=== PATIENT | male | born 1990 | race Caucasian/White ===

== ENCOUNTER 2020-07-07 23:03 | Inpatient (IN) | payer OTHER ==
[~2020-07-07] VITALS: Ht 170.2 cm; Wt 117.9 kg
--- NOTE | 2020-07-07 23:11 | NUR ---
oscar from [facility] for large amount of blood from trach during suctioning, pt noted on lovenox per medication list. , pt to bed 8, on vent/trache, denies any sob. pt aaox4, nonverbal, able to communicate, placed on monitor. pending er provider abigail
[2020-07-07 23:26] LABS: BASOPHILS % (AUTO) 0.3 % (0.0-2.0); EOSINOPHILS % (AUTO) 1.9 % (0.0-6.0); HEMATOCRIT 21 % (39-51); LYMPHOCYTES # (AUTO) 0.9 /CMM (0.8-4.8); LYMPHOCYTES % (AUTO) 8.6 % (20.0-44.0); MEAN CORPUSCULAR HGB CONC 33 g/dl (31.0-36.0); MEAN CORPUSCULAR VOLUME 93 fL (80-96); MONOCYTES # (AUTO) 0.7 /CMM (0.1-1.30); MONOCYTES % (AUTO) 6.3 % (2.0-12.0); NEUTROPHILS # (AUTO) 8.9 /CMM (1.8-8.9); NEUTROPHILS % (AUTO) 82.9 % (43.0-81.0); PLATELET COUNT (AUTO) 243 /CMM (150-450); RED BLOOD CELL COUNT(AUTO) 2.25 MIL/uL (4.5-6.0); WHITE BLOOD COUNT (AUTO) 10.7 K/uL (4.3-11.0)
[2020-07-07 23:28] LABS: HEMOGLOBIN 6.8 g/dL (13.5-17.5)
[2020-07-07 23:41] LABS: BILIRUBIN,URINE NEGATIVE (NEGATIVE); COLOR,URINE YELLOW (YELLOW); LEUKOCYTE ESTERASE ,URINE LARGE (NEGATIVE); NITRITE, URINE NEGATIVE (NEGATIVE); PH,URINE 6.5 (5.0-8.0); PROTEIN,URINE 30 mg/dl (NEGATIVE); UGLUCOSE NEGATIVE (NEGATIVE); UROBILINOGEN,URINE 0.2 EU/dL (0.2)
[2020-07-07 23:43] LABS: OCCULT BLOOD STOOL NEGATIVE (NEGATIVE)
[2020-07-07 23:47] LABS: BACTERIA,URINE Many /HPF (None Seen); RBC,URINE 51-80 /HPF (0-2); WBC,URINE 81-100 /HPF (0-3)
[2020-07-07 23:48] LABS: CALCIUM OXALATE CRYSTALS,UR Moderate /HPF (None Seen); SQUAMOUS EPITHELIAL CELL,UR Few /HPF (None Seen)
[2020-07-07] MEDS ORDERED: CEFTRIAXONE 1GM BAG (ER ONLY) 50 ML IV ONE (23:49)
[2020-07-07] MEDS ORDERED: AZITHROMYCIN 500 MG VIAL ONE (23:49)
[2020-07-08] VITALS (7 sets, daily range): BP systolic 96–117; BP diastolic 48–76
[2020-07-08] MEDS ORDERED: AZITHROMYCIN 500 MG in IV D5W 250 ML IV ONE
[2020-07-08] MEDS ORDERED: CEFTRIAXONE 1GM BAG (ER ONLY) 1 GM/50 ML PIGGYBACK IV ONE
[2020-07-08] MEDS ORDERED: ZOLPIDEM TARTRATE 5 MG TABLET PO PRN
[2020-07-08] MEDS ORDERED: MAGNESIUM HYDROXIDE 30 ML UDC PO PRN
[2020-07-08] MEDS ORDERED: ONDANSETRON HCL/PF 4 MG/2 ML VIAL IVP PRN
[2020-07-08] MEDS ORDERED: Z GUARD REMEDY 2 OZ OINT TP PRN
[2020-07-08 00:07] LABS: ALANINE AMINOTRANSFERASE 16 U/L (12-78); ALBUMIN 1.9 g/dL (3.4-5.0); ALKALINE PHOSPHATASE 311 U/L (46-116); ASPARTATE AMINOTRANSFERASE 30 U/L (15-37); BILIRUBIN,DIRECT 0.3 mg/dL (0.0-0.2); BILIRUBIN,TOTAL 0.6 mg/dL (0.2-1.0); CARBON DIOXIDE 39 mmol/L (21-32); CHLORIDE 97 mmol/L (98-107); CREATININE 1.7 mg/dL (0.6-1.3); GLUCOSE 113 mg/dL (74-106); LIPASE 109 U/L (73-393); POTASSIUM 4.7 mmol/L (3.5-5.1); SODIUM SERUM 135 mmol/L (136-145); TOTAL PROTEIN, SERUM 6.8 g/dL (6.4-8.2); UREA NITROGEN, BLOOD 63 mg/dL (7-18)
[2020-07-08 00:09] LABS: CALCIUM, SERUM 18.3 mg/dL (8.5-10.1)
--- NOTE | 2020-07-08 00:11 | NUR ---
rapid covid negative per lab
[2020-07-08] MEDS ORDERED: ENOX40DI SQ (00:12)
[2020-07-08] MEDS ORDERED: MULT-447 GT (00:12)
[2020-07-08] MEDS ORDERED: IPRA4AER IH ×2 (00:12)
[2020-07-08] MEDS ORDERED: PANT40TA2 GT (00:13)
[2020-07-08] MEDS ORDERED: SERT50TA GT (00:13)
[2020-07-08] MEDS ORDERED: CRAN3875 GT (00:13)
[2020-07-08] MEDS ORDERED: ASCO-352 GT (00:13)
[2020-07-08] MEDS ORDERED: ZINC220C6 GT (00:13)
[2020-07-08] MEDS ORDERED: protAMINE SULFATE 10 MG/ML VIAL IV ONE ×2 (00:25)
--- NOTE | 2020-07-08 01:09 | NUR ---
BLOOD TRANSFUSION STARTED 0100; VERIFIED WITH 2ND RN.
--- NOTE | 2020-07-08 01:15 | NUR ---
REPORT GIVEN TO SANDOR ALCARAZRETAIL SALES SPECIALIST FOR JAMES; PT WILL BE TRANSPORTED TO 1ST FLOOR
[2020-07-08 01:27] LABS: EOSINOPHILS % (MANUAL) 2 % (0-4); LYMPHOCYTES % (MANUAL) 11 % (16-48); METAMYELOCYTES % 2 % (0-0); MONOCYTES % (MANUAL) 2 % (0-11.0); NEUTROPHILS % (MANUAL) 83 (42-76)
--- NOTE | 2020-07-08 01:38 | NUR ---
PT TRANSPORTED TO [facility] VIA ACLS PROTOCOL.
--- NOTE | 2020-07-08 02:00 | NUR ---
RN NOTE RECEIVED PT AT 0140 FROM ER, ALERT AND ORIENTED, NON VERBAL. ON TRACH/VENT AC 16 TV 500 FIO2 40 % AND PEEP OF 5. NO SIGNS OF DISTRESS NOTED. DENIES SOB. GT IN PLACE AND PATENT. PICC LINE ON PADMINI, BLOOD TRANSFUSION ON GOING, NO S/SX OF REACTIONS NOTED. ORTIZ IN PLACE, DRAINING URINE BY GRAVITY, CLEAR YELLOW. PT WITH MULTIPLE PRESSURE INJURIES/OPEN WOUNDS WITH MODERATE DRAINAGE. DRESSINGS CHANGED. KEPT CLEAN AND COMFORTABLE. ALL SAFETY MEASURES IMPLEMENTED PER PROTOCOL. WILL CONTINUE TO MONITOR. BP 108/62 RR 16 P 111 T 99.1 O2SAT 96 %
--- NOTE | 2020-07-08 03:00 | NUR ---
RN NOTE BLOOD TRANSFUSION ON GOING. NO S/SX OF REACTIONS NOTED. BP 100/57, T 98.5 RR 16 P 113.
--- NOTE | 2020-07-08 04:40 | NUR ---
RN NOTE BLOOD TRANSFUSION DONE, NO SIGNS OF REACTIONS NOTED. NO DISTRESS NOTED. VS STABLE. REMAIN AFEBRILE. BP 101/36 RR 16 P 115 T 98.7. WILL CONTINUE TO MONITOR.
[2020-07-08] MEDS ORDERED: IV NS 0.9% 1,000 ML IV PRN (06:30)
[2020-07-08 06:32] LABS: BASOPHILS % (AUTO) 0.3 % (0.0-2.0); EOSINOPHILS % (AUTO) 1.3 % (0.0-6.0); HEMATOCRIT 23 % (39-51); HEMOGLOBIN 7.3 g/dL (13.5-17.5); LYMPHOCYTES # (AUTO) 1.4 /CMM (0.8-4.8); LYMPHOCYTES % (AUTO) 12.7 % (20.0-44.0); MEAN CORPUSCULAR HGB CONC 33 g/dl (31.0-36.0); MEAN CORPUSCULAR VOLUME 91 fL (80-96); MONOCYTES # (AUTO) 0.8 /CMM (0.1-1.30); MONOCYTES % (AUTO) 7.3 % (2.0-12.0); NEUTROPHILS # (AUTO) 8.6 /CMM (1.8-8.9); NEUTROPHILS % (AUTO) 78.4 % (43.0-81.0); PLATELET COUNT (AUTO) 217 /CMM (150-450); RED BLOOD CELL COUNT(AUTO) 2.48 MIL/uL (4.5-6.0); WHITE BLOOD COUNT (AUTO) 10.9 K/uL (4.3-11.0)
[2020-07-08 06:54] LABS: CREATININE 1.7 mg/dL (0.6-1.3); PHOSPHORUS 4.9 mg/dL (2.5-4.9); POTASSIUM 4.6 mmol/L (3.5-5.1)
--- NOTE | 2020-07-08 07:00 | NUR ---
RN NOTE CALLED PT FACILITY [facility] FOR PT GT FEEDING. MARCO ANTONIO TONY NOTIFIED, ORDERED TO CONTINUE GT FEEDING. ORDER NOTED AND CARRIED OUT.
--- NOTE | 2020-07-08 07:05 | NUR ---
RN CLOSING NOTE PT TOLERATING VENT SETTINGS. NO SIGNS OF DISTRESS NOTED. NEEDS ATTENDED. PICC LINE REMAIN PATENT AND INTACT. TELE MONITOR SHOWS SINUS TACH AT 115. DENIES PAIN AT THIS TIME. WILL ENDORSE TO NEXT SHIFT NURSE FOR JAMES.
[2020-07-08] MEDS ORDERED: PIPERACILLIN /TAZOBACTAM 4.5 G in IV D5W 50 ML IV ONE (07:30)
--- NOTE | 2020-07-08 07:30 | NUR ---
RN OPENING NOTE VENT TRACH PT LYING IN BED SEMIFOWLER'S A/Ox2-3. ABLE TO MOUTH WORDS, NON VERBAL. VENT SETTINGS AC 16 TV 500 FIO2 40 % AND PEEP OF 5, NO SIGNS OF RESP DISTRESS OR SOB NOTED. PT DENIES SOB, SPO2 94%. GT AUSCULTATED FOR POSITIVE PLACE, FLUSHED, PATENT AND INTACT, WILL BEGIN GTUBE FEED SOON JEVITY IS AVAILABLE PER MD ORDERS. PADMINI PICC LINE FLUSHED, INTACT, AND PATENT. PT RECEIVED 1 UNIT PRBC TRANSFUSION EARLY THIS MORNING, PT H/H IMPROVED TO 7.3/23 RESPECTIVELY. ORTIZ CATH IN PLACE, DRAINING CLEAR YELLOW URINE VIA GRAVITY. PT WITH MULTIPLE PRESSURE INJURIES/OPEN WOUNDS ON SACRUM, BUTTOCKS, AND POSTERIOR BILAT LEGS. DRSGS DRY AND INTACT. ALL PT SAFETY MEASURES IMPLEMENTED PER PROTOCOL. WILL CONTINUE TO MONITOR.
[2020-07-08 07:35] LABS: CALCIUM, SERUM 17.1 mg/dL (8.5-10.1)
[2020-07-08] MEDS ORDERED: VANCOMYCIN 1.25 GM in IV D5W 250 ML IV SCH (08:00)
--- NOTE | 2020-07-08 08:00 | NUR ---
RN NOTE DR VICK INFORMED OF PT'S CA LEVEL OF 17.1 AND PT IS IN SINUS TACHY 120s WITH 99.1 F TEMP
--- NOTE | 2020-07-08 08:10 | NUR ---
WOUND CARE CONSULT: REVIEWED CHART, NURSING DOCUMENTATION AND PHOTOS WHICH INDICATE MULTIPLE WOUNDS PRESENT ON ADMISSION. RECOMMEND SURGICAL AND DPM CONSULTS. DR TOLEDO AND DR STINSON NOTIFIED OF CONSULT REQUESTS. RECOMMENDATIONS MADE FOR SKIN PROTECTION. DISCUSSED WITH NURSING STAFF. FIRST STEP LOW AIRLOSS MATTRESS IS ON ORDER. MD IN AGREEMENT WITH PLAN OF CARE.
[2020-07-08] MEDS: ACETAMINOPHEN 325 MG TABLET PO PRN ×3 (09:00→20:29)
--- NOTE | 2020-07-08 09:00 | NUR ---
RN NOTE PT LOW GRADE FEVER NOTED, TYLENOL 650MG AND COOLING MEASURES IMPLEMENTED
[2020-07-08] MEDS ORDERED: POVI3780 TP (09:02)
[2020-07-08] MEDS ORDERED: CHLO473M5 MM (09:02)
[2020-07-08] MEDS ORDERED: EPOE40007 SQ (09:02)
[2020-07-08] MEDS ORDERED: SILV20CR13 TP (09:02)
[2020-07-08] MEDS ORDERED: ACET-2605 GT (09:02)
[2020-07-08] MEDS ORDERED: NA P133E RC (09:02)
[2020-07-08] MEDS ORDERED: MAGN400O6 GT ×2 (09:02)
[2020-07-08] MEDS ORDERED: POLY17PO4 GT (09:02)
[2020-07-08] MEDS ORDERED: ACET-868 GT (09:02)
[2020-07-08] MEDS ORDERED: ALLA266C2 TP (09:02)
[2020-07-08] MEDS: GLUCERNA 1.2 1,000 ML BOTTLE GT PRN (09:41)
[2020-07-08] MEDS: IV NS 0.9% 1,000 ML IV SCH ×2 (11:00→16:33)
--- NOTE | 2020-07-08 13:15 | NUR ---
RN NOTE REPORT GIVEN TO MELYSSA ALCARAZ AT RECEIVING FACILITY
[2020-07-08 13:58] LABS: ABG BASE EXCESS 10.7 mmol/L; ABG OXYGEN SATURATION 95.5 % (92.0-98.5); ABG PCO2 45.4 mmHg (35.0-45.0); ABG PH 7.503 (7.350-7.450); ABG PO2 76.3 mmHg (75.0-100.0); AaDO2 156.7 mmHg; COHb 1.6 % (0.5-1.5); SITE, ABG Left Radial; VENT MODE, BG AC 16 500 40% +5
[2020-07-08] MEDS: CALCITONIN,SALMON,SYNTHETIC 3.7 ML SPRAY.PUMP NS SCH (14:33)
--- NOTE | 2020-07-08 14:39 | NUR ---
RN NOTE PT REPORT GIVEN TO EMT. PT IN STABLE CONDITION FOR DISCHARGE
[2020-07-08] MEDS: PIPERACILLIN /TAZOBACTAM 3.375 G in IV D5W 100 ML IV SCH ×2 (14:45→22:54)
[2020-07-08] MEDS: SILVER SULFADIAZINE 50 GM JAR TP SCH (15:57)
[2020-07-08] MEDS: HYDROCODONE/APAP 5/325MG TABLET PO PRN (16:33)
[2020-07-08] MEDS ORDERED: CALCITONIN,SALMON INJ 400 UNITS/2 ML VIAL SQ SCH (17:00)
--- NOTE | 2020-07-08 17:00 | NUR ---
RN NOTE PT TEMP 100.3 F, NORCO 5/325 GIVEN FOR PAIN, WILL GIVE TYLENOL 650 SHORTLY, COOLING MEASURES IN PLACE
--- NOTE | 2020-07-08 19:17 | NUR ---
RN CLOSING NOTE PT IN STABLE CONDITION ON VENT SETTINGS PER MD ORDER. NO CHANGES TO PT DURING SHIFT. PT CONSENT OBTAINED FOR BLE WOUND DERBRIDEMENT WHILE WAS HERE. ALL PT SAFETY PRECAUTIONS IN PLACE, JAMES ENDORSED TO ONCOMING RN
[2020-07-08] MEDS: DAKINS QUARTER STRENGTH (0.125%) 480 ML BOTTLE TOP SCH (19:23)
--- NOTE | 2020-07-08 19:30 | NUR ---
RN OPENING NOTES: RECEIVED PT A/OX3 IN BED RESTING COMFORTABLY.PATIENT IN NO S/SX OF ACUTE DISTRESS AT THIS TIME. NO SOB NOTED. PATIENT'S BREATHING IS EVEN AND UNLABORED. PATIENT ON MECHANICAL VENT; SETTINGS PRESCRIBED; PT TOLERATED WELL. AMBU BAG AT BED SIDE ALARMS SET PER PROTOCOL AND AUDIBLE. VENT PLUGGED IN TO RED OUTLET. NO DISTRESS NOTED. PT ON MS STATUS. G TUBE FLUSHING AND PATENT; SITE CLEAN DRY AND INTACT; NO RESIDUAL NOTED; CONNECTED TO FEEDING OF GLUCERNA 1.2 CURRENTLY RUNNING @45ML/HR (GOAL @65ML/HR);TOLERATES WELL. NOTED IV SITE ON L UA PICC ; PATENT, INTACT AND FLUSHING WELL; NO S/S OF INFECTION OR INFILTRATION. WITH IV FLUID RUNNING ORDERED. ORTIZ CATH IN PLACE, MODERATE URINE OUTPUT NOTED SAFETY MEASURES HAVE BEEN PROVIDED AND IMPLEMENTED. PATIENT BED ALARM IS ON. HEAD OF BED ELEVATED. BED IS LOCKED, IN LOWEST POSITION AND SIDE RAILS UP. CALL LIGHT WITHIN REACH OF THE PATIENT. APPLICABLE ISOLATION PRECAUTIONS IN PLACE. WILL CONTINUE TO MONITOR AND REASSESS FOR ANY CHANGES AND WILL CARRY OUT ANY ONGOING AND ACTIVE MD ORDER.
[2020-07-08] MEDS ORDERED: VANCOMYCIN 1 GM in IV D5W 250 ML IV SCH (20:00)
[2020-07-08] MEDS: VANCOMYCIN HCL 0.75 GM in IV D5W 250 ML IV SCH (20:27)
--- NOTE | 2020-07-08 20:30 | NUR ---
NOTES NOTED PT'S TEMP 99.8@1999. PRN MEDS GIVEN AND COOLING MEASURES PROVIDED. SERVOMECHANISM DESIGNER MADE AWARE. WILL RE-EVALUATE AFTER 30 MINUTES- 1 HOUR. WILL CONTINUE TO MONITOR
[2020-07-08] MEDS ORDERED: CEFTRIAXONE 1 G in IV D5W 50 ML IV SCH (21:00)
--- NOTE | 2020-07-08 21:51 | NUR ---
RN NOTES PATIENT'S FAMILY CALLED TO GET UPDATES. SPOKE WITH ([phone]), PROVIDED GENERAL UPDATES ABOUT PT'S CONDITION. ADVISED PT'S RELATIVE TO CALLBACK IN THE MORNING TO TALK TO MD FOR MORE SPECIFIC INFO ABOUT TREATMENT PLAN. ASSURED PATIENT RELATIVE THAT WILL KEEP THEM POSTED FOR ANY SUDDEN CHANGES TO PT'S CONDITION. FAMILY VERY THANKFUL ABOUT CARE BEING PROVIDED TO THE PATIENT. RN ACKNOWLEDGED.
--- NOTE | 2020-07-08 23:00 | NUR ---
RN NOTES NO CHANGE IN PATIENT CONDITION AT THIS TIME PATIENT VITALS STABLE, NO SIGNS OF ACUTE RESPIRATORY DISTRESS. WILL CONTINUE TO MONITOR AND REASSESS FOR ANY CHANGES THROUGHOUT THE SHIFT.
[2020-07-09] VITALS (9 sets, daily range): BP systolic 102–117; BP diastolic 51–71
[2020-07-09] MEDS: IV NS 0.9% 1,000 ML IV SCH ×2 (00:20→07:00)
[2020-07-09] MEDS: HYDROCODONE/APAP 5/325MG TABLET PO PRN ×2 (02:49→17:07)
[2020-07-09] MEDS: PIPERACILLIN /TAZOBACTAM 3.375 G in IV D5W 100 ML IV SCH ×3 (06:05→23:03)
[2020-07-09 06:34] LABS: BASOPHILS % (AUTO) 0.5 % (0.0-2.0); EOSINOPHILS % (AUTO) 3.3 % (0.0-6.0); LYMPHOCYTES # (AUTO) 1.3 /CMM (0.8-4.8); LYMPHOCYTES % (AUTO) 14.6 % (20.0-44.0); MEAN CORPUSCULAR HGB CONC 33 g/dl (31.0-36.0); MEAN CORPUSCULAR VOLUME 91 fL (80-96); MONOCYTES # (AUTO) 0.7 /CMM (0.1-1.30); MONOCYTES % (AUTO) 7.9 % (2.0-12.0); NEUTROPHILS # (AUTO) 6.5 /CMM (1.8-8.9); NEUTROPHILS % (AUTO) 73.7 % (43.0-81.0); PLATELET COUNT (AUTO) 179 /CMM (150-450); WHITE BLOOD COUNT (AUTO) 8.8 K/uL (4.3-11.0)
--- NOTE | 2020-07-09 06:35 | NUR ---
RN NOTES PATIENT REMAINS IN NO ACUTE RESPIRATORY DISTRESS AT THIS TIME, NO CHANGES TO CONDITION/STATUS. AM PATIENT CARE DONE. WILL CONTINUE TO MONITOR AND REASSESS FOR ANY CHANGES THROUGHOUT THE SHIFT
[2020-07-09 06:45] LABS: HEMOGLOBIN 6.2 g/dL (13.5-17.5)
[2020-07-09 06:46] LABS: HEMATOCRIT 19 % (39-51)
--- NOTE | 2020-07-09 06:47 | NUR ---
RN NOTES RECEIVED CRITICAL LAB FROM LAB, SPOKE WITH JOSIE H&H 6.2 AND 19. WILL INFORM KENZIE HAWKINS AND CARRY OUT ORDER REQUESTED. COMMUNICATED WITH KENZIE HAWKINS AND ADVISED ABOUT C. LAB FOR H&H 6.2 AND 19. KENZIE HAWKINS ORDERED 1 UNIT PRBC. WILL CARRY OUT ORDER REQUESTED.
--- NOTE | 2020-07-09 07:00 | NUR ---
RN CLOSING NOTE: PATIENT REMAINS IN ROOM IN NO SIGNS OF RESPIRATORY DISTRESS; STILL ON VENT SETTING PER ORDERED. SAFETY MEASURES IMPLEMENTED, BED IN LOWEST POSITION, LOCKED, SIDE RAILS UP, CALL LIGHT WITHIN REACH. ALL NEEDS AND ORDERS ADDRESSED DURING THE SHIFT. IV ACCESS MAINTAINED INTACT, SECURED AND FLUSHING WELL. ALL DUE MEDS GIVEN ORDERED & SCHEDULED ; PATIENT TOLERATED WELL. PATIENT KEPT CLEAN AND COMFORTABLE WITHIN THE SHIFT. PATIENT ENDORSED TO INCOMING SHIFT RN WITH STABLE VITAL SIGN AND FOR CONTINUITY OF CARE.
--- NOTE | 2020-07-09 07:30 | NUR ---
RN OPENING NOTE VENT TRACH PT LYING IN BED SEMIFOWLER'S A/Ox2-3. ABLE TO MOUTH WORDS, NON VERBAL. VENT SETTINGS AC 12 TV 500 FIO2 40 % AND PEEP OF 5, NO SIGNS OF RESP DISTRESS OR SOB NOTED. PT DENIES SOB, SPO2 96%. GT AUSCULTATED FOR POSITIVE PLACE, FLUSHED, PATENT AND INTACT, JEVITY 1.2 @ 55ML/HR WITH NO RESIDUALS WILL INCREASE TO GOAL RATE 65 ML/HR. PADMINI PICC LINE FLUSHED, INTACT, AND PATENT. PT H/H CURRENTLY 6.04/15 RESPECTIVELY, WILL INFORM MD. ORTIZ CATH IN PLACE, DRAINING CLEAR YELLOW URINE VIA GRAVITY. PT WITH MULTIPLE PRESSURE INJURIES/OPEN WOUNDS ON SACRUM, BUTTOCKS, AND POSTERIOR BILAT LEGS. DRSGS DRY AND INTACT. ALL PT SAFETY MEASURES IMPLEMENTED PER PROTOCOL. WILL CONTINUE TO MONITOR.
[2020-07-09 07:41] LABS: ALBUMIN 1.5 g/dL (3.4-5.0); BILIRUBIN,TOTAL 0.5 mg/dL (0.2-1.0); CREATININE 1.8 mg/dL (0.6-1.3); MAGNESIUM 1.6 mg/dL (1.8-2.4); PHOSPHORUS 4.7 mg/dL (2.5-4.9); POTASSIUM 3.9 mmol/L (3.5-5.1); TOTAL PROTEIN, SERUM 5.7 g/dL (6.4-8.2)
[2020-07-09 07:46] LABS: CALCIUM, SERUM 13.8 mg/dL (8.5-10.1)
[2020-07-09 08:22] LABS: EOSINOPHILS % (MANUAL) 2 % (0-4); LYMPHOCYTES % (MANUAL) 15 % (16-48); MONOCYTES % (MANUAL) 8 % (0-11.0); NEUTROPHILS % (MANUAL) 75 (42-76)
--- NOTE | 2020-07-09 08:28 | NUR ---
RN NOTE INFORMED DR VICK OF PT'S H/H OF 6.04/15
[2020-07-09] MEDS: VANCOMYCIN HCL 0.75 GM in IV D5W 250 ML IV SCH ×2 (09:12→19:34)
[2020-07-09] MEDS: CALCITONIN,SALMON,SYNTHETIC 3.7 ML SPRAY.PUMP NS SCH (09:13)
[2020-07-09] MEDS: DAKINS QUARTER STRENGTH (0.125%) 480 ML BOTTLE TOP SCH (09:14)
[2020-07-09] MEDS: THERAHONEY GEL 1.5 OZ TUBE TP SCH (09:14)
[2020-07-09] MEDS ORDERED: Magnesium 1GM/D5W 100ML PREMIX 100 ML IV SCH (09:30)
[2020-07-09] MEDS: ACETAMINOPHEN 325 MG TABLET PO PRN (10:27)
[2020-07-09] MEDS: IV NS 0.9% 1,000 ML IV PRN ×2 (13:23→20:10)
--- NOTE | 2020-07-09 14:10 | NUR ---
RN NOTE PT TRANSFUSED 1 UNIT PRBC WITH NO COMPLICATIONS. PT VITALS WNL, PT STABLE ON ORDERED VENT SETTINGS WITH NO S/S OF SOB OR RESP DISTRESS. ALL PT SAFETY PRECAUTIONS IN PLACE, WILL CONT TO MONITOR
[2020-07-09] MEDS: GLUCERNA 1.2 1,000 ML BOTTLE GT PRN (15:40)
--- NOTE | 2020-07-09 19:00 | NUR ---
RN CLOSING NOTE PT TRANSFUSED 1 UNIT PRBC TODAY, TOLERATED WELL, F/U H/H TOMORROW. PT ON VENT SETTINGS PER MD ORDER, TOLERATING WELL, NO S/S OF SOB OR RESP DEPRESSION, SPO2 96%. ALL PT SAFETY PRECAUTIONS IN PLACE, WILL ENDORSE JAMES TO ONCOMING NURSE
--- NOTE | 2020-07-09 19:35 | NUR ---
MED NOTE: VANCOMYCIN HELD LEVEL IS 27.
[2020-07-10] VITALS: BP 115/61
[2020-07-10 04:00] VITALS: BP 120/60
[2020-07-10] MEDS: IV NS 0.9% 1,000 ML IV PRN (04:43)
[2020-07-10] MEDS: PIPERACILLIN /TAZOBACTAM 3.375 G in IV D5W 100 ML IV SCH ×3 (06:00→22:46)
[2020-07-10] MEDS: HYDROCODONE/APAP 5/325MG TABLET PO PRN ×2 (06:07→20:47)
--- NOTE | 2020-07-10 07:20 | NUR ---
RN OPENING NOTES RECEIVED PT RESTING IN BED, AWAKE. A/O X2-3. ABLE TO MOUTH WORDS. ON TRACH CONNECTED TO [facility] VENT, SETTINGS AC 12, TV 500, FIO2 40%, AND PEEP 5. TOLERATING VENT SETTINGS WELL. BED ON SEMI ALLRED'S. GT AUSCULTATED FOR POSITIVE PLACEMENT, RUNNING JEVITY 1.2 @55ML/HR WITH NO RESIDUALS. PADMINI PICC LINE INTACT, AND PATENT, RUNNING NS @150ML/HR. ORTIZ CATH IN PLACE DRAINING CLEAR YELLOW URINE VIA GRAVITY. SAFETY MEASURES IMPLEMENTED. CALL LIGHT WITHIN REACH. BED LOCKED AND AT LOWEST POSITION WITH SIDE RAILS UP X3. WILL CONTINUE TO MONITOR.
[2020-07-10 08:00] VITALS: BP 104/55
[2020-07-10 08:20] LABS: ALBUMIN 1.6 g/dL (3.4-5.0); BILIRUBIN,TOTAL 0.5 mg/dL (0.2-1.0); CREATININE 2.1 mg/dL (0.6-1.3); POTASSIUM 4.1 mmol/L (3.5-5.1); TOTAL PROTEIN, SERUM 6.2 g/dL (6.4-8.2)
[2020-07-10 08:21] LABS: CALCIUM, SERUM 14.6 mg/dL (8.5-10.1)
[2020-07-10] MEDS: GLUCERNA 1.2 1,000 ML BOTTLE GT PRN (09:34)
[2020-07-10] MEDS: SILVER SULFADIAZINE 50 GM JAR TP SCH (09:35)
[2020-07-10] MEDS: DAKINS QUARTER STRENGTH (0.125%) 480 ML BOTTLE TOP SCH (09:35)
[2020-07-10] MEDS: THERAHONEY GEL 1.5 OZ TUBE TP SCH (09:35)
[2020-07-10] MEDS: CALCITONIN,SALMON,SYNTHETIC 3.7 ML SPRAY.PUMP NS SCH (09:35)
[2020-07-10] MEDS: IV NS 0.9% 1,000 ML IV SCH ×2 (10:05→20:46)
[2020-07-10 10:54] LABS: ABG BASE EXCESS 8.1 mmol/L; ABG OXYGEN SATURATION 92.5 % (92.0-98.5); ABG PCO2 52.5 mmHg (35.0-45.0); ABG PH 7.425 (7.350-7.450); AaDO2 156.8 mmHg; COHb 0.9 % (0.5-1.5); MetHb 0.7 % (0.0-1.5); PEEP,BG 5 cm H2O; SITE, ABG Left Radial; VT, ABG 500 mL
[2020-07-10 12:00] VITALS: BP 125/64
[2020-07-10] MEDS: ALBUTEROL FS 2.5 MG/0.5 ML VIAL.NEB NEB SCH ×4 (12:00→23:30)
[2020-07-10 13:24] LABS: BASOPHILS # (AUTO) 0.1 /CMM (0.0-0.2); BASOPHILS % (AUTO) 0.9 % (0.0-2.0); HEMATOCRIT 23 % (39-51); HEMOGLOBIN 7.5 g/dL (13.5-17.5); LYMPHOCYTES # (AUTO) 1.4 /CMM (0.8-4.8); LYMPHOCYTES % (AUTO) 12.5 % (20.0-44.0); MEAN CORPUSCULAR HGB CONC 33 g/dl (31.0-36.0); MEAN CORPUSCULAR VOLUME 91 fL (80-96); MONOCYTES # (AUTO) 0.6 /CMM (0.1-1.30); MONOCYTES % (AUTO) 5.6 % (2.0-12.0); NEUTROPHILS # (AUTO) 8.4 /CMM (1.8-8.9); PLATELET COUNT (AUTO) 207 /CMM (150-450); WHITE BLOOD COUNT (AUTO) 10.9 K/uL (4.3-11.0)
[2020-07-10] MEDS: JEVITY 1.2 CAL 1,000 ML BOTTLE GT PRN (15:26)
[2020-07-10 16:00] VITALS: BP 108/52
--- NOTE | 2020-07-10 18:48 | NUR ---
RN CLOSING NOTES NO SIGNIFICANT CHANGES DURING SHIFT. TOLERATING VENT SETTINGS WELL. NO S/S OF RESPIRATORY DISTRESS. ALL DUE MEDS GIVEN. NEEDS ATTENDED. SAFETY MEASURES STILL IN PLACE. WILL ENDORSE TO NIGHT RN FOR JAMES.
[2020-07-10 20:00] VITALS: BP 115/53
[2020-07-11] MEDS: ALBUTEROL FS 2.5 MG/0.5 ML VIAL.NEB NEB SCH ×5 (03:43→19:47)
[2020-07-11 04:00] VITALS: BP 108/50
[2020-07-11] MEDS: HYDROCODONE/APAP 5/325MG TABLET PO PRN ×3 (05:13→14:45)
[2020-07-11] MEDS: IV NS 0.9% 1,000 ML IV SCH (06:03)
[2020-07-11 07:06] LABS: *SPE A/G RATIO 0.6 (0.7-1.7); *SPE ALBUMIN 2.2 g/dL (2.9-4.4); *SPE ALPHA-1-GLOBULIN 0.5 g/dL (0.0-0.4); *SPE ALPHA-2-GLOBULIN 0.9 g/dL (0.4-1.0); *SPE BETA GLOBULIN 0.7 g/dL (0.7-1.3); *SPE GLOBULIN, TOTAL 3.7 g/dL (2.2-3.9); *SPE M-SPIKE 0.2 g/dL (Not Observed); *SPEGAMMA GLOBULIN 1.6 g/dL (0.4-1.8)
--- NOTE | 2020-07-11 07:20 | NUR ---
SACK CLEANER OPENING NOTES RECEIVED REPORT FROM PM NURSE.PT IN BED, AWAKE. A/O X2-3. ABLE TO MOUTH WORDS. HAS TRACH TO MECH VENT, TOLERATING VENT SETTINGS WELL. BED ON SEMI ALLRED'S POSITION. GT AUSCULTATED FOR POSITIVE PLACEMENT, RUNNING JEVITY 1.2 @55ML/HR WITH 15 RESIDUALS. PADMINI PICC LINE INTACT, AND PATENT, RUNNING NS . ORTIZ CATH IN PLACE DRAINING CLEAR YELLOW URINE VIA GRAVITY. SAFETY MEASURES IMPLEMENTED. CALL LIGHT WITHIN REACH. BED LOCKED AND AT LOWEST POSITION WITH SIDE RAILS UP X3. BED ALARM ON.WILL CONTINUE TO MONITOR.
[2020-07-11 07:38] LABS: ALBUMIN 1.5 g/dL (3.4-5.0); BILIRUBIN,TOTAL 0.5 mg/dL (0.2-1.0); CREATININE 2.2 mg/dL (0.6-1.3)
[2020-07-11 07:50] LABS: CALCIUM, SERUM 14.6 mg/dL (8.5-10.1)
[2020-07-11] MEDS: PIPERACILLIN /TAZOBACTAM 3.375 G in IV D5W 100 ML IV SCH (07:51)
[2020-07-11 08:00] VITALS: BP 109/56
[2020-07-11 08:03] LABS: BASOPHILS % (AUTO) 0.5 % (0.0-2.0); EOSINOPHILS % (AUTO) 3.9 % (0.0-6.0); HEMATOCRIT 21 % (39-51); LYMPHOCYTES # (AUTO) 1.3 /CMM (0.8-4.8); LYMPHOCYTES % (AUTO) 12.8 % (20.0-44.0); MEAN CORPUSCULAR HGB CONC 33 g/dl (31.0-36.0); MEAN CORPUSCULAR VOLUME 90 fL (80-96); MONOCYTES # (AUTO) 0.6 /CMM (0.1-1.30); MONOCYTES % (AUTO) 6.5 % (2.0-12.0); NEUTROPHILS # (AUTO) 7.5 /CMM (1.8-8.9); NEUTROPHILS % (AUTO) 76.3 % (43.0-81.0); PLATELET COUNT (AUTO) 184 /CMM (150-450); RED BLOOD CELL COUNT(AUTO) 2.36 MIL/uL (4.5-6.0); WHITE BLOOD COUNT (AUTO) 9.8 K/uL (4.3-11.0)
[2020-07-11] MEDS: CALCITONIN,SALMON,SYNTHETIC 3.7 ML SPRAY.PUMP NS SCH (08:05)
[2020-07-11] MEDS: DAKINS QUARTER STRENGTH (0.125%) 480 ML BOTTLE TOP SCH (08:07)
[2020-07-11] MEDS: SILVER SULFADIAZINE 50 GM JAR TP SCH (08:07)
[2020-07-11] MEDS: THERAHONEY GEL 1.5 OZ TUBE TP SCH (08:08)
[2020-07-11 09:00] LABS: BAND % (MANUAL) 4 % (0.0-5.0); EOSINOPHILS % (MANUAL) 8 % (0-4); LYMPHOCYTES % (MANUAL) 14 % (16-48); MONOCYTES % (MANUAL) 2 % (0-11.0); MYELOCYTES % 1 % (0-0); NEUTROPHILS % (MANUAL) 71 (42-76)
--- NOTE | 2020-07-11 10:00 | NUR ---
RN NOTE SEEN BY ,UPDATED ABOUT PATIENT CONDITION WITH LABS.MADE AWARE ABOUT MED RECONCILIATION.WILL CONTINUE TO MONITOR.
[2020-07-11 12:00] VITALS: BP 110/56
[2020-07-11] MEDS ORDERED: DOSING PER PHARMACY-AMIKACI IV XX PRN (12:30)
[2020-07-11] MEDS: JEVITY 1.2 CAL 1,000 ML BOTTLE GT PRN (13:03)
[2020-07-11] MEDS ORDERED: FUROSEMIDE 20 MG/2 ML VIAL IV ONE (13:30)
[2020-07-11] MEDS ORDERED: PAMIDRONATE 90 MG in IV NS 0.9% 500 ML IV ONE (14:00)
[2020-07-11 16:00] VITALS: BP 104/52
--- NOTE | 2020-07-11 17:00 | NUR ---
NURSE PRIVATE DUTY NOTE PATIENT REFUSED TO CHANGE ORTIZ CATH.TOLD HE WANT TO DO IT LATER.WILL TRY LATER.
[2020-07-11] MEDS: AMIKACIN 500 MG in IV D5W 100 ML IV SCH (17:47)
[2020-07-11] MEDS: IV NS 0.9% 1,000 ML IV PRN (17:48)
--- NOTE | 2020-07-11 18:20 | NUR ---
WASHHOUSE HAND CLOSING NOTES PT IN BED, AWAKE. A/O X2-3. ABLE TO MOUTH WORDS. [facility]ACH [facility], TOLERATING VENT SETTINGS WELL. BED ON SEMI ALLRED'S POSITION. GT AUSCULTATED FOR POSITIVE PLACEMENT, RUNNING JEVITY 1.2 @55ML/HR . PADMINI PICC LINE INTACT, AND PATENT, RUNNING NS . ORTIZ CATH IN PLACE DRAINING CLEAR YELLOW URINE VIA GRAVITY. SAFETY MEASURES IMPLEMENTED. CALL LIGHT WITHIN REACH. BED LOCKED AND AT LOWEST POSITION WITH SIDE RAILS UP X3. BED ALARM ON.REFUSED TO CHANGE ORTIZ CATH.WILL ENDORSE TO PM NURSE FOR JAMES.
[2020-07-11 20:00] VITALS: BP 120/66
--- NOTE | 2020-07-11 20:00 | NUR ---
DRAW TENDER NOTE PT IN BED AWAKE. A/O X 3. ON VENT/TRACH TOLERATING THE SETTINGS WELL. SUCTIONED HIM NEEDED. STILL NOTED PT WITH DARKISH REDISH SECRETIONS ON SUCTIONED. NO DISTRESS OR DISCOMFORT NOTED. NO S/S OF PAIN NOTED. ON TELE SR HR 94. GTF GLUCERNA INFUSING AT 65 ML/HR, 0 ML RESIDUAL NOTED. PADMINI PICC LINE INTACT AND PATENT INFUSING NS @ 100 ML/HR. REPOSITIONED HIM FOR SKIN MANAGEMENT. KEPT HIM DRY AND CLEAN. VSS. CONTINUE TO MONITOR HIM. SIDE RAILS UP X 3 CALL LIGHT WITHIN REACH. Addendum: 07/12/20 at 0613 by NIKITA JEFFERS RN not glucerna it's jevity 1.2 anurag infusing.
--- NOTE | 2020-07-11 20:30 | NUR ---
MEDICAL VOUCHER CLERK NOTE PT REFUSED TO CHANGE F/C. TRIED TO CONVINCE HIM X3 BUT UNABLE TO CONVINCED HIM.
[2020-07-12] VITALS (10 sets, daily range): BP systolic 118–138; BP diastolic 53–74
[2020-07-12] MEDS: ALBUTEROL FS 2.5 MG/0.5 ML VIAL.NEB NEB SCH ×8 (00:22→23:30)
[2020-07-12] MEDS: JEVITY 1.2 CAL 1,000 ML BOTTLE GT PRN (05:30)
[2020-07-12] MEDS: IV NS 0.9% 1,000 ML IV PRN ×2 (05:30→15:11)
[2020-07-12 06:31] LABS: BASOPHILS % (AUTO) 0.3 % (0.0-2.0); EOSINOPHILS % (AUTO) 3.6 % (0.0-6.0); HEMATOCRIT 21 % (39-51); LYMPHOCYTES # (AUTO) 1.4 /CMM (0.8-4.8); LYMPHOCYTES % (AUTO) 12.1 % (20.0-44.0); MEAN CORPUSCULAR HGB CONC 32 g/dl (31.0-36.0); MEAN CORPUSCULAR VOLUME 91 fL (80-96); MONOCYTES # (AUTO) 0.7 /CMM (0.1-1.30); MONOCYTES % (AUTO) 5.9 % (2.0-12.0); NEUTROPHILS # (AUTO) 9.3 /CMM (1.8-8.9); NEUTROPHILS % (AUTO) 78.1 % (43.0-81.0); PLATELET COUNT (AUTO) 199 /CMM (150-450); RED BLOOD CELL COUNT(AUTO) 2.34 MIL/uL (4.5-6.0); WHITE BLOOD COUNT (AUTO) 11.9 K/uL (4.3-11.0)
--- NOTE | 2020-07-12 06:42 | NUR ---
TRUCK JUMPER NOTE PT IN BED NO CHANGE IN CONDITION. TOLERATING VENT SETTINGS WELL. SMALL AMOUNT OF DARK REDDISH COLOR SECRETIONS NOTED ON SUCTIONING. NO DISTRESS OR DISCOMFORT NOTED. ON TELE ST HR 107. KEPT HIM DRY AND CLEAN. BED BATH GIVEN. ALSO CHANGED THE WOUND DRESSINGS. ALL NEEDS ATTENDED. GTF AND IVF INFUSING WELL. SIDE RAILS UP X 3 AND CALL LIGHT WITHIN REACH. WILL ENDORSE TO DAY SHIFT NURSE FOR CONTINUE TO CARE.
[2020-07-12 06:54] LABS: ALBUMIN 1.6 g/dL (3.4-5.0); BILIRUBIN,TOTAL 0.4 mg/dL (0.2-1.0); CREATININE 2.2 mg/dL (0.6-1.3); POTASSIUM 4.3 mmol/L (3.5-5.1); TOTAL PROTEIN, SERUM 6.3 g/dL (6.4-8.2)
--- NOTE | 2020-07-12 07:00 | NUR ---
RN NOTES RECEIVED PT ON BED, VENT/TRACH DEPENDENT, TRACH CARE DONE, PT IS A/Ox3, ON TELE SR-ST, TF AT 65CC/HR RUNNING , NO RESIDUAL NOTED, NS AT 100CC/HR RUNNING VIA L UPPER ARM PICC LINE , SITE, CLEAN, DRY INTACT, SR UP x3, CALL LIGHT WITHIN EASY REACH, BED LOCKED AND IN LOWEST POSITION, CONTINUE TO MONITOR.
[2020-07-12 07:21] LABS: CALCIUM, SERUM 14.7 mg/dL (8.5-10.1)
[2020-07-12 07:33] LABS: HEMOGLOBIN 6.8 g/dL (13.5-17.5)
[2020-07-12] MEDS: DAKINS QUARTER STRENGTH (0.125%) 480 ML BOTTLE TOP SCH (10:09)
[2020-07-12] MEDS: SILVER SULFADIAZINE 50 GM JAR TP SCH (10:10)
[2020-07-12] MEDS: THERAHONEY GEL 1.5 OZ TUBE TP SCH (10:12)
[2020-07-12] MEDS: AMIKACIN 500 MG in IV D5W 100 ML IV SCH (12:28)
--- NOTE | 2020-07-12 14:10 | NUR ---
RN NOTES ONE UNIT OF PRBC INFUSED , PT TOLERATED WELL, NO COMPLICATION NOTED,
--- NOTE | 2020-07-12 15:29 | NUR ---
RN NOTES REPORT GIVEN TO CAROL ALCARAZ FOR CONTINITUY OF CARE
[2020-07-12] MEDS: ACETAMINOPHEN 325 MG TABLET PO PRN (15:33)
--- NOTE | 2020-07-12 15:43 | NUR ---
RN NOTE PT TEMP OF 100.2 F, TYLENOL 650MG AND COOLING MEASURES IN PLACE
--- NOTE | 2020-07-12 15:44 | NUR ---
RN NOTE PT CARE TRANSFERRED OVER, REPORT GIVEN BY BYRON ALCARAZ
[2020-07-12] MEDS: HYDROCODONE/APAP 5/325MG TABLET PO PRN (17:53)
--- NOTE | 2020-07-12 19:00 | NUR ---
RN CLOSING NOTE PT IN STABLE CONDITION. WOUND CARE PROVIDED PER MD ORDERS. PT ON VENT SETTINGS PER MD ORDERS, TOLERATING WELL. PT RECEIVED 1 UNIT PRBC PRIOR TO BEING TRANSFERRED CARE TO [place], NO COMPLICATIONS. ALL PT SAFETY PRECAUTIONS IN PLACE, WILL ENDORSE JAMES TO ONCOMING RN
--- NOTE | 2020-07-12 19:10 | NUR ---
RECEIVED PT ON BED AWAKE AA/O X3 ON TRACH/VENT SETTING PER MD FIO2 50% SPO2 98% NO RESPIRATORY DISTRESS NOTED, BLOOD TINGE SECRETION STILL NOTED RT AND MD AWARE, TELE MONITOR READS SINUS TACHY 110'S HAVE GTUBE PLACEMENT CHECK RESIDUAL 10ML WITH ONGOING JEVITY @ 65ML/HR TOLERATING WELL, HAVE PADMINI PICC LINE WITH ONGOING NS @ 75ML/HR INFUSING WELL, BED ON LOWEST POSITION AND LOCKED HAVE ORTIZ WITH YELLOW URINE DRAINING VIA GRAVITY, CALL LIGHT WITHIN REACH WILL CONT TO MONITOR
--- NOTE | 2020-07-12 20:00 | NUR ---
PT IS COMPLAINING OF GENERALIZED BODY PAIN DESPITE GETTING NORCO @ 1830 REPORTED IT TO ONCAMIRAH HAU SHANK SCOURER WITH ORDER FOR MORPHINE 4MG X1 NOTED AND CARRIED OUT
[2020-07-12] MEDS ORDERED: MORPHINE SULFATE INJ 4 MG/ML DISP.SYRIN IV ONE (20:30)
[2020-07-13] VITALS: BP 127/70
[2020-07-13] MEDS: HYDROCODONE/APAP 5/325MG TABLET PO PRN (01:06)
[2020-07-13] MEDS: IV NS 0.9% 1,000 ML IV PRN ×2 (02:31→16:25)
[2020-07-13] MEDS: MORPHINE SULFATE INJ 2 MG/ML DISP.SYRIN IV PRN ×4 (02:35→23:08)
[2020-07-13] MEDS: JEVITY 1.2 CAL 1,000 ML BOTTLE GT PRN ×2 (02:36→16:17)
[2020-07-13] MEDS: ALBUTEROL FS 2.5 MG/0.5 ML VIAL.NEB NEB SCH ×5 (03:29→20:12)
[2020-07-13 04:00] VITALS: BP 110/61
[2020-07-13] MEDS: AMIKACIN 500 MG in IV D5W 100 ML IV SCH (05:13)
[2020-07-13 05:51] LABS: BASOPHILS % (AUTO) 0.4 % (0.0-2.0); EOSINOPHILS % (AUTO) 2.8 % (0.0-6.0); HEMATOCRIT 24 % (39-51); HEMOGLOBIN 7.9 g/dL (13.5-17.5); LYMPHOCYTES # (AUTO) 1.1 /CMM (0.8-4.8); LYMPHOCYTES % (AUTO) 10.4 % (20.0-44.0); MEAN CORPUSCULAR HGB CONC 32 g/dl (31.0-36.0); MEAN CORPUSCULAR VOLUME 91 fL (80-96); MONOCYTES # (AUTO) 0.5 /CMM (0.1-1.30); MONOCYTES % (AUTO) 5.3 % (2.0-12.0); NEUTROPHILS # (AUTO) 8.5 /CMM (1.8-8.9); NEUTROPHILS % (AUTO) 81.1 % (43.0-81.0); PLATELET COUNT (AUTO) 201 /CMM (150-450); RED BLOOD CELL COUNT(AUTO) 2.67 MIL/uL (4.5-6.0); WHITE BLOOD COUNT (AUTO) 10.4 K/uL (4.3-11.0)
[2020-07-13 06:15] LABS: ALBUMIN 1.5 g/dL (3.4-5.0); BILIRUBIN,TOTAL 0.4 mg/dL (0.2-1.0); CREATININE 2.1 mg/dL (0.6-1.3); POTASSIUM 3.8 mmol/L (3.5-5.1); TOTAL PROTEIN, SERUM 6.1 g/dL (6.4-8.2)
--- NOTE | 2020-07-13 06:40 | NUR ---
PT ON BED ASLEEP EASY TO WAKE UP, TOLERATING VENT SETTING SPO2 100% NO SIGN OF DISTRESS,BLOOD TINGE SECRETION STILL NOTED, TELE MONITOR READS SINUS TACHY 100'S NO SIGNIFICANT CHANGES ON CONDITION NOTED ALL NEEDS ATTENDED, SAFETY MEASURE MAINTAIN BED ON LOWEST POSITION AND LOCKED SIDE RAILS UP X 2, WOUND TREATMENT AND TRACH CARE DONE, WILL ENDORSED TO AM SHIFT
[2020-07-13 06:41] LABS: CALCIUM, SERUM 13.1 mg/dL (8.5-10.1)
--- NOTE | 2020-07-13 07:49 | NUR ---
RT Pt received trached on mechanical ventilation with noted settings. FiO2 increased due to low SpO2. Vent is plugged into red outlet, spare trach by bedside. No SOB or respiratory distress noted. Addendum: 07/13/20 at 1003 by NICK RIDER RT Amended: Links added.
[2020-07-13 08:00] VITALS: BP 140/71
[2020-07-13] MEDS: SILVER SULFADIAZINE 50 GM JAR TP SCH (09:20)
[2020-07-13] MEDS: DAKINS QUARTER STRENGTH (0.125%) 480 ML BOTTLE TOP SCH (09:20)
[2020-07-13] MEDS: THERAHONEY GEL 1.5 OZ TUBE TP SCH (09:20)
[2020-07-13 12:00] VITALS: BP 126/62
[2020-07-13 16:00] VITALS: BP 129/76
--- NOTE | 2020-07-13 19:30 | NUR ---
RN NOTE RECEIVED PATIENT IN BED, AO X3-4, IN NO S/SX OF ACUTE DISTRESS AT THIS TIME. PATIENT TRACH CONNECTED TO MECHANICAL VENT; WITH SETTINGS PRESCRIBED, SATURATION AT 98%, AMBU BAG AT BED SIDE ALARMS SET PER PROTOCOL AND AUDIBLE. VENT PLUGGED IN TO RED OUTLET. ST ON THE MONITOR, HR IS 117. G TUBE FLUSHING AND PATENT; SITE CLEAN DRY AND INTACT; NO RESIDUAL NOTED; CONNECTED TO FEEDING OF JEVITY 1.2 CURRENTLY RUNNING AT 65 ML/HR. NOTED L UA PICC LINE, ALL HUBS PATENT AND FLUSHING WELL, NO S/S OF INFECTION, WITH IV FLUID OF NS INFUSING AT 75 ML/HR. ORTIZ CATHETER CONNECTED TO URINE BAG IN PLACE, DRAINING TO A CLEAR, YELLOW OUTPUT. SAFETY MEASURES IMPLEMENTED. PATIENT BED ALARM IS ON. HEAD OF BED ELEVATED. BED IS LOCKED, IN LOWEST POSITION AND SIDE RAILS UP. CALL LIGHT WITHIN REACH OF THE PATIENT. APPLICABLE ISOLATION PRECAUTIONS IN PLACE. WILL CONTINUE TO MONITOR AND REASSESS FOR ANY CHANGES AND WILL CARRY OUT ANY ONGOING AND ACTIVE MD ORDER.
--- NOTE | 2020-07-13 19:33 | NUR ---
END OF SHIFT NOTE: PT ALERT OX4, FAMILY VISITED TODAY, APPEARS SUPPORTIVE. CONSENT SIGNED FOR TRACH REPLACEMENT. RN CALLED DR. LOREDO OFFICE TO FIND OUT WHEN TRACH WILL BE REPLACED. SCHEDULING STAFF STATED IT IS NOT ON THE SCHEDULE BUT THEY WILL CALL THE DR AND ASK HIM AND GET BACK TO US. NO RETURN CALL OF THIS TIME. MORPHINE GIVEN FOR PAIN PER MD ORDERS X2 THIS SHIFT. PT CHECKED ON HOURLY AND PRN BY NURSING STAFF.
[2020-07-13 20:00] VITALS: BP 125/68
[2020-07-14] VITALS (7 sets, daily range): BP systolic 121–145; BP diastolic 64–85
[2020-07-14] MEDS: ALBUTEROL FS 2.5 MG/0.5 ML VIAL.NEB NEB SCH ×7 (00:15→23:16)
[2020-07-14] MEDS: AMIKACIN 500 MG in IV D5W 100 ML IV SCH ×2 (00:16→17:15)
[2020-07-14] MEDS: MORPHINE SULFATE INJ 2 MG/ML DISP.SYRIN IV PRN ×5 (03:22→20:02)
[2020-07-14 06:09] LABS: CALCIUM, SERUM 12.5 mg/dL (8.5-10.1); CREATININE 1.9 mg/dL (0.6-1.3); POTASSIUM 4.1 mmol/L (3.5-5.1)
--- NOTE | 2020-07-14 07:40 | NUR ---
RN OPENING NOTE PATIENT IS CURRENTLY IN BED WITH HOB AT SEMI FOWLERS POSITION. PATIENT IS ALERT AND ORIENTED. PATIENT IS ON TRACH/VENT WITH NO SIGNS OF LABORED BREATHING. GTUBE IS IN PLACE. PADMINI PICC LINE IS PATENT AND INTACT. BED IS LOCKED IN THE LOWEST POSITION, 3 GUARD RAILS RAISED, CALL KATHLEEN WITHIN REACH, AND ALL HOSPITAL SAFETY PRECAUTIONS ARE BEING FOLLOWED. WILL CONTINUE TO MONITOR THROUGHOUT SHIFT.
[2020-07-14] MEDS: DAKINS QUARTER STRENGTH (0.125%) 480 ML BOTTLE TOP SCH (09:59)
[2020-07-14] MEDS: SILVER SULFADIAZINE 50 GM JAR TP SCH (09:59)
[2020-07-14] MEDS: THERAHONEY GEL 1.5 OZ TUBE TP SCH (09:59)
--- NOTE | 2020-07-14 10:00 | NUR ---
RT ASSISTED ENT ON CHANGING TRACH FROM BIV[place] TO SHILEY # 7 XLT PROXIMAL. NOTED BLEEDING FROM STOMA, ABLE TO PASS SX CATHETER. VAUGHN CHST RISE. PT GETTING PROPER VT. PLACED AN EMERGENCY BACK UP TRACH BEDSIDE. NO SIGNS OF RESP DISTRESS OR SOB NOTED. WILL CONTINUE TO MONITOR T.O SHIFT,
[2020-07-14] MEDS: JEVITY 1.2 CAL 1,000 ML BOTTLE GT PRN (10:03)
[2020-07-14] MEDS ORDERED: FUROSEMIDE 20 MG/2 ML VIAL IV ONE (11:00)
--- NOTE | 2020-07-14 14:17 | NUR ---
RN NOTE ASKED PATIENT IF IT WAS OKAY TO CHANGE WOUND DRESSINGS AT THIS TIME. PATIENT REFUSED AT CURRENT TIME. WILL ATTEMPT AGAIN LATER IN SHIFT.
--- NOTE | 2020-07-14 18:52 | NUR ---
RN CLOSING NOTE PATIENT IS CURRENTLY IN BED WITH HOB AT SEMI FOWLERS POSITION. PATIENT IS ALERT AND ORIENTED. PATIENT IS ON TRACH/VENT WITH NO SIGNS OF LABORED BREATHING. GTUBE IS IN PLACE. PADMINI PICC LINE IS PATENT AND INTACT. BED IS LOCKED IN THE LOWEST POSITION, 3 GUARD RAILS RAISED, CALL KATHLEEN WITHIN REACH, AND ALL HOSPITAL SAFETY PRECAUTIONS ARE BEING FOLLOWED. ALL DUE MEDS GIVEN AND PATIENT REMAINED STABLE THROUGHOUT SHIFT. WILL ENDORSE TO ACADEMIC ADMINISTRATOR RN FOR JAMES.
--- NOTE | 2020-07-14 19:30 | NUR ---
EXCEPTIONAL CHILDREN TEACHER OPENING NOTE RECEIVED PATIENT IN BED. A/OX3. CUFFED AND IS MOUTHING WORDS. ON MECHANICAL VENT. SHILEY 7 XLT PROXIMAL SETTINGS: AC12 TV 500 FIO2 40 PEEP5. IN NO RESP DISTRESS. C/O PAIN, TRIED TO REPOSITION PATIENT. STATES PAIN 8/10 IN BILATERAL KNEES, HIPS AND BACK. WILL ASSESS BP AND SEE WHEN PAIN MEDICATION IS DUE. TELE MONITOR READS SINUS TACHYCARDIA HR 119. IN NO APPARENT DISTRESS. IV ACCESS IN PADMINI PIC LINE PATENT AND SALINE LOCKED. GTUBE IS PRESENT, NO RESIDUAL, FLUSHED WITH NO RESISTANCE, RUNNING JEVITY @65ML/HR. ORTIZ CATHETER PRESENT, DRAINING TO GRAVITY. BED IS LOW AND LOCKED, HOB ELEVATED IN SEMI FOWLERS, SIDE RAILS UP X3, CALL LIGHT WITHIN REACH. WILL CONTINUE TO MONITOR THROUGHOUT SHIFT.
--- NOTE | 2020-07-14 19:36 | NUR ---
RCVD TRACH PT WITH SHILEY 7 XLT ON VENT WITH THE SETTINGS OF AC 12,500,40%, PEEP 5. PT IS ALERT AND ORIENTED. BREATHING TX GIVEN PER MD'S ORDER. NO ADVERSE REACTION NOTED. SUCTIONED SMALL AMOUNT OF BLOODY SECRETION. VENT PLUGGED INTO RED OUTLET, VENT ALARMS SET AND AUDIBLE. NO RESPIRATORY DISTRESS NOTED AT THIS TIME. WILL CONTINUE TO MONITOR T/O SHIFT.
[2020-07-15] VITALS (12 sets, daily range): BP systolic 120–142; BP diastolic 64–98
[2020-07-15] MEDS: MORPHINE SULFATE INJ 2 MG/ML DISP.SYRIN IV PRN ×5 (01:44→23:27)
[2020-07-15] MEDS: ALBUTEROL FS 2.5 MG/0.5 ML VIAL.NEB NEB SCH ×6 (03:17→23:17)
[2020-07-15 06:22] LABS: BASOPHILS # (AUTO) 0.1 /CMM (0.0-0.2); BASOPHILS % (AUTO) 0.5 % (0.0-2.0); EOSINOPHILS % (AUTO) 2.5 % (0.0-6.0); HEMATOCRIT 21 % (39-51); LYMPHOCYTES # (AUTO) 1.4 /CMM (0.8-4.8); LYMPHOCYTES % (AUTO) 10.9 % (20.0-44.0); MEAN CORPUSCULAR HGB CONC 32 g/dl (31.0-36.0); MEAN CORPUSCULAR VOLUME 92 fL (80-96); MONOCYTES # (AUTO) 0.7 /CMM (0.1-1.30); MONOCYTES % (AUTO) 5.5 % (2.0-12.0); NEUTROPHILS # (AUTO) 10.4 /CMM (1.8-8.9); NEUTROPHILS % (AUTO) 80.6 % (43.0-81.0); PLATELET COUNT (AUTO) 243 /CMM (150-450); RED BLOOD CELL COUNT(AUTO) 2.29 MIL/uL (4.5-6.0); WHITE BLOOD COUNT (AUTO) 12.9 K/uL (4.3-11.0)
[2020-07-15 06:29] LABS: CREATININE 1.9 mg/dL (0.6-1.3); POTASSIUM 4.2 mmol/L (3.5-5.1)
[2020-07-15 06:32] LABS: CALCIUM, SERUM 12.1 mg/dL (8.5-10.1)
[2020-07-15 06:34] LABS: HEMOGLOBIN 6.7 g/dL (13.5-17.5)
[2020-07-15] MEDS: JEVITY 1.2 CAL 1,000 ML BOTTLE GT PRN (06:36)
--- NOTE | 2020-07-15 06:50 | NUR ---
telephone mechanic note received call for critical lab hgb 6.7. informed animal nutrition consultant salo murillo NP. telephone order 1 unit prbc. read back, noted and carried out.
[2020-07-15 07:08] LABS: BAND % (MANUAL) 1 % (0.0-5.0); EOSINOPHILS % (MANUAL) 3 % (0-4); LYMPHOCYTES % (MANUAL) 8 % (16-48); MONOCYTES % (MANUAL) 7 % (0-11.0); NEUTROPHILS % (MANUAL) 81 (42-76)
--- NOTE | 2020-07-15 07:30 | NUR ---
MANAGER MATH CLOSING NOTE PATIENT RESTING IN BED. A/OX3. ON MECHANICAL VENT. NO CHANGES IN SETTINGS. NO RESP DISTRESS. SUCTIONED BLOOD TINGED SECRETIONS. MANAGED PAIN WITH MORPHINE THROUGHOUT THE NIGHT. TELE MONITOR READS SINUS TACHYCARDIA. NO DISTRESS. IV ACCESS MAINTAINED IN PADMINI PIC LINE. GTUBE RUNNING InteraXonITY @65ML/HR. ORTIZ CATHETER OUTPUT 1950ML. BED REMAINS LOW AND LOCKED, HOB ELEVATED IN SEMI FOWLERS, SIDE RAILS UP X3, CALL LIGHT WITHIN REACH. WILL ENDORSE TO ONCOMING SHIFT.
--- NOTE | 2020-07-15 07:30 | NUR ---
RN OPENING NOTE A/Ox3 VENT/TRACH PT LYING SEMIFOWLER'S VENT SETTINGS OF: SHILEY 7XLT, AC 12, TV 500, FIO2 40%, PEEP 5, TOLERATING SETTINGS WELL, SPO2 100%, NO SIGN OF RESP DISTRESS OR SOB, BREATHING EVEN AND UNLABORED. PT SINUS TACHY IN THE 110s ON TELE BOX. PT ABLE TO MOUTH WORDS AND EXPRESS NEEDS. PT PADMINI PICC LINE FLUSHED, PATENT AND INTACT, NO S/S OF INFECTION OR INFILTRATION, TKO STARTED. PT HAS GT FEED OF JEVITY 1.2 RUNNING AT 65 ML/HR, NO RESIDUALS, AUSCULTATED FOR POSITIVE PLACEMENT, PATENT AND INTACT. PT STATES PAIN, WILL ADMIN PAIN MEDS ACCORDINGLY. PT HAS MULTIPLE WOUNDS, SACRUM, ABDOMINAL FOLDS, BLE WOUNDS, DRSG DRY, CLEAN AND INTACT. PT HG OF 6.7, DR VICK WILL BE INFORMED, 1 UNIT PRBC ORDER ALREADY IN. ALL PT SAFETY PRECAUTIONS IN PLACE, WILL CONT TO MONITOR
[2020-07-15] MEDS: THERAHONEY GEL 1.5 OZ TUBE TP SCH (09:00)
[2020-07-15] MEDS: SILVER SULFADIAZINE 50 GM JAR TP SCH (09:00)
[2020-07-15] MEDS: DAKINS QUARTER STRENGTH (0.125%) 480 ML BOTTLE TOP SCH (09:00)
--- NOTE | 2020-07-15 10:49 | NUR ---
RN NOTE RT FELICIANO HD CATH PLACED BY OMAR FORTE, PT TOLERATED WELL, NO SIGNS OF BLEED. PLAN IS TO START HD TODAY Addendum: 07/15/20 at 1114 by TORIN MCKENZIE RN WRONG PT, DISREGARD PREVIOUS NOTE
--- NOTE | 2020-07-15 11:00 | NUR ---
RN NOTE PT REFUSED ORTIZ CATH REPLACEMENT
[2020-07-15] MEDS: AMIKACIN 500 MG in IV D5W 100 ML IV SCH (12:37)
--- NOTE | 2020-07-15 13:00 | NUR ---
RN NOTE PT TEMP OF 99.6 F, TYLENOL 650 GIVEN, COOLING MEASURES IN PLACE. PER DR VICK WAIT UNTIL PT TEMP UNDER 99.0 F TO BEGIN TRANSFUSION OF 1 UNIT PRBC
[2020-07-15] MEDS: ACETAMINOPHEN 325 MG TABLET PO PRN (13:02)
--- NOTE | 2020-07-15 14:28 | NUR ---
PT TEMP OF 99.2 F, COOLING MEASURES STILL IN PLACE. WILL BEGIN PRBC TRANSFUSION WHEN TEMP IS BELOW 99.0
--- NOTE | 2020-07-15 16:24 | NUR ---
PT TEMP OF 99.5 F, COOLING MEASURES STILL IN PLACE
--- NOTE | 2020-07-15 19:00 | NUR ---
RN CLOSING NOTE PT CURRENTLY BEING TRANSFUSED 1 UNIT PRBC, TOLERATING WELL. LAST PT TEMP AT 1845 WAS 98.7, ENDORSED TO RN LOW GRADE FEVER THROUGHOUT SHIFT. PT VENT SETTING S PER MD ORDER, TOLERATING WELL, SPO2 ABOVE 97% ENTIRE SHIFT, NO SIGN OF RESP DISTRESS OR SOB. ALL PT SAFETY PRECAUTION IN PLACE. WILL ENDORSE JAMES TO ONCOMING RN
--- NOTE | 2020-07-15 19:30 | NUR ---
RN OPENING NOTES: RECEIVED PT A/OX3-4 IN BED RESTING COMFORTABLY.PATIENT IN NO S/SX OF ACUTE DISTRESS AT THIS TIME. NO SOB NOTED. PATIENT'S BREATHING IS EVEN AND UNLABORED. PATIENT ON MECHANICAL VENT; SETTINGS PRESCRIBED; PT TOLERATED WELL. AMBU BAG AT BED SIDE ALARMS SET PER PROTOCOL AND AUDIBLE. VENT PLUGGED IN TO RED OUTLET. NO DISTRESS NOTED. PT ON MS STATUS. G TUBE FLUSHING AND PATENT; SITE CLEAN DRY AND INTACT; NO RESIDUAL NOTED; CONNECTED TO FEEDING OF GLUCERNA 1.2 CURRENTLY RUNNING @65ML/HR TOLERATES WELL. NOTED IV SITE ON L UA PICC ; PATENT, INTACT AND FLUSHING WELL; NO S/S OF INFECTION OR INFILTRATION. ORTIZ CATH IN PLACE, MODERATE URINE OUTPUT NOTED SAFETY MEASURES HAVE BEEN PROVIDED AND IMPLEMENTED. PATIENT BED ALARM IS ON. HEAD OF BED ELEVATED. BED IS LOCKED, IN LOWEST POSITION AND SIDE RAILS UP. CALL LIGHT WITHIN REACH OF THE PATIENT. APPLICABLE ISOLATION PRECAUTIONS IN PLACE. WILL CONTINUE TO MONITOR AND REASSESS FOR ANY CHANGES AND WILL CARRY OUT ANY ONGOING AND ACTIVE MD ORDER.
--- NOTE | 2020-07-15 21:16 | NUR ---
RN NOTES ENDED INFUSION AT 2115, NO TRANSFUSION REACTION NOTED. VITAL SIGNS WNL. STRAIN TECHNICIAN MADE AWARE. WILL CONTINUE TO MONITOR AND REASSESS FOR ANY TRANSFUSION REACTION POST PROCEDURE.
--- NOTE | 2020-07-15 21:59 | NUR ---
RT pt received on mechanical vent with current settings. trached, shiley 7 xlt. vent plugged in to red outlet. ambu bag at [facility]. no sob, no resp distress. moderate secretions suctioned via trach. will continue to monitor
--- NOTE | 2020-07-15 22:30 | NUR ---
RN NOTES NO CHANGE IN PATIENT CONDITION AT THIS TIME PATIENT VITALS STABLE, NO SIGNS OF ACUTE RESPIRATORY DISTRESS. CITY CONTROLLER MADE AWARE. WILL CONTINUE TO MONITOR AND REASSESS FOR ANY CHANGES THROUGHOUT THE SHIFT.
[2020-07-16] VITALS: BP 126/76
[2020-07-16 00:04] LABS: HEMOGLOBIN 7.1 g/dL (13.5-17.5)
--- NOTE | 2020-07-16 00:35 | NUR ---
RN NOTES NOTED PT'S TEMP 99.4@0000. PRN MEDS GIVEN AND COOLING MEASURES PROVIDED. SMALL PIECE CUTTER MADE AWARE. WILL RE-EVALUATE AFTER 30 MINUTES- 1 HOUR. WILL CONTINUE TO MONITOR
[2020-07-16] MEDS: ACETAMINOPHEN 325 MG TABLET PO PRN (00:42)
[2020-07-16] MEDS: JEVITY 1.2 CAL 1,000 ML BOTTLE GT PRN ×2 (00:43→18:02)
[2020-07-16] MEDS: ALBUTEROL FS 2.5 MG/0.5 ML VIAL.NEB NEB SCH ×6 (03:47→23:35)
[2020-07-16 04:00] VITALS: BP 124/68
--- NOTE | 2020-07-16 04:00 | NUR ---
RN NOTES INITIATED ORTIZ CATH CHANGE PER ORDER; PT REFUSED, EXPLAINED RISK AND BENEFITS BUT PT STILL REFUSED. RADIATION SAFETY OFFICER MADE AWARE. WILL ENDORSE TO AM SHIFT TO ATTEMPT IN CHANGING ORTIZ CATH ORDERED.
[2020-07-16] MEDS: MORPHINE SULFATE INJ 2 MG/ML DISP.SYRIN IV PRN ×3 (04:30→17:53)
--- NOTE | 2020-07-16 05:39 | NUR ---
RN NOTES PATIENT REMAINS IN NO ACUTE RESPIRATORY DISTRESS AT THIS TIME, NO CHANGES TO CONDITION/STATUS. LONG TERM CARE PHARMACIST WELL AWARE. WILL CONTINUE TO MONITOR AND REASSESS FOR ANY CHANGES THROUGHOUT THE SHIFT
[2020-07-16 06:19] LABS: CALCIUM, SERUM 12.4 mg/dL (8.5-10.1); CREATININE 1.9 mg/dL (0.6-1.3); MAGNESIUM 1.9 mg/dL (1.8-2.4); PHOSPHORUS 5.4 mg/dL (2.5-4.9); POTASSIUM 4.3 mmol/L (3.5-5.1)
[2020-07-16 06:21] LABS: BASOPHILS # (AUTO) 0.1 /CMM (0.0-0.2); BASOPHILS % (AUTO) 0.4 % (0.0-2.0); EOSINOPHILS % (AUTO) 3.9 % (0.0-6.0); HEMATOCRIT 22 % (39-51); HEMOGLOBIN 7.2 g/dL (13.5-17.5); LYMPHOCYTES # (AUTO) 1.4 /CMM (0.8-4.8); MEAN CORPUSCULAR HGB CONC 33 g/dl (31.0-36.0); MEAN CORPUSCULAR VOLUME 91 fL (80-96); MONOCYTES # (AUTO) 0.7 /CMM (0.1-1.30); NEUTROPHILS # (AUTO) 8.8 /CMM (1.8-8.9); NEUTROPHILS % (AUTO) 77.7 % (43.0-81.0); PLATELET COUNT (AUTO) 245 /CMM (150-450); RED BLOOD CELL COUNT(AUTO) 2.45 MIL/uL (4.5-6.0); WHITE BLOOD COUNT (AUTO) 11.4 K/uL (4.3-11.0)
--- NOTE | 2020-07-16 06:51 | NUR ---
RN CLOSING NOTE: PATIENT REMAINS IN ROOM IN NO SIGNS OF RESPIRATORY DISTRESS; STILL ON VENT SETTING PER ORDERED. SAFETY MEASURES IMPLEMENTED, BED IN LOWEST POSITION, LOCKED, SIDE RAILS UP, CALL LIGHT WITHIN REACH. ALL NEEDS AND ORDERS ADDRESSED DURING THE SHIFT. IV ACCESS MAINTAINED INTACT, SECURED AND FLUSHING WELL. ALL DUE MEDS GIVEN ORDERED & SCHEDULED ; PATIENT TOLERATED WELL. PATIENT KEPT CLEAN AND COMFORTABLE WITHIN THE SHIFT. PATIENT ENDORSED TO INCOMING SHIFT RN WITH STABLE VITAL SIGN AND FOR CONTINUITY OF CARE. WILL ALSO ENDORSE TO AM SHIFT TO ATTEMPT TO DO ORTIZ CATH CHANGE ORDERED.
--- NOTE | 2020-07-16 07:15 | NUR ---
RN OPENING NOTE Received patient asleep in bed. Appears calm and relaxed no signs of distress. Patient on trach and vent AC12 TV500 FIO2 40 PEEP5 tolerating well. No co pain or discomfort. Patient is cooperative. Jameson cath in place draining clear yellow urine. Jevity 1.2 running 65ml/hr. PADMINI PICC line flushed well. Will cont to monitor. Safety measures maintained.
[2020-07-16 08:00] VITALS: BP 125/67
[2020-07-16] MEDS ORDERED: AMIKACIN 500 MG in IV D5W 100 ML IV SCH (09:00)
[2020-07-16] MEDS: THERAHONEY GEL 1.5 OZ TUBE TP SCH (09:03)
[2020-07-16] MEDS: DAKINS QUARTER STRENGTH (0.125%) 480 ML BOTTLE TOP SCH (09:03)
[2020-07-16] MEDS: SILVER SULFADIAZINE 50 GM JAR TP SCH (09:04)
[2020-07-16 12:00] VITALS: BP 112/74
[2020-07-16 16:00] VITALS: BP 114/57
[2020-07-16] MEDS: CEFEPIME 2 GM in IV D5W 100 ML IV SCH (16:28)
[2020-07-16 18:42] LABS: BASOPHILS # (AUTO) 0.1 /CMM (0.0-0.2); BASOPHILS % (AUTO) 0.5 % (0.0-2.0); EOSINOPHILS % (AUTO) 3.3 % (0.0-6.0); HEMATOCRIT 23 % (39-51); HEMOGLOBIN 7.3 g/dL (13.5-17.5); LYMPHOCYTES # (AUTO) 1.2 /CMM (0.8-4.8); MEAN CORPUSCULAR HGB CONC 32 g/dl (31.0-36.0); MEAN CORPUSCULAR VOLUME 91 fL (80-96); MONOCYTES # (AUTO) 0.7 /CMM (0.1-1.30); MONOCYTES % (AUTO) 5.8 % (2.0-12.0); NEUTROPHILS # (AUTO) 9.6 /CMM (1.8-8.9); NEUTROPHILS % (AUTO) 80.4 % (43.0-81.0); PLATELET COUNT (AUTO) 256 /CMM (150-450); RED BLOOD CELL COUNT(AUTO) 2.49 MIL/uL (4.5-6.0); WHITE BLOOD COUNT (AUTO) 11.9 K/uL (4.3-11.0)
--- NOTE | 2020-07-16 18:50 | NUR ---
RN CLOSING NOTE Patient in bed awake. Appears calm and relaxed. Tele reading ST 114 bpm. No signs of distress. Trach and vent setting tolerating well. Suction as needed. No bleeding. GTF feeding Jevity 65ml/hr. Cont on antibiotic therapy. All due meds given. Morphine last dose on 1800. Mother at bedside. Emptied rojas yellow urine. Vital signs within normal limits. Will endorse to night order selector nurse for leon.
--- NOTE | 2020-07-16 19:30 | NUR ---
RN OPENING NOTES: RECEIVED PT IN BED SLEEPING COMFORTABLY.PATIENT IN NO S/SX OF ACUTE DISTRESS AT THIS TIME. NO SOB NOTED. PATIENT'S BREATHING IS EVEN AND UNLABORED. PATIENT ON MECHANICAL VENT; SETTINGS PRESCRIBED; PT TOLERATED WELL. AMBU BAG AT BED SIDE ALARMS SET PER PROTOCOL AND AUDIBLE. VENT PLUGGED IN TO RED OUTLET. NO DISTRESS NOTED. PT ON MS STATUS. G TUBE FLUSHING AND PATENT; SITE CLEAN DRY AND INTACT; NO RESIDUAL NOTED; CONNECTED TO FEEDING OF GLUCERNA 1.2 CURRENTLY RUNNING @65ML/HR TOLERATES WELL. NOTED IV SITE ON L UA PICC ; PATENT, INTACT AND FLUSHING WELL; NO S/S OF INFECTION OR INFILTRATION. ORTIZ CATH IN PLACE, MODERATE URINE OUTPUT NOTED SAFETY MEASURES HAVE BEEN PROVIDED AND IMPLEMENTED. PATIENT BED ALARM IS ON. HEAD OF BED ELEVATED. BED IS LOCKED, IN LOWEST POSITION AND SIDE RAILS UP. CALL LIGHT WITHIN REACH OF THE PATIENT. APPLICABLE ISOLATION PRECAUTIONS IN PLACE. WILL CONTINUE TO MONITOR AND REASSESS FOR ANY CHANGES AND WILL CARRY OUT ANY ONGOING AND ACTIVE MD ORDER.
[2020-07-16 20:00] VITALS: BP 125/72
--- NOTE | 2020-07-16 23:00 | NUR ---
RN NOTES NO CHANGE IN PATIENT CONDITION AT THIS TIME PATIENT VITALS STABLE, NO SIGNS OF ACUTE RESPIRATORY DISTRESS. GAS DISPENSER MADE AWARE. WILL CONTINUE TO MONITOR AND REASSESS FOR ANY CHANGES THROUGHOUT THE SHIFT.
[2020-07-17] VITALS: BP 123/71
[2020-07-17] MEDS: MORPHINE SULFATE INJ 2 MG/ML DISP.SYRIN IV PRN ×5 (01:34→22:34)
[2020-07-17] MEDS: ACETAMINOPHEN 325 MG TABLET PO PRN ×2 (01:35→16:26)
[2020-07-17 04:00] VITALS: BP 132/87
--- NOTE | 2020-07-17 04:00 | NUR ---
RN NOTES PATIENT REMAINS IN NO ACUTE RESPIRATORY DISTRESS AT THIS TIME, NO CHANGES TO CONDITION/STATUS. AM PATIENT CARE DONE. FINISH MENDER WELL AWARE. WILL CONTINUE TO MONITOR AND REASSESS FOR ANY CHANGES THROUGHOUT THE SHIFT
--- NOTE | 2020-07-17 04:05 | NUR ---
RN NOTES INITIATED ORTIZ CATH CHANGE PER ORDER; PT REFUSED, EXPLAINED RISK AND BENEFITS BUT PT STILL REFUSED. CONFECTIONERY COOKER MADE AWARE. WILL ENDORSE TO AM SHIFT TO ATTEMPT IN CHANGING ORTIZ CATH ORDERED.
[2020-07-17] MEDS: ALBUTEROL FS 2.5 MG/0.5 ML VIAL.NEB NEB SCH ×6 (04:07→23:30)
[2020-07-17 07:05] LABS: CREATININE 1.7 mg/dL (0.6-1.3); POTASSIUM 4.6 mmol/L (3.5-5.1)
--- NOTE | 2020-07-17 07:30 | NUR ---
RN OPENING NOTE A/Ox3 VENT/TRACH PT LYING SEMIFOWLER'S VENT SETTINGS OF: SHILEY 7XLT, AC 12, TV 500, FIO2 40%, PEEP 5, TOLERATING SETTINGS WELL, SPO2 98%, NO SIGN OF RESP DISTRESS OR SOB, BREATHING EVEN AND UNLABORED. PT SINUS TACHY IN THE 110s ON TELE BOX. PT ABLE TO MOUTH WORDS AND EXPRESS NEEDS. PT PADMINI PICC LINE FLUSHED, PATENT AND INTACT, NO S/S OF INFECTION OR INFILTRATION, TKO. PT HAS GT FEED OF JEVITY 1.2 RUNNING AT 65 ML/HR, NO RESIDUALS, AUSCULTATED FOR POSITIVE PLACEMENT, PATENT AND INTACT. PT STATES PAIN, WILL ADMIN PAIN MEDS ACCORDINGLY. PT HAS MULTIPLE WOUNDS, SACRUM, ABDOMINAL FOLDS, BLE WOUNDS, DRSG DRY, CLEAN AND INTACT. ALL PT SAFETY PRECAUTIONS IN PLACE, WILL CONT TO MONITOR
[2020-07-17 08:00] VITALS: BP 132/83
[2020-07-17] MEDS: CEFEPIME 2 GM in IV D5W 100 ML IV SCH ×2 (08:17→20:20)
[2020-07-17] MEDS: DAKINS QUARTER STRENGTH (0.125%) 480 ML BOTTLE TOP SCH (08:17)
[2020-07-17] MEDS: SILVER SULFADIAZINE 50 GM JAR TP SCH (08:18)
[2020-07-17] MEDS: THERAHONEY GEL 1.5 OZ TUBE TP SCH (08:19)
[2020-07-17] MEDS ORDERED: NA PHOS,M-B/NA PHOS,DI-BA 1 EA ENEMA RC PRN (10:00)
[2020-07-17] MEDS ORDERED: POLYETHYLENE GLYCOL 3350 17 GM POWD.PACK GT PRN (10:00)
[2020-07-17] MEDS ORDERED: MAGNESIUM HYDROXIDE 30 ML UDC GT PRN ×2 (10:00)
[2020-07-17] MEDS ORDERED: SILVER SULFADIAZINE 50 GM JAR TP SCH (10:00)
[2020-07-17] MEDS: JEVITY 1.2 CAL 1,000 ML BOTTLE GT PRN (11:43)
[2020-07-17 12:00] VITALS: BP 126/72
--- NOTE | 2020-07-17 12:00 | NUR ---
RN NOTE PT REFUSED ORTIZ CATH REPLACEMENT, WAS BEDSIDE BUT COULD NOT CONVINCE PT. PT EDUCATION DONE WITH BOTH PT AND REGARDING ORTIZ CATH CHANGE PROS AND CONS
[2020-07-17] MEDS ORDERED: AMIKACIN 500 MG in IV D5W 100 ML IV SCH (13:00)
[2020-07-17 16:00] VITALS: BP 131/77
[2020-07-17] MEDS: CHLORHEXIDINE GLUCONATE 15 ML UDC MM SCH (16:26)
--- NOTE | 2020-07-17 19:10 | NUR ---
RN CLOSING NOTE PT STATUS UNCHANGED DURING SHIFT. PT TEMP OF 99.5 F EARLIER, TYLENOL 650MG GIVEN, COOLING MEASURES IN PLACE, ENDORSED TO ADZING AND BORING MACHINE HELPER RN. PT ON VENT PER MD SETTINGS, TOLERATING WELL, SPO2 100%, NO SIGNS OF RESP DISTRESS OR SOB. ALL PT SAFETY PRECAUTIONS IN PLACE, JAMES ENDORSED TO ONCOMING RN
--- NOTE | 2020-07-17 19:55 | NUR ---
FOOD ANALYST NOTES A/Ox3 VENT/TRACH PT LYING SEMI ALLRED'S VENT SETTINGS OF: SHILEY 7XLT, AC 12, TV 500, FIO2 40%, PEEP 5, TOLERATING SETTINGS WELL, SPO2 98%, NO SIGN OF RESP DISTRESS OR SOB, BREATHING EVEN AND UNLABORED. PT ABLE TO MOUTH WORDS AND EXPRESS NEEDS. PT PADMINI PICC LINE FLUSHED, PATENT AND INTACT, NO S/S OF INFECTION OR INFILTRATION. PT HAS GT FEED OF JEVITY 1.2 RUNNING AT 65 ML/HR, NO RESIDUALS, AUSCULTATED FOR POSITIVE PLACEMENT, PATENT AND INTACT. NO PAIN OR DISCOMFORT NOTED OR REPORTED AT THIS TIME. PT HAS MULTIPLE WOUNDS, SACRUM, ABDOMINAL FOLDS, BLE WOUNDS, DRSG DRY, CLEAN AND INTACT. ALL PT SAFETY PRECAUTIONS IN PLACE, WILL CONTINUE TO MONITOR.
[2020-07-17 20:00] VITALS: BP 118/72
--- NOTE | 2020-07-17 22:41 | NUR ---
GRANTS ANALYST NOTES ATTEMPTED TO TAKE WOUND PICTURES EXPLAINED TO THE PT THE REASONS WE TAKE PHOTOS PT REFUSED X 3 EXPLAINED RISK AND BENEFITS X3 PT STILL REFUSED. WILL ATTEMPT AGAIN LATER.
[2020-07-18 00:36] VITALS: BP 123/78
--- NOTE | 2020-07-18 03:33 | NUR ---
WELDING TEACHER NOTES ATTEMPTED TO TAKE WOUND PICTURES EXPLAINED TO THE PT THE REASONS WE TAKE PHOTOS PT REFUSED X 3 EXPLAINED RISK AND BENEFITS X3 PT STILL REFUSED. WILL ENDORSE TO DAY SHIFT NURSE.
[2020-07-18] MEDS: ALBUTEROL FS 2.5 MG/0.5 ML VIAL.NEB NEB SCH ×5 (03:53→20:00)
[2020-07-18] MEDS: MORPHINE SULFATE INJ 2 MG/ML DISP.SYRIN IV PRN ×2 (04:02→11:02)
[2020-07-18 04:24] VITALS: BP 121/68
[2020-07-18 06:47] LABS: BASOPHILS # (AUTO) 0.1 /CMM (0.0-0.2); BASOPHILS % (AUTO) 0.4 % (0.0-2.0); EOSINOPHILS % (AUTO) 3.7 % (0.0-6.0); HEMATOCRIT 22 % (39-51); HEMOGLOBIN 7.1 g/dL (13.5-17.5); LYMPHOCYTES % (AUTO) 8.4 % (20.0-44.0); MEAN CORPUSCULAR HGB CONC 32 g/dl (31.0-36.0); MEAN CORPUSCULAR VOLUME 90 fL (80-96); MONOCYTES # (AUTO) 0.6 /CMM (0.1-1.30); MONOCYTES % (AUTO) 5.2 % (2.0-12.0); NEUTROPHILS # (AUTO) 9.7 /CMM (1.8-8.9); NEUTROPHILS % (AUTO) 82.3 % (43.0-81.0); PLATELET COUNT (AUTO) 240 /CMM (150-450); RED BLOOD CELL COUNT(AUTO) 2.44 MIL/uL (4.5-6.0); WHITE BLOOD COUNT (AUTO) 11.8 K/uL (4.3-11.0)
[2020-07-18 06:56] LABS: CALCIUM, SERUM 11.9 mg/dL (8.5-10.1); CREATININE 1.7 mg/dL (0.6-1.3); MAGNESIUM 1.9 mg/dL (1.8-2.4); PHOSPHORUS 5.5 mg/dL (2.5-4.9); POTASSIUM 4.4 mmol/L (3.5-5.1)
--- NOTE | 2020-07-18 07:01 | NUR ---
BATTALION FIRE CHIEF NOTES A/Ox3 VENT/TRACH PT LYING SEMI ALLRED'S VENT SETTINGS OF: SHILEY 7XLT, AC 12, TV 500, FIO2 40%, PEEP 5, TOLERATING SETTINGS WELL, SPO2 98%, NO SIGN OF RESP DISTRESS OR SOB, BREATHING EVEN AND UNLABORED. PT ABLE TO MOUTH WORDS AND EXPRESS NEEDS. PT PADMINI PICC LINE FLUSHED, PATENT AND INTACT, NO S/S OF INFECTION OR INFILTRATION. PT HAS GT FEED OF JEVITY 1.2 RUNNING AT 65 ML/HR, NO RESIDUALS, AUSCULTATED FOR POSITIVE PLACEMENT, PATENT AND INTACT. NO PAIN OR DISCOMFORT NOTED OR REPORTED AT THIS TIME. PT HAS MULTIPLE WOUNDS, SACRUM, ABDOMINAL FOLDS, BLE WOUNDS, DRSG DRY, CLEAN AND INTACT. ALL PT SAFETY PRECAUTIONS IN PLACE. ALL NURSING NEEDS MET ALL DUE MEDS GIVEN AND TOLERATED WELL. PT MANAGEMENT PROVIDED DURING SHIFT MORPHINE 1MG @[phone]. WILL ENDORSE CARE TO DAY SHIFT NURSE.
--- NOTE | 2020-07-18 07:25 | NUR ---
RN OPENING NOTES RECEIVED PT RESTING IN BED, AWAKE. A/O X3-4. ABLE TO MOUTH WORDS. ON TRACH CONNECTED TO [facility] VENT, SETTINGS AC 12, TV 500, FIO2 40%, AND PEEP 5. TOLERATING VENT SETTINGS WELL. BED ON SEMI ALLRED'S. GT AUSCULTATED FOR POSITIVE PLACEMENT. PT COMPLAINS OF FEELING FULL AND BLOATED. RESIDUAL CHECKED, 35CC. JEVITY 1.2 @65ML/HR ON HOLD FOR NOW. PADMINI PICC LINE INTACT, AND PATENT AND FLUSHED. ORTIZ CATH IN PLACE DRAINING CLEAR YELLOW URINE VIA GRAVITY. SAFETY MEASURES IMPLEMENTED. CALL LIGHT WITHIN REACH. BED LOCKED AND AT LOWEST POSITION WITH SIDE RAILS UP X3. WILL CONTINUE TO MONITOR.
[2020-07-18] MEDS ORDERED: PANTOPRAZOLE 40 MG TABLET.DR PO SCH (07:30)
[2020-07-18 08:00] VITALS: BP 122/77
--- NOTE | 2020-07-18 08:13 | NUR ---
RN NOTES DR. VICK INFORMED ABOUT PT COMPLAINING OF BEING FULL BUT NO ABDOMINAL PAIN. RESIDUAL CHECKED 35CC. OKAY TO HOLD FEEDING NOW AND CONTINUE IN 1 HR.
[2020-07-18] MEDS ORDERED: ASCORBIC ACID 500 MG TABLET GT SCH (09:00)
[2020-07-18] MEDS ORDERED: Medication Not On Formulary EA (Cran/Vitc/Mannose/Inulin/Brom (Uti-Stat Liquid) 30 ML) GT SCH (09:00)
[2020-07-18] MEDS ORDERED: SERTRALINE HCL 50 MG TABLET GT SCH (09:00)
[2020-07-18] MEDS ORDERED: MULTIVIT W/MINERALS 1 TAB TABLET GT SCH (09:00)
[2020-07-18] MEDS ORDERED: ZINC SULFATE 220 MG CAPSULE GT SCH (09:00)
[2020-07-18] MEDS: CEFEPIME 2 GM in IV D5W 100 ML IV SCH (09:13)
[2020-07-18] MEDS: CHLORHEXIDINE GLUCONATE 15 ML UDC MM SCH ×2 (09:14→17:41)
[2020-07-18] MEDS: DAKINS QUARTER STRENGTH (0.125%) 480 ML BOTTLE TOP SCH (09:15)
[2020-07-18] MEDS: THERAHONEY GEL 1.5 OZ TUBE TP SCH (09:15)
[2020-07-18] MEDS: SILVER SULFADIAZINE 50 GM JAR TP SCH (09:15)
[2020-07-18] MEDS ORDERED: CEFE2FRO IV (09:42)
[2020-07-18] MEDS ORDERED: FERR325T23 PO (09:42)
[2020-07-18] MEDS ORDERED: ENOXAPARIN SODIUM 40 MG/0.4 ML DISP.SYRIN SQ SCH (10:30)
[2020-07-18 12:00] VITALS: BP 121/75
--- NOTE | 2020-07-18 12:00 | NUR ---
RN NOTES RESIDUAL CHECKED. 30CC. PT COMPLAINS OF FEELING FULL. FEEDING ON HOLD.
[2020-07-18 12:46] LABS: BAND % (MANUAL) 2 % (0.0-5.0); EOSINOPHILS % (MANUAL) 2 % (0-4); LYMPHOCYTES % (MANUAL) 3 % (16-48); MONOCYTES % (MANUAL) 10 % (0-11.0); NEUTROPHILS % (MANUAL) 83 (42-76)
--- NOTE | 2020-07-18 13:00 | NUR ---
RN NOTES REPORT GIVEN TO ABDOULAYE ALCARAZ OF [facility]. INFORMED ABOUT TRANSFER. SAID SHE DOES NOT WANT THE PT TO GO BACK TO [facility]. DIGITAL CONTENT MARKETING MANAGER INFORMED. WILL HOLD DC FOR NOW.
[2020-07-18] MEDS ORDERED: EPOETIN ALFA-EPBX 4,000 UNIT/ML VIAL SQ SCH (15:00)
[2020-07-18 16:00] VITALS: BP 119/75
--- NOTE | 2020-07-18 19:23 | NUR ---
RN CLOSING NOTES NO SIGNIFICANT CHANGES DURING SHIFT. TOLERATING VENT SETTINGS WELL. NO S/S OF RESPIRATORY DISTRESS. ALL DUE MEDS GIVEN. NEEDS ATTENDED. SAFETY MEASURES STILL IN PLACE. PT FOR DC. WILL ENDORSE TO NIGHT RN FOR JAMES.
--- NOTE | 2020-07-18 19:30 | NUR ---
RN NOTE PATIENT ALERT AND ORIENTED X3-4, ABLE TO MOUTH WORDS. ON TRACH TO VENT, TOLERATING VENT SETTINGS WELL O2 SAT 100%. DENIES ANY PAIN OR DISCOMFORT. WITH ORTIZ PATENT AND INTACT, DRAINING YELLOW URINE TO GRAVITY. WITH G-TUBE PATENT AND INTACT. PADMINI PICC LINE, FLUSHED ASEPTICALLY. FOR DISCHARGE THIS EVENING. BED LOCKED AND IN LOWEST POSITION. CALL LIGHT WITHIN REACH. ALL NEEDS ANTICIPATED.
[2020-07-18 20:00] VITALS: BP 115/72
--- NOTE | 2020-07-18 20:46 | NUR ---
PATIENT DISCHARGE AT THIS TIME TO [facility]. ACCOMPANIED BY 2 WATER QUALITY TESTER AND RT. ALL DISCHARGE INSTRUCTIONS GIVEN AND VERBALIZED UNDERSTANDING. PATIENT REFUSED TO CHANGE ORTIZ CATH AND REFUSED TO TAKE PHOTOS OF WOUNDS. RISKS AND BENEFITS EXPLAINED X3. STILL STRONGLY REFUSED. LEFT IN STABLE CONDITION, VITAL SIGNS STABLE. NO BELONGINGS NOTED ON CHART. ISMAEL WITH PATIENT. REPORT GIVEN TO ESTEFANY ALCARAZ.
== END 2020-07-18 21:26 | DRG 130 ==
LOC: ER 23:03 → TELE1 07-08 00:28 → MEDSG1 07-08 18:10 → TELE1 07-09 07:23
PROVIDERS: ADMIT Nurse Practitioner Acute Care; ATTEND Internal Medicine
PROC: 5A1955Z Respiratory Ventilation, Greater than 96 Consecutive Hours (ICD-10-PCS; principal; 2020-07-08)
PROC: 30233N1 Transfusion of Nonautologous Red Blood Cells into Peripheral Vein, Percutaneous Approach (ICD-10-PCS; 2020-07-08)
PROC: 0JBP0ZZ Excision of Left Lower Leg Subcutaneous Tissue and Fascia, Open Approach (ICD-10-PCS; 2020-07-11)
PROC: 0JBN0ZZ Excision of Right Lower Leg Subcutaneous Tissue and Fascia, Open Approach (ICD-10-PCS; 2020-07-11)
PROC: 0B21XFZ Change Tracheostomy Device in Trachea, External Approach (ICD-10-PCS; 2020-07-14)
PROC: 0JBP0ZZ Excision of Left Lower Leg Subcutaneous Tissue and Fascia, Open Approach (ICD-10-PCS; 2020-07-18)
PROC: 0JBN0ZZ Excision of Right Lower Leg Subcutaneous Tissue and Fascia, Open Approach (ICD-10-PCS; 2020-07-18)
DX: J95.01 Hemorrhage from tracheostomy stoma (principal); N17.0 Acute kidney failure with tubular necrosis; J18.9 Pneumonia, unspecified organism; L89.154 Pressure ulcer of sacral region, stage 4; L89.324 Pressure ulcer of left buttock, stage 4; L89.314 Pressure ulcer of right buttock, stage 4; J96.11 Chronic respiratory failure with hypoxia; R53.2 Functional quadriplegia; D68.59 Other primary thrombophilia; R13.10 Dysphagia, unspecified; I50.9 Heart failure, unspecified; L97.919 Non-pressure chronic ulcer of unspecified part of right lower leg with unspecified severity; E87.1 Hypo-osmolality and hyponatremia; L97.929 Non-pressure chronic ulcer of unspecified part of left lower leg with unspecified severity; D64.9 Anemia, unspecified; N39.0 Urinary tract infection, site not specified; Z79.01 Long term (current) use of anticoagulants; Z86.16 Personal history of COVID-19; Y84.8 Other medical procedures as the cause of abnormal reaction of the patient, or of later complication, without mention of misadventure at the time of the procedure; Y92.89 Other specified places as the place of occurrence of the external cause; Z20.822 Contact with and (suspected) exposure to COVID-19; K21.9 Gastro-esophageal reflux disease without esophagitis; F32.9 Major depressive disorder, single episode, unspecified; Z87.440 Personal history of urinary (tract) infections; Z79.51 Long term (current) use of inhaled steroids; Z79.899 Other long term (current) drug therapy; Z99.11 Dependence on respirator [ventilator] status; E83.52 Hypercalcemia; E86.1 Hypovolemia; Z16.24 Resistance to multiple antibiotics; I87.313 Chronic venous hypertension (idiopathic) with ulcer of bilateral lower extremity; Z68.41 Body mass index [BMI] 40.0-44.9, adult; E66.2 Morbid (severe) obesity with alveolar hypoventilation; Z68.1 Body mass index [BMI] 19.9 or less, adult; Z74.09 Other reduced mobility; B96.1 Klebsiella pneumoniae [K. pneumoniae] as the cause of diseases classified elsewhere; N18.9 Chronic kidney disease, unspecified; I73.9 Peripheral vascular disease, unspecified
CPT/HCPCS: 31720; 36415; 36600; 71045-TC; 76536-TC; 76770-TC; 77075-TC; 80048-TC; 80053-TC; 80061-TC; 80076-TC; 80150; 80202-TC; 81001; 82272-TC; 82306; 82652; 82803-TC; 83605-TC; 83690-TC; 83735-TC; 83970; 84100-TC; 84155; 84165; 84484-TC; 85025-TC; 85027-TC; 85730-TC; 86850-TC; 87040-TC; 87081-TC; 87086-TC; 87186-TC; 94002-TC; 94003-TC; 94760-TC; 94762-TC; 94799-TC; A6253; A6403; A7526; C9803; G0378; J0278; J0456; J0692; J0696; J0885; J1650; J1940; J2270; J2430; J2543; J2720; J3370; J3475; J7030; J7040; J7050; J7060; P9016; U0003

== ENCOUNTER 2020-07-27 15:04 | Inpatient (IN) | payer OTHER ==
[~2020-07-27] VITALS: Ht 170.2 cm; Wt 115.2 kg
[~2020-07-27 15:04] MED LIST: ACET-2605 GT; ACET-868 GT; ALLA266C2 TP; ASCO-352 GT; CEFE2FRO IV; CHLO473M5 MM; CRAN3875 GT; ENOX40DI SQ; EPOE40007 SQ; FERR325T23 PO; IPRA4AER IH; MAGN400O6 GT; MULT-447 GT; NA P133E RC; PANT40TA2 GT; POLY17PO4 GT; POVI3780 TP; SERT50TA GT; SILV20CR13 TP; ZINC220C6 GT
--- NOTE | 2020-07-27 15:20 | NUR ---
RT Pt brought into ER by paramedics, pt received trached on mechanical ventilation with noted settings. Pt is awake and alert and refusing suctioning at this time. Vent is plugged into red outlet with BVM by bedside, alarms are set and audible. No SOB or respiratory distress noted at this time. Addendum: 07/27/20 at 1536 by NICK RIDER RT Amended: Links added.
--- NOTE | 2020-07-27 15:45 | NUR ---
KAROL FROM SNF TO ER BED 6. AAOX4. VENT DEPENDENT, NOT IN RESP DISTRESS. BED BOUND. BROUGHT IN FOR A BLEEDING SACRAL WOUND. PER REPORT PT GOT DEBRIDEMENT AND WAS BLEEDIN. UPON ASSESSING PT'S WOUND IS ALREADY PACK AND MIN BLEEDING NOTED. WAS AT THE BEDSIDE FOR EVAL. ORDERS RECEIVED, NOTED AND CARRIED OUT. PICC LINE ALREADY PRESENT ON PADMINI.
--- NOTE | 2020-07-27 15:46 | NUR ---
VENT SETTING: AC12, VT 500, O2 40%, +5 PEEP
[2020-07-27] MEDS ORDERED: BISA10SU11 RC (15:47)
[2020-07-27] MEDS ORDERED: LACT-209 GT (15:47)
[2020-07-27] MEDS ORDERED: HYDR-4209 PO (15:47)
[2020-07-27 15:55] LABS: BASOPHILS % (AUTO) 0.4 % (0.0-2.0); HEMATOCRIT 21 % (39-51); LYMPHOCYTES # (AUTO) 1.3 /CMM (0.8-4.8); LYMPHOCYTES % (AUTO) 11.2 % (20.0-44.0); MEAN CORPUSCULAR HGB CONC 32 g/dl (31.0-36.0); MEAN CORPUSCULAR VOLUME 92 fL (80-96); MONOCYTES # (AUTO) 0.9 /CMM (0.1-1.30); MONOCYTES % (AUTO) 8.2 % (2.0-12.0); NEUTROPHILS # (AUTO) 8.5 /CMM (1.8-8.9); NEUTROPHILS % (AUTO) 75.2 % (43.0-81.0); PLATELET COUNT (AUTO) 300 /CMM (150-450); RED BLOOD CELL COUNT(AUTO) 2.32 MIL/uL (4.5-6.0); WHITE BLOOD COUNT (AUTO) 11.3 K/uL (4.3-11.0)
[2020-07-27 16:04] LABS: HEMOGLOBIN 6.7 g/dL (13.5-17.5)
[2020-07-27] MEDS ORDERED: VANCOMYCIN 1 GM VIAL ONE (16:14)
[2020-07-27] MEDS ORDERED: PIPERACILLIN /TAZOBACTAM 3.375 G VIAL IV ONE (16:14)
[2020-07-27 16:21] LABS: ALANINE AMINOTRANSFERASE 14 U/L (12-78); ALBUMIN 1.9 g/dL (3.4-5.0); ALKALINE PHOSPHATASE 290 U/L (46-116); ASPARTATE AMINOTRANSFERASE 19 U/L (15-37); BILIRUBIN,DIRECT 0.2 mg/dL (0.0-0.2); BILIRUBIN,TOTAL 0.4 mg/dL (0.2-1.0); CARBON DIOXIDE 26 mmol/L (21-32); CHLORIDE 100 mmol/L (98-107); CREATININE 1.2 mg/dL (0.6-1.3); GLUCOSE 95 mg/dL (74-106); POTASSIUM 4.7 mmol/L (3.5-5.1); SODIUM SERUM 132 mmol/L (136-145); TOTAL PROTEIN, SERUM 6.8 g/dL (6.4-8.2); UREA NITROGEN, BLOOD 36 mg/dL (7-18)
[2020-07-27 16:23] LABS: CALCIUM, SERUM 13.7 mg/dL (8.5-10.1)
[2020-07-27] MEDS ORDERED: VANCOMYCIN 1 GM in IV D5W 250 ML IV ONE (16:30)
[2020-07-27] MEDS ORDERED: IV NS 0.9% 1,000 ML BAG IV ONE (16:30)
[2020-07-27] MEDS ORDERED: PIPERACILLIN /TAZOBACTAM 3.375 G in IV D5W 50 ML IV ONE (16:30)
[2020-07-27 16:53] LABS: BAND % (MANUAL) 1 % (0.0-5.0); EOSINOPHILS % (MANUAL) 10 % (0-4); LYMPHOCYTES % (MANUAL) 11 % (16-48); MONOCYTES % (MANUAL) 9 % (0-11.0); NEUTROPHILS % (MANUAL) 69 (42-76)
--- NOTE | 2020-07-27 17:05 | NUR ---
BED 119-2
--- NOTE | 2020-07-27 17:17 | NUR ---
REPORT GIVEN TO KIERAN FRIEDMAN FOR JAMES
[2020-07-27 17:45] VITALS: BP 124/72
--- NOTE | 2020-07-27 18:02 | NUR ---
PT TRANSPORTED TO UNIT ON [place] WITH EMT, RT AND RN AT BEDSIDE W/ ACLS PROTOCOL. NAD NOTED DURING TRANSPORT.
[2020-07-27] MEDS ORDERED: ENOXAPARIN SODIUM 40 MG/0.4 ML DISP.SYRIN SQ SCH (18:30)
[2020-07-27] MEDS ORDERED: ONDANSETRON HCL/PF 4 MG/2 ML VIAL IVP PRN (18:30)
[2020-07-27] MEDS ORDERED: HYDROCODONE/APAP 5/325MG TABLET PO PRN (18:30)
[2020-07-27] MEDS ORDERED: Z GUARD REMEDY 2 OZ OINT TP PRN (18:30)
[2020-07-27] MEDS ORDERED: ACETAMINOPHEN 325 MG TABLET PO PRN (18:30)
--- NOTE | 2020-07-27 19:00 | NUR ---
RN NOTE RECEIVED PATIENT IN BED, AO X 4, MOUTHS WORDS, PATIENT IN NO S/SX OF ACUTE DISTRESS AT THIS TIME. ON TRACH CONNECTED TO MECHANICAL VENTILATOR WITH SETTINGS PRESCRIBED, SATURATION AT 100%, ST ON THE MONITOR HR IS 102. GTUBE INTACT, NO RESIDUAL NOTED, CLAMPED. NOTED PICC LINE AT PADMINI PULLED OUT. PENDING MIDLINE INSERTION. ORTIZ CATHETER CONNECTED TO URINE BAG IN PLACE, DRAINING TO A CLEAR YELLOW OUTPUT. MULTIPLE WOUNDS NOTED INCLUDING STAGE IV SACRAL ULCER, WOUNDS AT B HIPS, AND B POSTERIOR LEG, WOUND DRESSING INTACT. SAFETY MEASURES IMPLEMENTED. PATIENT BED ALARM IS ON. HEAD OF BED ELEVATED. BED IS LOCKED, IN LOWEST POSITION AND SIDE RAILS UP. CALL LIGHT WITHIN REACH OF THE PATIENT. WILL CONTINUE TO MONITOR AND REASSESS FOR ANY CHANGES.
--- NOTE | 2020-07-27 19:21 | NUR ---
RN NOTE ATTENDING PHYSICIAN JOSE RAMON JAMES.RECEIVED PATIENT VIA GURNEY FROM ER, ON TRACHEOSTOMY AND MECHANICAL VENTILATOR, EVEN AND UNLABORED RESPIRATION, G TUBE PRESENT UPON ADMISSION, PATENT UPON ASSESSMENT, WITH LEFT UPPER ARM PICC LINE PULLED OUT UPON TRANSFER BY ER NURSE FROM [facility] TO BED WHEN IT GOT CAUGHT ON THE GURNEY, MIDLINE IV PLACEMENT ORDERED, BODY CHECK DONE, PICTURES TAKEN ON ALL SKIN PROBLEM, PATIENT REFUSED BARB AREA WOUND PICTURE TO BE TAKEN,
--- NOTE | 2020-07-27 19:27 | NUR ---
RN NOTE 1830 MEDICATION DUE AT THIS TIME, CANNOT ADMINISTER AT THIS TIME, PHARMACY HASN'T VERIFIED MEDICATION YET. WILL ENDORSE TO UPCOMING SHIFT
--- NOTE | 2020-07-27 19:38 | NUR ---
LEFT UPPER ARM PICC LINE ACCIDENTLY DISLODGED WHEN ER TRANSPORT TRANSFERRED [facility] TO BED. NEW MIDLINE ORDERED.
[2020-07-27 20:00] VITALS: BP 123/69
--- NOTE | 2020-07-27 20:20 | NUR ---
RN NOTE PER AM SHIFT IDALIA ALCARAZ, CONFIRMED THAT PATIENT WAS ON TUBE FEEDING OF JEVITY 1.2 MIKI FROM [facility]. VERIFIED FROM PREVIOUS ADMISSION, DR PAKRS WAS NOTIFIED, ORDERS RECEIVED TO START TUBE FEEDING OF JEVITY 1.2 AT 65 ML/HR. COST CONTROLLER MADE AWARE.
[2020-07-27] MEDS ORDERED: ACETAMINOPHEN 650 MG/20.3 ML UDC GT PRN (21:00)
[2020-07-27] MEDS ORDERED: VANCOMYCIN 500 MG in IV D5W 100 ML IV ONE (21:00)
[2020-07-27] MEDS ORDERED: PAMIDRONATE 90 MG in IV NS 0.9% 500 ML IV ONE (21:00)
[2020-07-27] MEDS: CEFEPIME 2 GM in IV D5W 100 ML IV SCH (21:25)
[2020-07-27] MEDS: IV NS 0.9% 1,000 ML IV PRN (21:26)
--- NOTE | 2020-07-27 22:00 | NUR ---
RN NOTE PATIENT HGB 6.7, NOTED STANDING ORDER TO TRANSFUSE PRBC IF HGB FALLS BELOW 7. DR PARKS WAS NOTIFIED. ORDERS RECEIVED TO TRANSFUSE 1 UNIT PRBC. TAILINGS DAM LABORER MADE AWARE.
[2020-07-27] MEDS: JEVITY 1.2 CAL 1,000 ML BOTTLE GT PRN (22:12)
[2020-07-28] VITALS (23 sets, daily range): BP systolic 124–142; BP diastolic 63–78
[2020-07-28 06:05] LABS: BASOPHILS % (AUTO) 0.4 % (0.0-2.0); HEMATOCRIT 21 % (39-51); LYMPHOCYTES # (AUTO) 0.9 /CMM (0.8-4.8); LYMPHOCYTES % (AUTO) 10.7 % (20.0-44.0); MEAN CORPUSCULAR HGB CONC 33 g/dl (31.0-36.0); MEAN CORPUSCULAR VOLUME 90 fL (80-96); MONOCYTES # (AUTO) 0.8 /CMM (0.1-1.30); MONOCYTES % (AUTO) 8.9 % (2.0-12.0); NEUTROPHILS # (AUTO) 6.6 /CMM (1.8-8.9); PLATELET COUNT (AUTO) 245 /CMM (150-450); RED BLOOD CELL COUNT(AUTO) 2.29 MIL/uL (4.5-6.0); WHITE BLOOD COUNT (AUTO) 8.8 K/uL (4.3-11.0)
[2020-07-28 06:34] LABS: HEMOGLOBIN 6.8 g/dL (13.5-17.5)
[2020-07-28 06:40] LABS: ALBUMIN 1.8 g/dL (3.4-5.0); BILIRUBIN,TOTAL 0.6 mg/dL (0.2-1.0); CREATININE 1.3 mg/dL (0.6-1.3); MAGNESIUM 1.8 mg/dL (1.8-2.4); PHOSPHORUS 4.7 mg/dL (2.5-4.9); POTASSIUM 4.5 mmol/L (3.5-5.1); TOTAL PROTEIN, SERUM 6.6 g/dL (6.4-8.2)
[2020-07-28 07:39] LABS: CALCIUM, SERUM 13.4 mg/dL (8.5-10.1)
[2020-07-28] MEDS ORDERED: CELLULOSE,OXIDIZED 1 EACH EACH MC ONE (09:00)
--- NOTE | 2020-07-28 09:00 | NUR ---
rn note dr. santo notified of patient's low h/h and calcium of 13.4
[2020-07-28] MEDS: VANCOMYCIN 1.5 GM in IV D5W 500 ML IV SCH (09:50)
[2020-07-28] MEDS: CEFEPIME 2 GM in IV D5W 100 ML IV SCH ×2 (09:50→23:41)
[2020-07-28] MEDS: CALCITONIN,SALMON,SYNTHETIC 3.7 ML SPRAY.PUMP NS SCH (09:51)
[2020-07-28] MEDS: IV NS 0.9% 1,000 ML IV PRN ×2 (09:54→18:42)
--- NOTE | 2020-07-28 14:46 | NUR ---
rn note consent obtained for excisional wound debridement of lower extremities. document placed in chart.
[2020-07-28] MEDS: diphenhydrAMINE HCL 50 MG/ML VIAL IV ONE ×2 (15:03→15:14)
[2020-07-28] MEDS: ACETAMINOPHEN 325 MG TABLET PO ONE ×2 (15:05→15:15)
[2020-07-28 15:09] LABS: THYROID STIMULATING HORMONE 5.986 uIU/mL (0.358-3.74)
--- NOTE | 2020-07-28 15:15 | NUR ---
rn note patient refused Tylenol and Benadryl. educated patient on importance of medication adherence and potential side effects. patient still refused.
[2020-07-28] MEDS: THERAHONEY GEL 1.5 OZ TUBE TP SCH (15:30)
[2020-07-28] MEDS ORDERED: LIDOCAINE 1% INJ 50 ML MDV IJ ONE (18:00)
--- NOTE | 2020-07-28 18:24 | NUR ---
rn note lidocaine held due for bone biopsy tomorrow. okay to hold per dr. dimas.
--- NOTE | 2020-07-28 19:20 | NUR ---
RN NOTE PATIENT IS IN BED WITH HOB AT SEMI FOWLERS POSITION. PATIENT IS ON VENT WITH NO SIGNS OF LABORED BREATHING. PATIENT IS AOX4. ORTIZ IS IN PLACE. GTUBE IS IN PLACE. RUSTY ML IS PATENT AND INTACT. BED IS LOCKED IN THE LOWEST POSITION, 3 GUARD RAILS RAISED, CALL KATHLEEN WITHIN REACH, AND ALL HOSPITAL SAFETY PRECAUTIONS ARE BEING FOLLOWED. ALL DUE MEDS GIVEN AND PATIENT REMAINED STABLE THROUGHOUT SHIFT. WILL ENDORSE TO NET DEVELOPER SOFTWARE ENGINEER C RN.
--- NOTE | 2020-07-28 19:50 | NUR ---
RN OPENING NOTES RECD PT IN BED, AWAKE. PT TRACH TO VENT, ALERT. SETTINGS SH 7XLT AC 12 TV 500 FIO2 40% PEEP OF 5. TOLERATING WELL. O2 SATURATION 96% NO SOB OR RESP DISTRESS. PT ST HEART RATE 108 AT THIS TIME, ON CARDIAC MONITORING. PT DENIES PAIN. PT REMAINS AFERBILE. PT SUCTIONED. ALL NEEDS ATTENDED AT THIS TIME. IV SITE RUSTY MID LINE FLUSHED ASEPTICALLY, RUNNING IV FLUIDS NS @200ML/HR ORDERED. PT ALSO HAS 1UNIT PRBC RUNNING AT THIS TIME. SAFETY MEASURES IN PLACE. R/O FOR COVID, ISOLATION PRECAUTIONS IN PLACE PENDING PCR RESULT. HOB ELEVATED TOLERATED. SIDE RAILS UP X3, BED LOCKED IN LOWEST POSITION WITH BED ALARM ON. CALL LIGHT WITHIN REACH. WILL CONT TO MONITOR.
--- NOTE | 2020-07-28 19:51 | NUR ---
RN NOTE PT HAS GTUBE, AUSCULTATED FOR PLACEMENT. NO RESIDUAL NOTED. FLUSHED. JEVITY RUNNING AT 45ML/HR, PT IS TO REACH GOAL OF 65ML/HR.
--- NOTE | 2020-07-28 20:30 | NUR ---
RN NOTE 1 UNIT PRBC COMPLETE. NO REACTIONS NOTED. PT REMAINS AFEBRILE.
--- NOTE | 2020-07-28 23:45 | NUR ---
RN NOTE PT COMPLETED 2ND UNIT OF BLOOD ORDERED WITHOUT ANY REACTIONS. WILL CONT TO MONITOR. F/U WITH MORNING LABS
[2020-07-29] VITALS: BP 127/71
[2020-07-29] MEDS: VANCOMYCIN 1.5 GM in IV D5W 500 ML IV SCH ×3 (00:08→21:00)
[2020-07-29] MEDS: IV NS 0.9% 1,000 ML IV PRN ×2 (00:45→20:36)
[2020-07-29 04:00] VITALS: BP 133/76
[2020-07-29 06:01] LABS: BASOPHILS % (AUTO) 0.5 % (0.0-2.0); EOSINOPHILS % (AUTO) 6.1 % (0.0-6.0); HEMATOCRIT 25 % (39-51); HEMOGLOBIN 8.3 g/dL (13.5-17.5); LYMPHOCYTES # (AUTO) 0.7 /CMM (0.8-4.8); LYMPHOCYTES % (AUTO) 7.9 % (20.0-44.0); MEAN CORPUSCULAR HGB CONC 33 g/dl (31.0-36.0); MEAN CORPUSCULAR VOLUME 89 fL (80-96); MONOCYTES # (AUTO) 0.8 /CMM (0.1-1.30); NEUTROPHILS # (AUTO) 6.6 /CMM (1.8-8.9); NEUTROPHILS % (AUTO) 76.5 % (43.0-81.0); PLATELET COUNT (AUTO) 245 /CMM (150-450); RED BLOOD CELL COUNT(AUTO) 2.78 MIL/uL (4.5-6.0); WHITE BLOOD COUNT (AUTO) 8.6 K/uL (4.3-11.0)
[2020-07-29 06:15] LABS: CALCIUM, SERUM 12.5 mg/dL (8.5-10.1); CREATININE 1.3 mg/dL (0.6-1.3); MAGNESIUM 1.8 mg/dL (1.8-2.4); PHOSPHORUS 4.4 mg/dL (2.5-4.9); POTASSIUM 4.3 mmol/L (3.5-5.1)
[2020-07-29] MEDS: JEVITY 1.2 CAL 1,000 ML BOTTLE GT PRN (06:32)
--- NOTE | 2020-07-29 06:41 | NUR ---
RN CLOSING NOTES NO SIGNIFICANT CHANGES IN PT CONDITION. PT AT THIS TIME IS RESTING, AWAKENS EASILY. STILL ON SAME VENT SETTINGS. SATURATION IS 100% NO S/S OF SOB OR RESP DISTRESS. TOLERATING WELL. PT IS AFEBRILE. ALL NEEDS ATTENDED. SAFETY MEASURES IN PLACE. HOB ELEVATED. SIDE RAILS UP X2 BED LOCKED IN LOWEST POSITION BED ALARM ON. CALL LIGHT WITHIN REACH. WILL ENDORSE TO DAY SHIFT RN FOR CONTINUATION OF CARE
[2020-07-29 08:06] LABS: IMMUNOGLOBULIN A, SERUM 210 mg/dL (90-386); IMMUNOGLOBULIN G, SERUM 1804 mg/dL (603-1613); IMMUNOGLOBULIN M, SERUM 85 mg/dL (20-172)
--- NOTE | 2020-07-29 09:07 | NUR ---
WOUND CARE CONSULT: PT FOLLOWED BY SURGICAL AND PODIATRY TEAMS FOR WOUNDS, PRESENT ON ADMISSION. DEFER TO SURGICAL TEAMS FOR WOUND TREATMENT PLAN. RECOMMENDATIONS MADE FOR SKIN PROTECTION. DISCUSSED WITH NURSING STAFF. PT IS ON [facility] LOW AIRLOSS BED. MD IN AGREEMENT WITH PLAN OF CARE.
--- NOTE | 2020-07-29 09:22 | NUR ---
RN NOTES RECEIVED PATIENT SWITCHED WITH PATIENT 112 TO 119, PERFORMED BLOOD DRAW FOR LABS, SITE INTACT PATENT RUSTY, G-TUBE INTACT CORRECT PLACEMENT NOTED, VANCOMYCIN TROUGH DRAW = 48 , WILL NOTIFY PHARM OF TROUGH LEVEL, SAFETY MEASURES INTACT, WILL CONTINUE TO MONITOR , CALL LIGHT IN REACH, PATIENT ABLE TO MAKE NEEDS KNOWN, RESTING PEACEFULLY SLEEPING - EASY TO AROUSE.
[2020-07-29] MEDS: CEFEPIME 2 GM in IV D5W 100 ML IV SCH ×2 (09:33→20:32)
[2020-07-29] MEDS: CALCITONIN,SALMON,SYNTHETIC 3.7 ML SPRAY.PUMP NS SCH (09:34)
[2020-07-29] MEDS: THERAHONEY GEL 1.5 OZ TUBE TP SCH (09:35)
[2020-07-29 10:00] VITALS: BP 139/76
[2020-07-29] MEDS: SILVER SULFADIAZINE 50 GM JAR TP SCH (11:00)
--- NOTE | 2020-07-29 12:01 | NUR ---
RN NOTES PATIENT COMPLIANT WITH CARE, RESPOSITONED FOR COMFORT AND TO RELIEVE PRESSURE ON COCCYX SITE, VANCOMYCIN HELD DUE TO TROUGH AT 48 TODAY, ALL OTHER MD ORDERS AND MEDICATIONS GIVEN TOLERATED WELL AND NO SIDE EFFECTS NOTED, IV SITE RUSTY PATENT INTACT, G-TUBE PATENT INTACT, BANDAGES AND WOUND CARE PROVIDED AND INTACT AT THIS TIME, WILL CONTINUE TO MONITOR AND KEEP RESIDENT BARB AREA CLEAN AND DRY TO HELP PREVENT ANY FURTHER COMPLICATIONS WITH SACRUM WOUND, CALL LIGHT IN REACH , TV ON AND PATIENT SLEEPING AND RESTING, EASY TO AROUSE .
[2020-07-29] MEDS ORDERED: FUROSEMIDE 40 MG/4 ML VIAL IV ONE (12:30)
[2020-07-29] MEDS ORDERED: MORPHINE SULFATE INJ 2 MG/ML DISP.SYRIN IV ONE (13:30)
[2020-07-29] MEDS: SOD FERRIC GLUC 125 MG in IV NS 0.9% 100 ML IV SCH (14:00)
[2020-07-29 14:25] VITALS: BP 138/75
[2020-07-29 16:00] VITALS: BP 138/75
--- NOTE | 2020-07-29 19:15 | NUR ---
RN NOTE RECEIVED PATIENT IN BED, AO X 4, MOUTHS WORDS, PATIENT IN NO S/SX OF ACUTE DISTRESS AT THIS TIME. ON TRACH CONNECTED TO MECHANICAL VENTILATOR WITH SETTINGS PRESCRIBED, SATURATION AT 100%, ST ON THE MONITOR HR IS 112. GTUBE INTACT, POSITIVE PLACEMENT CONFIRMED, NO RESIDUAL NOTED, WITH TUBE FEEDING OF JEVITY 1.2 AT 65 ML/HR. NOTED RUSTY MIDLINE, ALL HUBS PATENT AND FLUSHING WELL, WITH NS INFUSING AT 200 ML.HR.ORTIZ CATHETER CONNECTED TO URINE BAG IN PLACE, DRAINING TO A CLEAR YELLOW OUTPUT. MULTIPLE WOUNDS NOTED INCLUDING STAGE IV SACRAL ULCER, WOUNDS AT B HIPS, AND B POSTERIOR LEG, WOUND DRESSING INTACT. SAFETY MEASURES IMPLEMENTED. PATIENT BED ALARM IS ON. HEAD OF BED ELEVATED. BED IS LOCKED, IN LOWEST POSITION AND SIDE RAILS UP. CALL LIGHT WITHIN REACH OF THE PATIENT. WILL CONTINUE TO MONITOR AND REASSESS FOR ANY CHANGES.
[2020-07-29 20:00] VITALS: BP 128/75
[2020-07-29] MEDS: HYDROCODONE/APAP 5/325MG TABLET GT PRN (20:36)
--- NOTE | 2020-07-29 21:00 | NUR ---
RN NOTE NOTED VANCO TROUGH AT 07/29/2020 0800 = 48. PER AKIN DUEÑAS, HOLD DOSE FOR THE DAY, AND VANCOMYCIN DOSE WILL BE ADJUSTED BEGINNING 07/30/2020 0900. WEB CONTENT SPECIALIST WAS MADE AWARE
[2020-07-30] VITALS: BP 133/76
[2020-07-30] MEDS: JEVITY 1.2 CAL 1,000 ML BOTTLE GT PRN ×2 (01:28→23:54)
[2020-07-30 04:00] VITALS: BP 120/64
[2020-07-30] MEDS: IV NS 0.9% 1,000 ML IV PRN ×2 (05:19→17:35)
--- NOTE | 2020-07-30 06:00 | NUR ---
RN NOTE PATIENT COMPLAINING OF 10/10 PAIN FROM POST BONE MARROW BIOPSY SITE, STATES NORCO 5-[address] PARKS WAS NOTIFIED. AWAITING FOR MD ORDERS. ELECTRONIC PREPRESS SYSTEM OPERATOR AWARE.
[2020-07-30 07:15] LABS: ALBUMIN 1.5 g/dL (3.4-5.0); BILIRUBIN,TOTAL 0.3 mg/dL (0.2-1.0); CALCIUM, SERUM 11.1 mg/dL (8.5-10.1); CREATININE 1.3 mg/dL (0.6-1.3); MAGNESIUM 1.6 mg/dL (1.8-2.4); PHOSPHORUS 3.9 mg/dL (2.5-4.9); POTASSIUM 4.5 mmol/L (3.5-5.1); TOTAL PROTEIN, SERUM 6.2 g/dL (6.4-8.2)
--- NOTE | 2020-07-30 07:15 | NUR ---
RN OPENING NOTE Received patient in bed appears calm and relaxed. On trach Shiley XLT and vent settings: AC 12 TV 500, Fio2 40% PEEP 5 tolerating well no signs of distress. Patient is AOx4 mouth words. Tele reading SR-ST 105. Jameson catheter draining cloud yellow urine by gravity. Multiple wounds. Will plan to reposition. RUSTY midline running NS @ 200ml/hr. GTF running Jevity 1.2 @ 60ml/hr tolerating well. Safety measures maintained. Will cont to monitor.
--- NOTE | 2020-07-30 07:17 | NUR ---
RN NOTE PATIENT REMAINS IN ROOM, NO SIGN OF ACUTE DISTRESS NOTED. LATEST TEMP 98.9 DEGREES. SAFETY MEASURES IN PLACE. ENDORSED TO BALTAZAR RN FOR CONTINUATION OF CARE.
[2020-07-30 07:25] LABS: BASOPHILS % (AUTO) 0.4 % (0.0-2.0); EOSINOPHILS % (AUTO) 3.9 % (0.0-6.0); HEMATOCRIT 23 % (39-51); HEMOGLOBIN 7.6 g/dL (13.5-17.5); LYMPHOCYTES # (AUTO) 1.1 /CMM (0.8-4.8); LYMPHOCYTES % (AUTO) 14.2 % (20.0-44.0); MEAN CORPUSCULAR HGB CONC 33 g/dl (31.0-36.0); MEAN CORPUSCULAR VOLUME 89 fL (80-96); MONOCYTES # (AUTO) 0.8 /CMM (0.1-1.30); MONOCYTES % (AUTO) 10.1 % (2.0-12.0); NEUTROPHILS # (AUTO) 5.4 /CMM (1.8-8.9); NEUTROPHILS % (AUTO) 71.4 % (43.0-81.0); PLATELET COUNT (AUTO) 225 /CMM (150-450); RED BLOOD CELL COUNT(AUTO) 2.59 MIL/uL (4.5-6.0); WHITE BLOOD COUNT (AUTO) 7.6 K/uL (4.3-11.0)
[2020-07-30 08:00] VITALS: BP 109/61
[2020-07-30] MEDS: CEFEPIME 2 GM in IV D5W 100 ML IV SCH ×2 (08:35→20:17)
[2020-07-30] MEDS ORDERED: VANCOMYCIN 1.25 GM in IV D5W 250 ML IV SCH (09:00)
[2020-07-30] MEDS: CALCITONIN,SALMON,SYNTHETIC 3.7 ML SPRAY.PUMP NS SCH (09:51)
[2020-07-30] MEDS: SILVER SULFADIAZINE 50 GM JAR TP SCH (09:51)
[2020-07-30] MEDS: THERAHONEY GEL 1.5 OZ TUBE TP SCH (09:52)
[2020-07-30] MEDS: Magnesium 1GM/D5W 100ML PREMIX 100 ML IV SCH ×2 (11:13→12:20)
[2020-07-30 12:00] VITALS: BP 116/63
[2020-07-30] MEDS: MORPHINE SULFATE INJ 2 MG/ML DISP.SYRIN IV PRN ×2 (12:22→20:17)
[2020-07-30] MEDS: SOD FERRIC GLUC 125 MG in IV NS 0.9% 100 ML IV SCH (14:23)
[2020-07-30 16:00] VITALS: BP 109/58
--- NOTE | 2020-07-30 17:20 | NUR ---
REFUSED TO BE MOVED AND CHANGED. REFUSED BED BATH. INFORMED WE CAN GIVE PAIN MEDS BEFORE TURNING. PT STILL REFUSED. OFFERED 3X. EXP RISK AND BENEFITS.
--- NOTE | 2020-07-30 18:33 | NUR ---
RN CLOSING NOTE Patient in bed appears calm and relaxed. Trach and vent tolerating well no signs of distress. Suction as needed. Tele reading SR 90-110. Jameson catheter drained 600ml cloud yellow urine by gravity. RUSTY midline running NS @ 75ml/hr. GTF running Jevity 1.2 @ 65ml/hr tolerating well. All due meds given. Vital signs within normal limits. Safety measures maintained. Will endorse to hairspring fabrication supervisor nurse for leon.
[2020-07-30 20:00] VITALS: BP 145/54
[2020-07-31] VITALS: BP 116/58
[2020-07-31 04:00] VITALS: BP 120/64
[2020-07-31] MEDS: MORPHINE SULFATE INJ 2 MG/ML DISP.SYRIN IV PRN (04:36)
[2020-07-31 06:11] LABS: BASOPHILS # (AUTO) 0.1 /CMM (0.0-0.2); BASOPHILS % (AUTO) 0.8 % (0.0-2.0); EOSINOPHILS % (AUTO) 4.8 % (0.0-6.0); HEMATOCRIT 23 % (39-51); HEMOGLOBIN 7.4 g/dL (13.5-17.5); LYMPHOCYTES % (AUTO) 14.8 % (20.0-44.0); MEAN CORPUSCULAR HGB CONC 33 g/dl (31.0-36.0); MEAN CORPUSCULAR VOLUME 90 fL (80-96); MONOCYTES # (AUTO) 0.8 /CMM (0.1-1.30); MONOCYTES % (AUTO) 11.8 % (2.0-12.0); NEUTROPHILS # (AUTO) 4.5 /CMM (1.8-8.9); NEUTROPHILS % (AUTO) 67.8 % (43.0-81.0); PLATELET COUNT (AUTO) 194 /CMM (150-450); WHITE BLOOD COUNT (AUTO) 6.7 K/uL (4.3-11.0)
[2020-07-31 06:49] LABS: ALBUMIN 1.5 g/dL (3.4-5.0); BILIRUBIN,TOTAL 0.4 mg/dL (0.2-1.0); CREATININE 1.4 mg/dL (0.6-1.3); MAGNESIUM 1.9 mg/dL (1.8-2.4); PHOSPHORUS 4.1 mg/dL (2.5-4.9); POTASSIUM 4.6 mmol/L (3.5-5.1); TOTAL PROTEIN, SERUM 6.2 g/dL (6.4-8.2)
[2020-07-31 08:00] VITALS: BP 119/74
--- NOTE | 2020-07-31 08:00 | NUR ---
TREE FELLER OPERATOR NOTE PATIENT IN BED WITH TRACH TO VENT SETTING ORDERED , RESTING COMFORTABLY AT THIS TIME BUT EASILY AROUSAL VERBAL AND TACTILE STIMULI, ON TELE MONITOR ST 101 , WITH G TUBE ORDERED, NO RESIDUAL NOTED AT THIS TIME,KEEP HOB ELEVATED AT ALL TIME, RT UPPER ARM MID LINE IN PLACE AND FLUSHED WELL ON IVF ORDERED , BED IN LOWEST AND LOCKED POSITION WILL CONT TO MONITOR .SAFETY MEASURE OBSERVED
[2020-07-31] MEDS: CEFEPIME 2 GM in IV D5W 100 ML IV SCH ×2 (08:28→21:56)
[2020-07-31] MEDS: SILVER SULFADIAZINE 50 GM JAR TP SCH ×2 (08:29→09:00)
[2020-07-31] MEDS: CALCITONIN,SALMON,SYNTHETIC 3.7 ML SPRAY.PUMP NS SCH (08:29)
[2020-07-31] MEDS: THERAHONEY GEL 1.5 OZ TUBE TP SCH ×2 (08:29→09:00)
[2020-07-31] MEDS ORDERED: VANCOMYCIN 1.25 GM in IV D5W 250 ML IV SCH (09:00)
[2020-07-31] MEDS: IV NS 0.9% 1,000 ML IV PRN (09:54)
--- NOTE | 2020-07-31 10:30 | NUR ---
telecommunications equipment installer note patint in bed offered to change dressing on both lower legs and sacral refusion stated not at this time will f\u
[2020-07-31 12:00] VITALS: BP 119/68
--- NOTE | 2020-07-31 14:00 | NUR ---
telegraphic instrument supervisor note patient refused to be reposition , explained of importance but strongly refused will f\u
[2020-07-31] MEDS: SOD FERRIC GLUC 125 MG in IV NS 0.9% 100 ML IV SCH (14:34)
[2020-07-31] MEDS: JEVITY 1.2 CAL 1,000 ML BOTTLE GT PRN (14:41)
--- NOTE | 2020-07-31 14:45 | NUR ---
telemarketing fundraiser note offered to change dressing on sacral and both legs patient strongly refusing stated i am a ok dont do , explained of importance to to tx ans wound cx need to be done still strangely refusing
[2020-07-31 16:00] VITALS: BP 109/60
--- NOTE | 2020-07-31 16:00 | NUR ---
FLAME CUTTER NOTE AGAIN ASKED TO DO REPOSITION BUT REFUSING, EXPLAINED OF IMPORTANCE FOR REPOSITION AND CHANGE DRESSING ON BOTH LEGS AND SACRAL BUT STRANGELY REFUSED, WILL CONT TO MONITOR , ALSO SPOKE WITH DR PAPPAS NOTIFIED THAT HG 7.4 NO BLOOD TRANSFUSION AT THIS TIME WILL CONT TO MONITOR CLOSELY
--- NOTE | 2020-07-31 17:34 | NUR ---
telecommunications line mechanic oral care done ,trach care done still dont want to be check to change dressing and sacral area, will cont to encourage , will cont to monitor
--- NOTE | 2020-07-31 18:42 | NUR ---
SENIOR MEDICAL WRITER NOTE PATIENT IN BED , ALL NEEDS ATTENDED, WITH TRACH TO VENT SETTING ORDERED, ON TELE MONITOR ST HR , WITH ORTIZ CATH TO GRAVITY , , WITH G TUBE FEEDING ORDERED NO RESIDUAL NOTED , TOLERATED WELL, KEEP HOB ELEVATED AT THIS TIME AT ALL TIME , RT UPPER ARM MID LINE IN PLACE ON IVF ORDERED CALL LIGHT WITHIN REACH
[2020-07-31 20:00] VITALS: BP 128/65
--- NOTE | 2020-07-31 20:00 | NUR ---
RN NOTE RECEIVED PT IN BED A/A/O X4, ABLE TO MOUTH WORDS. ON VENT VIA TRACH SATING 100%, NO DISTRESS NOTED. PT ON TELE MONITOR SHOWING ST IN 100s. PT HAS TUBE FEEDING RUNNING AT 65 ML/HR.NO RESIDUAL NOTED. SAFET MEASURES IN PLACE.
[2020-08-01] VITALS: BP 119/71
[2020-08-01] MEDS: MORPHINE SULFATE INJ 2 MG/ML DISP.SYRIN IV PRN ×2 (01:58→14:49)
--- NOTE | 2020-08-01 03:29 | NUR ---
skin assessment pt initially refused skin assessment, and dressing change.risks and benefits explained pt agreed to skin assessment and wound treatment only in sacrum,left ,right hips, and perineal area. pt refused dressing change and wound treatment on legs.
[2020-08-01 04:00] VITALS: BP 108/59
[2020-08-01] MEDS: IV NS 0.9% 1,000 ML IV PRN ×2 (05:11→18:07)
--- NOTE | 2020-08-01 06:00 | NUR ---
PT REFUSED TO BE REPOSITIONED AT 0200,0400 AND 0600.
[2020-08-01 07:00] LABS: BASOPHILS % (AUTO) 0.6 % (0.0-2.0); HEMATOCRIT 22 % (39-51); HEMOGLOBIN 7.3 g/dL (13.5-17.5); LYMPHOCYTES # (AUTO) 0.9 /CMM (0.8-4.8); LYMPHOCYTES % (AUTO) 12.5 % (20.0-44.0); MEAN CORPUSCULAR HGB CONC 33 g/dl (31.0-36.0); MEAN CORPUSCULAR VOLUME 91 fL (80-96); MONOCYTES # (AUTO) 0.7 /CMM (0.1-1.30); MONOCYTES % (AUTO) 9.7 % (2.0-12.0); NEUTROPHILS # (AUTO) 5.5 /CMM (1.8-8.9); NEUTROPHILS % (AUTO) 73.2 % (43.0-81.0); PLATELET COUNT (AUTO) 197 /CMM (150-450); RED BLOOD CELL COUNT(AUTO) 2.43 MIL/uL (4.5-6.0); WHITE BLOOD COUNT (AUTO) 7.5 K/uL (4.3-11.0)
[2020-08-01 07:16] LABS: CALCIUM, SERUM 10.8 mg/dL (8.5-10.1); CREATININE 1.4 mg/dL (0.6-1.3)
--- NOTE | 2020-08-01 07:30 | NUR ---
REPORT GIVEN TO ONCOMING SHIFT FOR JAMES.
--- NOTE | 2020-08-01 07:40 | NUR ---
RN NOTE PATIENT IS CURRENTLY IN BED WITH HOB AT SEMI ALLRED'S POSITION. PATIENT IS ON TRACH/VENT WITH NO SIGNS OF LABORED BREATHING. PATIENT IS AOX4. ORTIZ CATHETER IS IN PLACE. GTUBE IS IN PLACE. RUSTY MIDLINE IS PATENT AND INTACT. BED IS LOCKED IN THE LOWEST POSITION, 3 GUARD RAILS RAISED, CALL KATHLEEN WITHIN REACH, AND ALL HOSPITAL SAFETY PRECAUTIONS ARE BEING FOLLOWED. WILL CONTINUE TO MONITOR THROUGHOUT SHIFT.
[2020-08-01 08:00] VITALS: BP 104/54
[2020-08-01] MEDS ORDERED: VANCOMYCIN 1.25 GM in IV D5W 250 ML IV SCH (09:00)
[2020-08-01] MEDS: SILVER SULFADIAZINE 50 GM JAR TP SCH ×2 (09:00→09:41)
[2020-08-01] MEDS: CEFEPIME 2 GM in IV D5W 100 ML IV SCH ×2 (09:05→21:38)
[2020-08-01] MEDS: JEVITY 1.2 CAL 1,000 ML BOTTLE GT PRN (09:06)
[2020-08-01] MEDS: THERAHONEY GEL 1.5 OZ TUBE TP SCH (09:41)
[2020-08-01 10:05] LABS: BAND % (MANUAL) 6 % (0.0-5.0); EOSINOPHILS % (MANUAL) 2 % (0-4); LYMPHOCYTES % (MANUAL) 18 % (16-48); METAMYELOCYTES % 1 % (0-0); MONOCYTES % (MANUAL) 8 % (0-11.0); MYELOCYTES % 1 % (0-0); NEUTROPHILS % (MANUAL) 64 (42-76)
[2020-08-01 12:00] VITALS: BP 104/54
[2020-08-01] MEDS ORDERED: ERGOCALCIFEROL (VITAMIN D 2) 50,000 UNIT CAPSULE PO SCH (13:00)
--- NOTE | 2020-08-01 14:55 | NUR ---
rn note patient refused wound care and sacral wound culture. educated patient on importance of changing dressings and obtaining wound culture. patient still refused.
[2020-08-01 16:00] VITALS: BP 124/66
--- NOTE | 2020-08-01 18:00 | NUR ---
RN NOTE PATIENT REFUSED WOUND CARE. EXPLAINED IMPORTANCE OF CHANGING WOUND DRESSINGS. PATIENT STILL REFUSED.
[2020-08-01] MEDS: VANCOMYCIN 1 GM in IV D5W 250 ML IV SCH (18:01)
--- NOTE | 2020-08-01 18:01 | NUR ---
rn note spoke with justin from pharmacy. ryan to administer 1800 dose of vancomycin.
--- NOTE | 2020-08-01 18:52 | NUR ---
RN NOTE PATIENT IS CURRENTLY IN BED WITH HOB AT SEMI ALLRED'S POSITION. PATIENT IS ON TRACH/VENT WITH NO SIGNS OF LABORED BREATHING. PATIENT IS AOX4. ORTIZ CATHETER IS IN PLACE. GTUBE IS IN PLACE. RUSTY MIDLINE IS PATENT AND INTACT. BED IS LOCKED IN THE LOWEST POSITION, 3 GUARD RAILS RAISED, CALL KATHLEEN WITHIN REACH, AND ALL HOSPITAL SAFETY PRECAUTIONS ARE BEING FOLLOWED. ALL DUE MEDS GIVEN AND PATIENT REMAINED STABLE THROUGHOUT SHIFT. WILL ENDORSE TO COSTUMED CHARACTER ENTERTAINER RN.
[2020-08-01 20:00] VITALS: BP 121/65
[2020-08-02] VITALS (10 sets, daily range): BP systolic 117–145; BP diastolic 63–80
[2020-08-02] MEDS: JEVITY 1.2 CAL 1,000 ML BOTTLE GT PRN (01:35)
[2020-08-02] MEDS: MORPHINE SULFATE INJ 2 MG/ML DISP.SYRIN IV PRN (06:48)
[2020-08-02 07:04] LABS: BASOPHILS % (AUTO) 0.5 % (0.0-2.0); EOSINOPHILS % (AUTO) 4.2 % (0.0-6.0); HEMATOCRIT 23 % (39-51); HEMOGLOBIN 7.5 g/dL (13.5-17.5); LYMPHOCYTES % (AUTO) 12.3 % (20.0-44.0); MEAN CORPUSCULAR HGB CONC 33 g/dl (31.0-36.0); MEAN CORPUSCULAR VOLUME 90 fL (80-96); MONOCYTES # (AUTO) 0.7 /CMM (0.1-1.30); MONOCYTES % (AUTO) 7.8 % (2.0-12.0); NEUTROPHILS # (AUTO) 6.3 /CMM (1.8-8.9); NEUTROPHILS % (AUTO) 75.2 % (43.0-81.0); PLATELET COUNT (AUTO) 202 /CMM (150-450); RED BLOOD CELL COUNT(AUTO) 2.55 MIL/uL (4.5-6.0); WHITE BLOOD COUNT (AUTO) 8.3 K/uL (4.3-11.0)
[2020-08-02 07:19] LABS: ALBUMIN 1.5 g/dL (3.4-5.0); BILIRUBIN,TOTAL 0.4 mg/dL (0.2-1.0); CALCIUM, SERUM 11.1 mg/dL (8.5-10.1); CREATININE 1.3 mg/dL (0.6-1.3); MAGNESIUM 1.7 mg/dL (1.8-2.4); PHOSPHORUS 4.2 mg/dL (2.5-4.9); TOTAL PROTEIN, SERUM 6.4 g/dL (6.4-8.2)
--- NOTE | 2020-08-02 07:30 | NUR ---
RN NOTES, NO SIGNIFICANT CHANGE IN CONDITION, ENDORSED TO DAY SHIFT NURSE FOR CONTINUATION OF CARE.
[2020-08-02 09:09] LABS: EOSINOPHILS % (MANUAL) 2 % (0-4); LYMPHOCYTES % (MANUAL) 16 % (16-48); MONOCYTES % (MANUAL) 6 % (0-11.0); NEUTROPHILS % (MANUAL) 76 (42-76)
[2020-08-02] MEDS: SILVER SULFADIAZINE 50 GM JAR TP SCH (09:30)
[2020-08-02] MEDS: THERAHONEY GEL 1.5 OZ TUBE TP SCH (09:30)
[2020-08-02] MEDS: CEFEPIME 2 GM in IV D5W 100 ML IV SCH ×2 (09:31→21:00)
--- NOTE | 2020-08-02 10:48 | NUR ---
Patient refused wound care. John Duran RN
--- NOTE | 2020-08-02 13:13 | NUR ---
Spoke to spouse, Nikki, about procedure, bronchoscopy. She will decide when she comes to visit the patient. John Duran RN
[2020-08-02] MEDS: Magnesium 1GM/D5W 100ML PREMIX 100 ML IV SCH ×2 (13:16→14:30)
[2020-08-02] MEDS ORDERED: diphenhydrAMINE HCL 50 MG/ML VIAL IV ONE (14:30)
[2020-08-02] MEDS ORDERED: ACETAMINOPHEN 325 MG TABLET PO ONE (14:30)
--- NOTE | 2020-08-02 22:42 | NUR ---
RT NOTE PT RECEIVED TRACHED AND IS AWAKE/ALERT ON MECHANICAL VENTILATION. VENT PLUGGED TO RED OUTLET. ALARMS ON AND AUDIBLE. NO RESP. DISTRESS NOTED. WILL CONTINUE TO MONITOR. Addendum: 08/02/20 at 2244 by WENDY HERNANDEZ RT Amended: Links added.
[2020-08-03] VITALS (11 sets, daily range): BP systolic 102–142; BP diastolic 40–80
[2020-08-03] MEDS ORDERED: IV D5/ 0.9% NACL 1,000 ML IV ONE (01:30)
--- NOTE | 2020-08-03 06:22 | NUR ---
RT NOTE SMALL THICK BLOODY RED SECRETIONS NOTED T/O SHIFT. LAVAGED TRACH WITH COLD NORMAL SALINE. WILL ENDORSE TO NEXT SHIFT.
[2020-08-03 07:15] LABS: BASOPHILS # (AUTO) 0.1 /CMM (0.0-0.2); BASOPHILS % (AUTO) 0.7 % (0.0-2.0); EOSINOPHILS % (AUTO) 4.8 % (0.0-6.0); HEMATOCRIT 25 % (39-51); HEMOGLOBIN 8.1 g/dL (13.5-17.5); LYMPHOCYTES % (AUTO) 12.4 % (20.0-44.0); MEAN CORPUSCULAR HGB CONC 33 g/dl (31.0-36.0); MEAN CORPUSCULAR VOLUME 91 fL (80-96); MONOCYTES # (AUTO) 0.7 /CMM (0.1-1.30); MONOCYTES % (AUTO) 8.2 % (2.0-12.0); NEUTROPHILS # (AUTO) 6.1 /CMM (1.8-8.9); NEUTROPHILS % (AUTO) 73.9 % (43.0-81.0); PLATELET COUNT (AUTO) 202 /CMM (150-450); WHITE BLOOD COUNT (AUTO) 8.3 K/uL (4.3-11.0)
[2020-08-03 07:43] LABS: CALCIUM, SERUM 11.1 mg/dL (8.5-10.1); CREATININE 1.4 mg/dL (0.6-1.3); PHOSPHORUS 4.1 mg/dL (2.5-4.9)
[2020-08-03] MEDS ORDERED: LIDOCAINE 2% JEL 5 ML TUBE MC ONE (08:30)
--- NOTE | 2020-08-03 08:45 | NUR ---
RN NOTES PATIENT UP TO ROOM 262 BECAUSE OF SCHEDULED BRONCHOSCOPY. PATIENT NPO SINCE MIDNIGHT, CONSENT FORM SIGNED VIA . PATIENT TRACHEA WENT DEPENDENT, BUT ALERT UNDERSTAND. REPORT GET FROM VY NURSE. PATIENT HAS RIGHT UPPER ARM MIDLINE. RT WITH THE PATIENT , EMPLOYMENT CASE MANAGER Dr PETIT EXPLAINED PATIENT ABOUT PROCEDURE. WILL START DIPRIVAN AND TITRATE UP FOR SEDATION. WILL MONITORING.
[2020-08-03] MEDS: PROPOFOL 100 ML IV PRN ×2 (08:53→09:15)
--- NOTE | 2020-08-03 08:56 | NUR ---
TRANSFER PATIENT TO [facility] ALCAR[facility]. PATIENT TO ICU 262. SANDY Hamilton RN
--- NOTE | 2020-08-03 10:00 | NUR ---
rn notes Patient getting bronchoscope at this time via Dr Streeter, , increased diprivan drips because of still feeling pain, to the 50mcg/kg/hr. order taken and carried out. patient tolerating procedure well. bp 123/ 66, p-83, o2-100, r- 24. will monitoring.
--- NOTE | 2020-08-03 10:18 | NUR ---
RN NOTES PROCEDURE DONE AT THIS TIME BP 118/82, P-95, R-26, 02-96. REGARDING DR PETIT TITRATE DIPRIVAN DIP DOWN IN 30 MIN. ORDER TAKEN AND CARRIED OUT. RT WITH THE PATIENT , NO ACUTE RESPIRATORY DISTRESS. PATIENT SEDATED. WILL MONITORING.
--- NOTE | 2020-08-03 10:18 | NUR ---
RT NOTE: ASSISTED WITH BRONCHOSCOPY PROCEDURE. NO ADVERSE REACTIONS NOTED. WILL CONTINUE TO MONITOR.
--- NOTE | 2020-08-03 10:45 | NUR ---
RN NOTES STARTED DIPRIVAN TITRATION PER PROTOCOL. PER Dr WILSON ORDER. WILL MONITOR PATIENT AFTER ONE HR SEDATION.
--- NOTE | 2020-08-03 11:30 | NUR ---
RN NOTES PATIENT RESTING DIPRIVAN SEDATION TITRATED 0MCG/KG/HR AT THIS TIME. SUCTION, PATIENT HAS NO ACUTE RESPIRATORY DISTRESS, RESTING. WILL MONITORING.
--- NOTE | 2020-08-03 12:00 | NUR ---
RN NOTES PATIENT TAKE BACK TO THE VY ROOM 119, WITH THE RT. PATIENT STABLE, NO ACUTE RESPIRATORY DISTRESS. REPORT GIVEN TO THE VY RN. RN VERBALIZED UNDERSTANDING JAMES.
[2020-08-03] MEDS: MORPHINE SULFATE INJ 2 MG/ML DISP.SYRIN IV PRN ×3 (12:45→22:40)
[2020-08-03] MEDS: SILVER SULFADIAZINE 50 GM JAR TP SCH (13:22)
[2020-08-03] MEDS: THERAHONEY GEL 1.5 OZ TUBE TP SCH (13:22)
[2020-08-03] MEDS: CEFEPIME 2 GM in IV D5W 100 ML IV SCH ×2 (13:23→21:35)
--- NOTE | 2020-08-03 13:45 | NUR ---
SACRAL WOUND CULTURE COLLECTION AND PLACEMENT IN UNIT REFRIGERATOR. ORTIZ CATHETER EMPTY. SANDY OLEARY RN
--- NOTE | 2020-08-03 17:43 | NUR ---
PATIENT RECEIVED TRACHED WITH SHILEY XLT Addendum: 08/03/20 at 1819 by TAYLOR ESCAMILLA RT NOTE CONTINUED: PATIENT RECEIVED TRACHED WITH SHILEY XLT #7 ON MECHANICAL VENT. ALARMS VERIFIED AND AUDIBLE. SUCTIONED AND LAVAGED THICK BLOODY SECRETIONS AT THE BEGINNING OF THE SHIFT. NOW SECRETIONS ARE THIN AND FREITAS. AMBU BAG AND NEW TRACH AT [facility].
[2020-08-03] MEDS: VANCOMYCIN 1 GM in IV D5W 250 ML IV SCH (18:07)
--- NOTE | 2020-08-03 19:30 | NUR ---
RN OPENING NOTES: RECEIVED MECH VENT PT A/OX4 IN BED RESTING COMFORTABLY.PATIENT IN NO S/SX OF ACUTE DISTRESS AT THIS TIME. NO SOB NOTED. PATIENT'S BREATHING IS EVEN AND UNLABORED. PATIENT ON MECHANICAL VENT; SETTINGS PRESCRIBED; PT TOLERATED WELL. AMBU BAG AT BED SIDE ALARMS SET PER PROTOCOL AND AUDIBLE. VENT PLUGGED IN TO RED OUTLET. NO DISTRESS NOTED. PATIENT ON TELE MONITORING READING SINUS TACHY HR IS @111 AT THE TIME OF RECEIVED. WITH G TUBE FLUSHING AND PATENT; SITE CLEAN DRY AND INTACT; NO RESIDUAL NOTED; CONNECTED TO TUBE FEEDING OF JEVITY 1.2@65ML/HR;PT TOLERATES WELL. NOTED IV SITE ON; R UA MIDLINE# 18 PATENT, INTACT AND FLUSHING WELL; NO S/S OF INFECTION OR INFILTRATION. ORTIZ CATH IN PLACE, MODERATE URINE OUTPUT NOTED;BEAU IN COLOR. SAFETY MEASURES HAVE BEEN PROVIDED AND IMPLEMENTED. PATIENT BED ALARM IS ON. HEAD OF BED ELEVATED. BED IS LOCKED, IN LOWEST POSITION AND SIDE RAILS UP. CALL LIGHT WITHIN REACH OF THE PATIENT. APPLICABLE ISOLATION PRECAUTIONS IN PLACE. WILL CONTINUE TO MONITOR AND REASSESS FOR ANY CHANGES AND WILL CARRY OUT ANY ONGOING AND ACTIVE MD ORDER.
[2020-08-03] MEDS: HYDROCODONE/APAP 5/325MG TABLET GT PRN (21:35)
--- NOTE | 2020-08-03 22:00 | NUR ---
RN NOTES PT REFUSED SCHEDULED TURN AND REPOSITION, EXPLAINED RISK AND BENEFITS BUT PT STILL REFUSING. [employer] SUPERINTENDENT MADE AWARE. WILL CONTINUE TO MONITOR AND ASSESS PT'S NEED ALL THROUGHOUT THE SHIFT.
--- NOTE | 2020-08-03 23:00 | NUR ---
RN NOTES NO CHANGE IN PATIENT CONDITION AT THIS TIME PATIENT VITALS STABLE, NO SIGNS OF ACUTE RESPIRATORY DISTRESS. FREIGHT DELIVERY DRIVER MADE AWARE. WILL CONTINUE TO MONITOR AND REASSESS FOR ANY CHANGES THROUGHOUT THE SHIFT.
[2020-08-04] VITALS: BP 122/67
--- NOTE | 2020-08-04 | NUR ---
RN NOTES PT REFUSED SCHEDULED TURN AND REPOSITION, EXPLAINED RISK AND BENEFITS BUT PT STILL REFUSING. TOILET PRODUCTS MOLDER MADE AWARE. WILL CONTINUE TO MONITOR AND ASSESS PT'S NEED ALL THROUGHOUT THE SHIFT.
--- NOTE | 2020-08-04 00:45 | NUR ---
RN NOTES NOTED PT'S TEMP 99.5@0000. PRN MED OF TYLENOL TO BE GIVEN; BUT PT REFUSED. EXPLAINED RISK AND BENEFITS BUT PT STILL REFUSED. COOLING MEASURES PROVIDED. TRACTOR EXPERT MADE AWARE. WILL RE-EVALUATE AFTER 30 MINUTES- 1 HOUR. WILL CONTINUE TO MONITOR
--- NOTE | 2020-08-04 02:00 | NUR ---
RN NOTES PT REFUSED SCHEDULED TURN AND REPOSITION, EXPLAINED RISK AND BENEFITS BUT PT STILL REFUSING. RANGE MANAGER MADE AWARE. WILL CONTINUE TO MONITOR AND ASSESS PT'S NEED ALL THROUGHOUT THE SHIFT.
[2020-08-04] MEDS: MORPHINE SULFATE INJ 2 MG/ML DISP.SYRIN IV PRN ×2 (03:48→14:05)
[2020-08-04 04:00] VITALS: BP 117/55
--- NOTE | 2020-08-04 04:00 | NUR ---
RN NOTES PATIENT REMAINS IN NO ACUTE RESPIRATORY DISTRESS AT THIS TIME, NO CHANGES TO CONDITION/STATUS.PT REFUSED AM PATIENT CARE , WOUND CARE AND TURN AND REPOSITION. PT WAS CRYING WHILE REFUSING, EXPLAINED RISK AND BENEFITS WHILE DATA COMMUNICATIONS ANALYST IS PRESENT @BEDSIDE, PT STILL REFUSED. CONTRACTS [employer] WELL AWARE. WILL CONTINUE TO MONITOR AND REASSESS FOR ANY CHANGES THROUGHOUT THE SHIFT
[2020-08-04] MEDS: JEVITY 1.2 CAL 1,000 ML BOTTLE GT PRN (05:44)
[2020-08-04 06:24] LABS: BASOPHILS % (AUTO) 0.5 % (0.0-2.0); EOSINOPHILS % (AUTO) 5.6 % (0.0-6.0); HEMATOCRIT 25 % (39-51); HEMOGLOBIN 8.2 g/dL (13.5-17.5); LYMPHOCYTES # (AUTO) 0.9 /CMM (0.8-4.8); LYMPHOCYTES % (AUTO) 9.4 % (20.0-44.0); MEAN CORPUSCULAR HGB CONC 33 g/dl (31.0-36.0); MEAN CORPUSCULAR VOLUME 91 fL (80-96); MONOCYTES # (AUTO) 0.7 /CMM (0.1-1.30); MONOCYTES % (AUTO) 7.8 % (2.0-12.0); NEUTROPHILS % (AUTO) 76.7 % (43.0-81.0); PLATELET COUNT (AUTO) 207 /CMM (150-450); RED BLOOD CELL COUNT(AUTO) 2.74 MIL/uL (4.5-6.0); WHITE BLOOD COUNT (AUTO) 9.1 K/uL (4.3-11.0)
[2020-08-04 07:11] LABS: CALCIUM, SERUM 11.1 mg/dL (8.5-10.1); CREATININE 1.5 mg/dL (0.6-1.3); PHOSPHORUS 4.4 mg/dL (2.5-4.9); POTASSIUM 4.6 mmol/L (3.5-5.1)
--- NOTE | 2020-08-04 07:20 | NUR ---
RN OPENING NOTE PATIENT RECEIVED RESTING IN SEMI-FOWLERS POSITION. PATIENT IN NO SIGNS OF RESPIRATORY DISTRESS WITH VENT SETTING PER ORDERED. RIGHT UPPER ARM MIDLINE IV ACCESS INTACT AND PATENT, FLUSHING WELL. TUBE FEEDING RUNNING VIA G-TUBE JEVITY AT 1.2 AT 65 ML/HR. SAFETY PRECAUTIONS IMPLEMENTED, BED LOCKED IN LOWEST POSITION, SIDE RAILS UP X2, CALL LIGHT WITHIN REACH. WILL CONTINUE TO MONITOR AND PROVIDE CARE THROUGHOUT SHIFT.
[2020-08-04 08:00] VITALS: BP 132/66
[2020-08-04] MEDS: SILVER SULFADIAZINE 50 GM JAR TP SCH (09:16)
[2020-08-04] MEDS: CEFEPIME 2 GM in IV D5W 100 ML IV SCH (09:16)
[2020-08-04] MEDS: THERAHONEY GEL 1.5 OZ TUBE TP SCH (09:17)
[2020-08-04] MEDS ORDERED: CEFE2FRO IV (11:47)
[2020-08-04] MEDS ORDERED: Silver Sulfadiazine TP (11:47)
[2020-08-04] MEDS ORDERED: COLL30OI TP (11:47)
[2020-08-04] MEDS ORDERED: VANC1PIG IV (11:47)
[2020-08-04 16:00] VITALS: BP 149/73
--- NOTE | 2020-08-04 18:42 | NUR ---
patient discharged from hospital in stable condition. patient discharge paperwork and instructions provided for Patient and [facility]. patient refused wound pictures prior to discharge. Called and gave report to Lala. patient care transferred over to [facility] ambulance for transportation.
[2020-08-05 13:07] LABS: *ANCA ATYPICAL p-ANCA <1:20 titer (Neg:<1:20); *ANCA CYTOPLASMIC (C-ANCA) <1:20 titer (Neg:<1:20); *ANCA PERINUCLEAR (P-ANCA) <1:20 titer (Neg:<1:20)
[2020-08-05 14:07] LABS: *ANCANTIMYELOPEROXIDASE (MPO) <9.0 U/mL (0.0-9.0); *ANCANTIPROTEINASE 3 (PR-3) AB <3.5 U/mL (0.0-3.5)
== END 2020-08-04 18:44 | DRG 130 ==
LOC: ER 15:08 → TELE1 17:09 → ICU 08-03 08:20 → TELE1 08-03 12:07
PROVIDERS: ADMIT Hospitalist; ATTEND Student in an Organized Health Care Education/Training Program
PROC: 5A1955Z Respiratory Ventilation, Greater than 96 Consecutive Hours (ICD-10-PCS; principal; 2020-07-27)
PROC: 30233N1 Transfusion of Nonautologous Red Blood Cells into Peripheral Vein, Percutaneous Approach (ICD-10-PCS; 2020-07-27)
PROC: 05H933Z Insertion of Infusion Device into Right Brachial Vein, Percutaneous Approach (ICD-10-PCS; 2020-07-27)
PROC: 07DR3ZX Extraction of Iliac Bone Marrow, Percutaneous Approach, Diagnostic (ICD-10-PCS; 2020-07-29)
PROC: 0BJ08ZZ Inspection of Tracheobronchial Tree, Via Natural or Artificial Opening Endoscopic (ICD-10-PCS; 2020-08-03)
PROC: 0JBP0ZZ Excision of Left Lower Leg Subcutaneous Tissue and Fascia, Open Approach (ICD-10-PCS; 2020-08-04)
PROC: 0JBN0ZZ Excision of Right Lower Leg Subcutaneous Tissue and Fascia, Open Approach (ICD-10-PCS; 2020-08-04)
DX: J15.6 Pneumonia due to other Gram-negative bacteria (principal); N17.0 Acute kidney failure with tubular necrosis; E43 Unspecified severe protein-calorie malnutrition; L89.154 Pressure ulcer of sacral region, stage 4; L89.314 Pressure ulcer of right buttock, stage 4; L89.324 Pressure ulcer of left buttock, stage 4; R53.2 Functional quadriplegia; J96.10 Chronic respiratory failure, unspecified whether with hypoxia or hypercapnia; E86.1 Hypovolemia; Z99.11 Dependence on respirator [ventilator] status; C90.00 Multiple myeloma not having achieved remission; Z93.0 Tracheostomy status; D47.2 Monoclonal gammopathy; D68.59 Other primary thrombophilia; E83.42 Hypomagnesemia; E83.52 Hypercalcemia; D64.9 Anemia, unspecified; E87.1 Hypo-osmolality and hyponatremia; Z86.16 Personal history of COVID-19; F32.9 Major depressive disorder, single episode, unspecified; K21.9 Gastro-esophageal reflux disease without esophagitis; Z93.1 Gastrostomy status; R13.10 Dysphagia, unspecified; Z20.822 Contact with and (suspected) exposure to COVID-19; Z91.19 Patient's noncompliance with other medical treatment and regimen; Z79.51 Long term (current) use of inhaled steroids; Z79.01 Long term (current) use of anticoagulants; Z79.899 Other long term (current) drug therapy; E66.01 Morbid (severe) obesity due to excess calories; Z68.39 Body mass index [BMI] 39.0-39.9, adult; Z74.09 Other reduced mobility; Z87.01 Personal history of pneumonia (recurrent); Z87.440 Personal history of urinary (tract) infections; I73.9 Peripheral vascular disease, unspecified; I87.313 Chronic venous hypertension (idiopathic) with ulcer of bilateral lower extremity; L97.829 Non-pressure chronic ulcer of other part of left lower leg with unspecified severity; L97.819 Non-pressure chronic ulcer of other part of right lower leg with unspecified severity; G95.9 Disease of spinal cord, unspecified; M86.9 Osteomyelitis, unspecified; F10.11 Alcohol abuse, in remission; Y90.9 Presence of alcohol in blood, level not specified; E66.9 Obesity, unspecified; E87.70 Fluid overload, unspecified; J84.10 Pulmonary fibrosis, unspecified; S31.109A Unspecified open wound of abdominal wall, unspecified quadrant without penetration into peritoneal cavity, initial encounter; S71.102A Unspecified open wound, left thigh, initial encounter; S71.101A Unspecified open wound, right thigh, initial encounter
CPT/HCPCS: 31623; 31720; 36415; 71045-TC; 72192-TC; 80048-TC; 80053-TC; 80061-TC; 80076-TC; 80202-TC; 82164; 82232; 82330; 82728-TC; 82784; 82962-TC; 83520; 83540-TC; 83605-TC; 83735-TC; 84100-TC; 84134-TC; 84439-TC; 84443-TC; 84484-TC; 85025-TC; 85610-TC; 85652-TC; 85730-TC; 86140-TC; 86256; 86334; 86850-TC; 87040-TC; 87070-TC; 87081-TC; 94002-TC; 94003-TC; 94760-TC; 94762-TC; 94799-TC; 99082-TC; A6253; A6403; C9803; G0378; J0692; J1200; J2270; J2430; J2543; J2916; J3370; J3475; J3490; J7030; J7040; J7050; J7060; P9016; U0003

== ENCOUNTER 2020-08-23 15:18 | Inpatient (IN) | payer OTHER ==
[~2020-08-23] VITALS: Ht 170.2 cm; Wt 101.2 kg
[~2020-08-23 15:18] MED LIST changes: -ALLA266C2 TP; +BISA10SU11 RC; +COLL30OI TP; +HYDR-4209 GT; +LACT-209 GT; -POLY17PO4 GT; -POVI3780 TP; -SILV20CR13 TP; +Silver Sulfadiazine TP; +VANC1PIG IV
--- NOTE | 2020-08-23 15:50 | NUR ---
VENT SETTINGS: AC12, VT 500, O2 50%, +5 PEEP
--- NOTE | 2020-08-23 15:51 | NUR ---
VIOLETA FROM [facility] HC TO ER BED 5. AAOX2, ABLE TO FOLLOW COMMANDS. TRACH PT W/ VENT DEPENDENCY. BROUGHT IN FOR ELEVATED HR, DIAPHORETIC AND ALTERED LEVEL OF CONSCIOUSNESS. PT'S HR NOTED @ 124, NOTED PT DIAPHORETIC AND UNEASY. PER REPORT, PT IS ALTERED EVIDENCED BY UNABLE TO SPEAK, PT IS BASELINE VERBAL PER REPORT. O2 SAT NOTED @ 87% UPON RECEIVED, RT WAS AT BEDSIDE. NOW SATTING @ 98%. MD WAS AT THE BEDSIDE FOR EVAL. ORDERS RECEIVED, NOTED AND CARRIED OUT. MIDLINE ALREADY PRESENT ON RUSTY W/ 2 LUMENS. PHLEB AT BEDSIDE FOR BLOOD DRAW
[2020-08-23] MEDS ORDERED: LORAZEPAM INJ 2 MG/ML VIAL ONE (15:59)
[2020-08-23 16:00] LABS: BASOPHILS % (AUTO) 0.1 % (0.0-2.0); EOSINOPHILS % (AUTO) 3.2 % (0.0-6.0); HEMATOCRIT 26 % (39-51); HEMOGLOBIN 8.2 g/dL (13.5-17.5); LYMPHOCYTES # (AUTO) 0.6 K/uL (0.8-4.8); LYMPHOCYTES % (AUTO) 3.9 % (20.0-44.0); MEAN CORPUSCULAR HGB CONC 31 g/dl (31.0-36.0); MEAN CORPUSCULAR VOLUME 94 fL (80-96); MONOCYTES # (AUTO) 0.4 K/uL (0.1-1.30); MONOCYTES % (AUTO) 2.5 % (2.0-12.0); NEUTROPHILS % (AUTO) 90.3 % (43.0-81.0); PLATELET COUNT (AUTO) 239 K/uL (150-450); RED BLOOD CELL COUNT(AUTO) 2.81 MIL/uL (4.5-6.0); WHITE BLOOD COUNT (AUTO) 14.4 K/uL (4.3-11.0)
[2020-08-23] MEDS ORDERED: LORAZEPAM INJ 2 MG/ML VIAL IV ONE (16:00)
[2020-08-23 16:12] LABS: CALCIUM, SERUM 9.3 mg/dL (8.5-10.1); CREATININE 3.3 mg/dL (0.6-1.3); POTASSIUM 4.5 mmol/L (3.5-5.1)
--- NOTE | 2020-08-23 16:49 | NUR ---
HOLD CT WITH CONTRAST PER MD.
[2020-08-23] MEDS ORDERED: IV NS 0.9% 1,000 ML BAG IV ONE ×2 (17:00)
[2020-08-23] MEDS ORDERED: MEROPENEM 1 G in IV NS 0.9% 100 ML IV ONE (17:00)
--- NOTE | 2020-08-23 17:10 | NUR ---
[facility] CALLED TRANSLITERATOR PAGED.
--- NOTE | 2020-08-23 17:31 | NUR ---
NURSING SUP CALLED FOR ROOM
--- NOTE | 2020-08-23 17:59 | NUR ---
RT Received pt awake and responsive on Shiley 7 XLT Proximal trach. Placed on vent settings provided by transport RT. Pt tolerating well. Back up trach + ambu bag at bedside- Will continue to monitor.
[2020-08-23] MEDS ORDERED: Medication Not On Formulary EA (Ipratropium/Albuterol Sulfate (Combivent Respimat 20-100 IH PRN (18:00)
[2020-08-23] MEDS ORDERED: MISCELLANEOUS MED 1 EA EA GT PRN (18:00)
[2020-08-23] MEDS ORDERED: BISACODYL SUPP (10 MG) 10 MG/SUPP.RECT SUPP.RECT RC PRN (18:00)
[2020-08-23] MEDS ORDERED: ONDANSETRON HCL/PF 4 MG/2 ML VIAL IVP PRN (18:00)
[2020-08-23] MEDS ORDERED: MAGNESIUM HYDROXIDE 30 ML UDC GT PRN ×2 (18:00)
[2020-08-23] MEDS ORDERED: JEVITY 1.2 CAL 1,000 ML BOTTLE GT SCH (18:00)
[2020-08-23] MEDS ORDERED: Z GUARD REMEDY 2 OZ OINT TP PRN (18:00)
[2020-08-23] MEDS ORDERED: NA PHOS,M-B/NA PHOS,DI-BA 1 EA ENEMA RC PRN (18:00)
[2020-08-23] MEDS ORDERED: MAG HYDROX/AL HYDROX/SIMETH 30 ML UDC PO PRN (18:00)
[2020-08-23] MEDS ORDERED: MAGNESIUM HYDROXIDE 30 ML UDC PO PRN (18:00)
[2020-08-23] MEDS ORDERED: Medication Not On Formulary EA (Ipratropium/Albuterol Sulfate (Combivent Respimat 20-100 IH SCH (18:00)
--- NOTE | 2020-08-23 19:26 | NUR ---
BED ASSIGNMENT: 107
[2020-08-23] MEDS: ALBUTEROL FS 2.5 MG/0.5 ML VIAL.NEB NEB SCH (19:30)
[2020-08-23] MEDS: IPRATROPIUM NEB FS 0.5 MG/2.5 ML AMPUL.NEB NEB SCH (19:30)
[2020-08-23] MEDS ORDERED: ALBUTEROL FS 2.5 MG/0.5 ML VIAL.NEB NEB PRN (20:00)
[2020-08-23] MEDS ORDERED: IPRATROPIUM NEB FS 0.5 MG/2.5 ML AMPUL.NEB NEB PRN (20:00)
--- NOTE | 2020-08-23 20:11 | NUR ---
REPORT GIVEN TO KIERAN HICKMAN FOR JAMES
--- NOTE | 2020-08-23 20:30 | NUR ---
PT TRANSPORTED TO UNIT ON GURNEY WITH EMT AND RN AT BEDSIDE W/ ACLS PROTOCOL. NAD NOTED DURING TRANSPORT
[2020-08-23 21:00] VITALS: BP 99/47
[2020-08-23] MEDS ORDERED: MEROPENEM 500 MG in IV NS 0.9% 50 ML IV SCH (21:00)
[2020-08-23] MEDS ORDERED: ENOXAPARIN SODIUM 40 MG/0.4 ML DISP.SYRIN SQ SCH (21:00)
--- NOTE | 2020-08-23 21:26 | NUR ---
Lovenox was held per presidential helicopter crew chief, Nights , "patient has bleeding wounds".
[2020-08-23] MEDS: PANTOPRAZOLE 40 MG/PACK PACK GT SCH (21:27)
[2020-08-23] MEDS: IV NS 0.9% 1,000 ML IV PRN (21:59)
[2020-08-23 22:00] VITALS: BP 181/95
[2020-08-24] VITALS (11 sets, daily range): BP systolic 102–127; BP diastolic 53–72
[2020-08-24 00:11] LABS: BILIRUBIN,DIRECT 0.1 mg/dL (0.0-0.2); BILIRUBIN,TOTAL 0.3 mg/dL (0.2-1.0); CALCIUM, SERUM 8.9 mg/dL (8.5-10.1); CREATININE 3.5 mg/dL (0.6-1.3); POTASSIUM 5.3 mmol/L (3.5-5.1)
[2020-08-24 00:13] LABS: ALBUMIN 1.4 g/dL (3.4-5.0)
[2020-08-24] MEDS ORDERED: IV NS 0.9% 500 ML IV ONE (01:00)
[2020-08-24] MEDS: HYDROCODONE/APAP 5/325MG TABLET GT PRN ×2 (01:09)
[2020-08-24] MEDS: IPRATROPIUM NEB FS 0.5 MG/2.5 ML AMPUL.NEB NEB SCH ×4 (01:15→19:30)
[2020-08-24] MEDS: ALBUTEROL FS 2.5 MG/0.5 ML VIAL.NEB NEB SCH ×4 (01:15→19:30)
[2020-08-24] MEDS ORDERED: HYDROMORPHONE 1 MG/1 ML DISP.SYRIN IV ONE (03:10)
--- NOTE | 2020-08-24 04:54 | NUR ---
Patient is a new patient from the Emergency Department for Hospital Acquired Pneumonia, Dehydration, and Chronic Renal Failure. Family was at bedside, during admission, states that there are a lot of wounds. Heart rate is 120's in tachycardia beats per minute. MD Jacob was notified about the Albumin level at 1.4. Patient is showing some sign of low blood pressure. Gave 500ml bolus NS0.9%, will continue to monitor patient.
[2020-08-24] MEDS: MEROPENEM 1 G in IV NS 0.9% 100 ML IV SCH ×2 (05:52→21:26)
[2020-08-24] MEDS: IV NS 0.9% 1,000 ML IV PRN (06:51)
[2020-08-24 07:11] LABS: CALCIUM, SERUM 8.8 mg/dL (8.5-10.1); CREATININE 3.4 mg/dL (0.6-1.3); MAGNESIUM 1.9 mg/dL (1.8-2.4); PHOSPHORUS 5.1 mg/dL (2.5-4.9); POTASSIUM 4.7 mmol/L (3.5-5.1)
--- NOTE | 2020-08-24 07:30 | NUR ---
RN NOTES DR TETE OLIVIA REGARDING LOW H/H.
--- NOTE | 2020-08-24 07:43 | NUR ---
RN NOTES RECEIVED PT ON BED, TRACH/VENT DEPENDENT, SMALL AMOUNT OF BRIGHT RED BLOODY SECRETION NOTED FROM TRACH SUCTIONING, CONTINUE TO MONITOR. ON TELE ST HR IN 110'S, TF JEVITY AT 35CC/HR RUNNING VIA G TUBE, R UPPER ARM MIDLINE SITE CLEAN ,DRY AND INTACT, ORTIZ DRAINING TO GRAVITY, NS AT 75CC/HR RUNNING, SR UP x3, CALL LIGHT WITHIN EASY REACH, BED LOCKED AND IN LOWEST POSITION, CONTINUE TO MONITOR.
[2020-08-24 08:39] LABS: BASOPHILS # (AUTO) 0.1 K/uL (0.0-0.2); BASOPHILS % (AUTO) 0.2 % (0.0-2.0); EOSINOPHILS % (AUTO) 1.1 % (0.0-6.0); HEMATOCRIT 21 % (39-51); LYMPHOCYTES # (AUTO) 1.7 K/uL (0.8-4.8); LYMPHOCYTES % (AUTO) 7.2 % (20.0-44.0); MEAN CORPUSCULAR HGB CONC 32 g/dl (31.0-36.0); MEAN CORPUSCULAR VOLUME 93 fL (80-96); MONOCYTES # (AUTO) 1.1 K/uL (0.1-1.30); MONOCYTES % (AUTO) 4.8 % (2.0-12.0); NEUTROPHILS # (AUTO) 20.4 K/uL (1.8-8.9); NEUTROPHILS % (AUTO) 86.7 % (43.0-81.0); PLATELET COUNT (AUTO) 210 K/uL (150-450); RED BLOOD CELL COUNT(AUTO) 2.28 MIL/uL (4.5-6.0); WHITE BLOOD COUNT (AUTO) 23.6 K/uL (4.3-11.0)
[2020-08-24 08:42] LABS: HEMOGLOBIN 6.8 g/dL (13.5-17.5)
--- NOTE | 2020-08-24 08:59 | NUR ---
WOUND CARE CONSULT: REVIEWED CHART, NURSING DOCUMENTATION AND PHOTOS WHICH INDICATE MULTIPLE WOUNDS, PRESENT ON ADMISSION. DR TOLEDO AND DR STINSON NOTIFIED OF SURGICAL AND DPM CONSULTS. PT IS ON [employer] ISOFLEX LOW AIRLOSS BED. ALL SKIN PROTECTION RECOMMENDATIONS IN PLACE AND DISCUSSED WITH NURSING STAFF.
[2020-08-24] MEDS ORDERED: FERROUS SULFATE (325 MG) 325 MG/TAB TABLET PO SCH (09:00)
[2020-08-24] MEDS ORDERED: ENOXAPARIN SODIUM 40 MG/0.4 ML DISP.SYRIN SQ SCH (09:00)
[2020-08-24] MEDS: FERROUS SULFATE (325 MG) 325 MG/TAB TABLET GT SCH ×2 (09:20→16:17)
[2020-08-24] MEDS: CHLORHEXIDINE GLUCONATE 15 ML UDC MM SCH ×2 (09:20→16:17)
[2020-08-24] MEDS: ASCORBIC ACID 500 MG TABLET GT SCH (09:20)
[2020-08-24] MEDS: ZINC SULFATE 220 MG CAPSULE GT SCH (09:20)
[2020-08-24] MEDS: MULTIVIT W/MINERALS 1 TAB TABLET GT SCH (09:20)
[2020-08-24] MEDS: SERTRALINE HCL 50 MG TABLET GT SCH (09:20)
[2020-08-24] MEDS: PANTOPRAZOLE 40 MG/PACK PACK GT SCH ×2 (09:21→21:27)
[2020-08-24 09:22] LABS: ABG BASE EXCESS -14.2 mmol/L; ABG OXYGEN SATURATION 96.1 % (92.0-98.5); ABG PCO2 32.6 mmHg (35.0-45.0); ABG PH 7.204 (7.350-7.450); ABG PO2 89.6 mmHg (75.0-100.0); AaDO2 158.1 mmHg; COHb 0.4 % (0.5-1.5); MetHb 0.2 % (0.0-1.5); O2Hb 95.5 % (94.0-97.0); PEEP,BG 5 cm H2O; SITE, ABG Right Radial; VT, ABG 500 mL
--- NOTE | 2020-08-24 09:25 | NUR ---
RT POST ABG RESULTS SHOWN TO DR. PETIT. INCREASE VT TO 550 AND RR TO 20. BYRON ALCARZA NOTIFIED AND AWARE OF CHANGES. WILL CONTINUE TO MONITOR THE PATIENT FOR ANY CHANGE OF CONDITION. Addendum: 08/24/20 at 0937 by JEN SALOMON RT Amended: Links added.
[2020-08-24 10:52] LABS: EOSINOPHILS % (MANUAL) 1 % (0-4); LYMPHOCYTES % (MANUAL) 8 % (16-48); MONOCYTES % (MANUAL) 6 % (0-11.0); NEUTROPHILS % (MANUAL) 85 (42-76)
--- NOTE | 2020-08-24 15:00 | NUR ---
RN NOTES PT RECEIVED ON UNIT OF PRBC, TOLERATED WELL, CONTINUE TO MONITOR .
[2020-08-24 15:35] LABS: COLOR,URINE AMBER (YELLOW)
[2020-08-24 15:36] LABS: PROTEIN,URINE 3+ mg/dl (NEGATIVE); UGLUCOSE NEGATIVE (NEGATIVE)
[2020-08-24 15:37] LABS: BILIRUBIN,URINE NEGATIVE (NEGATIVE); LEUKOCYTE ESTERASE ,URINE LARGE (NEGATIVE); NITRITE, URINE NEGATIVE (NEGATIVE); UROBILINOGEN,URINE 0.2 EU/dL (0.2)
[2020-08-24 15:39] LABS: BACTERIA,URINE 1+ /HPF (None Seen); RBC,URINE 81-100 /HPF (0-2); SQUAMOUS EPITHELIAL CELL,UR Few /HPF (None Seen); WBC,URINE TOO NUMEROUS TO COUN /HPF (0-3); YEAST,URINE Many /HPF (None Seen)
[2020-08-24] MEDS: EPOETIN ALFA-EPBX 4,000 UNIT/ML VIAL SQ SCH (15:44)
[2020-08-24] MEDS ORDERED: VANCOMYCIN 1.25 GM in IV D5W 250 ML IV SCH (16:00)
[2020-08-24] MEDS: PROSOURCE / PROSTAT (PYXIS) 30 ML UDC GT SCH (16:13)
--- NOTE | 2020-08-24 17:20 | NUR ---
RT SPUTUM CULTURE DONE PER MD ORDER. SEAN ALCARAZ NOTIFIED AND AWARE. NO SOB OR SIGNS OF DISTRESS NOTED AT THIS TIME.
--- NOTE | 2020-08-24 18:00 | NUR ---
RN NOTES PT STILL HAS SMALL AMOUNT BLOODY SECRETION FROM TRACH, ON TELE ST HR IN 120'S ,TF AT 45 CC/HR , TOLERATING WELL, SR UP x3, CALL LIGHT WITHIN EASY , WILL ENDORSE TO MIXER DIAMOND POWDER NURSE FOR CONTINUITY OF CARE .
[2020-08-24] MEDS ORDERED: JEVITY 1.2 CAL 1,000 ML BOTTLE GT SCH (18:30)
--- NOTE | 2020-08-24 19:30 | NUR ---
RN OPENING NOTES: RECEIVED PT A/OX2-3 IN BED RESTING COMFORTABLY. PATIENT IN NO S/SX OF ACUTE DISTRESS AT THIS TIME. NO SOB NOTED. PATIENT'S BREATHING IS EVEN AND UNLABORED. PATIENT ON MECHANICAL VENT; SETTINGS PRESCRIBED; PT TOLERATED WELL. AMBU BAG AT BED SIDE ALARMS SET PER PROTOCOL AND AUDIBLE. VENT PLUGGED IN TO RED OUTLET. NOTED BRIGHT RED BLOODY SECRETION FROM THE TRACH (KENZIE HAWKINS, WEAVER APPRENTICE AND RT WELL AWARE). PATIENT ON TELE MONITORING READING SINUS TACHY HR IS @120s AT THE TIME OF RECEIVED. PT HAS G TUBE FLUSHING AND PATENT; SITE CLEAN DRY AND INTACT; NO RESIDUAL NOTED; CONNECTED TO GTUBE FEEDING OF JEVITY 1.2 CURRENTLY @45CC/HR;TOLERATES WELL (GOAL @65CC/HR). NOTED IV SITE ON R UA MIDLINE #18; PATENT, INTACT AND FLUSHING WELL; NO S/S OF INFECTION OR INFILTRATION.WITH IV FLUID RUNNING ORDERED. ORTIZ CATH IN PLACE, MINIMAL URINE OUTPUT NOTED. PT IS ON [employer] ISOFLEX LOW AIRLOSS BED. SAFETY MEASURES HAVE BEEN PROVIDED AND IMPLEMENTED. PATIENT BED ALARM IS ON. HEAD OF BED ELEVATED. BED IS LOCKED, IN LOWEST POSITION AND SIDE RAILS UP. CALL LIGHT WITHIN REACH OF THE PATIENT. APPLICABLE ISOLATION PRECAUTIONS IN PLACE. WILL CONTINUE TO MONITOR AND REASSESS FOR ANY CHANGES AND WILL CARRY OUT ANY ONGOING AND ACTIVE MD ORDER.
--- NOTE | 2020-08-24 19:51 | NUR ---
RN NOTES CALLED ISMAEL MCLAUGHLIN ([phone]), SECURED CONSENT FOR WOUND DEBRIDEMENT OF BILATERAL LOWER EXTREMITIES. VERIFIED WITH ANOTHER RN; TAURUS. PROCESS DEVELOPMENT CHEMIST MADE AWARE.
--- NOTE | 2020-08-24 20:55 | NUR ---
RN NOTES SECURED ORDER FROM KENZIE HAWKINS FOR DILAUDID 1MG Q4H PRN. AUDIOLOGY TECHNICIAN MADE AWARE. WILL CARRY OUT ORDER REQUESTED.
--- NOTE | 2020-08-24 21:04 | NUR ---
RN NOTES RECEIVED CALL FROM LAB; SPOKE WITH LATANYA, WAS ADVISED COVID PCR RESULT IS NEGATIVE (-), NURSE STAFF [facility] MADE AWARE. ALSO INFORMED RT REGARDING THE RESULTS SO TO RESUME FOR ANY BREATHING TX.
[2020-08-24] MEDS: HYDROMORPHONE 1 MG/1 ML DISP.SYRIN IV PRN (21:27)
--- NOTE | 2020-08-24 23:00 | NUR ---
RN NOTES NO CHANGE IN PATIENT CONDITION AT THIS TIME PATIENT VITALS STABLE, NO SIGNS OF ACUTE RESPIRATORY DISTRESS. SHOE TREER MADE AWARE. WILL CONTINUE TO MONITOR AND REASSESS FOR ANY CHANGES THROUGHOUT THE SHIFT.
[2020-08-25] VITALS (10 sets, daily range): BP systolic 100–149; BP diastolic 58–73
[2020-08-25] MEDS: IV NS 0.9% 1,000 ML IV PRN
[2020-08-25] MEDS: ALBUTEROL FS 2.5 MG/0.5 ML VIAL.NEB NEB SCH ×4 (02:01→20:03)
[2020-08-25] MEDS: IPRATROPIUM NEB FS 0.5 MG/2.5 ML AMPUL.NEB NEB SCH ×4 (02:01→20:03)
[2020-08-25] MEDS: HYDROMORPHONE 1 MG/1 ML DISP.SYRIN IV PRN ×5 (02:38→20:58)
--- NOTE | 2020-08-25 03:50 | NUR ---
RN NOTES INFORMED KENZIE HAWKINS THAT PT'S CURRENT OUTPUT VIA ORTIZ IS <50MLs, PER PREVIOUS MD NOTE, FOLLOWING NEPHRO CONSULT/RECOMMENDATION. NO ORDERS GIVEN AT THIS TIME. BLANKMAKER MADE AWARE.
--- NOTE | 2020-08-25 04:00 | NUR ---
RN NOTES PATIENT REMAINS IN NO ACUTE RESPIRATORY DISTRESS AT THIS TIME, NO CHANGES TO CONDITION/STATUS. AM PATIENT CARE DONE. DIRECTOR OF ENROLLMENT WELL AWARE. WILL CONTINUE TO MONITOR AND REASSESS FOR ANY CHANGES THROUGHOUT THE SHIFT
--- NOTE | 2020-08-25 06:45 | NUR ---
RN CLOSING NOTE: PATIENT REMAINS IN ROOM IN NO SIGNS OF RESPIRATORY DISTRESS, PATIENT STILL ON MECH VENT WITH SETTINGS PRESCRIBED;TOLERATING WELL SATURATING @ >95% SP02. SAFETY MEASURES IMPLEMENTED, BED IN LOWEST POSITION, LOCKED, SIDE RAILS UP, CALL LIGHT WITHIN REACH. ALL NEEDS AND ORDERS ADDRESSED DURING THE SHIFT. IV ACCESS MAINTAINED INTACT, SECURED AND FLUSHING WELL. ALL DUE MEDS GIVEN ORDERED & SCHEDULED ; PATIENT TOLERATED WELL. PATIENT KEPT CLEAN AND COMFORTABLE WITHIN THE SHIFT. PATIENT ENDORSED TO INCOMING SHIFT RN WITH STABLE VITAL SIGN AND FOR CONTINUITY OF CARE.
[2020-08-25 06:55] LABS: CALCIUM, SERUM 8.4 mg/dL (8.5-10.1); CREATININE 3.6 mg/dL (0.6-1.3); PHOSPHORUS 5.2 mg/dL (2.5-4.9); POTASSIUM 4.8 mmol/L (3.5-5.1)
--- NOTE | 2020-08-25 07:38 | NUR ---
VY RN NOTE: PATIENT REMAINS IN ROOM WITH TRACH TO VENT SETTING SATURATION AT THIS TIME 100% SAFETY MEASURES IMPLEMENTED, BED IN LOWEST POSITION, LOCKED, SIDE RAILS UP, CALL LIGHT WITHIN REACH. ALL NEEDS ATTENDED. IV ACCESS MAINTAINED INTACT,MID LINE ON RT UPPER ARM FLUSHED WELL ON IVF ORDERED . PATIENT KEPT CLEAN AND COMFORTABLE NOTED PATIENT SHAKING AND GRIMACING BP 123/78 HR 123 ASKED IF HE IN PAIN , SAYING YES , BY GRIMACING DILAUDID 1 MG GIVEN ORDERED WILL MONITOR
[2020-08-25 08:16] LABS: BASOPHILS % (AUTO) 0.2 % (0.0-2.0); EOSINOPHILS % (AUTO) 3.5 % (0.0-6.0); LYMPHOCYTES # (AUTO) 1.7 K/uL (0.8-4.8); LYMPHOCYTES % (AUTO) 8.7 % (20.0-44.0); MEAN CORPUSCULAR HGB CONC 33 g/dl (31.0-36.0); MEAN CORPUSCULAR VOLUME 93 fL (80-96); MONOCYTES % (AUTO) 5.2 % (2.0-12.0); NEUTROPHILS % (AUTO) 82.4 % (43.0-81.0); PLATELET COUNT (AUTO) 186 K/uL (150-450); RED BLOOD CELL COUNT(AUTO) 2.17 MIL/uL (4.5-6.0); WHITE BLOOD COUNT (AUTO) 19.4 K/uL (4.3-11.0)
[2020-08-25 08:20] LABS: HEMATOCRIT 20 % (39-51)
[2020-08-25 08:22] LABS: HEMOGLOBIN 6.6 g/dL (13.5-17.5)
[2020-08-25] MEDS: SERTRALINE HCL 50 MG TABLET GT SCH (08:30)
[2020-08-25] MEDS: ZINC SULFATE 220 MG CAPSULE GT SCH (08:30)
[2020-08-25] MEDS: ASCORBIC ACID 500 MG TABLET GT SCH (08:30)
[2020-08-25] MEDS: MULTIVIT W/MINERALS 1 TAB TABLET GT SCH (08:30)
[2020-08-25] MEDS: FERROUS SULFATE (325 MG) 325 MG/TAB TABLET GT SCH ×2 (08:30→16:24)
[2020-08-25] MEDS: PROSOURCE / PROSTAT (PYXIS) 30 ML UDC GT SCH (08:31)
[2020-08-25] MEDS: PANTOPRAZOLE 40 MG/PACK PACK GT SCH ×2 (08:31→20:58)
[2020-08-25] MEDS: CHLORHEXIDINE GLUCONATE 15 ML UDC MM SCH ×2 (08:35→16:24)
[2020-08-25] MEDS: MEROPENEM 1 G in IV NS 0.9% 100 ML IV SCH ×2 (08:35→20:59)
[2020-08-25] MEDS: SILVER SULFADIAZINE CREAM 25 GM TUBE TP SCH (08:36)
--- NOTE | 2020-08-25 09:00 | NUR ---
VY RN NOTE ABG DONE PER DR PETIT ALUMINA PLANT SUPERVISOR CHANGE VENT TO TV 600 ORDER CARRIED OUT
[2020-08-25 09:02] LABS: ABG BASE EXCESS -13.9 mmol/L; ABG OXYGEN SATURATION 97.8 % (92.0-98.5); ABG PCO2 34.3 mmHg (35.0-45.0); ABG PH 7.198 (7.350-7.450); ABG PO2 127.5 mmHg (75.0-100.0); AaDO2 118.3 mmHg; COHb 0.3 % (0.5-1.5); MetHb 0.4 % (0.0-1.5); O2Hb 97.1 % (94.0-97.0); SITE, ABG Right Radial; VENT MODE, BG AC 20 550 +5 40%
--- NOTE | 2020-08-25 09:26 | NUR ---
VY RN NOTE PER DR SANTOYO CHIEF ENGINEER'S HELPER NOTIFIED BUN 89 CREAT 3.6 STLL WITH EDEMA LOWER LEGS STATED OK TO CONT IVF ORDERED AT 75 ML PER HOUR SMALL URINE OUT PUT ABOUT 50 ML AT THIS TIME BEAU COLOR
--- NOTE | 2020-08-25 09:58 | NUR ---
jesse rn note dr kruse notified that trach site is bleeding stated its ok j for now getting a litter better
[2020-08-25 10:43] LABS: EOSINOPHILS % (MANUAL) 2 % (0-4); LYMPHOCYTES % (MANUAL) 8 % (16-48); MONOCYTES % (MANUAL) 5 % (0-11.0); MYELOCYTES % 2 % (0-0); NEUTROPHILS % (MANUAL) 83 (42-76)
[2020-08-25] MEDS: Sodium Bicarbonate 100 MEQ in IV D5 / 0.2% NACL 1,000 ML IV SCH (11:03)
--- NOTE | 2020-08-25 11:49 | NUR ---
jesse rn note blood transfusion started as ordered ,will cont to monitor
--- NOTE | 2020-08-25 13:47 | NUR ---
VY RN NOTE NOTED VERY RESTLESS WITH FACING GRIMACING FOR PAIN AT THIS TIME DILAUDID 1MG IVP GIVEN ORDERED N BP 115/69 SATURATION 1000% ,WILL MONITOR
--- NOTE | 2020-08-25 14:26 | NUR ---
jesse batres rn wound care nurse at bedside ,seen wound tx done ordered ,will monitor Addendum: 08/25/20 at 1435 by HEAVENLY KEE RN RT AT BEDSIDE, TRACH CARE DONE , SUCTION DONE , WILL MONITOR CLOSELY
--- NOTE | 2020-08-25 15:07 | NUR ---
VY RN NOTE BLOOD TRANSFUSION COMPLETED, NO ADVERSE REACTION NOTED, VS TAKEN NOT IN DISTRESS
--- NOTE | 2020-08-25 17:31 | NUR ---
VY RN NOTE BECOME VERY RESTLESS AND MOVING WITH HEAD AND BOTH ARMS, WITH FACIAL GRIMACING BP 139/67 HR 125 SATURATION 99% DILAUDID 1MG IVP GIVEN ORDERED, CONT ON IVF ORDERED
--- NOTE | 2020-08-25 18:20 | NUR ---
VY RN NOTE PATENT IN BED WITH TRACH TO VENT SETTING WITH SOME BLOODY SECRETION FROM TRACH , RT AT BEDSIDE TRACH SUCTION WITH MOD AMT OF SECRETION NOTED ,WITH G TUBE FEEDING ORDERED KEEP HOB ELEVATED AT ALL TIME , RT UPPER ARM MID LINE IN PLCE AND FLUSHED WELL RT HAND HL INTACT AND FLUSHED WELL , WITH ORTIZ CATH TO GRAVITY WITH CLOUDY DARK BEAU RED COLOR URINE IN PLACE , FOR SHIVANI HR 117 ALL NEEDS ATTENDED , WILL CONT TO MONITOR CLOSELY
--- NOTE | 2020-08-25 19:35 | NUR ---
RN OPENING NOTES: RECEIVED PT A/OX1 IN BED RESTING COMFORTABLY. PATIENT IN NO S/SX OF ACUTE DISTRESS AT THIS TIME. NO SOB NOTED. PATIENT'S BREATHING IS EVEN AND UNLABORED. PATIENT ON MECHANICAL VENT; SETTINGS PRESCRIBED; PT TOLERATED WELL. AMBU BAG AT BED SIDE ALARMS SET PER PROTOCOL AND AUDIBLE. VENT PLUGGED IN TO RED OUTLET. PATIENT ON TELE MONITORING READING SINUS TACHY HR IS @116 AT THE TIME OF RECEIVED. PT HAS G TUBE FLUSHING AND PATENT; SITE CLEAN DRY AND INTACT; NO RESIDUAL NOTED; CONNECTED TO GTUBE FEEDING OF JEVITY 1.2 CURRENTLY @55CC/HR;TOLERATES WELL (GOAL @65CC/HR). NOTED IV SITE ON R UA MIDLINE #18; PATENT, INTACT AND FLUSHING WELL; NO S/S OF INFECTION OR INFILTRATION.WITH IV FLUID RUNNING ORDERED. ORTIZ CATH IN PLACE, MODERATE URINE OUTPUT ;DARK BEAU RED IN COLOR . PT IS ON [employer] ISOFLEX LOW AIRLOSS BED. SAFETY MEASURES HAVE BEEN PROVIDED AND IMPLEMENTED. PATIENT BED ALARM IS ON. HEAD OF BED ELEVATED. BED IS LOCKED, IN LOWEST POSITION AND SIDE RAILS UP. CALL LIGHT WITHIN REACH OF THE PATIENT. APPLICABLE ISOLATION PRECAUTIONS IN PLACE. WILL CONTINUE TO MONITOR AND REASSESS FOR ANY CHANGES AND WILL CARRY OUT ANY ONGOING AND ACTIVE MD ORDER.
--- NOTE | 2020-08-25 20:55 | NUR ---
RN NOTES PT NOTED TO BE RESTLESS WITH FACIAL GRIMACING AND TEETH GRINDING, DEMONSTRATES PAIN AND DISCOMFORT. PRN MEDICATION GIVEN FOR PAIN. WILL CONTINUE TO MONITOR AND ASSESS THROUGHOUT THE SHIFT. SERVICE CAR DRIVER MADE AWARE.
--- NOTE | 2020-08-25 22:25 | NUR ---
RN NOTES RECEIVED CALL FROM FAMILY; ISMAEL () PROVIDED GENERAL UPDATES REGARDING THE PATIENT. SHE ALSO ADVISED THAT PT HAS HISTORY OF ALCOHOLISM, RN ACKNOWLEDGED. SHE WAS REQUESTING FOR MD CALLBACK FOR MORE CONCRETE TREATMENT UPDATES. FAMILY WAS ADVISE TO CALL IN THE MORNING BUT ASSURED THAT THIS REQUEST WILL BE ENDORSED IN THE MORNING. FAMILY VERY THANKFUL FOR ALL THE HELP TO THE PT. HEALTHCARE ARCHITECT MADE AWARE.
[2020-08-25] MEDS ORDERED: DAKINS QUARTER STRENGTH (0.125%) 480 ML BOTTLE ONE (22:27)
[2020-08-25] MEDS: DAKINS QUARTER STRENGTH (0.125%) 480 ML BOTTLE TOP SCH (22:32)
--- NOTE | 2020-08-25 23:00 | NUR ---
RN NOTES NO CHANGE IN PATIENT CONDITION AT THIS TIME PATIENT VITALS STABLE, NO SIGNS OF ACUTE RESPIRATORY DISTRESS. CENTRAL SERVICES TECH MADE AWARE. WILL CONTINUE TO MONITOR AND REASSESS FOR ANY CHANGES THROUGHOUT THE SHIFT.
--- NOTE | 2020-08-25 23:35 | NUR ---
RN NOTES PT NOTED TO BE RESTLESS WITH FACIAL GRIMACING AND TEETH GRINDING, DEMONSTRATES PAIN AND DISCOMFORT. PRN MEDICATION GIVEN FOR PAIN. COMFORT MEASURES PROVIDED; TURNING AND REPOSITIONING FACILITATED. WILL CONTINUE TO MONITOR AND ASSESS THROUGHOUT THE SHIFT. BOILING OFF WINDER MADE AWARE.
[2020-08-25] MEDS: HYDROCODONE/APAP 5/325MG TABLET GT PRN (23:36)
[2020-08-26] VITALS: BP 120/67
[2020-08-26] MEDS: Sodium Bicarbonate 100 MEQ in IV D5 / 0.2% NACL 1,000 ML IV SCH ×2 (00:25→14:42)
[2020-08-26] MEDS: HYDROCODONE/APAP 5/325MG TABLET GT PRN ×2 (00:52→10:13)
--- NOTE | 2020-08-26 01:45 | NUR ---
RN NOTES NOTED PT TO BE RESTLESS AND DEMONSTRATED EXTREME PAIN AND DISCOMFORT; FACIAL GRIMACING NOTED AND HR GOING UP. LAST PAIN PRN MEDICATION WAS GIVEN @2336. SPONGE HOOKER MADE AWARE. KENZIE HAWKINS MADE AWARE. KENZIE HAWKINS ORDERED- INCREASED DILAUDID FROM 1MG TO 2MG Q4H PRN AND ATIVAN IV 1MG Q4H PRN. SPONGE HOOKER MADE AWARE. WILL CARRY OUT ORDER REQUESTED. WILL CONTINUE TO MONITOR AND ASSESS THROUGHOUT THE SHIFT.
[2020-08-26] MEDS: LORAZEPAM INJ 2 MG/ML VIAL IV PRN ×2 (01:59→14:42)
[2020-08-26] MEDS: IPRATROPIUM NEB FS 0.5 MG/2.5 ML AMPUL.NEB NEB SCH ×4 (02:42→20:04)
[2020-08-26] MEDS: ALBUTEROL FS 2.5 MG/0.5 ML VIAL.NEB NEB SCH ×4 (02:42→20:04)
[2020-08-26 04:00] VITALS: BP 119/72
[2020-08-26] MEDS ORDERED: VANCOMYCIN 1.25 GM in IV D5W 250 ML IV SCH (04:00)
--- NOTE | 2020-08-26 04:00 | NUR ---
RN NOTES PATIENT REMAINS IN NO ACUTE RESPIRATORY DISTRESS AT THIS TIME, NO CHANGES TO CONDITION/STATUS. AM PATIENT CARE DONE. CORE WORKER WELL AWARE. WILL CONTINUE TO MONITOR AND REASSESS FOR ANY CHANGES THROUGHOUT THE SHIFT
[2020-08-26] MEDS: HYDROMORPHONE 1 MG/1 ML DISP.SYRIN IV PRN ×2 (04:04→20:05)
--- NOTE | 2020-08-26 05:54 | NUR ---
RT NOTE PT TRACHED AND ON MECH VENT ON CHARTED SETTINGS. VENT IS PLUGGED INTO RED OUTLET W BMV @ HOB. ALARMS SET AND AUDIBLE. PT SXD W NO ADVERSE REACTIONS. TRACH SECURE AND PATENT. NO RESPIRATORY DISTRESS NOTED T/O SHIFT.
--- NOTE | 2020-08-26 06:52 | NUR ---
RN CLOSING NOTE: PATIENT REMAINS IN ROOM IN NO SIGNS OF RESPIRATORY DISTRESS, PATIENT STILL ON MECH VENT WITH SETTINGS PRESCRIBED;TOLERATING WELL SATURATING @ >95% SP02. ALL NEEDS AND ORDERS ADDRESSED DURING THE SHIFT. IV ACCESS MAINTAINED INTACT, SECURED AND FLUSHING WELL. PATIENT DISPLAYED SIGNS OF RESTLESSNESS, AGITATION AND TACHYCARDIA THROUGHOUT SHIFT. PAIN MEDICATION GIVEN NEEDED AND NOTED TO BE EFFECTIVE R/T DECREASE AGITATION, STABLE VITAL SIGNS AND PT. BEING ABLE TO REST. CHARGE NURSE AWARE OF PAIN INTERVENTIONS. TURN AND REPOSITIONING COMPLETED Q2H AND PRN. WOUND CARE COMPLETED PER ORDERS. ALL DUE MEDS GIVEN ORDERED & SCHEDULED ; PATIENT TOLERATED WELL. PATIENT KEPT CLEAN, DRY AND COMFORTABLE THROUGHOUT SHIFT. SAFETY MEASURES IMPLEMENTED, BED IN LOWEST POSITION, LOCKED, SIDE RAILS UP X3, CALL LIGHT WITHIN REACH. NO ACUTE DISTRESS NOTED AT THIS TIME AND ALL VITAL SIGNS WNL. WILL ENDORSE CONTINUITY OF CARE TO MORNING RN.
[2020-08-26 06:58] LABS: CALCIUM, SERUM 8.1 mg/dL (8.5-10.1); POTASSIUM 4.7 mmol/L (3.5-5.1)
--- NOTE | 2020-08-26 07:45 | NUR ---
OPENING NOTE: REPORT RECEIVED FROM ALESSANDRA ALCARAZ. PT IS LETHARGIC AND CONFUSED, MAKING FREQUENT INVOLUNTARY MOVEMENTS OF HEAD AND MAKING A CLICKING SOUND FROM HIS MOUTH. PT NOT MAKING EYE CONTACT OR MAKING PURPOSEFUL MOVEMENTS. TUBE FEEDING INFUSING PER MD ORDERS. LABS AND ORDERS REVIEWED. PT CHECKED ON HOURLY AND PRN BY NURSING STAFF.
[2020-08-26 08:00] VITALS: BP 113/65
--- NOTE | 2020-08-26 08:20 | NUR ---
DR VICK NOTIFIED IN PERSON OF H/H OF 6.6/20. 1 UNIT OF PRBCS ORDERED PER MD ORDERS Addendum: 08/26/20 at 0828 by RENATA VIVEROS RN 6.6 HGB WAS LABS FROM 08/25/20, LABS FROM THIS AM PENDING, DR. VICK NOTIFIED. ORDERS FOR PRBC DC'D
--- NOTE | 2020-08-26 08:44 | NUR ---
PER LAB CBC NEEDS TO BE REDRAWN FOR ACCURATE PLT COUNT ALTHOUGH H/H IS 8.8/ TODAY. NO NEED FOR BLOOD TRANSFUSION TODAY
[2020-08-26 09:10] LABS: BASOPHILS % (AUTO) 0.3 % (0.0-2.0); EOSINOPHILS % (AUTO) 4.1 % (0.0-6.0); HEMATOCRIT 24 % (39-51); HEMOGLOBIN 7.6 g/dL (13.5-17.5); LYMPHOCYTES % (AUTO) 5.6 % (20.0-44.0); MEAN CORPUSCULAR HGB CONC 32 g/dl (31.0-36.0); MEAN CORPUSCULAR VOLUME 92 fL (80-96); MONOCYTES # (AUTO) 0.8 K/uL (0.1-1.30); MONOCYTES % (AUTO) 4.8 % (2.0-12.0); NEUTROPHILS # (AUTO) 14.8 K/uL (1.8-8.9); NEUTROPHILS % (AUTO) 85.2 % (43.0-81.0); PLATELET COUNT (AUTO) 199 K/uL (150-450); RED BLOOD CELL COUNT(AUTO) 2.57 MIL/uL (4.5-6.0); WHITE BLOOD COUNT (AUTO) 17.4 K/uL (4.3-11.0)
[2020-08-26 09:46] LABS: ABG BASE EXCESS -13.6 mmol/L; ABG OXYGEN SATURATION 95.6 % (92.0-98.5); ABG PCO2 31.5 mmHg (35.0-45.0); ABG PH 7.227 (7.350-7.450); ABG PO2 84.5 mmHg (75.0-100.0); AaDO2 179.7 mmHg; COHb 0.4 % (0.5-1.5); MetHb 0.3 % (0.0-1.5); O2Hb 94.9 % (94.0-97.0); SITE, ABG Right Radial; VENT MODE, BG AC 20 600 +5 40%
[2020-08-26] MEDS: CHLORHEXIDINE GLUCONATE 15 ML UDC MM SCH ×2 (10:12→18:22)
[2020-08-26] MEDS: PANTOPRAZOLE 40 MG/PACK PACK GT SCH ×2 (10:13→21:13)
[2020-08-26] MEDS: ASCORBIC ACID 500 MG TABLET GT SCH (10:13)
[2020-08-26] MEDS: FERROUS SULFATE (325 MG) 325 MG/TAB TABLET GT SCH ×2 (10:14→18:22)
[2020-08-26] MEDS: MULTIVIT W/MINERALS 1 TAB TABLET GT SCH (10:14)
[2020-08-26] MEDS: SERTRALINE HCL 50 MG TABLET GT SCH (10:14)
[2020-08-26] MEDS: ZINC SULFATE 220 MG CAPSULE GT SCH (10:14)
[2020-08-26] MEDS: SILVER SULFADIAZINE CREAM 25 GM TUBE TP SCH (10:15)
[2020-08-26] MEDS: DAKINS QUARTER STRENGTH (0.125%) 480 ML BOTTLE TOP SCH (10:15)
[2020-08-26] MEDS: MEROPENEM 1 G in IV NS 0.9% 100 ML IV SCH ×2 (10:37→21:14)
[2020-08-26] MEDS: PROSOURCE / PROSTAT (PYXIS) 30 ML UDC GT SCH (10:37)
[2020-08-26] MEDS ORDERED: JEVITY 1.2 CAL 1,000 ML BOTTLE GT SCH (11:00)
[2020-08-26 12:00] VITALS: BP 120/64
[2020-08-26 13:15] LABS: LYMPHOCYTES % (MANUAL) 6 % (16-48); MONOCYTES % (MANUAL) 3 % (0-11.0); MYELOCYTES % 2 % (0-0); NEUTROPHILS % (MANUAL) 89 (42-76)
[2020-08-26] MEDS: EPOETIN ALFA-EPBX 4,000 UNIT/ML VIAL SQ SCH (14:58)
[2020-08-26 16:00] VITALS: BP 112/60
--- NOTE | 2020-08-26 18:31 | NUR ---
END OF SHIFT NOTE: PT HAD FACIAL AND HEAD TWITCHES MOST OF THE DAY TODAY, DR VICK NOTIFIED. NEURO CONSULTED, DR ORELLANA SAW PATIENT, EEG DONE, NOT READ AT THIS TIME. NORCO GIVEN X1 AND ATIVAN GIVEN X1 THIS SHIFT. LARGE BM X1. ORTIZ OUTPUT 50ML. RENAL MD STATED IF PT'S BUN/CR DO NOT GO DOWN TOMORROW PATIENT MIGHT NEED TO START DIALYSIS. PT'S VISITED FOR SEVERAL HOURS TODAY, APPEARS SUPPORTIVE. PT CHECKED ON HOURLY AND PRN BY NURSING STAFF.
--- NOTE | 2020-08-26 19:30 | NUR ---
RN OPENING NOTES: RECEIVED PT IN BED RESTING COMFORTABLY, PT NOTED TO BE LETHARGIC AND NON VERBAL. PATIENT IN NO S/SX OF ACUTE DISTRESS AT THIS TIME. NO SOB NOTED. PATIENT'S BREATHING IS EVEN AND UNLABORED. PATIENT ON MECHANICAL VENT; SETTINGS PRESCRIBED; PT TOLERATED WELL. AMBU BAG AT BED SIDE ALARMS SET PER PROTOCOL AND AUDIBLE. VENT PLUGGED IN TO RED OUTLET. PATIENT ON TELE MONITORING READING SINUS TACHY HR IS @108 AT THE TIME OF RECEIVED. PT HAS G TUBE FLUSHING AND PATENT; SITE CLEAN DRY AND INTACT; NO RESIDUAL NOTED; CONNECTED TO GTUBE FEEDING OF JEVITY 1.2 CURRENTLY @65CC/HR;TOLERATES WELL. NOTED IV SITE ON R UA MIDLINE #18; PATENT, INTACT AND FLUSHING WELL; NO S/S OF INFECTION OR INFILTRATION.WITH IV FLUID RUNNING ORDERED. ORTIZ CATH IN PLACE, MODERATE URINE OUTPUT ;DARK BEAU RED IN COLOR . PT IS ON [employer] ISOFLEX LOW AIRLOSS BED. SAFETY MEASURES HAVE BEEN PROVIDED AND IMPLEMENTED. PATIENT BED ALARM IS ON. HEAD OF BED ELEVATED. BED IS LOCKED, IN LOWEST POSITION AND SIDE RAILS UP. CALL LIGHT WITHIN REACH OF THE PATIENT. APPLICABLE ISOLATION PRECAUTIONS IN PLACE. WILL CONTINUE TO MONITOR AND REASSESS FOR ANY CHANGES AND WILL CARRY OUT ANY ONGOING AND ACTIVE MD ORDER.
[2020-08-26 20:00] VITALS: BP 115/53
[2020-08-26] MEDS: JEVITY 1.2 CAL 1,000 ML BOTTLE GT PRN (20:00)
--- NOTE | 2020-08-26 21:20 | NUR ---
RN NOTES PICC LINE NURSE (MAGDA) FACILITATED INSERTION OF HEAMODIALYSIS CATH @ R IJ, SECURED , INTACT. DIRECTOR OF GLOBAL MARKETING WELL AWARE.
--- NOTE | 2020-08-26 23:10 | NUR ---
RN NOTES NO CHANGE IN PATIENT CONDITION AT THIS TIME PATIENT VITALS STABLE, NO SIGNS OF ACUTE RESPIRATORY DISTRESS. LOAN APPROVER MADE AWARE. WILL CONTINUE TO MONITOR AND REASSESS FOR ANY CHANGES THROUGHOUT THE SHIFT.
[2020-08-27] VITALS: BP 113/62
[2020-08-27] MEDS: IPRATROPIUM NEB FS 0.5 MG/2.5 ML AMPUL.NEB NEB SCH ×4 (01:21→19:43)
[2020-08-27] MEDS: ALBUTEROL FS 2.5 MG/0.5 ML VIAL.NEB NEB SCH ×4 (01:21→19:43)
[2020-08-27] MEDS: LORAZEPAM INJ 2 MG/ML VIAL IV PRN ×3 (02:44→23:09)
[2020-08-27] MEDS: Sodium Bicarbonate 100 MEQ in IV D5 / 0.2% NACL 1,000 ML IV SCH ×2 (03:00→17:58)
[2020-08-27 04:00] VITALS: BP 107/60
--- NOTE | 2020-08-27 04:00 | NUR ---
RN NOTES PATIENT REMAINS IN NO ACUTE RESPIRATORY DISTRESS AT THIS TIME, NO CHANGES TO CONDITION/STATUS. AM PATIENT CARE DONE. CORK WIRER WELL AWARE. WILL CONTINUE TO MONITOR AND REASSESS FOR ANY CHANGES THROUGHOUT THE SHIFT
[2020-08-27] MEDS: HYDROMORPHONE 1 MG/1 ML DISP.SYRIN IV PRN ×3 (05:23→20:03)
--- NOTE | 2020-08-27 07:35 | NUR ---
RN OPENING NOTE Received patient asleep in bed appears calm and relaxed. On vent settings AC 20 TV 600 FIO2 40% PEEP 5 no signs of distress. GTF running Jevity 1.[address] RUSTY Midline and R IJ flushes well. Notged with sinus tachy 105-110. Safety measures reinforced. Bed locked and on lowest position. Will continue to monitor.
[2020-08-27 08:00] VITALS: BP 109/67
[2020-08-27 09:16] LABS: BASOPHILS # (AUTO) 0.1 K/uL (0.0-0.2); BASOPHILS % (AUTO) 0.4 % (0.0-2.0); EOSINOPHILS % (AUTO) 6.3 % (0.0-6.0); HEMATOCRIT 22 % (39-51); HEMOGLOBIN 7.1 g/dL (13.5-17.5); LYMPHOCYTES # (AUTO) 1.2 K/uL (0.8-4.8); LYMPHOCYTES % (AUTO) 9.2 % (20.0-44.0); MEAN CORPUSCULAR HGB CONC 32 g/dl (31.0-36.0); MEAN CORPUSCULAR VOLUME 92 fL (80-96); MONOCYTES # (AUTO) 0.8 K/uL (0.1-1.30); MONOCYTES % (AUTO) 5.8 % (2.0-12.0); NEUTROPHILS # (AUTO) 10.4 K/uL (1.8-8.9); NEUTROPHILS % (AUTO) 78.3 % (43.0-81.0); PLATELET COUNT (AUTO) 185 K/uL (150-450); WHITE BLOOD COUNT (AUTO) 13.3 K/uL (4.3-11.0)
[2020-08-27 09:31] LABS: CALCIUM, SERUM 7.9 mg/dL (8.5-10.1); CREATININE 4.3 mg/dL (0.6-1.3); PHOSPHORUS 5.2 mg/dL (2.5-4.9); POTASSIUM 5.2 mmol/L (3.5-5.1)
[2020-08-27] MEDS: MULTIVIT W/MINERALS 1 TAB TABLET GT SCH (09:36)
[2020-08-27] MEDS: ZINC SULFATE 220 MG CAPSULE GT SCH (09:36)
[2020-08-27] MEDS: ASCORBIC ACID 500 MG TABLET GT SCH (09:36)
[2020-08-27] MEDS: FERROUS SULFATE (325 MG) 325 MG/TAB TABLET GT SCH ×2 (09:36→17:27)
[2020-08-27] MEDS: CHLORHEXIDINE GLUCONATE 15 ML UDC MM SCH ×2 (09:36→17:26)
[2020-08-27] MEDS: MEROPENEM 1 G in IV NS 0.9% 100 ML IV SCH ×2 (09:37→23:11)
[2020-08-27] MEDS: PANTOPRAZOLE 40 MG/PACK PACK GT SCH ×2 (09:37→23:09)
[2020-08-27] MEDS: SERTRALINE HCL 50 MG TABLET GT SCH (09:37)
[2020-08-27] MEDS: PROSOURCE / PROSTAT (PYXIS) 30 ML UDC GT SCH (09:42)
[2020-08-27] MEDS: DAKINS QUARTER STRENGTH (0.125%) 480 ML BOTTLE TOP SCH (09:43)
[2020-08-27] MEDS: SILVER SULFADIAZINE CREAM 25 GM TUBE TP SCH (09:43)
[2020-08-27 12:00] VITALS: BP 112/62
--- NOTE | 2020-08-27 12:05 | NUR ---
LAB ORDER: Hep B antigen, antibody and core. Per dialysis nurse.
[2020-08-27 16:00] VITALS: BP 108/59
--- NOTE | 2020-08-27 19:04 | NUR ---
RN CLOSING NOTE Patient in bed calm and relaxed. ST 117 on tele monitor. All due meds given. RUSTY Midline running Na Bicarb. GTF Jevity 65ml/hr. Hemodialysis taken out 1,600ml tolerated well. Will endorse to manager shift nurse for leon.
[2020-08-27 20:00] VITALS: BP 120/53
[2020-08-27] MEDS: ZOLPIDEM TARTRATE 5 MG TABLET PO PRN (23:56)
[2020-08-28] VITALS: BP 110/63
[2020-08-28] MEDS: ALBUTEROL FS 2.5 MG/0.5 ML VIAL.NEB NEB SCH ×4 (01:22→20:01)
[2020-08-28] MEDS: IPRATROPIUM NEB FS 0.5 MG/2.5 ML AMPUL.NEB NEB SCH ×4 (01:22→20:01)
[2020-08-28] MEDS: HYDROMORPHONE 1 MG/1 ML DISP.SYRIN IV PRN ×5 (01:30→21:53)
[2020-08-28 04:00] VITALS: BP 119/55
[2020-08-28 06:46] LABS: CALCIUM, SERUM 7.4 mg/dL (8.5-10.1); CREATININE 3.7 mg/dL (0.6-1.3); POTASSIUM 4.4 mmol/L (3.5-5.1)
[2020-08-28] MEDS ORDERED: VANCOMYCIN POST DIALYSIS 500MG IV PRN (07:00)
--- NOTE | 2020-08-28 07:30 | NUR ---
RN OPENING NOTE VENTED TRACH PT ON VENT SETTINGS PER MD ORDER, TOLERATING WELL, SPO2 99%, NO SIGNS OF RESP DISTRESS OR SOB, BREATHING EVEN AND UNLABORED. PT A/Ox3, ABLE TO MOUTH WORDS AND MAKE NEEDS KNOWN, CURRENTLY IN 9/ GENERALIZED PAIN, WILL ADMIN DILAUDID 2MG ORDERED. PT HAS RUSTY MIDLINE #18, RT HAND #22, BOTH FLUSHED AND INTACT NO SIGNS OF INFECTION OR INFILTRATION. RIJ FOR HD NOTED, NO S/S OF INFECTION. PT ORTIZ CATH DRAINING CLOUDY BEAU URINE TO GRAVITY, INTACT. PT RUNNING JEVITY 1.2 @ 65 ML/HR, G-TUBE AUSCULTATED FOR POSITIVE PLACEMENT AND FLUSHED, INTACT AND PATENT, NO RESIDAULS NOTED. ALL PT SAFETY PRECAUTIONS IN PLACE, WILL CONT TO MONITOR
[2020-08-28 08:00] VITALS: BP 114/60
[2020-08-28] MEDS: MEROPENEM 1 G in IV NS 0.9% 100 ML IV SCH (09:06)
[2020-08-28] MEDS: PANTOPRAZOLE 40 MG/PACK PACK GT SCH ×2 (09:07→20:40)
[2020-08-28] MEDS: ACETAMINOPHEN 325 MG TABLET PO PRN ×2 (09:07→15:32)
[2020-08-28] MEDS: CHLORHEXIDINE GLUCONATE 15 ML UDC MM SCH ×2 (09:07→16:57)
[2020-08-28] MEDS: ZINC SULFATE 220 MG CAPSULE GT SCH (09:07)
[2020-08-28] MEDS: MULTIVIT W/MINERALS 1 TAB TABLET GT SCH (09:07)
[2020-08-28] MEDS: SERTRALINE HCL 50 MG TABLET GT SCH (09:07)
[2020-08-28] MEDS: FERROUS SULFATE (325 MG) 325 MG/TAB TABLET GT SCH ×2 (09:07→16:57)
[2020-08-28] MEDS: PROSOURCE / PROSTAT (PYXIS) 30 ML UDC GT SCH (09:08)
[2020-08-28] MEDS: ASCORBIC ACID 500 MG TABLET GT SCH (09:34)
[2020-08-28] MEDS: SILVER SULFADIAZINE CREAM 25 GM TUBE TP SCH (09:35)
[2020-08-28] MEDS: DAKINS QUARTER STRENGTH (0.125%) 480 ML BOTTLE TOP SCH (09:35)
[2020-08-28 11:52] LABS: ABG BASE EXCESS -5.8 mmol/L; ABG OXYGEN SATURATION 97.6 % (92.0-98.5); ABG PCO2 34.7 mmHg (35.0-45.0); ABG PH 7.357 (7.350-7.450); ABG PO2 105.2 mmHg (75.0-100.0); AaDO2 140.1 mmHg; COHb 0.3 % (0.5-1.5); MetHb 0.4 % (0.0-1.5); O2Hb 96.9 % (94.0-97.0); PEEP,BG 5 cm H2O; SITE, ABG Right Radial; VT, ABG 600 mL
[2020-08-28 12:00] VITALS: BP 115/73
[2020-08-28 13:19] LABS: BASOPHILS % (AUTO) 0.2 % (0.0-2.0); EOSINOPHILS % (AUTO) 4.8 % (0.0-6.0); HEMATOCRIT 23 % (39-51); HEMOGLOBIN 7.4 g/dL (13.5-17.5); LYMPHOCYTES # (AUTO) 1.2 K/uL (0.8-4.8); LYMPHOCYTES % (AUTO) 6.4 % (20.0-44.0); MEAN CORPUSCULAR HGB CONC 32 g/dl (31.0-36.0); MEAN CORPUSCULAR VOLUME 93 fL (80-96); MONOCYTES # (AUTO) 1.1 K/uL (0.1-1.30); MONOCYTES % (AUTO) 5.9 % (2.0-12.0); NEUTROPHILS # (AUTO) 15.3 K/uL (1.8-8.9); NEUTROPHILS % (AUTO) 82.7 % (43.0-81.0); PLATELET COUNT (AUTO) 193 K/uL (150-450); RED BLOOD CELL COUNT(AUTO) 2.51 MIL/uL (4.5-6.0); WHITE BLOOD COUNT (AUTO) 18.4 K/uL (4.3-11.0)
[2020-08-28 13:52] LABS: LYMPHOCYTES % (MANUAL) 7 % (16-48); MONOCYTES % (MANUAL) 3 % (0-11.0); NEUTROPHILS % (MANUAL) 81 (42-76)
[2020-08-28 13:53] LABS: EOSINOPHILS % (MANUAL) 7 % (0-4); MYELOCYTES % 2 % (0-0)
[2020-08-28] MEDS: CEFTAZIDIME 1 G in IV D5W 50 ML IV SCH (13:56)
[2020-08-28 16:00] VITALS: BP 101/62
--- NOTE | 2020-08-28 19:00 | NUR ---
RN CLOSING NOTE PT IN STABLE CONDITION. MULTIPLE WOUNDS ADDRESSED. PT REQUIRES DILAUDID 2MG Q4HFOR GENERALIZED PAIN. CONT SAME VENT SETTINGS. G-TUBE FEED HOLD FOR 4HRS THEN CONT @ 65ML/HR. ALL PT SAFETY PRECAUTIONS IN PLACE. JAMES ENDORSED TO KIERAN
--- NOTE | 2020-08-28 19:40 | NUR ---
RN OPENING NOTE RECD PT IN BED. PT IS A/O X3. ABLE TO MOUTH WORDS, PT IS TRACH TO VENT, AC 20 TV 600 FIO2 40% PEEP 5. NO DISTRESS NOTED. NO SOB. BREATHING EVEN AND UNLABORED. PT IS ON TELE MONITORING, SINUS TACH HR OF 110 PT BASELINE. IV SITES FLUSHED, ASEPTICALLY, RUSTY MID RIGHT HAND. HD CATH RIJ NOTED. PT HAS ORTIZ CATH DRAINING TO GRAVITY. SAFETY MEASURES IN PLACE. SIDE RAILS UP X3 HOB ELEVATED BED LOCKED IN LOWEST POSITION WITH BED ALARM GRAIN COMBINE DRIVER LIGHT WITHIN REACH. WILL CONT TO MONITOR CLOSELY FOR SAFETY AND CHANGE OF CONDITION THROUGHOUT SHIFT.
[2020-08-28 20:00] VITALS: BP 104/58
[2020-08-28] MEDS: HYDROCODONE/APAP 5/325MG TABLET GT PRN (20:41)
--- NOTE | 2020-08-28 22:00 | NUR ---
RN NOTE PT C/O PAIN 9/10 GENERALIZED. MULTIPLE WOUNDS NOTED. ADMINISTERED PRN DILAUDID Q4H PRN ORDERED. VSS STABLE AT THIS TIME. WILL CONT TO MONITOR.
[2020-08-29] VITALS: BP 113/62
[2020-08-29] MEDS: IPRATROPIUM NEB FS 0.5 MG/2.5 ML AMPUL.NEB NEB SCH ×4 (01:28→20:19)
[2020-08-29] MEDS: ALBUTEROL FS 2.5 MG/0.5 ML VIAL.NEB NEB SCH ×4 (01:28→20:19)
[2020-08-29] MEDS: HYDROMORPHONE 1 MG/1 ML DISP.SYRIN IV PRN ×5 (02:22→21:17)
[2020-08-29 04:00] VITALS: BP 107/74
[2020-08-29] MEDS: HYDROCODONE/APAP 5/325MG TABLET GT PRN ×2 (04:13→17:22)
--- NOTE | 2020-08-29 04:59 | NUR ---
RN NOTE PT HAD 1 BM, WOUND CARE DONE BED BATH DONE, PT SUCTIONED, ORAL CARE ALSO DONE FREQUENTLY.
[2020-08-29] MEDS: JEVITY 1.2 CAL 1,000 ML BOTTLE GT PRN (05:25)
[2020-08-29 07:34] LABS: CALCIUM, SERUM 7.4 mg/dL (8.5-10.1); POTASSIUM 4.7 mmol/L (3.5-5.1)
--- NOTE | 2020-08-29 07:40 | NUR ---
TELE/RN OPENING NOTE RECD PT IN BED. PT IS A/O X3. ABLE TO MOUTH WORDS, PT IS TRACH TO VENT, AC 20 TV 600 FIO2 40% PEEP 5. NO DISTRESS NOTED. NO SOB. BREATHING EVEN AND UNLABORED. PT IS ON TELE MONITORING, SINUS TACH HR OF 100-110 PT BASELINE. IV SITES FLUSHED, ASEPTICALLY, RUSTY MID RIGHT HAND. HD CATH RIJ NOTED. PT HAS ORTIZ CATH DRAINING TO GRAVITY. SAFETY MEASURES IN PLACE. SIDE RAILS UP X3 HOB ELEVATED BED LOCKED IN LOWEST POSITION WITH BED ALARM HEATER PLANER OPERATOR LIGHT WITHIN REACH. WILL CONTINUE TO MONITOR PATIENT.
--- NOTE | 2020-08-29 07:59 | NUR ---
RN NOTE NO CHANGES IN PT CONDITION. REMAINS TRACH TO VENT. STILL SAME SETTINGS. NO DISTRESS NOTED. BED BATH DONE, WOUND CARE DONE. ALL NEEDS ATTENDED. EDUCATION PROVIDED. SAFETY MEASURES IN PLACE. BED ALARM ON. CALL LIGHT WITHIN REACH. ENDORSED TO KIERAN RODRIGUEZ FOR CONTINUATION OF CARE
[2020-08-29 08:25] VITALS: BP 125/77
[2020-08-29] MEDS: PANTOPRAZOLE 40 MG/PACK PACK GT SCH ×2 (08:44→21:15)
[2020-08-29] MEDS: MULTIVIT W/MINERALS 1 TAB TABLET GT SCH (08:44)
[2020-08-29] MEDS: FERROUS SULFATE (325 MG) 325 MG/TAB TABLET GT SCH ×2 (08:44→16:42)
[2020-08-29] MEDS: ASCORBIC ACID 500 MG TABLET GT SCH (08:44)
[2020-08-29] MEDS: ZINC SULFATE 220 MG CAPSULE GT SCH (08:44)
[2020-08-29] MEDS: LORAZEPAM INJ 2 MG/ML VIAL IV PRN (08:45)
[2020-08-29] MEDS: SERTRALINE HCL 50 MG TABLET GT SCH (08:45)
[2020-08-29] MEDS: DAKINS QUARTER STRENGTH (0.125%) 480 ML BOTTLE TOP SCH (09:07)
[2020-08-29] MEDS: PROSOURCE / PROSTAT (PYXIS) 30 ML UDC GT SCH (09:09)
[2020-08-29] MEDS: CHLORHEXIDINE GLUCONATE 15 ML UDC MM SCH ×2 (09:09→16:42)
[2020-08-29] MEDS: SILVER SULFADIAZINE CREAM 25 GM TUBE TP SCH (09:10)
[2020-08-29 12:19] VITALS: BP 113/68
[2020-08-29] MEDS: CEFTAZIDIME 1 G in IV D5W 50 ML IV SCH (12:24)
[2020-08-29] MEDS: NEPRO 1,000 ML BOTTLE GT PRN (13:37)
[2020-08-29 16:27] VITALS: BP 113/68
[2020-08-29] MEDS: EPOETIN ALFA-EPBX 4,000 UNIT/ML VIAL SQ SCH (18:32)
--- NOTE | 2020-08-29 19:29 | NUR ---
TELE/RN CLOSING NOTE PATIENT IN BED. PT IS A/O X3. ABLE TO MOUTH WORDS, PT IS TRACH TO VENT, AC 20 TV 600 FIO2 40% PEEP 5. NO DISTRESS NOTED. NO SOB. BREATHING EVEN AND UNLABORED. PT IS ON TELE MONITORING, SINUS TACH HR OF 120. IV SITES FLUSHED, ASEPTICALLY, RUSTY MID RIGHT HAND. HD CATH RIJ NOTED. PT HAS ORTIZ CATH DRAINING TO GRAVITY. SAFETY MEASURES IN PLACE. SIDE RAILS UP X3 HOB ELEVATED BED LOCKED IN LOWEST POSITION WITH BED ALARM FAMILY WORKER LIGHT WITHIN REACH. WILL CONTINUE ENDORSE TO THE NEXT SHIFT FOR CONTINUITY OF CARE.
--- NOTE | 2020-08-29 19:35 | NUR ---
RN OPENING NOTE RECD PT IN BED. PT IS A/O X3. ABLE TO MOUTH WORDS, PT IS TRACH TO VENT, AC 20 TV 600 FIO2 30% PEEP 5. NO DISTRESS NOTED. NO SOB. PT IS ON TELE MONITORING, SINUS TACH HR OF 110-120 PT BASELINE. IV SITES FLUSHED, PATENT. RUSTY MID RIGHT HAND. HD CATH RIJ NOTED. PT IS CURRENTLY RECEIVING DIALYSIS AT BEDSIDE WITH DIALYSIS NURSE. PT HAS ORTIZ CATH DRAINING TO GRAVITY. SAFETY MEASURES IN PLACE. SIDE RAILS UP X3 HOB ELEVATED BED LOCKED IN LOWEST POSITION WITH BED ALARM ON. CALL LIGHT WITHIN REACH. WILL CONTINUE TO MONITOR PATIENT.
[2020-08-29 20:00] VITALS: BP 122/76
[2020-08-30] VITALS: BP 119/68
[2020-08-30] MEDS: HYDROCODONE/APAP 5/325MG TABLET GT PRN (00:05)
[2020-08-30] MEDS: IPRATROPIUM NEB FS 0.5 MG/2.5 ML AMPUL.NEB NEB SCH ×4 (01:28→20:22)
[2020-08-30] MEDS: ALBUTEROL FS 2.5 MG/0.5 ML VIAL.NEB NEB SCH ×4 (01:28→20:22)
[2020-08-30] MEDS: HYDROMORPHONE 1 MG/1 ML DISP.SYRIN IV PRN ×4 (02:07→20:34)
[2020-08-30 04:00] VITALS: BP 117/59
--- NOTE | 2020-08-30 07:05 | NUR ---
RN NOTE RECEIVED PT ON BED. PT IS A/O X3. ABLE TO MOUTH WORDS, PT IS TRACH TO VENT DEPENDENT , AC 20 TV 600 FIO2 30% PEEP 5. NO DISTRESS NOTED. TRACH CARE DONE, NO DISTRESS NOTED, PT IS ON TELE MONITORING, SINUS TACH HR OF 110'S, IV SITES , CLEAN ,DRY AND INTACT, HD CATH RIJ NOTED. ORTIZ CATH DRAINING TO GRAVITY. SAFETY MEASURES IN PLACE. SIDE RAILS UP X3 HOB ELEVATED BED LOCKED IN LOWEST POSITION WITH BED ALARM ON. CALL LIGHT WITHIN REACH. WILL CONTINUE TO MONITOR .
--- NOTE | 2020-08-30 07:12 | NUR ---
RN CLOSING NOTE PT IN BED. PT IS A/O X3. PT IS TRACH TO VENT, AC 20 TV 600 FIO2 30% PEEP 5. NO DISTRESS NOTED. NO SOB. PT IS ON TELE MONITORING, SINUS TACH HR OF 110-120 PT BASELINE. IV SITES FLUSHED, PATENT. RUSTY MID RIGHT HAND. HD CATH RIJ NOTED. WOUND CARE INITIATED. DILAUDID GIVEN FOR PAIN /. PT HAS ORTIZ CATH DRAINING TO GRAVITY. SAFETY MEASURES IN PLACE. SIDE RAILS UP X3 HOB ELEVATED BED LOCKED IN LOWEST POSITION WITH BED ALARM ON. CALL LIGHT WITHIN REACH. ENDORSED TO SEAN ALCARAZ FOR JAMES.
[2020-08-30 08:00] VITALS: BP 129/80
[2020-08-30] MEDS: SERTRALINE HCL 50 MG TABLET GT SCH (08:37)
[2020-08-30] MEDS: PANTOPRAZOLE 40 MG/PACK PACK GT SCH ×2 (08:37→20:34)
[2020-08-30] MEDS: FERROUS SULFATE (325 MG) 325 MG/TAB TABLET GT SCH ×2 (08:37→16:42)
[2020-08-30] MEDS: ASCORBIC ACID 500 MG TABLET GT SCH (08:37)
[2020-08-30] MEDS: MULTIVIT W/MINERALS 1 TAB TABLET GT SCH (08:38)
[2020-08-30] MEDS: ZINC SULFATE 220 MG CAPSULE GT SCH (08:38)
[2020-08-30] MEDS: CHLORHEXIDINE GLUCONATE 15 ML UDC MM SCH ×2 (08:39→16:43)
[2020-08-30] MEDS: PROSOURCE / PROSTAT (PYXIS) 30 ML UDC GT SCH (08:39)
[2020-08-30] MEDS: DAKINS QUARTER STRENGTH (0.125%) 480 ML BOTTLE TOP SCH (08:41)
[2020-08-30] MEDS: SILVER SULFADIAZINE CREAM 25 GM TUBE TP SCH (08:41)
[2020-08-30 08:42] LABS: CALCIUM, SERUM 8.4 mg/dL (8.5-10.1); CREATININE 3.4 mg/dL (0.6-1.3); MAGNESIUM 2.1 mg/dL (1.8-2.4); PHOSPHORUS 4.6 mg/dL (2.5-4.9); POTASSIUM 5.1 mmol/L (3.5-5.1)
[2020-08-30 08:59] LABS: BASOPHILS # (AUTO) 0.1 K/uL (0.0-0.2); BASOPHILS % (AUTO) 0.3 % (0.0-2.0); EOSINOPHILS % (AUTO) 5.4 % (0.0-6.0); HEMATOCRIT 25 % (39-51); LYMPHOCYTES # (AUTO) 1.1 K/uL (0.8-4.8); MEAN CORPUSCULAR HGB CONC 32 g/dl (31.0-36.0); MEAN CORPUSCULAR VOLUME 92 fL (80-96); MONOCYTES % (AUTO) 5.5 % (2.0-12.0); NEUTROPHILS # (AUTO) 14.7 K/uL (1.8-8.9); NEUTROPHILS % (AUTO) 82.8 % (43.0-81.0); PLATELET COUNT (AUTO) 195 K/uL (150-450); RED BLOOD CELL COUNT(AUTO) 2.75 MIL/uL (4.5-6.0); WHITE BLOOD COUNT (AUTO) 17.7 K/uL (4.3-11.0)
[2020-08-30] MEDS ORDERED: SILVER NITRATE APPLICATOR 1 EA BOX TP ONE (10:00)
[2020-08-30] MEDS ORDERED: LIDOCAINE 1%-EPI 1:100,000 50 ML VIAL IJ ONE (10:00)
[2020-08-30 11:07] LABS: *ANCANTIMYELOPEROXIDASE (MPO) <9.0 U/mL (0.0-9.0); *ANCANTIPROTEINASE 3 (PR-3) AB 4.6 U/mL (0.0-3.5)
[2020-08-30] MEDS: CEFTAZIDIME 1 G in IV D5W 50 ML IV SCH (11:57)
[2020-08-30 12:00] VITALS: BP 119/71
--- NOTE | 2020-08-30 12:00 | NUR ---
RN NOTES TRACH SUCTIONING DONE, NO DISTRESS NOTED, CONTINUE TO MONITOR
[2020-08-30 12:37] LABS: BAND % (MANUAL) 1 % (0.0-5.0); EOSINOPHILS % (MANUAL) 6 % (0-4); LYMPHOCYTES % (MANUAL) 4 % (16-48); MONOCYTES % (MANUAL) 1 % (0-11.0); MYELOCYTES % 2 % (0-0); NEUTROPHILS % (MANUAL) 86 (42-76)
[2020-08-30 16:00] VITALS: BP 115/62
--- NOTE | 2020-08-30 18:00 | NUR ---
RN NOTES NO SIGNIFICANT CHANGES NOTED ON THIS SHIFT, WILL ENDORSE TO POWER PLANT SUPERVISOR NURSE FOR CONTINUITY OF CARE .
--- NOTE | 2020-08-30 19:40 | NUR ---
RN OPENING NOTE RECD PT IN BED. PT IS A/O X3. ABLE TO MOUTH WORDS, PT IS TRACH TO VENT, AC 20 TV 600 FIO2 30% PEEP 5. O2 SATURATION IS 99% AT THIS TIME. NO DISTRESS NOTED. NO SOB. BREATHING EVEN AND UNLABORED. PT IS ON TELE MONITORING, SINUS TACH HR OF 118 PT BASELINE. IV SITES FLUSHED, ASEPTICALLY, RUSTY MID. HD CATH RIJ NOTED. PT HAS ORTIZ CATH DRAINING TO GRAVITY. SAFETY MEASURES IN PLACE. SIDE RAILS UP X3 HOB ELEVATED BED LOCKED IN LOWEST POSITION WITH BED ALARM HOME THEATER INSTALLER LIGHT WITHIN REACH. WILL CONT TO MONITOR CLOSELY FOR SAFETY AND CHANGE OF CONDITION THROUGHOUT SHIFT.
[2020-08-30 20:00] VITALS: BP 123/63
--- NOTE | 2020-08-30 21:47 | NUR ---
RN NOTE G TUBE CLOGGED WHEN ATTEMPTING TO VERIFY PLACEMENT. CHARGE NURSE AWARE AND DECLOGGING ATTEMPTED, SUCCESSFUL AND FLUSHING WELL. NO RESIDUAL NOTED AND TOLERATING FEEDS.
[2020-08-31] VITALS: BP 113/58
[2020-08-31] MEDS: IPRATROPIUM NEB FS 0.5 MG/2.5 ML AMPUL.NEB NEB SCH ×4 (01:54→19:45)
[2020-08-31] MEDS: ALBUTEROL FS 2.5 MG/0.5 ML VIAL.NEB NEB SCH ×4 (01:54→19:45)
[2020-08-31 04:00] VITALS: BP 119/64
[2020-08-31] MEDS: HYDROMORPHONE 1 MG/1 ML DISP.SYRIN IV PRN ×4 (05:21→22:24)
[2020-08-31] MEDS: NEPRO 1,000 ML BOTTLE GT PRN (05:26)
--- NOTE | 2020-08-31 07:15 | NUR ---
RN OPENING NOTES RECEIVED PT IN BED. A/O X3-4. ABLE TO MOUTH WORDS, DANISH SPEAKING. ON TRACH TO [facility] VENT, TOLERATING VENT SETTINGS WELL. NO SOB OR ANY S/S OF DISTRESS NOTED, O2 SATURATION @99%. ON TELE MONITORING, READING SINUS TACH, HR @110s. IV ACCESS INTACT, PATENT AND FLUSHED. HD CATH ON RIJ NOTED. ORTIZ CATH IN PLACE DRAINING YELLOWISH URINE TO GRAVITY. NO PAIN REPORTED AT THIS TIME. SAFETY MEASURES IN PLACE. CALL LIGHT WITHIN REACH. BED LOCKED AND IN LOWEST POSITION WITH SIDE RAILS UP X3. HOB ELEVATED. BED ALARM ON. WILL CONTINUE TO MONITOR.
--- NOTE | 2020-08-31 07:33 | NUR ---
RN CLOSING NOTE NO SIGNIFICANT CHANGES IN PT CONDITION. PT REMAINS ON SAME VENT SETTINGS TOLERATING WELL. ALL NEEDS ATTENDED. PT NOT IN DISTRESS ANY. SAFETY MEASURES IN PLACE HOB ELEVATED SIDE RAILS UP X2 BED LOCKED IN LOWEST POSITION WITH BED ALARM ON. CALL LIGHT WITHIN REACH. ENDORSED TO DAY SHIFT RN FOR CONTINUATION OF CARE.
[2020-08-31 08:00] VITALS: BP 128/72
[2020-08-31 08:03] LABS: CALCIUM, SERUM 6.4 mg/dL (8.5-10.1); CREATININE 3.2 mg/dL (0.6-1.3); MAGNESIUM 1.6 mg/dL (1.8-2.4); POTASSIUM 3.6 mmol/L (3.5-5.1)
[2020-08-31] MEDS: PANTOPRAZOLE 40 MG/PACK PACK GT SCH ×2 (08:41→22:27)
[2020-08-31] MEDS: CHLORHEXIDINE GLUCONATE 15 ML UDC MM SCH ×2 (08:41→16:43)
[2020-08-31] MEDS: MULTIVIT W/MINERALS 1 TAB TABLET GT SCH (08:41)
[2020-08-31] MEDS: FERROUS SULFATE (325 MG) 325 MG/TAB TABLET GT SCH ×2 (08:41→16:43)
[2020-08-31] MEDS: ASCORBIC ACID 500 MG TABLET GT SCH (08:41)
[2020-08-31] MEDS: PROSOURCE / PROSTAT (PYXIS) 30 ML UDC GT SCH (08:41)
[2020-08-31] MEDS: SERTRALINE HCL 50 MG TABLET GT SCH (08:41)
[2020-08-31] MEDS: ZINC SULFATE 220 MG CAPSULE GT SCH (08:41)
[2020-08-31] MEDS: SILVER SULFADIAZINE CREAM 25 GM TUBE TP SCH (08:42)
[2020-08-31] MEDS: DAKINS QUARTER STRENGTH (0.125%) 480 ML BOTTLE TOP SCH (08:42)
[2020-08-31] MEDS: HYDROCODONE/APAP 5/325MG TABLET GT PRN ×2 (09:22→23:37)
[2020-08-31] MEDS: Magnesium 1GM/D5W 100ML PREMIX 100 ML IV SCH ×2 (10:10→11:11)
--- NOTE | 2020-08-31 11:57 | NUR ---
RN NOTES WOUND DEBRIDEMENT FOR SACRAL WOUND DONE AT BEDSIDE BY AYE NELSON. LIDOCAINE GIVEN. PT CANNOT TOLERATE THE PROCEDURE. COMPLAINS OF PAIN. DRESSINGS DRY AND INTACT. DILAUDID GIVEN ORDERED.
[2020-08-31 12:00] VITALS: BP 125/70
[2020-08-31] MEDS: CEFTAZIDIME 1 G in IV D5W 50 ML IV SCH (12:11)
[2020-08-31 14:07] LABS: *ANCA ATYPICAL p-ANCA <1:20 titer (Neg:<1:20); *ANCA CYTOPLASMIC (C-ANCA) <1:20 titer (Neg:<1:20); *ANCA PERINUCLEAR (P-ANCA) <1:20 titer (Neg:<1:20)
[2020-08-31] MEDS: EPOETIN ALFA-EPBX 4,000 UNIT/ML VIAL SQ SCH (15:07)
[2020-08-31 16:00] VITALS: BP 131/74
--- NOTE | 2020-08-31 19:10 | NUR ---
RN CLOSING NOTES NO SIGNIFICANT CHANGES THROUGHOUT THE SHIFT. TOLERATING VENT SETTINGS WELL. ALL DUE MEDS GIVEN. NEEDS ATTENDED. KEPT CLEAN AND COMFORTABLE. SAFETY MEASURES IN PLACE. ENDORSED TO NIGHT RN FOR JAMES.
[2020-08-31 20:00] VITALS: BP 112/69
--- NOTE | 2020-08-31 20:00 | NUR ---
television station manager notes Received pts in bed awake alert able to mouth word needs , on vent setting as ordered well tolerated by pts , no sob no distress noted ,v/s stable afebrile ,all due meds given as ordered. pts s/p debridement today no bleeding noted , due pain mgt given as ordered , pain is 8/10 dilaudid 2 mg given as orderd with effect, turn and reposition suction secretion done and prn with gt feeding well tolerated no residual noted .f/c intact and patent draining with yellowish urine output.
[2020-08-31] MEDS: CLOTRIMAZOLE/BETAMETASONE DIPROPIONATE 15 GM TUBE TP SCH (21:00)
[2020-09-01] VITALS: BP 107/53
[2020-09-01] MEDS: ALBUTEROL FS 2.5 MG/0.5 ML VIAL.NEB NEB SCH ×4 (01:41→19:54)
[2020-09-01] MEDS: IPRATROPIUM NEB FS 0.5 MG/2.5 ML AMPUL.NEB NEB SCH ×4 (01:41→19:54)
[2020-09-01] MEDS: HYDROMORPHONE 1 MG/1 ML DISP.SYRIN IV PRN ×5 (03:36→21:21)
[2020-09-01 04:00] VITALS: BP 112/58
[2020-09-01 06:27] LABS: BASOPHILS # (AUTO) 0.1 K/uL (0.0-0.2); BASOPHILS % (AUTO) 0.7 % (0.0-2.0); EOSINOPHILS % (AUTO) 5.4 % (0.0-6.0); HEMATOCRIT 24 % (39-51); HEMOGLOBIN 7.8 g/dL (13.5-17.5); LYMPHOCYTES # (AUTO) 1.1 K/uL (0.8-4.8); MEAN CORPUSCULAR HGB CONC 32 g/dl (31.0-36.0); MEAN CORPUSCULAR VOLUME 93 fL (80-96); MONOCYTES # (AUTO) 0.8 K/uL (0.1-1.30); MONOCYTES % (AUTO) 6.2 % (2.0-12.0); NEUTROPHILS # (AUTO) 10.6 K/uL (1.8-8.9); NEUTROPHILS % (AUTO) 79.7 % (43.0-81.0); PLATELET COUNT (AUTO) 192 K/uL (150-450); WHITE BLOOD COUNT (AUTO) 13.3 K/uL (4.3-11.0)
--- NOTE | 2020-09-01 06:46 | NUR ---
senior telecommunications technician notes Pts remains in bed with same vent settings ,gt feeding well tolerated no residual noted no sob no distress noted , due pain meds given as ordered, all needs attended too call light within reach . will endorse to rn day shift for continuity of care.
--- NOTE | 2020-09-01 07:15 | NUR ---
RN OPENING NOTES RECEIVED PT IN BED. A/O X3-4. ABLE TO MOUTH WORDS, TELUGU SPEAKING. ON TRACH TO [facility] VENT, TOLERATING VENT SETTINGS WELL. NO SOB OR ANY S/S OF DISTRESS NOTED, O2 SATURATION @99%. ON TELE MONITORING, READING SINUS TACH, HR @100s. IV ACCESS INTACT, PATENT AND FLUSHED. HD CATH ON RIJ NOTED. ORTIZ CATH IN PLACE DRAINING YELLOWISH URINE TO GRAVITY. NO PAIN REPORTED AT THIS TIME. SAFETY MEASURES IN PLACE. CALL LIGHT WITHIN REACH. BED LOCKED AND IN LOWEST POSITION WITH SIDE RAILS UP X3. HOB ELEVATED. BED ALARM ON. WILL CONTINUE TO MONITOR.
[2020-09-01 07:30] LABS: CALCIUM, SERUM 8.1 mg/dL (8.5-10.1); CREATININE 4.2 mg/dL (0.6-1.3); MAGNESIUM 2.4 mg/dL (1.8-2.4); POTASSIUM 4.7 mmol/L (3.5-5.1)
[2020-09-01 08:00] VITALS: BP 124/63
[2020-09-01] MEDS: ASCORBIC ACID 500 MG TABLET GT SCH (08:20)
[2020-09-01] MEDS: MULTIVIT W/MINERALS 1 TAB TABLET GT SCH (08:20)
[2020-09-01] MEDS: PANTOPRAZOLE 40 MG/PACK PACK GT SCH ×2 (08:20→21:13)
[2020-09-01] MEDS: ZINC SULFATE 220 MG CAPSULE GT SCH (08:20)
[2020-09-01] MEDS: CHLORHEXIDINE GLUCONATE 15 ML UDC MM SCH ×2 (08:20→17:07)
[2020-09-01] MEDS: FERROUS SULFATE (325 MG) 325 MG/TAB TABLET GT SCH ×2 (08:20→17:07)
[2020-09-01] MEDS: SERTRALINE HCL 50 MG TABLET GT SCH (08:20)
[2020-09-01] MEDS: PROSOURCE / PROSTAT (PYXIS) 30 ML UDC GT SCH (08:21)
[2020-09-01] MEDS: DAKINS QUARTER STRENGTH (0.125%) 480 ML BOTTLE TOP SCH (08:21)
[2020-09-01] MEDS: NEPRO 1,000 ML BOTTLE GT PRN (08:56)
[2020-09-01] MEDS: SILVER SULFADIAZINE CREAM 25 GM TUBE TP SCH (09:08)
[2020-09-01] MEDS: CLOTRIMAZOLE/BETAMETASONE DIPROPIONATE 15 GM TUBE TP SCH ×2 (09:08→17:08)
[2020-09-01] MEDS: CEFTAZIDIME 1 G in IV D5W 50 ML IV SCH (11:33)
[2020-09-01 12:00] VITALS: BP 115/60
[2020-09-01] MEDS ORDERED: IV NS 0.9% 1,000 ML IV ONE (12:00)
[2020-09-01 16:00] VITALS: BP 121/53
[2020-09-01 20:00] VITALS: BP 125/70
--- NOTE | 2020-09-01 20:00 | NUR ---
RN NOTE RECEIVED PT IN BED, ALERT AND ORIENTED, ABLE TO MOUTH WORDS. PT WITH TRACH ON VENT. TOLERATING SETTINGS. DENIES ANY SOB. NO RESP DISTRESS NOTED. PT ON TELE MONITORING SHOWS SINUS TACH WITH HR OF 112, PT BASELINE. GT IN PLACE AND PATENT ON GT FEEDING OF NEPRO AT 45ML/HR, NO RESIDUALS NOTED. KEPT HOB ELEVATED. IV ON RUSTY PATENT AND INTACT, FLUSHES WELL. HD CATH ON RIJ, INTACT. ORTIZ IN PLACE, DRAINING URINE BY GRAVITY. ALL SAFETY MEASURES IN PLACE, CALL LIGHT WITHIN REACH, BED LOCKED IN LOWEST POSITION. SIDE RAILS UP. WILL CONTINUE TO MONITOR.
[2020-09-02] VITALS (14 sets, daily range): BP systolic 110–129; BP diastolic 51–73
[2020-09-02] MEDS: ALBUTEROL FS 2.5 MG/0.5 ML VIAL.NEB NEB SCH ×4 (01:43→19:40)
[2020-09-02] MEDS: IPRATROPIUM NEB FS 0.5 MG/2.5 ML AMPUL.NEB NEB SCH ×4 (01:43→19:40)
[2020-09-02] MEDS: HYDROMORPHONE 1 MG/1 ML DISP.SYRIN IV PRN ×6 (01:44→23:55)
--- NOTE | 2020-09-02 06:37 | NUR ---
RN CLOSING NOTES PT ABLE TO MAKE NEEDS KNOWN, NO SIGNIFICANT CHANGES NOTED. TOLERATING VENT SETTINGS, NO RESP DISTRESS NOTED. PT TOLERATES GT FEEDING, NO RESIDUALS NOTED, KEPT HOB ELEVATED. NO SIGNS OF ASPIRATION NOTED. CONTINUE ON TELE MONITORING, SINUS TACH HR 108. DENIES ANY CHEST PAIN. ORTIZ REMAIN IN PLACE. VS STABLE. ALL SAFETY MEASURES MAINTAINED. WILL ENDORSE TO NEXT SHIFT NURSE FOR JAMES.
[2020-09-02 06:48] LABS: CALCIUM, SERUM 7.7 mg/dL (8.5-10.1); CREATININE 4.4 mg/dL (0.6-1.3); POTASSIUM 4.2 mmol/L (3.5-5.1)
[2020-09-02 08:47] LABS: BASOPHILS # (AUTO) 0.1 K/uL (0.0-0.2); BASOPHILS % (AUTO) 0.6 % (0.0-2.0); EOSINOPHILS % (AUTO) 5.9 % (0.0-6.0); HEMATOCRIT 21 % (39-51); LYMPHOCYTES # (AUTO) 0.9 K/uL (0.8-4.8); LYMPHOCYTES % (AUTO) 6.9 % (20.0-44.0); MEAN CORPUSCULAR HGB CONC 33 g/dl (31.0-36.0); MEAN CORPUSCULAR VOLUME 92 fL (80-96); MONOCYTES # (AUTO) 0.8 K/uL (0.1-1.30); NEUTROPHILS # (AUTO) 10.9 K/uL (1.8-8.9); NEUTROPHILS % (AUTO) 80.6 % (43.0-81.0); PLATELET COUNT (AUTO) 180 K/uL (150-450); RED BLOOD CELL COUNT(AUTO) 2.24 MIL/uL (4.5-6.0); WHITE BLOOD COUNT (AUTO) 13.5 K/uL (4.3-11.0)
[2020-09-02 08:50] LABS: HEMOGLOBIN 6.8 g/dL (13.5-17.5)
[2020-09-02] MEDS: ASCORBIC ACID 500 MG TABLET GT SCH (08:59)
[2020-09-02] MEDS: ZINC SULFATE 220 MG CAPSULE GT SCH (08:59)
[2020-09-02] MEDS: SERTRALINE HCL 50 MG TABLET GT SCH (08:59)
[2020-09-02] MEDS: FERROUS SULFATE (325 MG) 325 MG/TAB TABLET GT SCH ×2 (08:59→16:18)
[2020-09-02] MEDS: PANTOPRAZOLE 40 MG/PACK PACK GT SCH ×2 (09:00→21:04)
[2020-09-02] MEDS: CHLORHEXIDINE GLUCONATE 15 ML UDC MM SCH ×2 (09:35→16:18)
[2020-09-02] MEDS: DAKINS QUARTER STRENGTH (0.125%) 480 ML BOTTLE TOP SCH (09:35)
[2020-09-02] MEDS: MULTIVIT W/MINERALS 1 TAB TABLET GT SCH (09:35)
[2020-09-02] MEDS: PROSOURCE / PROSTAT (PYXIS) 30 ML UDC GT SCH (09:36)
[2020-09-02] MEDS: SILVER SULFADIAZINE CREAM 25 GM TUBE TP SCH (09:36)
[2020-09-02] MEDS: CLOTRIMAZOLE/BETAMETASONE DIPROPIONATE 15 GM TUBE TP SCH ×2 (09:36→17:03)
[2020-09-02 10:06] LABS: EOSINOPHILS % (MANUAL) 1 % (0-4); LYMPHOCYTES % (MANUAL) 7 % (16-48); MONOCYTES % (MANUAL) 6 % (0-11.0); NEUTROPHILS % (MANUAL) 86 (42-76)
[2020-09-02] MEDS: CEFTAZIDIME 1 G in IV D5W 50 ML IV SCH (12:30)
--- NOTE | 2020-09-02 13:16 | NUR ---
RT NOTE PT REMAINS MECHANICALLY VENTILATED VIA CUFFED TRACHEOSTOMY TUBE. CUFF INFLATED VIA GRAIN SHIPPER. TRACH TUBE MIDLINE AND SECURE. VENTILATOR SETTINGS PRESCRIBED. ALARMS SET PER PROTOCOL AND AUDIBLE. VENT PLUGGED IN TO RED OUTLET. AMBU BAG AND BACK UP TRACH AT BED SIDE. NO DISTRESS NOTED. Addendum: 09/02/20 at 1318 by DEEPAK LOPES RT Amended: Links added.
[2020-09-02] MEDS: EPOETIN ALFA-EPBX 4,000 UNIT/ML VIAL SQ SCH (15:12)
[2020-09-02] MEDS: NEPRO 1,000 ML BOTTLE GT PRN (16:35)
--- NOTE | 2020-09-02 19:15 | NUR ---
RN NOTES: RECEIVED AWAKE ON BED, A/OX3-4, SITTING AT THE BEDSIDE, ORIENTED TO UNIT AND STAFF, THADDEUS, ON VENTILATOR:AC-20 TV-600 FiO2-30% PEEP-5 O2 SAT-97-100%, ABLE TO MOUTH WORDS AND COMMUNICATE BY WRITING IN THE PAPER, PLEASANT PERSONAITY AND COOPERATIVE. WITH PEG TUBE IN SITE, FEEDING OF NEPRO AT 45ML/HR VIA FEEDING PUMP, ON ORTIZ CATH DRAINING INTO DARK-YELLOWISH COLORED URINE AT 50CC LEVEL, RUSTY MID LINE IN SITE, RU HD CATH IN SITE. NO RESPIRATORY DISTRESS NOTED, HE JUST RECEIVED HIS PAIN MEDICATION PER ENDORSEMENT. -FALL SAFETY AND ASPIRATION PRECAUTION OBSERVED. -FOR 1ST UNIT OF PRBC TRANSFUSION, AWAITING FOR LAB TO CALL.
--- NOTE | 2020-09-02 19:44 | NUR ---
RN CLOSING NOTES Patient is alert and oriented. On mechanical vent trach setting , with 02 sat of 95%. No c/o pain or discomfort. Patient ordered one unit of PRBC, racebook writer unable to scan the blood bank id band. Informed Lab, blood returned back to the lab and new orders placed to type and screen. Cigar Making Machine Supervisor received call for blood at end of the shift. Endorsement done to next shift to give 1 unit of prbc per md orders. Wound care provided. Patient's pain managed during shift. HOB kept elevated. G tube in place and patent , running at 45 cc/hour.
--- NOTE | 2020-09-02 20:06 | NUR ---
RN NOTES: FOR BLOOD TRANSFUSSION, RECEIVED CALL FROM LAB, BLOOD IS READY FOR [employer] ARCHITECT. -194-BLOOD P/U FROM THE LAB, 1 UNIT OF PRBC, 348 ML, TYPE O POSITIVE, #[id number], EXPIRY:09/1020 -CHECK WITH CHARGE NURSE,SALINE INFUSION READY. -BASELINE V/S:BP-123/60 LA-109 RR-20 T-99.1 SPO2-97% -BT STARTED AT 2000,RN STAYED WITH THE PATIENT FOR THE FIRST 15 MINUTES. -INSTRUCTED TO REPORT IF HE FEEL ANY TRANSFUSION REACTION, MONITORED FOR HEADACHE,ITCHINESS,BACKPAIN, ABDOMINAL PAIN, FEVER. -STAYED WITH THE PATIENT , NO COMPLAINTS. V/S MONITORED Q 15 MIN. FOR THE 1ST HOUR.
--- NOTE | 2020-09-02 22:55 | NUR ---
RN NOTES: BT OF 1ST UNIT PRBC COMPLETED AT 2250. -NO TRANSFUSION REACTION NOTED, REMAINS AFEBRILE ,NO PAIN OR DISCOMFORT, NO ITCHINESS OR ABDOMINAL DISCOMFORT. -LATEST V/S BP-123/56 AK-110 RR-20 T-98.2 SPO2-97%
[2020-09-03] VITALS: BP 122/56
--- NOTE | 2020-09-03 00:35 | NUR ---
RN NOTES: COMPLAINED OF PAIN 12/04 , GIVEN DILAUDID 2 MG PER PATIENT REQUEST AT 2355 LATEST BP-122/56 MN-113 SPO2-97%.NON PHARMACOLOGIC INTERVENTION RENDERED.GIVEN WARM BLANKET AND KEEP ROOM IN DIM LIT.
[2020-09-03] MEDS: ALBUTEROL FS 2.5 MG/0.5 ML VIAL.NEB NEB SCH ×4 (02:21→20:04)
[2020-09-03] MEDS: IPRATROPIUM NEB FS 0.5 MG/2.5 ML AMPUL.NEB NEB SCH ×4 (02:21→20:04)
[2020-09-03 04:00] VITALS: BP 129/76
[2020-09-03] MEDS: HYDROMORPHONE 1 MG/1 ML DISP.SYRIN IV PRN ×4 (06:25→21:35)
--- NOTE | 2020-09-03 06:25 | NUR ---
RN NOTES: MORNING CARE DONE, DRESSING CHANGE ON THE BUTTOCKS AND INGUINAL AREA, HE HAD LARGE BM, AFTER HE WAS CLEANED AND CHANGED, COMPLAINED OF PAIN DURING REPOSITION, GIVEN MEDICATION PER PATIENT REQUEST. -LATEST BP129 ME-113 SPO2-98%.
[2020-09-03 06:45] LABS: BASOPHILS # (AUTO) 0.1 K/uL (0.0-0.2); BASOPHILS % (AUTO) 0.4 % (0.0-2.0); EOSINOPHILS % (AUTO) 5.3 % (0.0-6.0); HEMATOCRIT 24 % (39-51); HEMOGLOBIN 7.5 g/dL (13.5-17.5); LYMPHOCYTES # (AUTO) 1.1 K/uL (0.8-4.8); LYMPHOCYTES % (AUTO) 7.1 % (20.0-44.0); MEAN CORPUSCULAR HGB CONC 32 g/dl (31.0-36.0); MEAN CORPUSCULAR VOLUME 91 fL (80-96); MONOCYTES % (AUTO) 6.1 % (2.0-12.0); NEUTROPHILS # (AUTO) 12.6 K/uL (1.8-8.9); NEUTROPHILS % (AUTO) 81.1 % (43.0-81.0); PLATELET COUNT (AUTO) 197 K/uL (150-450); RED BLOOD CELL COUNT(AUTO) 2.58 MIL/uL (4.5-6.0); WHITE BLOOD COUNT (AUTO) 15.6 K/uL (4.3-11.0)
--- NOTE | 2020-09-03 06:45 | NUR ---
RN NOTES: NO OTHER COMPLAINTS MADE, NO TRANSFUSION REACTION NOTED AT THE ENTIRE SHIFT AFTER BLOOD TRANSFUSION, REMAIN AFEBRILE, COMMUNICATIVE, NO SIGN OF ANXIOUSNESS, COOPERATIVE WITH NURSES, HE EXPRESS HIS THANKFULNESS FOR THE CARE RENDERED.BLOOD TEST DONE IN THE MORNING, ENDORSED FOR CONTINUITY OF CARE.
[2020-09-03 07:20] LABS: IRON, SERUM 25 ug/dl (50-175); TOTAL IRON BINDING CAPACITY 70 ug/dl (250-450)
[2020-09-03 08:00] VITALS: BP 124/71
[2020-09-03] MEDS: CHLORHEXIDINE GLUCONATE 15 ML UDC MM SCH ×2 (09:01→16:37)
[2020-09-03] MEDS: PANTOPRAZOLE 40 MG/PACK PACK GT SCH ×2 (09:01→21:27)
[2020-09-03] MEDS: PROSOURCE / PROSTAT (PYXIS) 30 ML UDC GT SCH (09:02)
[2020-09-03] MEDS: SILVER SULFADIAZINE CREAM 25 GM TUBE TP SCH (09:02)
[2020-09-03] MEDS: MULTIVIT W/MINERALS 1 TAB TABLET GT SCH (09:02)
[2020-09-03] MEDS: ZINC SULFATE 220 MG CAPSULE GT SCH (09:02)
[2020-09-03] MEDS: ASCORBIC ACID 500 MG TABLET GT SCH (09:02)
[2020-09-03] MEDS: DAKINS QUARTER STRENGTH (0.125%) 480 ML BOTTLE TOP SCH (09:02)
[2020-09-03] MEDS: CLOTRIMAZOLE/BETAMETASONE DIPROPIONATE 15 GM TUBE TP SCH ×2 (09:02→16:38)
[2020-09-03] MEDS: SERTRALINE HCL 50 MG TABLET GT SCH (09:02)
[2020-09-03] MEDS: FERROUS SULFATE (325 MG) 325 MG/TAB TABLET GT SCH ×2 (09:02→16:37)
[2020-09-03 11:11] LABS: EOSINOPHILS % (MANUAL) 2 % (0-4); LYMPHOCYTES % (MANUAL) 5 % (16-48); MONOCYTES % (MANUAL) 3 % (0-11.0); NEUTROPHILS % (MANUAL) 90 (42-76)
[2020-09-03 12:00] VITALS: BP 128/69
[2020-09-03] MEDS: CEFTAZIDIME 1 G in IV D5W 50 ML IV SCH (12:04)
[2020-09-03 16:00] VITALS: BP 125/75
[2020-09-03 20:00] VITALS: BP 118/67
--- NOTE | 2020-09-03 20:02 | NUR ---
MS ALCARAZ Notes Patient was last seen awake in bed resting. Patient's alert and oriented x3. Patient's connected to a mechanical ventilator with no respiratory distress noted. Patient's connected to a tele monitor with no cardiac distress noted. Patient has a right upper arm midline. Patient's in no acute distress at this time Safety measures in place: Bed locked, bed alarm on, side rails up x3, and call light within reach. Will continue to monitor the patient. Addendum: 09/03/20 at 2025 by LISS ENGLAND RN SUPERVISOR KEYMODULE ASSEMBLY Notes
--- NOTE | 2020-09-03 21:35 | NUR ---
MS RN Notes Patient c/o of 8/10 pain. Patient was given 2mg of Dilaudid IV. Will continue to monitor the patient.
[2020-09-04] VITALS: BP 113/55
[2020-09-04] MEDS: HYDROMORPHONE 1 MG/1 ML DISP.SYRIN IV PRN ×6 (01:50→23:00)
--- NOTE | 2020-09-04 01:50 | NUR ---
MS RN Notes Patient c/o of 9/10 pain. Patient was given 2mg of Dilaudid IV. Will continue to monitor the patient.
[2020-09-04] MEDS: ALBUTEROL FS 2.5 MG/0.5 ML VIAL.NEB NEB SCH ×4 (02:00→19:58)
[2020-09-04] MEDS: IPRATROPIUM NEB FS 0.5 MG/2.5 ML AMPUL.NEB NEB SCH ×4 (02:00→19:58)
[2020-09-04] MEDS: NEPRO 1,000 ML BOTTLE GT PRN (04:30)
[2020-09-04 04:31] VITALS: BP 108/50
--- NOTE | 2020-09-04 06:16 | NUR ---
MS RN Notes Patient c/o of 9/10 pain. Patient was given 2mg of Dilaudid IV. Will continue to monitor the patient.
[2020-09-04 06:56] LABS: CALCIUM, SERUM 8.1 mg/dL (8.5-10.1); CREATININE 3.9 mg/dL (0.6-1.3); MAGNESIUM 2.3 mg/dL (1.8-2.4); PHOSPHORUS 4.1 mg/dL (2.5-4.9)
--- NOTE | 2020-09-04 07:05 | NUR ---
RN NOTE PATIENT OBSERVED IN BED, AWAKE, ALERT AND ORIENTED X4, BREATHING EVEN AND UNLABORED, ON TRACHEOSTOMY WITH MECHANICAL VENTILATOR O2 SAT OF 98%, ON GT FEEDING PATENT WITH PATENT TOLERATING WELL, 10CC OF RESIDUAL, WILL FOLLOW UP WITH PHYSICIAN, SAFETY MEASURES OBSERVED, CALL LIGHT WITHIN REACH, BED ALARM ON, BED WHEELS LOCK. WILL CONTINUE TO MONITOR. Addendum: 09/04/20 at 0755 by IDALIA STARR RN PATIENT ON TELE MONITOR SINUS TACHYCARDIA OF 107 NO CHEST PAIN COMPLAIN ON ORTIZ CATHETER DRAINING WELL NO HEMATURIA NOTED. IV SITE PATENT FLUSHING WELL.
--- NOTE | 2020-09-04 07:19 | NUR ---
customs compliance manager Notes Patient was last seen awake in bed resting. Patient's alert and oriented x3. Patient's connected to a mechanical ventilator with no respiratory distress noted. Patient's connected to a tele monitor with no cardiac distress noted. Patient has a right upper arm midline, which is intact, patent, and flushing well. Patient's in no acute distress at this time Safety measures in place: Bed locked, bed alarm on, side rails up x3, and call light within reach. Will endorse care to the day shift nurse.
[2020-09-04 08:00] VITALS: BP 108/53
[2020-09-04] MEDS: FERROUS SULFATE (325 MG) 325 MG/TAB TABLET GT SCH ×2 (09:35→18:06)
[2020-09-04] MEDS: ZINC SULFATE 220 MG CAPSULE GT SCH (09:35)
[2020-09-04] MEDS: MULTIVIT W/MINERALS 1 TAB TABLET GT SCH (09:35)
[2020-09-04] MEDS: PANTOPRAZOLE 40 MG/PACK PACK GT SCH ×2 (09:35→20:52)
[2020-09-04] MEDS: CHLORHEXIDINE GLUCONATE 15 ML UDC MM SCH ×2 (09:35→17:52)
[2020-09-04] MEDS: PROSOURCE / PROSTAT (PYXIS) 30 ML UDC GT SCH (09:35)
[2020-09-04] MEDS: SERTRALINE HCL 50 MG TABLET GT SCH (09:35)
[2020-09-04] MEDS: ASCORBIC ACID 500 MG TABLET GT SCH (09:35)
[2020-09-04] MEDS: DAKINS QUARTER STRENGTH (0.125%) 480 ML BOTTLE TOP SCH (09:43)
[2020-09-04] MEDS: CLOTRIMAZOLE/BETAMETASONE DIPROPIONATE 15 GM TUBE TP SCH ×2 (09:44→17:52)
[2020-09-04] MEDS: SILVER SULFADIAZINE CREAM 25 GM TUBE TP SCH (09:44)
[2020-09-04 12:00] VITALS: BP 126/66
[2020-09-04] MEDS: CEFTAZIDIME 1 G in IV D5W 50 ML IV SCH (13:18)
[2020-09-04 16:00] VITALS: BP 115/59
--- NOTE | 2020-09-04 19:10 | NUR ---
RN NOTE RECEIVED PATIENT IN BED RESTING ALERT ORIENTED X3 VERBALLY RESPONSIVE MONTH WORD ON MECHANICAL VENT,IV SITE IS ON RIGHT UPPER ARM MIDLINE INTACT PATENT,ON G-TUBE FEEDING NEPRO 1.8, 45 CC/HR CHECKED PLACEMENT IN PLACE NO RESIDUAL NOTED,HEAD OF THE BED ELEVATED,ORTIZ IN PLACE NO URINE NOTED,SAFETY MEASURE IMPLEMENT CALL LIGHT WITHIN REACH CONTINUE TO MONITOR
--- NOTE | 2020-09-04 19:22 | NUR ---
RN NOTE PATIENT OBSERVED IN BED, AWAKE, ALERT AND ORIENTED X4, BREATHING EVEN AND UNLABORED, ON TRACHEOSTOMY WITH MECHANICAL VENTILATOR O2 SAT OF 98%, PATIENT ON TELE MONITOR SINUS TACHYCARDIA HEART RATE OF 108, WOUND TREATMENT DONE ORDERED, ON GT FEEDING PATENT WITH PATENT TOLERATING WELL, 10CC OF RESIDUAL, WILL FOLLOW UP WITH PHYSICIAN, SAFETY MEASURES OBSERVED, CALL LIGHT WITHIN REACH, BED ALARM ON, BED WHEELS LOCK. WILL CONTINUE TO MONITOR. WILL ENDORSE TO NOC SHIFT.
[2020-09-04 20:00] VITALS: BP 127/60
[2020-09-05] VITALS (11 sets, daily range): BP systolic 105–133; BP diastolic 53–77
[2020-09-05] MEDS: ALBUTEROL FS 2.5 MG/0.5 ML VIAL.NEB NEB SCH ×4 (01:32→19:57)
[2020-09-05] MEDS: IPRATROPIUM NEB FS 0.5 MG/2.5 ML AMPUL.NEB NEB SCH ×4 (01:32→19:56)
--- NOTE | 2020-09-05 02:00 | NUR ---
RN NOTE PATIENT REFUSES TO BE CHANGED AND HE REFUSES TO TAKE PICTURES OF HIS WOUND HE SAID "TOMORROW NOT TODAY I AM TIRED" CONTINUE TO MONITOR
[2020-09-05] MEDS: HYDROMORPHONE 1 MG/1 ML DISP.SYRIN IV PRN ×5 (03:10→22:26)
[2020-09-05] MEDS: NEPRO 1,000 ML BOTTLE GT PRN (06:29)
[2020-09-05 06:49] LABS: BASOPHILS # (AUTO) 0.1 K/uL (0.0-0.2); BASOPHILS % (AUTO) 0.4 % (0.0-2.0); EOSINOPHILS % (AUTO) 5.3 % (0.0-6.0); HEMATOCRIT 21 % (39-51); LYMPHOCYTES # (AUTO) 1.3 K/uL (0.8-4.8); LYMPHOCYTES % (AUTO) 5.7 % (20.0-44.0); MEAN CORPUSCULAR HGB CONC 32 g/dl (31.0-36.0); MEAN CORPUSCULAR VOLUME 92 fL (80-96); MONOCYTES # (AUTO) 1.1 K/uL (0.1-1.30); MONOCYTES % (AUTO) 4.7 % (2.0-12.0); NEUTROPHILS # (AUTO) 18.9 K/uL (1.8-8.9); NEUTROPHILS % (AUTO) 83.9 % (43.0-81.0); PLATELET COUNT (AUTO) 194 K/uL (150-450); RED BLOOD CELL COUNT(AUTO) 2.28 MIL/uL (4.5-6.0); WHITE BLOOD COUNT (AUTO) 22.5 K/uL (4.3-11.0)
[2020-09-05 07:00] LABS: HEMOGLOBIN 6.7 g/dL (13.5-17.5)
--- NOTE | 2020-09-05 07:00 | NUR ---
RN NOTE RECEIVED CRITICAL LAB RESULTS HGB 6.7 CALLED [facility] AND LEFT MESSAGE WAITING FOR CALL BACK CONTINUE TO MONITOR.
--- NOTE | 2020-09-05 07:15 | NUR ---
RN NOTE PATIENT REMAINS ON ALERT ORIENTEDX3 MONTH WORDS ON CRITICAL LAB HGB 6.7 ON MECHANICAL VENT NO SOB NOT ACUTE DISTRESS NOTED ENDORSE NEXT COMING SHIFT FOR CONTINUATION OF CARE.
--- NOTE | 2020-09-05 07:20 | NUR ---
RN NOTE PATIENT AWAKE IN BED, ALERT AND ORIENTED X4, BREATHING EVEN AND UNLABORED, ON TRACHEOSTOMY WITH MECHANICAL VENTILATOR TOLERATING WELL O2 SAT OF 97%, ON TELE MONITOR SINUS TACHYCARDIA HR OF 107, NO CHEST PAIN COMPLAIN AT THIS TIME, HGB OF 6.[address] VICK PRN BLOOD TRANSFUSION ORDER ALREADY IN PLACE, IV SITE ON RIGHT UPPER ARM MIDLINE PATENT FLUSHING WELL, ORTIZ CATHETER DRAINING WELL VIA GRAVITY NO HEMATURIA NOTED, G-TUBE SITE PATENT WITH NEPHRO @45CC/HR TOLERATING WELL 0 RESIDUAL NOTED, SAFETY MEASURES OBSERVED,BED WHEELS LOCK, BED ALARM ON, CALL LIGHT WITHIN REACH, WILL CONTINUE TO MONITOR. Addendum: 09/05/20 at 0815 by IDALIA STARR RN RIGHT UPPER CHEST PERMA-CATH NOTED
[2020-09-05 07:23] LABS: CALCIUM, SERUM 8.3 mg/dL (8.5-10.1); CREATININE 3.3 mg/dL (0.6-1.3); POTASSIUM 3.8 mmol/L (3.5-5.1)
[2020-09-05 09:43] LABS: EOSINOPHILS % (MANUAL) 5 % (0-4); LYMPHOCYTES % (MANUAL) 5 % (16-48); MONOCYTES % (MANUAL) 2 % (0-11.0); NEUTROPHILS % (MANUAL) 88 (42-76)
[2020-09-05] MEDS: PROSOURCE / PROSTAT (PYXIS) 30 ML UDC GT SCH (10:03)
[2020-09-05] MEDS: CHLORHEXIDINE GLUCONATE 15 ML UDC MM SCH ×2 (10:06→16:53)
[2020-09-05] MEDS: SERTRALINE HCL 50 MG TABLET GT SCH (10:06)
[2020-09-05] MEDS: ZINC SULFATE 220 MG CAPSULE GT SCH (10:06)
[2020-09-05] MEDS: MULTIVIT W/MINERALS 1 TAB TABLET GT SCH (10:06)
[2020-09-05] MEDS: FERROUS SULFATE (325 MG) 325 MG/TAB TABLET GT SCH ×2 (10:07→16:57)
[2020-09-05] MEDS: PANTOPRAZOLE 40 MG/PACK PACK GT SCH ×2 (10:07→22:27)
[2020-09-05] MEDS: ASCORBIC ACID 500 MG TABLET GT SCH (10:07)
[2020-09-05] MEDS: DAKINS QUARTER STRENGTH (0.125%) 480 ML BOTTLE TOP SCH (10:12)
[2020-09-05] MEDS: SILVER SULFADIAZINE CREAM 25 GM TUBE TP SCH (10:13)
[2020-09-05] MEDS: CLOTRIMAZOLE/BETAMETASONE DIPROPIONATE 15 GM TUBE TP SCH ×2 (10:13→16:56)
[2020-09-05] MEDS: CEFTAZIDIME 1 G in IV D5W 50 ML IV SCH (11:33)
--- NOTE | 2020-09-05 12:56 | NUR ---
RN NOTE PATIENT STARTED ON BLOOD TRANSFUSION, NO BLOOD TRANSFUSION REACTION NOTED AT THIS TIME, VITAL SIGNS TAKEN WNL, WILL CONTINUE TO MONITOR.
[2020-09-05] MEDS ORDERED: DOSE PER PHARMACY MICAFUNGIN 1 EA XX PRN (13:00)
--- NOTE | 2020-09-05 13:13 | NUR ---
RN NOTE PATIENT ON BLOOD TRANSFUSION, NO BLOOD TRANSFUSION REACTION NOTED AT THIS TIME, VITAL SIGNS TAKEN WNL, WILL CONTINUE TO MONITOR.
--- NOTE | 2020-09-05 13:57 | NUR ---
RN NOTE PATIENT ON BLOOD TRANSFUSION, NO BLOOD TRANSFUSION REACTION NOTED AT THIS TIME, VITAL SIGNS TAKEN WNL, WILL CONTINUE TO MONITOR.
[2020-09-05] MEDS ORDERED: MICAFUNGIN SODIUM 100 MG in IV NS 0.9% 100 ML IV SCH ×2 (14:00→16:00)
[2020-09-05] MEDS: EPOETIN ALFA-EPBX 4,000 UNIT/ML VIAL SQ SCH (16:46)
--- NOTE | 2020-09-05 18:53 | NUR ---
RN NOTE PATIENT AWAKE IN BED, ALERT AND ORIENTED X4, BREATHING EVEN AND UNLABORED, ON TRACHEOSTOMY WITH MECHANICAL VENTILATOR TOLERATING WELL O2 SAT OF 97%, ON TELE MONITOR SINUS TACHYCARDIA HR OF 105, NO CHEST PAIN COMPLAIN AT THIS TIME, 1 UNIT OF PRBC TRANSFUSE ORDERED, NO BLOOD TRANSFUSION REACTION NOTED,, IV SITE ON RIGHT UPPER ARM MIDLINE PATENT FLUSHING WELL, ORTIZ CATHETER DRAINING WELL VIA GRAVITY NO HEMATURIA NOTED, COLLECTED URINE SAMPLE FOR URINE CULTURE ORDERED, G-TUBE SITE PATENT WITH NEPHRO @45CC/HR TOLERATING WELL 0 RESIDUAL NOTED, SAFETY MEASURES OBSERVED,BED WHEELS LOCK, BED ALARM ON, CALL LIGHT WITHIN REACH, WILL CONTINUE TO MONITOR. Addendum: 09/05/20 at 1853 by IDALIA STARR RN WOUND TREATMENT DONE ORDERED Addendum: 09/05/20 at 1854 by IDALIA STARR RN HD CATH NOTED, NO BLEEDING NOTED. Addendum: 09/05/20 at 1857 by IDALIA STARR RN WILL ENDORSE TO NEXT SHIFT
[2020-09-05] MEDS: ZOLPIDEM TARTRATE 5 MG TABLET PO PRN (22:27)
[2020-09-06] VITALS: BP 112/64
[2020-09-06] MEDS: IPRATROPIUM NEB FS 0.5 MG/2.5 ML AMPUL.NEB NEB SCH ×4 (01:40→20:02)
[2020-09-06] MEDS: ALBUTEROL FS 2.5 MG/0.5 ML VIAL.NEB NEB SCH ×4 (01:40→20:03)
[2020-09-06] MEDS: HYDROMORPHONE 1 MG/1 ML DISP.SYRIN IV PRN ×5 (02:38→22:35)
--- NOTE | 2020-09-06 03:13 | NUR ---
PATIENT ALERT C/O OF PAIN ALL OVER BODY. PATIENT ON VENT. AC20, TV600, FI02 30% PEEP 5. SAT 907% LUNGS WITH CRACKLES. HAS RIGHT MIDLINE. PATIENT HAS GT. NEPRO AT 45 HR PATIENT HAS A F/C DRAING YELLOW URINE.PATIENT HAS A RIGHT NECK PERMA CATH FOR DIALYSIS. PATIENT HAS MULTIPAL WOUNDS PATIENT WAS MEDICATED X2 WITH DILAUDID 2 MG IVP. AT 2226, 0238. PATIENT SINUS TACH ON MO.
[2020-09-06 04:00] VITALS: BP 120/61
--- NOTE | 2020-09-06 07:30 | NUR ---
RN OPENING NOTE TRACH PT A/Ox3, ABLE TO MOUTH WORDS, IN BED SEMIFOWLER'S ON [facility] VENT SETTINGS PER MD ORDER: AC 20, TV 600, FIO2 30%, PEEP 5, SPO2 97%, NO S/S OF RESP DISTRESS OR SOB, BREATHING EVEN AND UNLABORED. PAIN STATES 8/10 PAIN, WILL ADMIN DILAUDID ORDERED. PT HAS RUSTY MIDLINE FLUSHED AND PATENT, NO S/S OF INFECTION/INFILTRATION, CURRENTLY SL. PT ON GTF NEPRO @ 45 ML/HR, AUSCULTATED FOR POSITIVE PLACEMENT, PATENT, NO RESIDUALS NOTED. PT ORTIZ CATH DRAINING CLEAR YELLOW URINE VIA GRAVITY, INTACT. PT HAS SACRAL AND BLE WOUNDS. PT HAS RT HD PERMA CATH INTACT. ALL PT SAFETY PRECAUTIONS IN PLACE, WILL CONT TO MONITOR
--- NOTE | 2020-09-06 07:47 | NUR ---
RT Pt received awake and alert, pt is trached on mechanical ventilation with noted settings. Vent is plugged into red outlet with BVM by bedside. Alarms are set and audible. No SOB or respiratory distress noted. Addendum: 09/06/20 at 1440 by NICK RIDER RT Amended: Links added.
[2020-09-06 08:00] VITALS: BP 119/61
[2020-09-06 08:38] LABS: BASOPHILS # (AUTO) 0.1 K/uL (0.0-0.2); BASOPHILS % (AUTO) 0.3 % (0.0-2.0); EOSINOPHILS % (AUTO) 4.6 % (0.0-6.0); HEMATOCRIT 23 % (39-51); HEMOGLOBIN 7.3 g/dL (13.5-17.5); LYMPHOCYTES # (AUTO) 1.2 K/uL (0.8-4.8); LYMPHOCYTES % (AUTO) 6.7 % (20.0-44.0); MEAN CORPUSCULAR HGB CONC 32 g/dl (31.0-36.0); MEAN CORPUSCULAR VOLUME 92 fL (80-96); MONOCYTES # (AUTO) 1.1 K/uL (0.1-1.30); MONOCYTES % (AUTO) 5.7 % (2.0-12.0); NEUTROPHILS # (AUTO) 15.4 K/uL (1.8-8.9); NEUTROPHILS % (AUTO) 82.7 % (43.0-81.0); PLATELET COUNT (AUTO) 261 K/uL (150-450); RED BLOOD CELL COUNT(AUTO) 2.47 MIL/uL (4.5-6.0); WHITE BLOOD COUNT (AUTO) 18.6 K/uL (4.3-11.0)
[2020-09-06] MEDS: ASCORBIC ACID 500 MG TABLET GT SCH (08:43)
[2020-09-06] MEDS: MULTIVIT W/MINERALS 1 TAB TABLET GT SCH (08:43)
[2020-09-06] MEDS: CHLORHEXIDINE GLUCONATE 15 ML UDC MM SCH ×2 (08:43→17:00)
[2020-09-06] MEDS: ZINC SULFATE 220 MG CAPSULE GT SCH (08:43)
[2020-09-06] MEDS: FERROUS SULFATE (325 MG) 325 MG/TAB TABLET GT SCH ×2 (08:43→18:29)
[2020-09-06] MEDS: SERTRALINE HCL 50 MG TABLET GT SCH (08:43)
[2020-09-06] MEDS: DAKINS QUARTER STRENGTH (0.125%) 480 ML BOTTLE TOP SCH (08:44)
[2020-09-06] MEDS: PANTOPRAZOLE 40 MG/PACK PACK GT SCH ×2 (08:44→21:20)
[2020-09-06] MEDS: PROSOURCE / PROSTAT (PYXIS) 30 ML UDC GT SCH (08:44)
[2020-09-06] MEDS: CLOTRIMAZOLE/BETAMETASONE DIPROPIONATE 15 GM TUBE TP SCH ×2 (08:45→18:30)
[2020-09-06] MEDS: SILVER SULFADIAZINE CREAM 25 GM TUBE TP SCH (08:46)
[2020-09-06 08:49] LABS: CALCIUM, SERUM 8.3 mg/dL (8.5-10.1); CREATININE 3.7 mg/dL (0.6-1.3); POTASSIUM 3.6 mmol/L (3.5-5.1)
--- NOTE | 2020-09-06 09:35 | NUR ---
RT Spare trach by bedside. Addendum: 09/06/20 at 1442 by NICK RIDER RT Amended: Links added.
[2020-09-06 12:00] VITALS: BP 118/58
[2020-09-06] MEDS: CEFTAZIDIME 1 G in IV D5W 50 ML IV SCH (12:55)
[2020-09-06 16:00] VITALS: BP 118/62
--- NOTE | 2020-09-06 19:00 | NUR ---
RN CLSOING NOTE NO CHANGES TO PT DURING SHIFT. PT ON SAME VENT SETTINGS PER MD ORDER. PT EDUCATION REGARDING COMPLIANCE WITH BED BATHS, CLEANING WOUNDS AND LINEN CHANGES DONE BEDSIDE WITH PT AND ; PT UNDERSTANDS AND NODDED IN AGREEMENT THAT HE WOULD COMPLY. STOOL OCCULT SAMPLE COLLECTED. ALL PT SAFETY PRECAUTIONS IN PLACE, JAMES ENDORSED TO PRINTED CIRCUIT BOARD ASSEMBLER RN
--- NOTE | 2020-09-06 19:35 | NUR ---
RN OPENING NOTE RECEIVED TRACH PT A/Ox3, ABLE TO MOUTH WORDS AND WRITE IN PIECE OF PAPER. AT BEDSIDE. PT. COOPERATIVE. IN BED SEMI ALLRED'S ON [facility] VENT SETTINGS PER MD ORDER: AC 20, TV 600, FIO2 30%, PEEP 5, SPO2 97%, NO S/S OF RESP DISTRESS OR SOB, BREATHING EVEN AND UNLABORED. PT HAS (R) UA MIDLINE FLUSHED AND PATENT, NO S/S OF INFECTION/INFILTRATION. PT ON GTF NEPRO @ 45 ML/HR, AUSCULTATED FOR POSITIVE PLACEMENT, PATENT, NO RESIDUALS NOTED. PT ORTIZ CATH DRAINING CLEAR YELLOW URINE VIA GRAVITY, INTACT. PT HAS SACRAL AND BLE WOUNDS, DRESSINGS ARE CLEAN AND INTACT. PT HAS RT HD PERMA CATH INTACT. ALL PT SAFETY PRECAUTIONS IN PLACE, BED LOWEST POSITION, CALL LIGHT WITHIN REACH, BED RAILS UP X3, ASPIRATION PRECAUTIONS IN PLACE. NO ACUTE DISTRESS NOTED AT THIS TIME.
[2020-09-06 20:00] VITALS: BP 118/65
[2020-09-06 20:04] LABS: OCCULT BLOOD STOOL NEGATIVE (NEGATIVE)
--- NOTE | 2020-09-06 22:35 | NUR ---
PT. COMPLAINS OF PAIN 9/10 PER VERBAL SCALE. PAIN GENERALIZED TO BILATERAL WOUNDS. STATES IT IS A SHARP ACHING PAIN. PT VISIBLY RESTLESS. DILAUDID 2MG IVP GIVEN AND TOLERATED WELL. WILL REASSESS EFFICACY IN 30 MINUTES.
[2020-09-06] MEDS: NEPRO 1,000 ML BOTTLE GT PRN (22:45)
--- NOTE | 2020-09-06 23:00 | NUR ---
RN NOTE PAIN REASSESSMENT COMPLETED. EASILY AROUSABLE. PT STATES EFFICACY, PAIN SCALE 1/10. NO RESP. DISTRESS AND NO CHANGES IN MENTAL STATUS.
[2020-09-07] VITALS: BP 116/62
[2020-09-07] MEDS: IPRATROPIUM NEB FS 0.5 MG/2.5 ML AMPUL.NEB NEB SCH ×4 (01:33→19:58)
[2020-09-07] MEDS: ALBUTEROL FS 2.5 MG/0.5 ML VIAL.NEB NEB SCH ×4 (01:33→19:58)
[2020-09-07 04:00] VITALS: BP 115/67
[2020-09-07] MEDS: HYDROMORPHONE 1 MG/1 ML DISP.SYRIN IV PRN ×5 (04:43→22:08)
--- NOTE | 2020-09-07 04:43 | NUR ---
RN NOTES, PATIENT VERBALIZED GENERALIZED PAIN 10/10, DILAUDID 2MG IVP ADMINISTERED ORDERED, WILL CONTINUE TO MONITOR AND REASSESS ORDERED.
--- NOTE | 2020-09-07 05:13 | NUR ---
RN NOTES, REASSESSING PAIN AT THIS TIME AFTER THE ADMINISTRATION OF DILAUDID, PATENT RATES PAIN 2/10 AT THIS TIME, EFFECTIVE, NO CHANGE IN LOC. TOLERATED WELL.
[2020-09-07 06:35] LABS: BASOPHILS # (AUTO) 0.1 K/uL (0.0-0.2); BASOPHILS % (AUTO) 0.5 % (0.0-2.0); HEMATOCRIT 23 % (39-51); HEMOGLOBIN 7.4 g/dL (13.5-17.5); LYMPHOCYTES # (AUTO) 1.2 K/uL (0.8-4.8); LYMPHOCYTES % (AUTO) 7.1 % (20.0-44.0); MEAN CORPUSCULAR HGB CONC 32 g/dl (31.0-36.0); MEAN CORPUSCULAR VOLUME 92 fL (80-96); MONOCYTES # (AUTO) 1.1 K/uL (0.1-1.30); MONOCYTES % (AUTO) 6.7 % (2.0-12.0); NEUTROPHILS # (AUTO) 13.1 K/uL (1.8-8.9); NEUTROPHILS % (AUTO) 78.7 % (43.0-81.0); PLATELET COUNT (AUTO) 296 K/uL (150-450); RED BLOOD CELL COUNT(AUTO) 2.48 MIL/uL (4.5-6.0); WHITE BLOOD COUNT (AUTO) 16.7 K/uL (4.3-11.0)
--- NOTE | 2020-09-07 06:45 | NUR ---
RN CLOSING NOTE PATIENT AWAKE IN BED, ALERT AND ORIENTED X3-4 MOUTHS WORDS AND COMMUNICATES THROUGH WRITING. BREATHING EVEN AND UNLABORED, ON TRACHEOSTOMY WITH MECHANICAL VENTILATOR AT PRESCRIBED. SETTINGS TOLERATING WELL O2 SAT OF 98%. ON TELE MONITOR SINUS TACHYCARDIA HR OF 100. IV SITE ON RIGHT UPPER ARM MIDLINE PATENT FLUSHING WELL, DRESSING CLEAN, DRY AND INTACT. ORTIZ CATHETER PATENT AND DRAINING CLEAR YELLOW URINE VIA GRAVITY G-TUBE SITE PATENT WITH NEPHRO @45CC/HR TOLERATING WITH 0 RESIDUAL NOTED. ALL NEEDED ATTENDED THROUGHOUT SHIFT AND WOUND CARE COMPLETED ORDERED. NO ACUTE CHANGE IN CONDITION NOTED THROUGHOUT SHIFT. SAFETY MEASURES OBSERVED, BED LOCKED AND IN LOWEST POSITION, BED ALARM ON, SIDE RAILS UP X3, CALL LIGHT WITHIN REACH. NO ACUTE DISTRESS NOTED AT THIS. WILL ENDORSE CONTINUITY OF CARE TO MORNING SHIFT RN
--- NOTE | 2020-09-07 07:15 | NUR ---
RN OPENING NOTES RECEIVED PT AWAKE, A/O X3-4. ABLE TO MOUTH WORDS. ON [facility] VENT, SETTINGS AC: 20, TV: 600, FIO2: 30% AND PEEP 5, SPO2 98%. NO SOB OR ANY S/S OF RESPIRATORY DISTRESS NOTED. COMPLAINTS OF PAIN, 10/04. WILL ADMIN DILAUDID ORDERED. RUSTY MIDLINE INTACT, PATENT AND FLUSHED. RIJ HD CATH NOTED. GT POSITIVE PLACEMENT CHECKED BY AUSCULTATION. RUNNING NEPRO @45 ML/HR. NO RESIDUALS NOTED. ORTIZ CATH DRAINING CLEAR YELLOW URINE VIA GRAVITY. SACRAL AND BLE WOUNDS NOTED, DRESSINGS CLEAN, DRY AND INTACT. SAFETY PRECAUTIONS IN PLACE. CALL LIGHT WITHIN REACH. BED LOCKED AND IN LOWEST POSITION WITH SIDE RAILS UP X3. WILL CONTINUE TO MONITOR.
[2020-09-07 07:47] LABS: CALCIUM, SERUM 8.8 mg/dL (8.5-10.1); CREATININE 4.1 mg/dL (0.6-1.3); PHOSPHORUS 3.7 mg/dL (2.5-4.9); POTASSIUM 3.8 mmol/L (3.5-5.1)
[2020-09-07 08:00] VITALS: BP 119/71
[2020-09-07] MEDS: FERROUS SULFATE (325 MG) 325 MG/TAB TABLET GT SCH ×2 (08:19→17:04)
[2020-09-07] MEDS: PANTOPRAZOLE 40 MG/PACK PACK GT SCH ×2 (08:19→20:30)
[2020-09-07] MEDS: ASCORBIC ACID 500 MG TABLET GT SCH (08:19)
[2020-09-07] MEDS: SERTRALINE HCL 50 MG TABLET GT SCH (08:19)
[2020-09-07] MEDS: ZINC SULFATE 220 MG CAPSULE GT SCH (08:19)
[2020-09-07] MEDS: CHLORHEXIDINE GLUCONATE 15 ML UDC MM SCH ×2 (08:20→17:03)
[2020-09-07] MEDS: MULTIVIT W/MINERALS 1 TAB TABLET GT SCH (08:20)
[2020-09-07] MEDS: PROSOURCE / PROSTAT (PYXIS) 30 ML UDC GT SCH (08:21)
[2020-09-07] MEDS: DAKINS QUARTER STRENGTH (0.125%) 480 ML BOTTLE TOP SCH (08:21)
[2020-09-07] MEDS: SILVER SULFADIAZINE CREAM 25 GM TUBE TP SCH (08:22)
[2020-09-07] MEDS: CLOTRIMAZOLE/BETAMETASONE DIPROPIONATE 15 GM TUBE TP SCH ×2 (08:22→17:04)
[2020-09-07 12:00] VITALS: BP 114/58
[2020-09-07] MEDS: CEFTAZIDIME 1 G in IV D5W 50 ML IV SCH (12:07)
[2020-09-07 12:22] LABS: CREATININE, URINE 24.9 MG/DL (30.0-125.0)
[2020-09-07 12:27] LABS: BILIRUBIN,URINE NEGATIVE (NEGATIVE); COLOR,URINE YELLOW (YELLOW); LEUKOCYTE ESTERASE ,URINE LARGE (NEGATIVE); NITRITE, URINE NEGATIVE (NEGATIVE); PROTEIN,URINE 100 mg/dl (NEGATIVE); UGLUCOSE NEGATIVE (NEGATIVE); UROBILINOGEN,URINE 0.2 EU/dL (0.2)
[2020-09-07 12:32] LABS: BACTERIA,URINE Moderate /HPF (None Seen); CALCIUM OXALATE CRYSTALS,UR Few /HPF (None Seen); SQUAMOUS EPITHELIAL CELL,UR Few /HPF (None Seen); WBC,URINE TOO NUMEROUS TO COUN /HPF (0-3); YEAST,URINE Moderate /HPF (None Seen)
[2020-09-07] MEDS: EPOETIN ALFA-EPBX 4,000 UNIT/ML VIAL SQ SCH (15:01)
[2020-09-07 16:00] VITALS: BP 115/53
--- NOTE | 2020-09-07 18:47 | NUR ---
RN CLOSING NOTES NO SIGNIFICANT CHANGES TO PT CONDITION DURING SHIFT. TOLERATING VENT SETTINGS WELL. ALL DUE MEDS GIVEN. NEEDS ATTENDED. KEPT CLEAN, DRY AND COMFORTABLE. SAFETY PRECAUTIONS IN PLACE. ENDORSED TO ENGINEER STEAM RN FOR JAMES.
--- NOTE | 2020-09-07 19:30 | NUR ---
RN OPENING NOTES RECEIVED PT IN BED. A&OX3-4. PT IS TRACH/VENT WITH SETTINGS AT AC 20, TV 600, FIO2 30%, AND PEEP 5. PT OXYEGN SAT IS >98% WITH NO S/S OF RESPIRATORY DISTRESS/SOB. PT IS ST. PT HAS RUSTY MIDLINE, FLUSHED, PATENT, AND INTACT. PT ALSO HAS RIGHT IJ HD CATH. G-TUBE RUNNING NEPRO AT 45ML/HR. NO RESIDUAL NOTED. SACRAL AND BLE WOUNDS NOTED, DRESSINGS CLEAN, DRY AND INTACT. SAFETY PRECAUTIONS INITIATED. BED LOCKED AND IN LOWEST POSITION, SIDE RAILS UP X3, CALL LIGHT WITHIN REACH. WILL CONTINUE TO MONITOR/ASSESS THROUGHOUT THE SHIFT.
[2020-09-07 20:00] VITALS: BP 127/63
[2020-09-07] MEDS ORDERED: VANCOMYCIN 500 MG in IV D5W 100 ML IV ONE (21:00)
[2020-09-08] VITALS (10 sets, daily range): BP systolic 111–120; BP diastolic 61–72
[2020-09-08] MEDS: IPRATROPIUM NEB FS 0.5 MG/2.5 ML AMPUL.NEB NEB SCH ×4 (01:16→16:56)
[2020-09-08] MEDS: ALBUTEROL FS 2.5 MG/0.5 ML VIAL.NEB NEB SCH ×4 (01:16→16:56)
[2020-09-08] MEDS: HYDROMORPHONE 1 MG/1 ML DISP.SYRIN IV PRN ×14 (02:12→22:04)
[2020-09-08 06:12] LABS: BASOPHILS # (AUTO) 0.1 K/uL (0.0-0.2); BASOPHILS % (AUTO) 0.4 % (0.0-2.0); EOSINOPHILS % (AUTO) 7.6 % (0.0-6.0); HEMATOCRIT 21 % (39-51); LYMPHOCYTES % (AUTO) 7.9 % (20.0-44.0); MEAN CORPUSCULAR HGB CONC 32 g/dl (31.0-36.0); MEAN CORPUSCULAR VOLUME 92 fL (80-96); MONOCYTES # (AUTO) 0.8 K/uL (0.1-1.30); MONOCYTES % (AUTO) 6.4 % (2.0-12.0); NEUTROPHILS % (AUTO) 77.7 % (43.0-81.0); PLATELET COUNT (AUTO) 306 K/uL (150-450); RED BLOOD CELL COUNT(AUTO) 2.28 MIL/uL (4.5-6.0); WHITE BLOOD COUNT (AUTO) 12.9 K/uL (4.3-11.0)
[2020-09-08] MEDS: NEPRO 1,000 ML BOTTLE GT PRN (06:19)
--- NOTE | 2020-09-08 06:37 | NUR ---
RN CLOSING NOTES NO SIGNIFICANT CHANGES TO PT CONDITION. TOLERATING VENT SETTINGS WELL WITH O2 SAT >98% NO S/S OF RESP DISTRESS/SOB. IV LINE FLUSHED, PATENT AND INTACT. G-TUBE RUNNING NEPRO @45 ML/HR. WOUND CARE IMPLEMENTED. KEPT CLEAN, DRY AND COMFORTABLE. SAFETY PRECAUTIONS IMPLEMENTED. BED IN LOCKED AND IN LOWEST POSITION, SIDE RAILS UP, CALL LIGHT WITHIN REACH. WILL ENDORSE TO MORNING SHIFT RN FOR JAMES.
[2020-09-08 06:40] LABS: HEMOGLOBIN 6.8 g/dL (13.5-17.5)
--- NOTE | 2020-09-08 06:40 | NUR ---
RN NOTES RECEIVED CALL FROM LAB; SPOKE WITH FELICITA GALINDO'S HGB: 6.8. REPAIRER AUTO CLOCKS MADE AWARE. INFORMED KENZIE HAWKINS; SECURED ORDER FOR 1 PRBC. REPAIRER AUTO CLOCKS MADE AWARE.
--- NOTE | 2020-09-08 07:03 | NUR ---
RN NOTES ENDORSED TO AM SHIFT REGARDING THE ORDER TO TRANSFUSE 1 PRBC, ORDER IN PLACED. LAB INFORMED, CIGAR MACHINE FEEDER WELL AWARE. CONSENT IN THE CHART.
[2020-09-08 07:08] LABS: CALCIUM, SERUM 8.7 mg/dL (8.5-10.1); CREATININE 4.2 mg/dL (0.6-1.3); POTASSIUM 3.8 mmol/L (3.5-5.1)
[2020-09-08] MEDS: SERTRALINE HCL 50 MG TABLET GT SCH (07:55)
[2020-09-08] MEDS: PANTOPRAZOLE 40 MG/PACK PACK GT SCH ×2 (07:55→22:05)
[2020-09-08] MEDS: ZINC SULFATE 220 MG CAPSULE GT SCH (07:55)
[2020-09-08] MEDS: FERROUS SULFATE (325 MG) 325 MG/TAB TABLET GT SCH ×2 (07:56→17:08)
[2020-09-08] MEDS: MULTIVIT W/MINERALS 1 TAB TABLET GT SCH (07:56)
[2020-09-08] MEDS: CHLORHEXIDINE GLUCONATE 15 ML UDC MM SCH ×2 (07:56→17:08)
[2020-09-08] MEDS: ASCORBIC ACID 500 MG TABLET GT SCH (07:56)
[2020-09-08] MEDS: PROSOURCE / PROSTAT (PYXIS) 30 ML UDC GT SCH (09:25)
[2020-09-08] MEDS: DAKINS QUARTER STRENGTH (0.125%) 480 ML BOTTLE TOP SCH (09:40)
[2020-09-08] MEDS: CLOTRIMAZOLE/BETAMETASONE DIPROPIONATE 15 GM TUBE TP SCH ×2 (09:40→17:09)
[2020-09-08] MEDS: SILVER SULFADIAZINE CREAM 25 GM TUBE TP SCH (09:41)
[2020-09-08] MEDS: CEFTAZIDIME 1 G in IV D5W 50 ML IV SCH (09:42)
[2020-09-08 10:40] LABS: EOSINOPHILS % (MANUAL) 7 % (0-4); LYMPHOCYTES % (MANUAL) 8 % (16-48); MONOCYTES % (MANUAL) 8 % (0-11.0); NEUTROPHILS % (MANUAL) 77 (42-76)
[2020-09-08] MEDS: LORAZEPAM INJ 2 MG/ML VIAL IV PRN ×2 (10:44→10:48)
--- NOTE | 2020-09-08 16:43 | NUR ---
RN NOTES PATIENT RE-ASSIGNED TO RN ON FLOOR AND I AM ASSIGNED PT 101, REPORT GIVEN TO RN , DILAUDID GIVEN 1255 LAST DOSE ON MY SHIFT TO BE GIVEN Q 4 HOURS FOR PAIN, TOLERATING VENT SETTINGS WELL WITH O2 SAT BETWEEN 96- 98% , NO S/S OF RESP DISTRESS NO SOB NOTED, IV LINE FLUSHED IT IS PATENT AND INTACT. G-TUBE RUNNING NEPRO @45 ML/HR G-TUBE SITE CLEANSED AND INTACT PATENT EASY TO FLUSH, WOUND CARE IMPLEMENTED AND REPOSITIONED FOR COMFORT, KEPT PATIENT CLEAN, DRY AND COMFORTABLE, SAFETY PRECAUTIONS INPLACE BED LOCKED, IN LOWEST POSITION, SIDE RAILS UP, CALL LIGHT WITHIN REACH, THE BLOOD TRANSFUSION TO BE GIVEN DURING DIALYSIS AT THIS TIME RESTAURANT MANAGEMENT INTERNSHIP AWARE AND WE ARE F/U WITH THE ORDER OF BLOOD TRANSFUSION VIA DIALYSIS AT THIS TIME, ENDORSED TO KIERAN ALLISON ASSIGNED TO THIS PATIENT AND WILL FOLLOW UP WITH CONSENT FORMS THEY ARE ALL SIGNED AND IN FOLDER FOR BLOOD TRANSFUSION
--- NOTE | 2020-09-08 17:26 | NUR ---
PT C/O OF ACHING GENERALIZED PAIN OF 8/10. PT NOTED RESTLESS. VS BP 118/72, HR 92, RR 20, T 98.9, SPO2 100. PT PT REQUEST DILAUDID 2MG IV Q4H ADMINISTERED FOR PAIN PER ORDER. WILL CONTINUE TO MONITOR
--- NOTE | 2020-09-08 18:54 | NUR ---
RN NOTES AT 1255 A DOSE OF 1 MG OF DILAUDID WAS GIVEN TO PATIENT, IN THE [facility] IT SHOWED A DISCREPENCY PER ORDER NEEDED TO BE 2 MG, EACH VIAL HOLDS A DOSE OF 1 MG AND 2 VIALS NEEDED TO BE DRAWN TO ADMIN THE TOTAL OF ONE DOSE ORDER WHICH IS 2 MG HOWEVER 1 VIAL OF THE THE ONE 1 MG WAS WITHDRAWN FROM THE [facility] AND THIS IS READING A DISCREPENCY DOSE IS NOW RECOGNIZED TO ACTUALLY BE OF TWO VIALS TO EQUAL THE DOSE, RN YEAST PUMPER AND PHARMACY MADE AWARE OF THIS AND TO FOLLOW MD ORDERS OF DOSE , Mg TO BE ADMIN AND WILL BE ENDORSED TO ONCOMING SHIFT TO BE AWARE OF WHAT EACH VIAL CONTAINS TO ENSURE PROPER DOSE IS ADMIN NEXT DOSE DUE PER MD ORDERS.
--- NOTE | 2020-09-08 19:13 | NUR ---
PT STARTED ON TRANSFUSION. CONSENT VERIFIED. PT EDUCATION ON TRANSFUSION PROVIDED, PT INSTRUCTED TO REPORT ADVERSE REACTIONS OF TRANSFUSION LIKE BACK ACHE, CHILLS, FEVER, SOB. PRE TRANSFUSION VITAL SIGNS BP 113/62, HR 97, RR 20, T 98.5, SPO2 100. BLOOD PICKED UP FROM LAB, VERIFIED WITH DYSLEXIA TEACHER, BLOOD VERIFIED WITH ANOTHER NURSE, KIERAN SCHWARZ AT PT'S BEDSIDE. NO CLOTS, NO DISCOLORATION, NO LEAKAGE NOTED. WILL CONTINUE WITH PLAN OF CARE
--- NOTE | 2020-09-08 19:30 | NUR ---
PT ONGOING BLOOD TRANSFUSION AT THIS TIME. NO REPORTS OF ANY ADVERSE REACTION TO TRANSFUSION. PT REMAINS AFEBRILE, NO SOB, NO CHILLS, NO C/O BACK ACHE. VITAL SIGNS, BP 117/68, HR 91, RR 20, T 98.9, SPO2 100. WILL CONTINUE TO ,MONITOR
--- NOTE | 2020-09-08 19:46 | NUR ---
RN CLOSING NOTES PT AWAKE IN BED AT THIS TIME, ONGOING TRANSFUSION. PT REMAINS STABLE. PT KEPT CLEAN AND DRY. ALL CARE, NEEDS, MEDICATION, PAIN MANAGEMENT, AND WOUND CARE ADMINISTERED ANTICIPATED PER ORDER. SAFETY MEASURES IN PLACE AND MAINTAINED AT ALL TIMES. BED IN LOWEST LOCKED POSITION, HOB ELEVATED, CALL LIGHT AND TABLE WITHIN REACH. ENDORSED TO LABORER DAIRY FARM NURSE FOR JAMES
[2020-09-09] VITALS: BP 123/69
[2020-09-09] MEDS: ALBUTEROL FS 2.5 MG/0.5 ML VIAL.NEB NEB SCH ×4 (01:43→19:13)
[2020-09-09] MEDS: IPRATROPIUM NEB FS 0.5 MG/2.5 ML AMPUL.NEB NEB SCH ×4 (01:43→19:13)
[2020-09-09] MEDS: HYDROMORPHONE 1 MG/1 ML DISP.SYRIN IV PRN ×5 (02:25→20:44)
[2020-09-09 04:00] VITALS: BP 125/75
--- NOTE | 2020-09-09 04:04 | NUR ---
RN notes Received patient comfortably resting in bed with no distress noted. Breathing even and unlabored. Vent setting well tolerated. Blood transfusion in process, no side effects noted. Complaint of generalized pain, dilaudid administered x 2, with some relief. Alert and oriented, able to mouthwords needs. Wound treatment done. Vital signs wnl. Kept clean and dry. Will endorse to next shift for continuity of care.
--- NOTE | 2020-09-09 07:03 | NUR ---
RN notes Patient requested another 2mg dose of dilaudid for generalized pain specially on areas were wounds are fresh. Noted with relief. No adverse effect noted. Kept clean and dry.
[2020-09-09 07:16] LABS: BASOPHILS # (AUTO) 0.1 K/uL (0.0-0.2); BASOPHILS % (AUTO) 0.5 % (0.0-2.0); EOSINOPHILS % (AUTO) 6.2 % (0.0-6.0); HEMATOCRIT 25 % (39-51); HEMOGLOBIN 8.1 g/dL (13.5-17.5); LYMPHOCYTES % (AUTO) 7.2 % (20.0-44.0); MEAN CORPUSCULAR HGB CONC 33 g/dl (31.0-36.0); MEAN CORPUSCULAR VOLUME 92 fL (80-96); MONOCYTES # (AUTO) 0.9 K/uL (0.1-1.30); MONOCYTES % (AUTO) 6.9 % (2.0-12.0); NEUTROPHILS # (AUTO) 10.5 K/uL (1.8-8.9); NEUTROPHILS % (AUTO) 79.2 % (43.0-81.0); PLATELET COUNT (AUTO) 338 K/uL (150-450); RED BLOOD CELL COUNT(AUTO) 2.72 MIL/uL (4.5-6.0); WHITE BLOOD COUNT (AUTO) 13.2 K/uL (4.3-11.0)
[2020-09-09 07:46] LABS: CALCIUM, SERUM 9.2 mg/dL (8.5-10.1); CREATININE 4.5 mg/dL (0.6-1.3); PHOSPHORUS 3.9 mg/dL (2.5-4.9)
[2020-09-09 08:00] VITALS: BP_SYST 121; BP_SYST 125; BP_DIAS 66
[2020-09-09] MEDS: FERROUS SULFATE (325 MG) 325 MG/TAB TABLET GT SCH ×2 (11:04→17:26)
[2020-09-09] MEDS: PANTOPRAZOLE 40 MG/PACK PACK GT SCH ×2 (11:04→20:44)
[2020-09-09] MEDS: SERTRALINE HCL 50 MG TABLET GT SCH (11:04)
[2020-09-09] MEDS: ZINC SULFATE 220 MG CAPSULE GT SCH (11:04)
[2020-09-09] MEDS: CHLORHEXIDINE GLUCONATE 15 ML UDC MM SCH ×2 (11:04→17:00)
[2020-09-09] MEDS: ASCORBIC ACID 500 MG TABLET GT SCH (11:05)
[2020-09-09] MEDS: MULTIVIT W/MINERALS 1 TAB TABLET GT SCH (11:05)
[2020-09-09] MEDS: PROSOURCE / PROSTAT (PYXIS) 30 ML UDC GT SCH (11:08)
[2020-09-09] MEDS: DAKINS QUARTER STRENGTH (0.125%) 480 ML BOTTLE TOP SCH (11:11)
[2020-09-09] MEDS: CLOTRIMAZOLE/BETAMETASONE DIPROPIONATE 15 GM TUBE TP SCH ×2 (11:11→17:25)
[2020-09-09] MEDS: SILVER SULFADIAZINE CREAM 25 GM TUBE TP SCH (11:11)
[2020-09-09 12:00] VITALS: BP 116/66
[2020-09-09] MEDS: CEFTAZIDIME 1 G in IV D5W 50 ML IV SCH (12:27)
--- NOTE | 2020-09-09 14:01 | NUR ---
RT NOTE PT REMAINS MECHANICALLY VENTILATED VIA CUFFED TRACHEOSTOMY TUBE. CUFF INFLATED. TRACH TUBE MIDLINE AND SECURE. VENTILATOR SETTINGS PRESCRIBED. ALARMS SET PER PROTOCOL AND AUDIBLE. VENT PLUGGED IN TO RED OUTLET. AMBU BAG AND BACK UP TRACH AT BED SIDE. NO DISTRESS NOTED. Addendum: 09/09/20 at 1401 by DEEPAK LOPES RT Amended: Links added.
[2020-09-09] MEDS: EPOETIN ALFA-EPBX 4,000 UNIT/ML VIAL SQ SCH (14:28)
[2020-09-09 16:00] VITALS: BP 123/67
[2020-09-09 20:00] VITALS: BP 119/69
--- NOTE | 2020-09-09 20:00 | NUR ---
RN NOTES RECEIVED PATIENT IN BED, ALERT/ORIENTED X4, VENTILATOR DEPENDENT, NO RESPIRATORY DISTRESS, ABLE TO MOUTH WORDS, WRITES NEEDS, NEPRO AT 45 ML/HR, ORTIZ CATHETER DRAINING WELL, MULTIPLE WOUNDS, WILL CONTINUE TO MONITOR.
[2020-09-10] VITALS: BP 109/54
[2020-09-10] MEDS: NEPRO 1,000 ML BOTTLE GT PRN ×3 (00:13→19:53)
[2020-09-10] MEDS: HYDROMORPHONE 1 MG/1 ML DISP.SYRIN IV PRN ×6 (00:46→22:35)
[2020-09-10] MEDS: IPRATROPIUM NEB FS 0.5 MG/2.5 ML AMPUL.NEB NEB SCH ×4 (01:23→19:34)
[2020-09-10] MEDS: ALBUTEROL FS 2.5 MG/0.5 ML VIAL.NEB NEB SCH ×4 (01:23→19:34)
[2020-09-10 04:12] VITALS: BP 119/67
--- NOTE | 2020-09-10 06:28 | NUR ---
RN NOTES ALERT/ORIENTED X4, VENT DEPENDENT, NO RESPIRATORY DISTRESS, DILAUDID 2MG IV ROUND THE CLOCK, NEPRO AT 45 ML/HR, TOLERATED WELL, WOUND CARE PERFORMED, NPO AFTER MIDNIGHT FOR WOUND DEBRIDEMENT TODAY. CONTINUE HD PER NEPHROLOGYRUSSELL, MONITOR HGB, IF < 7, MAY TRANSFUSE
[2020-09-10 07:02] LABS: BASOPHILS # (AUTO) 0.1 K/uL (0.0-0.2); BASOPHILS % (AUTO) 0.4 % (0.0-2.0); EOSINOPHILS % (AUTO) 6.3 % (0.0-6.0); HEMATOCRIT 24 % (39-51); HEMOGLOBIN 7.9 g/dL (13.5-17.5); LYMPHOCYTES # (AUTO) 0.8 K/uL (0.8-4.8); LYMPHOCYTES % (AUTO) 6.8 % (20.0-44.0); MEAN CORPUSCULAR HGB CONC 33 g/dl (31.0-36.0); MEAN CORPUSCULAR VOLUME 93 fL (80-96); MONOCYTES # (AUTO) 0.9 K/uL (0.1-1.30); NEUTROPHILS # (AUTO) 9.6 K/uL (1.8-8.9); NEUTROPHILS % (AUTO) 79.5 % (43.0-81.0); PLATELET COUNT (AUTO) 337 K/uL (150-450); RED BLOOD CELL COUNT(AUTO) 2.63 MIL/uL (4.5-6.0); WHITE BLOOD COUNT (AUTO) 12.1 K/uL (4.3-11.0)
[2020-09-10 07:23] LABS: CALCIUM, SERUM 8.5 mg/dL (8.5-10.1); CREATININE 3.3 mg/dL (0.6-1.3); MAGNESIUM 1.9 mg/dL (1.8-2.4); PHOSPHORUS 3.1 mg/dL (2.5-4.9)
[2020-09-10 08:00] VITALS: BP 128/80
[2020-09-10] MEDS: MULTIVIT W/MINERALS 1 TAB TABLET GT SCH (09:00)
[2020-09-10] MEDS: ASCORBIC ACID 500 MG TABLET GT SCH (09:00)
[2020-09-10] MEDS: CHLORHEXIDINE GLUCONATE 15 ML UDC MM SCH ×2 (09:00→17:00)
[2020-09-10] MEDS: PANTOPRAZOLE 40 MG/PACK PACK GT SCH ×2 (09:00→21:17)
[2020-09-10] MEDS: ZINC SULFATE 220 MG CAPSULE GT SCH (09:00)
[2020-09-10] MEDS: PROSOURCE / PROSTAT (PYXIS) 30 ML UDC GT SCH (09:00)
[2020-09-10] MEDS: FERROUS SULFATE (325 MG) 325 MG/TAB TABLET GT SCH ×2 (09:00→17:00)
[2020-09-10] MEDS: SERTRALINE HCL 50 MG TABLET GT SCH (09:00)
[2020-09-10] MEDS: DAKINS QUARTER STRENGTH (0.125%) 480 ML BOTTLE TOP SCH (09:22)
[2020-09-10] MEDS: SILVER SULFADIAZINE CREAM 25 GM TUBE TP SCH (09:23)
[2020-09-10] MEDS: CLOTRIMAZOLE/BETAMETASONE DIPROPIONATE 15 GM TUBE TP SCH ×2 (09:23→18:08)
[2020-09-10 12:00] VITALS: BP 118/69
[2020-09-10] MEDS: CEFTAZIDIME 1 G in IV D5W 50 ML IV SCH (12:11)
[2020-09-10 16:00] VITALS: BP 126/69
--- NOTE | 2020-09-10 19:30 | NUR ---
RN NOTES RECEIVED PT IN BED, ALERT. ABLE TO MOUTH WORDS FOR NEEDS. TOLERATING VENT SETTINGS, DENIES ANY SOB. WITH TOLERABLE PAIN ON HIS WOUNDS, NO DISTRESS NOTED. TELE MONITORING SHOWS SINUS TACH WITH HR OF 113 PTS BASELINE. ORTIZ IN PLACE. WOUND DRESSINGS CLEAN DRY AND INTACT. ALL SAFETY MEASURES IN PLACE PER PROTOCOL. CALL LIGHT WITHIN REACH. WILL CONTINUE TO MONITOR.
[2020-09-10 20:00] VITALS: BP 115/66
[2020-09-11] VITALS: BP 120/67
[2020-09-11] MEDS: IPRATROPIUM NEB FS 0.5 MG/2.5 ML AMPUL.NEB NEB SCH ×4 (01:28→19:45)
[2020-09-11] MEDS: ALBUTEROL FS 2.5 MG/0.5 ML VIAL.NEB NEB SCH ×4 (01:28→19:45)
[2020-09-11] MEDS: HYDROMORPHONE 1 MG/1 ML DISP.SYRIN IV PRN ×5 (02:36→22:47)
[2020-09-11 04:00] VITALS: BP 120/70
--- NOTE | 2020-09-11 07:02 | NUR ---
RN NOTE PT ABLE TO MAKE NEEDS KNOWN. TOLERATING VENT SETTINGS, NO SIGNS OF DISTRESS NOTED. PT ABLE TO TOLERATE GT FEEDING ON NEPRO AT 45ML/HR. NO RESIDUALS NOTED. NO S/SX OF ASPIRATION NOTED.KEPT HOB ELEVATED. WOUND TX DONE ORDERED. PT WITH CONSTANT PAIN. DILAUDID GIVEN ORDERED. MIDLINE REMAIN INTACT AND PATENT. ALL SAFETY IN PLACE. WILL ENDORSE TO NEXT SHIFT NURSE FOR JAMES.
[2020-09-11 07:21] LABS: BASOPHILS # (AUTO) 0.1 K/uL (0.0-0.2); BASOPHILS % (AUTO) 0.6 % (0.0-2.0); EOSINOPHILS % (AUTO) 4.6 % (0.0-6.0); HEMATOCRIT 24 % (39-51); HEMOGLOBIN 7.9 g/dL (13.5-17.5); LYMPHOCYTES # (AUTO) 0.8 K/uL (0.8-4.8); LYMPHOCYTES % (AUTO) 6.1 % (20.0-44.0); MEAN CORPUSCULAR HGB CONC 33 g/dl (31.0-36.0); MEAN CORPUSCULAR VOLUME 92 fL (80-96); MONOCYTES # (AUTO) 0.9 K/uL (0.1-1.30); MONOCYTES % (AUTO) 6.7 % (2.0-12.0); PLATELET COUNT (AUTO) 381 K/uL (150-450); RED BLOOD CELL COUNT(AUTO) 2.58 MIL/uL (4.5-6.0); WHITE BLOOD COUNT (AUTO) 13.4 K/uL (4.3-11.0)
[2020-09-11 08:00] VITALS: BP 138/87
[2020-09-11 08:50] LABS: CALCIUM, SERUM 8.8 mg/dL (8.5-10.1); CREATININE 3.9 mg/dL (0.6-1.3); MAGNESIUM 1.9 mg/dL (1.8-2.4); PHOSPHORUS 3.2 mg/dL (2.5-4.9)
[2020-09-11] MEDS: FERROUS SULFATE (325 MG) 325 MG/TAB TABLET GT SCH ×2 (09:17→18:41)
[2020-09-11] MEDS: PANTOPRAZOLE 40 MG/PACK PACK GT SCH ×2 (09:17→22:46)
[2020-09-11] MEDS: SERTRALINE HCL 50 MG TABLET GT SCH (09:17)
[2020-09-11] MEDS: CHLORHEXIDINE GLUCONATE 15 ML UDC MM SCH ×2 (09:17→17:00)
[2020-09-11] MEDS: ZINC SULFATE 220 MG CAPSULE GT SCH (09:17)
[2020-09-11] MEDS: ASCORBIC ACID 500 MG TABLET GT SCH (09:17)
[2020-09-11] MEDS: MULTIVIT W/MINERALS 1 TAB TABLET GT SCH (09:17)
[2020-09-11] MEDS: DAKINS QUARTER STRENGTH (0.125%) 480 ML BOTTLE TOP SCH (09:18)
[2020-09-11] MEDS: SILVER SULFADIAZINE CREAM 25 GM TUBE TP SCH (09:18)
[2020-09-11] MEDS: CLOTRIMAZOLE/BETAMETASONE DIPROPIONATE 15 GM TUBE TP SCH ×2 (09:19→17:26)
[2020-09-11] MEDS: PROSOURCE / PROSTAT (PYXIS) 30 ML UDC GT SCH (09:20)
[2020-09-11 12:00] VITALS: BP 113/69
[2020-09-11 16:00] VITALS: BP 125/62
[2020-09-11 20:00] VITALS: BP 123/52
[2020-09-12] VITALS: BP 111/59
[2020-09-12] MEDS: ALBUTEROL FS 2.5 MG/0.5 ML VIAL.NEB NEB SCH ×4 (01:50→20:43)
[2020-09-12] MEDS: IPRATROPIUM NEB FS 0.5 MG/2.5 ML AMPUL.NEB NEB SCH ×4 (01:50→20:43)
[2020-09-12] MEDS: HYDROMORPHONE 1 MG/1 ML DISP.SYRIN IV PRN ×4 (03:06→19:32)
--- NOTE | 2020-09-12 03:25 | NUR ---
PATIENT ON TRACT TO VENT A.C. 20, TV 600, FI02 30%, PEEP 5 SAT 98%. HAS RIGHT UPPER MID. LINE C/O OF PAIN GENERAL MEDICATED WITH DILAUDID 2 MG IVP 2240, AND AGAIN 0306 MEDICATION WAS EFFECTIVE. PATIENT SINUS TACH ON MONITOR HEART RATE 108.
[2020-09-12 04:00] VITALS: BP 112/56
[2020-09-12 06:40] LABS: BASOPHILS # (AUTO) 0.1 K/uL (0.0-0.2); BASOPHILS % (AUTO) 0.7 % (0.0-2.0); EOSINOPHILS % (AUTO) 7.9 % (0.0-6.0); HEMATOCRIT 24 % (39-51); HEMOGLOBIN 7.8 g/dL (13.5-17.5); LYMPHOCYTES % (AUTO) 9.2 % (20.0-44.0); MEAN CORPUSCULAR HGB CONC 33 g/dl (31.0-36.0); MEAN CORPUSCULAR VOLUME 92 fL (80-96); MONOCYTES # (AUTO) 0.7 K/uL (0.1-1.30); MONOCYTES % (AUTO) 6.6 % (2.0-12.0); NEUTROPHILS # (AUTO) 7.9 K/uL (1.8-8.9); NEUTROPHILS % (AUTO) 75.6 % (43.0-81.0); PLATELET COUNT (AUTO) 373 K/uL (150-450); RED BLOOD CELL COUNT(AUTO) 2.55 MIL/uL (4.5-6.0); WHITE BLOOD COUNT (AUTO) 10.5 K/uL (4.3-11.0)
[2020-09-12 07:54] LABS: CALCIUM, SERUM 9.2 mg/dL (8.5-10.1); CREATININE 4.2 mg/dL (0.6-1.3); PHOSPHORUS 3.4 mg/dL (2.5-4.9); POTASSIUM 3.9 mmol/L (3.5-5.1)
[2020-09-12 08:00] VITALS: BP 123/70
[2020-09-12 08:28] LABS: EOSINOPHILS % (MANUAL) 7 % (0-4); LYMPHOCYTES % (MANUAL) 8 % (16-48); MONOCYTES % (MANUAL) 5 % (0-11.0); NEUTROPHILS % (MANUAL) 80 (42-76)
[2020-09-12] MEDS: FERROUS SULFATE (325 MG) 325 MG/TAB TABLET GT SCH ×2 (08:58→16:11)
[2020-09-12] MEDS: ZINC SULFATE 220 MG CAPSULE GT SCH (08:58)
[2020-09-12] MEDS: PANTOPRAZOLE 40 MG/PACK PACK GT SCH ×2 (08:59→21:20)
[2020-09-12] MEDS: MULTIVIT W/MINERALS 1 TAB TABLET GT SCH (08:59)
[2020-09-12] MEDS: ASCORBIC ACID 500 MG TABLET GT SCH (08:59)
[2020-09-12] MEDS: SERTRALINE HCL 50 MG TABLET GT SCH (08:59)
[2020-09-12] MEDS: CHLORHEXIDINE GLUCONATE 15 ML UDC MM SCH ×2 (09:00→16:11)
[2020-09-12] MEDS: CLOTRIMAZOLE/BETAMETASONE DIPROPIONATE 15 GM TUBE TP SCH ×2 (09:06→16:12)
[2020-09-12] MEDS: DAKINS QUARTER STRENGTH (0.125%) 480 ML BOTTLE TOP SCH (09:06)
[2020-09-12] MEDS: PROSOURCE / PROSTAT (PYXIS) 30 ML UDC GT SCH ×3 (09:06→16:12)
[2020-09-12] MEDS: SILVER SULFADIAZINE CREAM 25 GM TUBE TP SCH (09:07)
[2020-09-12] MEDS ORDERED: FUROSEMIDE 40 MG/4 ML VIAL IV ONE (11:00)
[2020-09-12] MEDS: NEPRO 1,000 ML BOTTLE GT PRN (11:04)
[2020-09-12 12:00] VITALS: BP 118/74
[2020-09-12] MEDS: EPOETIN ALFA-EPBX 4,000 UNIT/ML VIAL SQ SCH (14:32)
[2020-09-12 16:00] VITALS: BP 123/77
--- NOTE | 2020-09-12 18:42 | NUR ---
RN NOTES Patient A/Ox4, able to make needs known by mouthing words, Trach in place, no s/sx of congestion, G-tube patent-ongoing nephro formula. Wound care done. Safety measures maintained, bed in lowest locked position, HOB elevated, Side raills x 2, call light within reach. will endorse to scene shifter nurse for leon.
[2020-09-12 20:00] VITALS: BP 114/71
--- NOTE | 2020-09-12 20:11 | NUR ---
RN NOTE PATIENT ALERT AND ORIENTED X4. TRACH IN PLACE, TOLERATING MECH VENT SETTINGS WELL. COMPLAINED OF SEVERE GENERALIZED BODY PAIN, DILAUDID PRN GIVEN ORDERED. WITH ORTIZ CATH, PATENT DRAINING YELLOW URINE TO GRAVITY. G-TUBE PATENT RUNNING NEPRO @ 45ML/HR. RUSTY MIDLINE, NO SIGNS OF INFILTRATION. BED LOCKED AND IN LOWEST POSITION. CALL LIGHT WITHIN REACH. ALL NEEDS ANTICIPATED.
[2020-09-13] VITALS: BP 121/68
[2020-09-13] MEDS: HYDROMORPHONE 1 MG/1 ML DISP.SYRIN IV PRN ×6 (00:19→22:33)
[2020-09-13] MEDS: IPRATROPIUM NEB FS 0.5 MG/2.5 ML AMPUL.NEB NEB SCH ×4 (02:16→20:11)
[2020-09-13] MEDS: ALBUTEROL FS 2.5 MG/0.5 ML VIAL.NEB NEB SCH ×4 (02:16→20:11)
[2020-09-13 04:00] VITALS: BP 125/67
[2020-09-13 06:17] LABS: BASOPHILS # (AUTO) 0.1 K/uL (0.0-0.2); BASOPHILS % (AUTO) 0.5 % (0.0-2.0); EOSINOPHILS % (AUTO) 8.6 % (0.0-6.0); HEMATOCRIT 23 % (39-51); HEMOGLOBIN 7.8 g/dL (13.5-17.5); LYMPHOCYTES # (AUTO) 0.7 K/uL (0.8-4.8); LYMPHOCYTES % (AUTO) 6.6 % (20.0-44.0); MEAN CORPUSCULAR HGB CONC 34 g/dl (31.0-36.0); MEAN CORPUSCULAR VOLUME 92 fL (80-96); MONOCYTES # (AUTO) 0.7 K/uL (0.1-1.30); MONOCYTES % (AUTO) 6.4 % (2.0-12.0); NEUTROPHILS # (AUTO) 8.8 K/uL (1.8-8.9); NEUTROPHILS % (AUTO) 77.9 % (43.0-81.0); PLATELET COUNT (AUTO) 395 K/uL (150-450); RED BLOOD CELL COUNT(AUTO) 2.54 MIL/uL (4.5-6.0); WHITE BLOOD COUNT (AUTO) 11.3 K/uL (4.3-11.0)
[2020-09-13 06:41] LABS: CALCIUM, SERUM 9.3 mg/dL (8.5-10.1); CREATININE 4.3 mg/dL (0.6-1.3); PHOSPHORUS 3.6 mg/dL (2.5-4.9)
--- NOTE | 2020-09-13 07:10 | NUR ---
RN OPENING NOTES RECEIVED PT AWAKE, A/O X4. TRACH IN PLACE, TOLERATING MECH VENT SETTINGS WELL. ORTIZ CATH IN PLACE, DRAINING YELLOW URINE TO GRAVITY. G-TUBE POSITIVE PLACEMENT CHECKED BY AUSCULTATION. RUNNING NEPRO @45ML/HR, NO RESIDUAL. RUSTY MIDLINE INTACT, PATENT AND FLUSHED. SAFETY MEASURES IN PLACE. CALL LIGHT WITHIN REACH. BED LOCKED AND IN LOWEST POSITION WITH SIDE RAILS UP X3. HOB ELEVATED. WILL CONTINUE TO MONITOR.
--- NOTE | 2020-09-13 07:20 | NUR ---
RN NOTE PATIENT ALERT AND ORIENTED X4. TRACH IN PLACE, TOLERATING MECH VENT SETTINGS WELL. WITH ORTIZ CATH, PATENT DRAINING YELLOW URINE TO GRAVITY OUTPUT 500CC. G-TUBE PATENT RUNNING NEPRO @ 45ML/HR, NO RESIDUAL. RUSTY MIDLINE, NO SIGNS OF INFILTRATION. BED LOCKED AND IN LOWEST POSITION. CALL LIGHT WITHIN REACH. ENDORSED TO AM SHIFT.
[2020-09-13 08:00] VITALS: BP 126/76
[2020-09-13] MEDS: CHLORHEXIDINE GLUCONATE 15 ML UDC MM SCH ×2 (08:44→17:28)
[2020-09-13] MEDS: FERROUS SULFATE (325 MG) 325 MG/TAB TABLET GT SCH ×2 (08:44→17:28)
[2020-09-13] MEDS: PROSOURCE / PROSTAT (PYXIS) 30 ML UDC GT SCH ×2 (08:44→17:28)
[2020-09-13] MEDS: CLOTRIMAZOLE/BETAMETASONE DIPROPIONATE 15 GM TUBE TP SCH ×2 (08:45→17:28)
[2020-09-13] MEDS: SERTRALINE HCL 50 MG TABLET GT SCH (08:45)
[2020-09-13] MEDS: ASCORBIC ACID 500 MG TABLET GT SCH (08:45)
[2020-09-13] MEDS: DAKINS QUARTER STRENGTH (0.125%) 480 ML BOTTLE TOP SCH (08:45)
[2020-09-13] MEDS: PANTOPRAZOLE 40 MG/PACK PACK GT SCH ×2 (08:45→20:43)
[2020-09-13] MEDS: MULTIVIT W/MINERALS 1 TAB TABLET GT SCH (08:45)
[2020-09-13] MEDS: ZINC SULFATE 220 MG CAPSULE GT SCH (08:45)
[2020-09-13] MEDS: SILVER SULFADIAZINE CREAM 25 GM TUBE TP SCH (08:46)
[2020-09-13 12:00] VITALS: BP 122/79
[2020-09-13] MEDS: NEPRO 1,000 ML BOTTLE GT PRN (13:36)
[2020-09-13 16:00] VITALS: BP 125/81
--- NOTE | 2020-09-13 19:18 | NUR ---
RN CLOSING NOTES NO SIGNIFICANT CHANGES THROUGHOUT THE SHIFT. TOLERATING VENT SETTINGS WELL, NO SOB OR ANY DISTRESS. NO PAIN REPORTED AT THIS TIME. ALL DUE MEDS GIVEN. NEEDS ATTENDED. KEPT CLEAN AND COMFORTABLE. WITH ONGOING HD. VS TABLE. SAFETY MEASURES IN PLACE. ENDORSED TO NIGHT RN FOR JAMES.
--- NOTE | 2020-09-13 19:30 | NUR ---
RN OPENING NOTE PT RECEIVED IN BED, A&OX3-4. PT CURRENTLY RECEIVING HD. PT IS TRACH/VENT WITH SETTINGS AT AC 20, TV 600, FIO2 30%, AND PEEP 5. PT IS ST. PT HAS RUSTY MIDLINE, FLUSHED, PATENT AND INTACT. RIJ HD CATH NOTED. G-TUBE FLUSHED, NO RESIDUAL NOTED. NEPRO RUNNING AT 45ML/HR. ALL SAFETY PRECAUTIONS IMPLEMENTED. CALL LIGHT WITHIN REACH. BED LOCKED AND IN LOWEST POSITION. CALL LIGHT WITHIN REACH. WILL CONTINUE TO MONITOR THROUGHOUT THE SHIFT.
[2020-09-13 20:00] VITALS: BP 112/63
[2020-09-14] VITALS: BP 141/63
[2020-09-14] MEDS: IPRATROPIUM NEB FS 0.5 MG/2.5 ML AMPUL.NEB NEB SCH ×4 (01:33→19:51)
[2020-09-14] MEDS: ALBUTEROL FS 2.5 MG/0.5 ML VIAL.NEB NEB SCH ×4 (01:33→19:51)
[2020-09-14] MEDS: HYDROMORPHONE 1 MG/1 ML DISP.SYRIN IV PRN ×5 (03:17→20:18)
[2020-09-14 04:00] VITALS: BP 142/80
--- NOTE | 2020-09-14 06:42 | NUR ---
RN CLOSING NOTES NO SIGNIFICANT CHANGES IN PT CONDITION. PT TOLERATING VENT SETTINGS WELL WITH NO S/S OF RESP DISTRESS/SOB. ALL DUE MEDS GIVEN. PT KEPT CLEAN AND COMFORTABLE. ALL SAFETY MEASURES IMPLEMENTED. WILL ENDORSE TO MORNING SHIFT RN FOR JAMES.
--- NOTE | 2020-09-14 07:35 | NUR ---
RN NOTE PATIENT IS IN BED WITH HOB AT SEMI FOWLERS POSITION. PATIENT IS ON TRACH/VENT WITH NO SIGNS OF LABORED BREATHING. PATIENT IS AOX4. ORTIZ CATHETER AND GTUBE ARE IN PLACE. BED IS LOCKED IN THE LOWEST POSITION, 3 GUARD RAILS RAISED, CALL KATHLEEN WITHIN REACH, AND ALL HOSPITAL SAFETY PRECAUTIONS ARE BEING FOLLOWED. WILL CONTINUE TO MONITOR THROUGHOUT SHIFT.
[2020-09-14 08:00] VITALS: BP 114/63
[2020-09-14] MEDS: FERROUS SULFATE (325 MG) 325 MG/TAB TABLET GT SCH ×2 (08:03→16:06)
[2020-09-14] MEDS: SERTRALINE HCL 50 MG TABLET GT SCH (08:03)
[2020-09-14] MEDS: ASCORBIC ACID 500 MG TABLET GT SCH (08:03)
[2020-09-14] MEDS: CHLORHEXIDINE GLUCONATE 15 ML UDC MM SCH ×2 (08:03→16:10)
[2020-09-14] MEDS: MULTIVIT W/MINERALS 1 TAB TABLET GT SCH (08:03)
[2020-09-14] MEDS: ZINC SULFATE 220 MG CAPSULE GT SCH (08:04)
[2020-09-14] MEDS: PANTOPRAZOLE 40 MG/PACK PACK GT SCH ×2 (08:04→20:17)
[2020-09-14] MEDS: PROSOURCE / PROSTAT (PYXIS) 30 ML UDC GT SCH ×2 (08:10→16:06)
[2020-09-14] MEDS: DAKINS QUARTER STRENGTH (0.125%) 480 ML BOTTLE TOP SCH (09:15)
[2020-09-14] MEDS: CLOTRIMAZOLE/BETAMETASONE DIPROPIONATE 15 GM TUBE TP SCH ×2 (09:15→16:10)
[2020-09-14] MEDS: SILVER SULFADIAZINE CREAM 25 GM TUBE TP SCH (09:15)
[2020-09-14 12:00] VITALS: BP 118/65
[2020-09-14] MEDS ORDERED: LIDOCAINE 1%-EPI 1:200,000 SDV 10 ML VIAL IJ ONE (12:00)
[2020-09-14] MEDS ORDERED: SILVER NITRATE APPLICATOR 1 EA BOX TP ONE (12:00)
[2020-09-14] MEDS: EPOETIN ALFA-EPBX 4,000 UNIT/ML VIAL SQ SCH (14:55)
[2020-09-14 16:00] VITALS: BP 116/70
[2020-09-14] MEDS: NEPRO 1,000 ML BOTTLE GT PRN (16:57)
--- NOTE | 2020-09-14 18:48 | NUR ---
RN NOTE PATIENT IS IN BED WITH HOB AT SEMI FOWLERS POSITION. PATIENT IS ON TRACH/VENT WITH NO SIGNS OF LABORED BREATHING. PATIENT IS AOX4. ORTIZ CATHETER AND GTUBE ARE IN PLACE. BED IS LOCKED IN THE LOWEST POSITION, 3 GUARD RAILS RAISED, CALL KATHLEEN WITHIN REACH, AND ALL HOSPITAL SAFETY PRECAUTIONS ARE BEING FOLLOWED. ALL DUE MEDS GIVEN AND PATIENT REMAINED STABLE THROUGHOUT SHIFT. WILL ENDORSE TO ONLINE PROGRAM COORDINATOR RN.
[2020-09-14 20:00] VITALS: BP 123/66
--- NOTE | 2020-09-14 20:00 | NUR ---
RN NOTES RECEIVED PT IN BED, ALERT, ORIENTED, PT AT BEDSIDE. ON [facility] V[facility], DENIES ANY SOB. NO DISTRESS NOTED. TELE MONITORING SHOWS SINUS TACH WITH HR OF 108 PTS BASELINE. COMPLAINED OF GENERALIZED PAIN. ORTIZ IN PLACE. WOUND DRESSINGS CLEAN DRY AND INTACT. GT IN PLACE, NO RESIDUALS NOTED. ON NEPRO GT FEEDING, KEPT HOB ELEVATED. ALL SAFETY MEASURES IN PLACE PER PROTOCOL. CALL LIGHT WITHIN REACH. WILL CONTINUE TO MONITOR.
[2020-09-15] VITALS (7 sets, daily range): BP systolic 103–131; BP diastolic 59–64
[2020-09-15] MEDS: HYDROMORPHONE 1 MG/1 ML DISP.SYRIN IV PRN ×5 (00:29→20:09)
[2020-09-15] MEDS: IPRATROPIUM NEB FS 0.5 MG/2.5 ML AMPUL.NEB NEB SCH ×4 (01:35→19:30)
[2020-09-15] MEDS: ALBUTEROL FS 2.5 MG/0.5 ML VIAL.NEB NEB SCH ×4 (01:35→19:30)
--- NOTE | 2020-09-15 06:37 | NUR ---
RN NOTE PT ABLE TO MAKE NEEDS KNOWN, NO SIGNIFICANT CHANGES NOTED. WOUND TREATMENT DONE. DILAUDID GIVEN NEEDED. PT TOLERATED GT FEEDINGS, NO RESIDUALS, NO S/SX OF ASPIRATION NOTED. KEPT HOB ELEVATED. TOLERATING VENT SETTINGS, NO DISTRESS NOTED. DENIES ANY SOB. KEPT CLEAN AND COMFORTABLE, NEEDS ATTENDED. WILL ENDORSE TO NEXT SHIFT NURSE FOR JAMES.
--- NOTE | 2020-09-15 08:00 | NUR ---
RN NOTES RECEIVED PATIENT IN THE BED TRACHEA/VENT DEPENDENT VENT SETTING IS SHILEY-8, FIO2-30%, PEEP-5. PATIENT PATI TO VERBALIZED NEEDS, TOTAL CARE, IV ACCESS ON RIGHT UA MIDLINE,, RIJ-HD CATH INTACT.PATIENT TOTAL CARE, ASSIST TURN AND REPOSTION Q 2 HR, GT INTACT RUNNING NEPRO 45 ML/HR, NO RESIDUAL, FLASHED WITH 200ML OF H2O, AND ADMINISTERED DUE MEDICATION. PATIENT WAS COMPLAINING OF GENERALIZED PAIN. CALL LIGHT WITHIN TO REACH. WILL MONITORING.
--- NOTE | 2020-09-15 08:58 | NUR ---
RN NOTES PATIENT GETTING US GUIDED RIGHT SIDE THORACENTESIS AT THIS TIME VIA RADIOLOGIST DR ISLAS.
[2020-09-15] MEDS: CHLORHEXIDINE GLUCONATE 15 ML UDC MM SCH ×2 (10:16→17:46)
[2020-09-15] MEDS: ZINC SULFATE 220 MG CAPSULE GT SCH (10:16)
[2020-09-15] MEDS: PANTOPRAZOLE 40 MG/PACK PACK GT SCH ×2 (10:16→21:07)
[2020-09-15] MEDS: SERTRALINE HCL 50 MG TABLET GT SCH (10:16)
[2020-09-15] MEDS: MULTIVIT W/MINERALS 1 TAB TABLET GT SCH (10:16)
[2020-09-15] MEDS: ASCORBIC ACID 500 MG TABLET GT SCH (10:16)
[2020-09-15] MEDS: FERROUS SULFATE (325 MG) 325 MG/TAB TABLET GT SCH ×2 (10:16→17:46)
[2020-09-15] MEDS: DAKINS QUARTER STRENGTH (0.125%) 480 ML BOTTLE TOP SCH (10:17)
[2020-09-15] MEDS: CLOTRIMAZOLE/BETAMETASONE DIPROPIONATE 15 GM TUBE TP SCH ×2 (10:17→17:47)
[2020-09-15] MEDS: SILVER SULFADIAZINE CREAM 25 GM TUBE TP SCH (10:17)
--- NOTE | 2020-09-15 10:19 | NUR ---
RN NOTES administered Dilaudid 2mg/ml iv push for generalized pain 12/04 patient request, v/s taken bp 126/60,p-113. will monitoring.
[2020-09-15] MEDS: PROSOURCE / PROSTAT (PYXIS) 30 ML UDC GT SCH ×2 (10:20→17:46)
--- NOTE | 2020-09-15 11:17 | NUR ---
rn notes pain medication were administered for pain effective, pain is 4/10 per patient request needs attended and anticipated. will monitoring.
--- NOTE | 2020-09-15 15:05 | NUR ---
rn notes patient getting HD at this time, was complaining of generalized pain 10/10 per patient request.
--- NOTE | 2020-09-15 15:23 | NUR ---
rn notes ADMINISTERED DILAUDID 2 MG/ML IV PUSH FOR GENERALIZED PAIN 12/04 BP 103/ 61, P-111.
--- NOTE | 2020-09-15 17:00 | NUR ---
RN NOTES HD FINISHED, OUTPUT WAS 500 ML. MEDICATION WERE ADMINISTERED FOR PAIN EFFECTIVE.
--- NOTE | 2020-09-15 18:00 | NUR ---
rn notes patient refused dressing change , turn and reposition and pm care after HD, Jameson output was 650ml. due medication administered, vss. next to the bed, needs attended and anticipated. running Nepro 45 ml/hr intact. flashed GT with water 200 ml. call light within to reach. endorsed oncoming nurse follow plan of care.
[2020-09-15] MEDS: NEPRO 1,000 ML BOTTLE GT PRN (18:09)
--- NOTE | 2020-09-15 20:10 | NUR ---
RN NOTES RECEIVED PT IN BED, ALERT ORIENTED, PT AT [facility]EDSIDE. [facility], DENIES ANY SOB. NO DISTRESS NOTED. TELE MONITORING SHOWS SINUS TACH WITH HR OF 105 PTS BASELINE. COMPLAINED OF GENERALIZED PAIN 8/10 PAIN, DILAUDID GIVEN ORDERED. GT PATENT AND IN PLACE, NO RESIDUALS NOTED. GT FEEDING RUNNING, KEPT HOB ELEVATED. ALL SAFETY MEASURES IN PLACE PER PROTOCOL. CALL LIGHT WITHIN REACH. WILL CONTINUE TO MONITOR.
[2020-09-16] VITALS (7 sets, daily range): BP systolic 106–126; BP diastolic 52–69
[2020-09-16] MEDS: HYDROMORPHONE 1 MG/1 ML DISP.SYRIN IV PRN ×6 (00:33→22:08)
[2020-09-16] MEDS: IPRATROPIUM NEB FS 0.5 MG/2.5 ML AMPUL.NEB NEB SCH ×5 (01:19→19:55)
[2020-09-16] MEDS: ALBUTEROL FS 2.5 MG/0.5 ML VIAL.NEB NEB SCH ×5 (01:20→19:55)
[2020-09-16 06:42] LABS: BASOPHILS % (AUTO) 0.4 % (0.0-2.0); EOSINOPHILS % (AUTO) 7.5 % (0.0-6.0); HEMATOCRIT 22 % (39-51); HEMOGLOBIN 7.3 g/dL (13.5-17.5); LYMPHOCYTES # (AUTO) 1.2 K/uL (0.8-4.8); LYMPHOCYTES % (AUTO) 8.7 % (20.0-44.0); MEAN CORPUSCULAR HGB CONC 33 g/dl (31.0-36.0); MEAN CORPUSCULAR VOLUME 92 fL (80-96); MONOCYTES % (AUTO) 7.5 % (2.0-12.0); NEUTROPHILS # (AUTO) 10.4 K/uL (1.8-8.9); NEUTROPHILS % (AUTO) 75.9 % (43.0-81.0); PLATELET COUNT (AUTO) 344 K/uL (150-450); RED BLOOD CELL COUNT(AUTO) 2.42 MIL/uL (4.5-6.0); WHITE BLOOD COUNT (AUTO) 13.7 K/uL (4.3-11.0)
--- NOTE | 2020-09-16 07:00 | NUR ---
RN NOTE PT ABLE TO MAKE NEEDS KNOWN, NO SIGNIFICANT CHANGES NOTED. DILAUDID GIVEN NEEDED. PT TOLERATED GT FEEDINGS, NO RESIDUALS, NO S/SX OF ASPIRATION NOTED. KEPT HOB ELEVATED. TOLERATING VENT SETTINGS, NO DISTRESS NOTED. DENIES ANY SOB. KEPT CLEAN AND COMFORTABLE, NEEDS ATTENDED. WILL ENDORSE TO NEXT SHIFT NURSE FOR JAMES.
[2020-09-16 07:11] LABS: CALCIUM, SERUM 9.7 mg/dL (8.5-10.1); CREATININE 2.9 mg/dL (0.6-1.3)
--- NOTE | 2020-09-16 07:20 | NUR ---
RN OPENING NOTES RECEIVED PT AWAKE, A/O X4. ON MECH VENT, TOLERATING VENT SETTINGS WELL. NO SOB OR ANY DISTRESS NOTED. TELE MONITORING SHOWS ST, HR @100s. GT IN PLACE, NO RESIDUALS NOTED. HOB ELEVATED. IV ACCESS INTACT, PATENT AND FLUSHED. SAFETY MEASURES IN PLACE. CALL LIGHT WITHIN REACH. WILL CONTINUE TO MONITOR.
[2020-09-16] MEDS: SERTRALINE HCL 50 MG TABLET GT SCH (09:27)
[2020-09-16] MEDS: CHLORHEXIDINE GLUCONATE 15 ML UDC MM SCH ×2 (09:27→16:41)
[2020-09-16] MEDS: MULTIVIT W/MINERALS 1 TAB TABLET GT SCH (09:27)
[2020-09-16] MEDS: ZINC SULFATE 220 MG CAPSULE GT SCH (09:27)
[2020-09-16] MEDS: PANTOPRAZOLE 40 MG/PACK PACK GT SCH ×2 (09:27→20:47)
[2020-09-16] MEDS: ASCORBIC ACID 500 MG TABLET GT SCH (09:28)
[2020-09-16] MEDS: FERROUS SULFATE (325 MG) 325 MG/TAB TABLET GT SCH ×2 (09:28→16:41)
[2020-09-16] MEDS: SILVER SULFADIAZINE CREAM 25 GM TUBE TP SCH (09:29)
[2020-09-16] MEDS: CLOTRIMAZOLE/BETAMETASONE DIPROPIONATE 15 GM TUBE TP SCH ×2 (09:29→16:42)
[2020-09-16] MEDS: DAKINS QUARTER STRENGTH (0.125%) 480 ML BOTTLE TOP SCH (09:29)
[2020-09-16] MEDS: PROSOURCE / PROSTAT (PYXIS) 30 ML UDC GT SCH ×2 (10:09→16:41)
[2020-09-16 10:19] LABS: EOSINOPHILS % (MANUAL) 3 % (0-4); LYMPHOCYTES % (MANUAL) 11 % (16-48); MONOCYTES % (MANUAL) 6 % (0-11.0); MYELOCYTES % 1 % (0-0); NEUTROPHILS % (MANUAL) 79 (42-76)
[2020-09-16] MEDS: ACETAMINOPHEN 325 MG TABLET PO PRN (12:01)
[2020-09-16] MEDS: EPOETIN ALFA-EPBX 4,000 UNIT/ML VIAL SQ SCH (14:33)
--- NOTE | 2020-09-16 19:00 | NUR ---
RN NOTE. AT BED SIDE. PT IS TRANSFER TO [facility].
--- NOTE | 2020-09-16 19:03 | NUR ---
RN CLOSING NOTES PATIENT RESTING IN BED. NO SIGNIFICANT CHANGES THROUGHOUT THE SHIFT. TOLERATING VENT SETTINGS WELL. NO SOB OR ANY S/S OF ACUTE DISTRESS NOTED. ALL DUE MEDS GIVEN. KEPT CLEAN AND COMFORTABLE. SAFETY MEASURES IN PLACE. CALL LIGHT WITHIN REACH. WILL ENDORSE TO NIGHT NURSE FOR JAMES.
--- NOTE | 2020-09-16 20:15 | NUR ---
RN NOTE. INITIAL ASSESSMENT. RECEIVED THE PT REST ON THE BED. VENT TO TRACH. PT IS MOUTH WORD. TRACH SHILEY#8,AC 20,TV 600, FIO2 30%,PEEP 5. SAT 98%. NO ACUTE DISTRESS NOTED. SUPERVISING PRODUCER SHOWING NSR. IV RT UPPER ARM MID LINE. GT INTACT. NEPRO 45ML/H.RT IJ HD CATH. AFEBRILE. MULTIPLE WOUND NOTED.WILL CONTINUE TO MONITOR VITALS.
[2020-09-16] MEDS: HYDROCODONE/APAP 5/325MG TABLET GT PRN (20:47)
--- NOTE | 2020-09-16 22:00 | NUR ---
RN NOTE, REPORT GIVEN TO [facility] STAFF AT[facility]. WAITING FOR PICC UP.
--- NOTE | 2020-09-16 22:45 | NUR ---
[facility] arrived supposedly to picked up pts going to [facility] , unfortunately ambulance does not know pts is on vent , no rt and they dont have ventilator , spoke to isabelle case monitor relayed whats going on with the transport no rt and no vent . she tried to look for another ambulance with RT , but she was not able to , instead pts discharge will be [facility] will chicken picker the pts alicia at 10am (09/17/20) francis chemical processing supervisor made aware of the situation and also md bello made aware , place a call to the explain what happen that pts will be discharge alicia am . verbalized understanding.
--- NOTE | 2020-09-16 23:00 | NUR ---
spoke to coy nurse from [facility] informing them that pts will be discharge alicia am instead due to transport issue.
--- NOTE | 2020-09-16 23:00 | NUR ---
RN NOTE, PICC UP CAME WITH OUT ACLS. PT IS MECHANICAL VENT. CHARGE SPOKE WITH OEM SALES MANAGER. PT WILL TRANSFER TOMORROW AT 10 AM.
[2020-09-17] VITALS: BP 115/66
[2020-09-17] MEDS: ALBUTEROL FS 2.5 MG/0.5 ML VIAL.NEB NEB SCH ×2 (01:25→07:42)
[2020-09-17] MEDS: IPRATROPIUM NEB FS 0.5 MG/2.5 ML AMPUL.NEB NEB SCH ×2 (01:25→07:42)
[2020-09-17] MEDS: NEPRO 1,000 ML BOTTLE GT PRN (01:39)
[2020-09-17] MEDS: HYDROMORPHONE 1 MG/1 ML DISP.SYRIN IV PRN ×3 (02:08→10:16)
--- NOTE | 2020-09-17 03:58 | NUR ---
RN NOTE. AM CARE GIVEN. REMAINING SAME VENT SETTINGS TOLERATED WELL. SAT
[2020-09-17 04:00] VITALS: BP 120/68
[2020-09-17] MEDS: HYDROCODONE/APAP 5/325MG TABLET GT PRN (07:24)
--- NOTE | 2020-09-17 07:35 | NUR ---
RN OPENING NOTES RECEIVED PATIENT AWAKE AND REPORTS PAIN ON MULTIPLE AREAS OF THE BODY. TRACH CONNECTED TO VENT WITH SETTINGS AC 20 TV 600 FIO2 30% PEEP 5. ST ON TELEMETRY. G TUBE TO NEPRO AT 45ML/HR. RUSTY MIDLINE AND RIGHT IJ HD CATH. MULTIPLE DRESSINGS INTACT. NO BLEEDING AT THIS TIME. PAIN RELIEF ADMINISTERED. POSITIONED FOR COMFORT. SAFETY CHECKS IN PLACE. WILL CONTINUE TO MONITOR.
[2020-09-17 08:00] VITALS: BP 138/87
[2020-09-17] MEDS: CHLORHEXIDINE GLUCONATE 15 ML UDC MM SCH (09:02)
[2020-09-17] MEDS: ZINC SULFATE 220 MG CAPSULE GT SCH (09:02)
[2020-09-17] MEDS: MULTIVIT W/MINERALS 1 TAB TABLET GT SCH (09:02)
[2020-09-17] MEDS: FERROUS SULFATE (325 MG) 325 MG/TAB TABLET GT SCH (09:02)
[2020-09-17] MEDS: ASCORBIC ACID 500 MG TABLET GT SCH (09:02)
[2020-09-17] MEDS: SERTRALINE HCL 50 MG TABLET GT SCH (09:02)
[2020-09-17] MEDS: PANTOPRAZOLE 40 MG/PACK PACK GT SCH (09:02)
[2020-09-17] MEDS: PROSOURCE / PROSTAT (PYXIS) 30 ML UDC GT SCH (09:03)
[2020-09-17] MEDS: DAKINS QUARTER STRENGTH (0.125%) 480 ML BOTTLE TOP SCH (09:03)
[2020-09-17] MEDS: CLOTRIMAZOLE/BETAMETASONE DIPROPIONATE 15 GM TUBE TP SCH (09:03)
[2020-09-17] MEDS: SILVER SULFADIAZINE CREAM 25 GM TUBE TP SCH (09:04)
--- NOTE | 2020-09-17 10:10 | NUR ---
RN NOTE RN CONFIRMED WITH [facility] ARRIVAL TIME OF [id number]. RN CALLED [facility] AND CONFIRMED THAT THEY ARE EXPECTING PATIENT TODAY. WHEN CALL WAS BEING TRANSFERRED TO THE SPECIFIC UNIT, SUPPOSEDLY TO UPDATE THEM WELL, NOONE ANSWERED.
--- NOTE | 2020-09-17 11:10 | NUR ---
RN NOTE REPORT WAS RECEIVED BY [facility]UL[facility] STAFF FOR TRANSFER TO [facility]. PATIENT LEFT VIA ACLS PROTOCOL IN STABLE CONDITION.
== END 2020-09-17 10:00 | DRG 710 ==
LOC: ER 15:21 → TELE1 19:26 → TELE-TD 20:20 → TELE1 08-30 10:23
PROVIDERS: ADMIT Internal Medicine; ATTEND Internal Medicine
PROC: 5A1955Z Respiratory Ventilation, Greater than 96 Consecutive Hours (ICD-10-PCS; principal; 2020-08-23)
PROC: 30233N1 Transfusion of Nonautologous Red Blood Cells into Peripheral Vein, Percutaneous Approach (ICD-10-PCS; 2020-08-24)
PROC: 05HM33Z Insertion of Infusion Device into Right Internal Jugular Vein, Percutaneous Approach (ICD-10-PCS; 2020-08-26)
PROC: B543ZZA Ultrasonography of Right Jugular Veins, Guidance (ICD-10-PCS; 2020-08-26)
PROC: 5A1D70Z Performance of Urinary Filtration, Intermittent, Less than 6 Hours Per Day (ICD-10-PCS; 2020-08-27)
PROC: 0JBP0ZZ Excision of Left Lower Leg Subcutaneous Tissue and Fascia, Open Approach (ICD-10-PCS; 2020-08-30)
PROC: 0JBN0ZZ Excision of Right Lower Leg Subcutaneous Tissue and Fascia, Open Approach (ICD-10-PCS; 2020-08-30)
PROC: 05H533Z Insertion of Infusion Device into Right Subclavian Vein, Percutaneous Approach (ICD-10-PCS; 2020-08-30)
PROC: B546ZZA Ultrasonography of Right Subclavian Vein, Guidance (ICD-10-PCS; 2020-08-30)
PROC: 0KBN0ZZ Excision of Right Hip Muscle, Open Approach (ICD-10-PCS; 2020-08-31)
PROC: 0KBP0ZZ Excision of Left Hip Muscle, Open Approach (ICD-10-PCS; 2020-08-31)
PROC: 0JBL0ZZ Excision of Right Upper Leg Subcutaneous Tissue and Fascia, Open Approach (ICD-10-PCS; 2020-08-31)
PROC: 0JBP0ZZ Excision of Left Lower Leg Subcutaneous Tissue and Fascia, Open Approach (ICD-10-PCS; 2020-09-12)
PROC: 0JBN0ZZ Excision of Right Lower Leg Subcutaneous Tissue and Fascia, Open Approach (ICD-10-PCS; 2020-09-12)
DX: A41.9 Sepsis, unspecified organism (principal); N17.0 Acute kidney failure with tubular necrosis; J96.20 Acute and chronic respiratory failure, unspecified whether with hypoxia or hypercapnia; G92 Toxic encephalopathy; E43 Unspecified severe protein-calorie malnutrition; J18.9 Pneumonia, unspecified organism; Z99.11 Dependence on respirator [ventilator] status; L89.154 Pressure ulcer of sacral region, stage 4; L89.310 Pressure ulcer of right buttock, unstageable; R53.2 Functional quadriplegia; E87.2 Acidosis; Z93.0 Tracheostomy status; D47.2 Monoclonal gammopathy; Z20.822 Contact with and (suspected) exposure to COVID-19; K21.9 Gastro-esophageal reflux disease without esophagitis; E83.52 Hypercalcemia; E87.1 Hypo-osmolality and hyponatremia; I70.248 Atherosclerosis of native arteries of left leg with ulceration of other part of lower leg; L97.829 Non-pressure chronic ulcer of other part of left lower leg with unspecified severity; I70.238 Atherosclerosis of native arteries of right leg with ulceration of other part of lower leg; L97.819 Non-pressure chronic ulcer of other part of right lower leg with unspecified severity; B37.49 Other urogenital candidiasis; D62 Acute posthemorrhagic anemia; D63.8 Anemia in other chronic diseases classified elsewhere; D68.59 Other primary thrombophilia; E86.1 Hypovolemia; Z93.1 Gastrostomy status; R13.10 Dysphagia, unspecified; N18.9 Chronic kidney disease, unspecified; Z79.899 Other long term (current) drug therapy; Z86.16 Personal history of COVID-19; E86.0 Dehydration; E66.9 Obesity, unspecified; Z68.34 Body mass index [BMI] 34.0-34.9, adult; S71.102A Unspecified open wound, left thigh, initial encounter; S71.101A Unspecified open wound, right thigh, initial encounter; X58.XXXA Exposure to other specified factors, initial encounter; Y93.9 Activity, unspecified; Y92.129 Unspecified place in nursing home as the place of occurrence of the external cause; L97.828 Non-pressure chronic ulcer of other part of left lower leg with other specified severity; L97.818 Non-pressure chronic ulcer of other part of right lower leg with other specified severity; F32.9 Major depressive disorder, single episode, unspecified; Z87.440 Personal history of urinary (tract) infections; R53.1 Weakness; M46.26 Osteomyelitis of vertebra, lumbar region; Z91.19 Patient's noncompliance with other medical treatment and regimen
CPT/HCPCS: 31720; 36415; 36600; 71045-TC; 80048-TC; 80076-TC; 80202-TC; 81001; 82272-TC; 82570-TC; 82803-TC; 82962-TC; 83520; 83540-TC; 83605-TC; 83735-TC; 84100-TC; 84300-TC; 85025-TC; 86256; 86704; 86705; 86706; 86803; 86850-TC; 87040-TC; 87070-TC; 87081-TC; 87086-TC; 87186-TC; 87340; 90935-TC; 94002-TC; 94003-TC; 94640-TC; 94760-TC; 94761-TC; 94762-TC; 94799-TC; 95819-TC; 99082-TC; A4217; A4623; A6253; A6403; A7526; G0378; J0713; J0885; J1170; J1650; J1940; J2060; J2185; J2248; J3370; J3475; J3490; J7030; J7040; J7050; J7060; P9016; U0003

== ENCOUNTER 2020-09-22 17:49 | Inpatient (IN) | payer OTHER ==
[~2020-09-22] VITALS: Ht 177.8 cm; Wt 95.7 kg
[~2020-09-22 17:49] MED LIST changes: -CEFE2FRO IV; -COLL30OI TP; -Silver Sulfadiazine TP; -VANC1PIG IV
--- NOTE | 2020-09-22 18:10 | NUR ---
THE PATIENT IS BIB [facility] FOR LOW HgB OF 6.3. FINISHED DIALYSIS TODAY. PATIENT VENT AND TRACH DEPENDENT, ALERT AND ORIENTED X2. COMMUNICATES MOUTHING WORDS DENIES PAIN AT THIS TIME. ORTIZ CATH AND GT PRESENT. ATTACHED TO THE MONITOR.
[2020-09-22 18:28] LABS: BASOPHILS # (AUTO) 0.1 K/uL (0.0-0.2); BASOPHILS % (AUTO) 0.6 % (0.0-2.0); EOSINOPHILS % (AUTO) 8.5 % (0.0-6.0); LYMPHOCYTES # (AUTO) 1.1 K/uL (0.8-4.8); LYMPHOCYTES % (AUTO) 7.6 % (20.0-44.0); MEAN CORPUSCULAR HGB CONC 33 g/dl (31.0-36.0); MEAN CORPUSCULAR VOLUME 92 fL (80-96); MONOCYTES # (AUTO) 0.8 K/uL (0.1-1.30); MONOCYTES % (AUTO) 5.4 % (2.0-12.0); NEUTROPHILS # (AUTO) 11.2 K/uL (1.8-8.9); NEUTROPHILS % (AUTO) 77.9 % (43.0-81.0); PLATELET COUNT (AUTO) 334 K/uL (150-450); WHITE BLOOD COUNT (AUTO) 14.4 K/uL (4.3-11.0)
[2020-09-22 18:31] LABS: HEMATOCRIT 20 % (39-51); HEMOGLOBIN 6.5 g/dL (13.5-17.5)
[2020-09-22 18:36] LABS: CALCIUM, SERUM 9.5 mg/dL (8.5-10.1); CARBON DIOXIDE 28 mmol/L (21-32); CHLORIDE 103 mmol/L (98-107); CREATININE 1.4 mg/dL (0.6-1.3); GLUCOSE 96 mg/dL (74-106); POTASSIUM 3.1 mmol/L (3.5-5.1); SODIUM SERUM 138 mmol/L (136-145); UREA NITROGEN, BLOOD 14 mg/dL (7-18)
[2020-09-22] MEDS ORDERED: HYDR2TAB4 GT (18:36)
[2020-09-22] MEDS ORDERED: CRAN425C6 GT (18:36)
[2020-09-22] MEDS ORDERED: DOCU-141 GT (18:36)
[2020-09-22] MEDS ORDERED: RIVA10TA PO (18:36)
[2020-09-22] MEDS ORDERED: NUT.237L67 GT (18:36)
[2020-09-22 18:42] LABS: ALANINE AMINOTRANSFERASE 9 U/L (12-78); ALBUMIN 1.5 g/dL (3.4-5.0); ALKALINE PHOSPHATASE 155 U/L (46-116); ASPARTATE AMINOTRANSFERASE 16 U/L (15-37); BILIRUBIN,DIRECT 0.1 mg/dL (0.0-0.2); BILIRUBIN,TOTAL 0.2 mg/dL (0.2-1.0); TOTAL PROTEIN, SERUM 5.6 g/dL (6.4-8.2)
[2020-09-22 19:59] LABS: EOSINOPHILS % (MANUAL) 8 % (0-4); LYMPHOCYTES % (MANUAL) 6 % (16-48); MONOCYTES % (MANUAL) 5 % (0-11.0); NEUTROPHILS % (MANUAL) 81 (42-76)
[2020-09-22] MEDS ORDERED: Z GUARD REMEDY 2 OZ OINT TP PRN (21:00)
[2020-09-22] MEDS ORDERED: ONDANSETRON HCL/PF 4 MG/2 ML VIAL IVP PRN (21:00)
[2020-09-22] MEDS ORDERED: ZOLPIDEM TARTRATE 5 MG TABLET PO PRN (21:00)
[2020-09-22] MEDS ORDERED: ACETAMINOPHEN 325 MG TABLET PO PRN (21:00)
--- NOTE | 2020-09-22 21:40 | NUR ---
BED ASSIGNMENT 113-1
[2020-09-22 22:00] VITALS: BP 126/66
--- NOTE | 2020-09-22 22:09 | NUR ---
REPORT GIVEN TO TAURUS ALCARAZ FOR JAMES
[2020-09-22 22:15] VITALS: BP 134/64
--- NOTE | 2020-09-22 22:30 | NUR ---
OCHOA BERNARD EPIC INFORMED RE: PATIENT'S REQ FOR PAIN MEDS. WILL ENDORSE TO INPATIENT NURSE
--- NOTE | 2020-09-22 22:35 | NUR ---
2235 Admitted from ER 30 year old male via bed with Dx Anemia. Patient awake and able to mouthe words. Tracheostomy intact and connected to vent to prescribed settings. PRBC transfusion running to right upper arm midline. No signs of adverse reaction noted. Transferred to bed. Admission care rendered. Pre medicated for c/o pain. Noted with multiple pressure sores on back, thighs, and legs. Patient agreed to wound care and dressing change but stated to do it fast. Patient able to tolerate procedure well. HOB elevated to max oxygenation and aspiration precaution. Call light placed within reach.
--- NOTE | 2020-09-22 22:38 | NUR ---
PT TRANSPORTED TO 1ST FLOOR
[2020-09-22] MEDS: MORPHINE SULFATE INJ 2 MG/ML DISP.SYRIN IV PRN (22:50)
[2020-09-22 23:32] VITALS: BP 119/68
[2020-09-23] VITALS (15 sets, daily range): BP systolic 117–142; BP diastolic 68–84
[2020-09-23] MEDS: MORPHINE SULFATE INJ 2 MG/ML DISP.SYRIN IV PRN ×5 (03:26→22:00)
--- NOTE | 2020-09-23 06:44 | NUR ---
RN NOTE NO CHANGES IN PT CONDITION THROUGHOUT THE SHIFT. PT IS TRACH/VENT WITH SETTINGS AT AC 20 TV 600 FIO2 30% AND PEEP 5. TOLERATING VENT SETTINGS WELL. CURRENTLY A&OX3. ST ON TELE MONITOR. PT HAS MULTIPLE WOUNDS NOTED. PT HS RIGHT UPPER ARM MIDLINE, FLUSHED, PATENT, AND INTACT. ALL DUE MEDS GIVEN ORDERED. PT KEPT CLEAN AND COMFORTABLE. ALL SAFETY MEASURES IMPLEMENTED. WILL ENDORSE TO MORNING SHIFT RN FOR JAMES.
--- NOTE | 2020-09-23 08:01 | NUR ---
RN OPENING NOTES RECEIVED PT IN BED. ALERT AND ORIENTEDX3, ABLE TO MAKE NEEDS KNOWN BY WORDING OF MOUTH. IS TRACH/VENT WITH SETTINGS AT AC 20 TV 600 FIO2 30% AND PEEP 5. TOLERATING VENT SETTINGS WELL. ST ON TELE MONITOR. PT HAS MULTIPLE WOUNDS NOTED. PT HS RIGHT UPPER ARM MIDLINE, FLUSHED, PATENT, AND INTACT. SAFETY MEASURES IN PLACED. BED LOCKED ON LOWEST POSITION, SIDE RAILS UPX3, CALL LIGHT WITHIN REACH. WILL CONTINUE TO MONITOR PATIENT.
--- NOTE | 2020-09-23 11:00 | NUR ---
WOUND CARE CONSULT: REVIEWED CHART, NURSING DOCUMENTATION AND PHOTOS WHICH INDICATE MULTIPLE WOUNDS PRESENT ON ADMISSION. DR TOLEDO AND DR STINSON NOTIFIED OF SURGICAL AND DPM CONSULTS/READMISSION. RECOMMENDATIONS MADE FOR SKIN PROTECTION. DISCUSSED WITH NURSING STAFF. PT IS ON [facility] ISOFLEX LOW AIRLOSS BED. MD IN AGREEMENT WITH PLAN OF CARE.
[2020-09-23 12:42] LABS: BASOPHILS # (AUTO) 0.1 K/uL (0.0-0.2); BASOPHILS % (AUTO) 0.5 % (0.0-2.0); EOSINOPHILS % (AUTO) 8.2 % (0.0-6.0); HEMATOCRIT 26 % (39-51); HEMOGLOBIN 8.5 g/dL (13.5-17.5); LYMPHOCYTES # (AUTO) 1.3 K/uL (0.8-4.8); LYMPHOCYTES % (AUTO) 10.3 % (20.0-44.0); MEAN CORPUSCULAR HGB CONC 33 g/dl (31.0-36.0); MEAN CORPUSCULAR VOLUME 93 fL (80-96); MONOCYTES # (AUTO) 0.8 K/uL (0.1-1.30); MONOCYTES % (AUTO) 6.5 % (2.0-12.0); NEUTROPHILS # (AUTO) 9.6 K/uL (1.8-8.9); NEUTROPHILS % (AUTO) 74.5 % (43.0-81.0); PLATELET COUNT (AUTO) 319 K/uL (150-450); RED BLOOD CELL COUNT(AUTO) 2.79 MIL/uL (4.5-6.0); WHITE BLOOD COUNT (AUTO) 12.9 K/uL (4.3-11.0)
[2020-09-23 13:09] LABS: MAGNESIUM 2.1 mg/dL (1.8-2.4); PHOSPHORUS 2.4 mg/dL (2.5-4.9); POTASSIUM 3.5 mmol/L (3.5-5.1)
[2020-09-23 13:11] LABS: IRON, SERUM 21 ug/dl (50-175); TOTAL IRON BINDING CAPACITY 109 ug/dl (250-450)
[2020-09-23] MEDS: DAKINS QUARTER STRENGTH (0.125%) 480 ML BOTTLE TOP SCH (13:33)
--- NOTE | 2020-09-23 15:16 | NUR ---
TELE/RN NOTES PATIENT IS ALERT AND ORIENTEDX3, ABLE TO MAKE NEEDS KNOWN. PATIENT REFUSED SERIAL EXCISIONAL WOUND DEBRIDEMENT OF THE BILATERAL LOWER EXTREMITY WOUNDS. EXPLAINED THE IMPORTANCE OF THIS PROCEDURE, BUT PATIENT STILL REFUSED. CALLED AND NOTIFIED PATIENT'S OVER THE PHONE AND IS AWARE THAT PATIENT REFUSED THIS PROCEDURE. WILL CONTINUE TO MONITOR.
--- NOTE | 2020-09-23 16:42 | NUR ---
TELE.RN NOTES PATIENT IS REQUESTING HIS PAIN MEDS TO BE CHANGED TO DILAUDID INSTEAD OF MORPHINE. PER DR. MALONEY, REMAIN MORPHINE AND JUST ADD NORCO 5/325MG PO PRN 4 HRS BREAKTHROUGH. VERIFIED AND CARRIED OUT.
[2020-09-23] MEDS ORDERED: HYDROCODONE/APAP 5/325MG TABLET PO PRN (17:00)
--- NOTE | 2020-09-23 19:18 | NUR ---
TELE/RN CLOSING NOTES PT IN BED. ALERT AND ORIENTEDX3, ABLE TO MAKE NEEDS KNOWN BY WORDING OF MOUTH. IS TRACH/VENT WITH SETTINGS AT AC 20 TV 600 FIO2 30% AND PEEP 5. TOLERATING VENT SETTINGS WELL. ST ON TELE MONITOR. PT HAS MULTIPLE WOUNDS NOTED. PT HS RIGHT UPPER ARM MIDLINE, FLUSHED, PATENT, AND INTACT. SAFETY MEASURES IN PLACED. BED LOCKED ON LOWEST POSITION, SIDE RAILS UPX3, CALL LIGHT WITHIN REACH. WILL ENDORSE TO THE NEXT SHIFT FOR CONTINUITY OF CARE.
--- NOTE | 2020-09-23 23:21 | NUR ---
RN notes Received patient in bed, awake watching TV. No distress noted. Breathing even and unlabored. Vent setting well tolerated. Complaining of wound pain, morphine 2mg administered with relief. Inspeted wounds on bilateral heal, right and left thigh and zaki on bilateral calf but patient refused further checked up due to pain.Vage ambien for sleep. With help. Kept clean and dry will endorse to next shift for continuity of care.
--- NOTE | 2020-09-23 23:26 | NUR ---
telephone plant power operator notes received pts and report to [facility] for continuity of care
[2020-09-24] VITALS (7 sets, daily range): BP systolic 125–147; BP diastolic 71–85
[2020-09-24] MEDS: MORPHINE SULFATE INJ 2 MG/ML DISP.SYRIN IV PRN ×5 (02:07→21:46)
--- NOTE | 2020-09-24 04:25 | NUR ---
television tube inspector notes Pts refused to be clean explain r/b Pts still refuse all needs attended too call light with in reach pts still on npo status..
--- NOTE | 2020-09-24 06:22 | NUR ---
CABIN AGENT NOTES ENDORSE TO RN DAYSHIFT FOR CONTINUITY OF CARE.
[2020-09-24 06:46] LABS: BASOPHILS # (AUTO) 0.1 K/uL (0.0-0.2); BASOPHILS % (AUTO) 0.6 % (0.0-2.0); EOSINOPHILS % (AUTO) 8.8 % (0.0-6.0); HEMATOCRIT 26 % (39-51); HEMOGLOBIN 8.7 g/dL (13.5-17.5); LYMPHOCYTES # (AUTO) 1.2 K/uL (0.8-4.8); LYMPHOCYTES % (AUTO) 8.4 % (20.0-44.0); MEAN CORPUSCULAR HGB CONC 33 g/dl (31.0-36.0); MEAN CORPUSCULAR VOLUME 93 fL (80-96); MONOCYTES # (AUTO) 0.8 K/uL (0.1-1.30); MONOCYTES % (AUTO) 5.5 % (2.0-12.0); NEUTROPHILS # (AUTO) 10.7 K/uL (1.8-8.9); NEUTROPHILS % (AUTO) 76.7 % (43.0-81.0); PLATELET COUNT (AUTO) 323 K/uL (150-450); RED BLOOD CELL COUNT(AUTO) 2.85 MIL/uL (4.5-6.0); WHITE BLOOD COUNT (AUTO) 13.9 K/uL (4.3-11.0)
[2020-09-24 06:49] LABS: CALCIUM, SERUM 10.2 mg/dL (8.5-10.1); CREATININE 2.3 mg/dL (0.6-1.3); POTASSIUM 3.7 mmol/L (3.5-5.1)
--- NOTE | 2020-09-24 07:15 | NUR ---
RN OPENING NOTES Received patient asleep in bed appears calm and relaxed. On trach and vent, settings tolerating well. no signs of distress. AOx4 tele reading SR. Patient has rojas catheter with multiple wounds and dressings on the lower extremities. RUSTY midline No co pain or discomfort at this time. Safety measures maintained. Call light within reach. Will cont to monitor.
[2020-09-24] MEDS: DAKINS QUARTER STRENGTH (0.125%) 480 ML BOTTLE TOP SCH (11:10)
[2020-09-24] MEDS: SILVER SULFADIAZINE 50 GM JAR TP SCH (11:10)
[2020-09-24] MEDS ORDERED: VANCOMYCIN 1 GM in IV D5W 250ml IV ONE (13:00)
[2020-09-24] MEDS: NEPRO 1,000 ML BOTTLE GT PRN (13:36)
[2020-09-24] MEDS: CEFEPIME 2 GM in IV D5W 100 ML IV SCH (14:35)
--- NOTE | 2020-09-24 17:17 | NUR ---
Report given to Mahendra for leon. Patient in no distress. Awake and alert. GTF running.
--- NOTE | 2020-09-24 17:20 | NUR ---
RN NOTE REPORT RECEIVE FROM KIERAN LEDESMA, WILL CONTINUE PLAN OF CARE.
--- NOTE | 2020-09-24 18:46 | NUR ---
RN NOTE PATIENT OBSERVED IN BED, AWAKE ALERT AND ORIENTED X4, ABLE TO VERBALIZE NEEDS, ON TRACHEOSTOMY WITH MECHANICAL VENTILATOR TOLERATING WELL, ON GT FEEDING NEPHRO 35CC/HR 75CC/HR GOAL, TOLERATING WELL AT THIS TIME, WITH RIGHT UPPER MIDLINE IV SITE PATENT INFUSING WELL, ON TELE MONITOR SR OF 98 AT THIS TIME, WOUND TREATMENT DONE ENDORSE BY BALTAZAR ALCARAZ, SAFETY MEASURES OBSERVED, BED WHEELS LOCK, CALL LIGHT WITHIN REACH, WILL CONTINUE TO MONITOR WILL ENDORSE WITH NOC SHIFT.
--- NOTE | 2020-09-24 20:00 | NUR ---
RN OPENING NOTES Received patient awake a/o x3 able to mouthword needs , appears calm and relaxed. On trach and vent, settings tolerating well. no signs of distress. tele reading st 102 sating 100%, gt feeding nephro at 35cc/hr well tolerated goal is 75cc /hr . no residual noted ,due meds given as ordered all needs attended too.Patient has rojas catheter draining with yellowish urine output . with multiple wounds noted . RUSTY midline intact and patent Safety measures maintained. Call light within reach. Will cont to monitor.
--- NOTE | 2020-09-24 22:00 | NUR ---
agent telegrapher notes increase gt feeding to 45cc/hr tolerating well , no residual noted ,
[2020-09-25] VITALS: BP 116/56
[2020-09-25] MEDS: MORPHINE SULFATE INJ 2 MG/ML DISP.SYRIN IV PRN ×6 (01:50→22:11)
--- NOTE | 2020-09-25 03:00 | NUR ---
television news producer notes increase gt feeding to nephro 1.8 at 60cc/hr well tolerated no residual noted.
[2020-09-25 04:00] VITALS: BP 127/77
[2020-09-25] MEDS ORDERED: VANCOMYCIN POST DIALYSIS 500MG IV PRN (06:00)
--- NOTE | 2020-09-25 06:25 | NUR ---
CYTOLOGIST NOTES ENDORSE TO RN DAYSHIFT FOR CONTINUITY OF CARE.gt feeding on nephro at 6o cc/hr tolerating well,remain on vent as odered no sob no distress noted .
[2020-09-25 06:41] LABS: BASOPHILS % (AUTO) 0.1 % (0.0-2.0); EOSINOPHILS % (AUTO) 8.8 % (0.0-6.0); HEMATOCRIT 32 % (39-51); HEMOGLOBIN 10.5 g/dL (13.5-17.5); LYMPHOCYTES # (AUTO) 0.8 K/uL (0.8-4.8); MEAN CORPUSCULAR HGB CONC 33 g/dl (31.0-36.0); MEAN CORPUSCULAR VOLUME 92 fL (80-96); MONOCYTES # (AUTO) 0.6 K/uL (0.1-1.30); MONOCYTES % (AUTO) 4.1 % (2.0-12.0); NEUTROPHILS # (AUTO) 12.7 K/uL (1.8-8.9); PLATELET COUNT (AUTO) 316 K/uL (150-450); RED BLOOD CELL COUNT(AUTO) 3.47 MIL/uL (4.5-6.0); WHITE BLOOD COUNT (AUTO) 15.4 K/uL (4.3-11.0)
--- NOTE | 2020-09-25 07:22 | NUR ---
RN NOTE PATIENT OBSERVED IN BED, AWAKE ALERT AND ORIENTED X4, ABLE TO VERBALIZE NEEDS, ON TRACHEOSTOMY WITH MECHANICAL VENTILATOR TOLERATING WELL,O2 SATURATION OF 98%, ON GT FEEDING NEPHRO 60CC/HR 75CC/HR GOAL, TOLERATING WELL AT THIS TIME, WITH RIGHT UPPER MIDLINE IV SITE PATENT INFUSING WELL, ON TELE MONITOR SR OF 98 AT THIS TIME,, SAFETY MEASURES OBSERVED, BED WHEELS LOCK, CALL LIGHT WITHIN REACH, WILL CONTINUE TO MONITOR.
[2020-09-25 07:33] LABS: CALCIUM, SERUM 9.7 mg/dL (8.5-10.1); CREATININE 2.3 mg/dL (0.6-1.3); POTASSIUM 3.5 mmol/L (3.5-5.1)
[2020-09-25 08:00] VITALS: BP 118/75
[2020-09-25] MEDS: DAKINS QUARTER STRENGTH (0.125%) 480 ML BOTTLE TOP SCH (09:06)
[2020-09-25] MEDS: SILVER SULFADIAZINE 50 GM JAR TP SCH (09:06)
--- NOTE | 2020-09-25 11:00 | NUR ---
RN NOTE PATIENT SEEN BY DR. MALONEY, UPDATED MD REGARDING PATIENT CURRENT CONDITION.
[2020-09-25 12:00] VITALS: BP 122/62
[2020-09-25] MEDS: NEPRO 1,000 ML BOTTLE GT PRN (14:00)
[2020-09-25] MEDS: CEFEPIME 2 GM in IV D5W 100 ML IV SCH (14:28)
[2020-09-25 16:00] VITALS: BP 113/56
--- NOTE | 2020-09-25 18:34 | NUR ---
RN NOTE PATIENT OBSERVED IN BED, AWAKE ALERT AND ORIENTED X4, ABLE TO VERBALIZE NEEDS, ON TRACHEOSTOMY WITH MECHANICAL VENTILATOR ORDERED TOLERATING WELL,O2 SATURATION OF 98%, ON GT FEEDING NEPHRO 65CC/HR 75CC/HR GOAL, TOLERATING WELL AT THIS TIME, WITH RIGHT UPPER MIDLINE IV SITE PATENT INFUSING WELL, ON TELE MONITOR SINUS TACHYCARDIA OF 103 AT THIS TIME , PAIN MEDICATION ADMINISTERED PRN, PATIENT REFUSED WOUND TREATMENT, SAFETY MEASURES OBSERVED, BED WHEELS LOCK, CALL LIGHT WITHIN REACH, WILL CONTINUE TO MONITOR. WILL ENDORSE TO NOC SHIFT.
--- NOTE | 2020-09-25 19:40 | NUR ---
RN NOTE PT RECEIVED IN BED. A&OX4. PT IS TRACH/VENT WITH SETTINGS AT AC 20, TV 600, FIO2 AT 30, AND PEEP AT 5. PT IS ON TELE MONITOR SHOWING ST. PT IS ON BED REST WITH MULTIPLE WOUNDS NOTED. G-TUBE FLUSHED WITH NO RESIDUAL. CURRENTLY RECEIVING NEPRO AT 65 ML/HR. PT HAS RIGHT UPPER ARM MIDLINE, FLUSHED, PATENT, AND INTACT WITH NO SIGNS OF INFILTRATION. HD CATH NOTED. ALL SAFETY MEASURES IMPLEMENTED. CALL LIGHT WITHIN REACH. BED ALARM ON. CALL LIGHT WITHIN REACH, BED LOCKED AND IN LOWEST POSITION. WILL CONTINUE TO MONITOR THROUGHOUT THE SHIFT.
[2020-09-25 20:00] VITALS: BP 126/68
--- NOTE | 2020-09-25 23:30 | NUR ---
RN NOTE PT REFUSED TO HAVE PICTURES TAKEN OF WOUNDS WHILE DOING WOUND CARE
[2020-09-26] VITALS: BP 126/70
[2020-09-26] MEDS: MORPHINE SULFATE INJ 2 MG/ML DISP.SYRIN IV PRN ×5 (02:31→19:54)
[2020-09-26 04:00] VITALS: BP 122/66
--- NOTE | 2020-09-26 06:42 | NUR ---
RN NOTE NO CHANGES IN PT CONDITION DURING SHIFT. PT IS TRACH/VENT WITH SETTINGS AT AC 20, TV 600, FIO2 30, AND PEEP 5. TOLERATING VENT SETTINGS WELL. PT IS ON TELE MONITOR WITH ST. PT HAS G-TUBE, NO RESIDUAL NOTED RUNNING NEPRO AT 65 ML/HR. RIGHT UPPER ARM MIDLINE FLUSHED, PATENT, AND INTACT W/ NO INFILTRATION. PT KEPT CLEAN AND COMFORTABLE. ALL DUE MEDS GIVEN ORDERED. ALL SAFETY MEASURES IMPLEMENTED. BED LOCKED AND IN LOWEST POSITION. BED ALARM ON. CALL LIGHT WITHIN REACH. WILL ENDORSE TO MORNING SHIFT RN FOR JAMES.
[2020-09-26 06:45] LABS: BASOPHILS % (AUTO) 0.2 % (0.0-2.0); EOSINOPHILS % (AUTO) 13.9 % (0.0-6.0); HEMATOCRIT 26 % (39-51); HEMOGLOBIN 8.5 g/dL (13.5-17.5); LYMPHOCYTES # (AUTO) 1.1 K/uL (0.8-4.8); LYMPHOCYTES % (AUTO) 6.8 % (20.0-44.0); MEAN CORPUSCULAR HGB CONC 33 g/dl (31.0-36.0); MEAN CORPUSCULAR VOLUME 92 fL (80-96); MONOCYTES # (AUTO) 0.8 K/uL (0.1-1.30); MONOCYTES % (AUTO) 4.6 % (2.0-12.0); NEUTROPHILS # (AUTO) 12.3 K/uL (1.8-8.9); NEUTROPHILS % (AUTO) 74.5 % (43.0-81.0); PLATELET COUNT (AUTO) 307 K/uL (150-450); RED BLOOD CELL COUNT(AUTO) 2.79 MIL/uL (4.5-6.0); WHITE BLOOD COUNT (AUTO) 16.6 K/uL (4.3-11.0)
[2020-09-26 06:55] LABS: CALCIUM, SERUM 10.1 mg/dL (8.5-10.1); CREATININE 2.6 mg/dL (0.6-1.3); POTASSIUM 3.5 mmol/L (3.5-5.1)
--- NOTE | 2020-09-26 07:26 | NUR ---
RN NOTE PATIENT OBSERVED IN BED, AWAKE ALERT AND ORIENTED X4, ABLE TO VERBALIZE NEEDS, 2/10 PAIN WITH PAIN SCALE OF 0/10 VERBALIZED, PAIN MEDICATION ADMINISTERED BY NOC SHIFT 0659 EFFECTIVE AT THIS TIME, ON TRACHEOSTOMY WITH MECHANICAL VENTILATOR TOLERATING WELL,O2 SATURATION OF 98%, ON GT FEEDING NEPHRO 65CC/HR WITH 75CC/HR GOAL, TOLERATING WELL AT THIS TIME, WITH RIGHT UPPER MIDLINE IV SITE PATENT INFUSING WELL, ON TELE MONITOR SINUS TACHYCARDIA 103 AT THIS TIME, WOUND PICTURES REFUSED PER NOC SHIFT,SAFETY MEASURES OBSERVED, BED WHEELS LOCK, CALL LIGHT WITHIN REACH, WILL CONTINUE TO MONITOR.
[2020-09-26 08:00] VITALS: BP 107/56
--- NOTE | 2020-09-26 08:15 | NUR ---
RN NOTE BLOOD CULTURE CRITICAL LAB RESULT GRAM POSITIVE COCCI IN CLUSTER ONE BOTTLE, DR MALONEY NOTIFIED.
[2020-09-26] MEDS: SILVER SULFADIAZINE 50 GM JAR TP SCH (08:35)
[2020-09-26] MEDS: DAKINS QUARTER STRENGTH (0.125%) 480 ML BOTTLE TOP SCH (08:36)
[2020-09-26 12:00] VITALS: BP 119/56
[2020-09-26 16:00] VITALS: BP 115/60
[2020-09-26] MEDS: MEROPENEM 500 MG in IV NS 0.9% 50 ML IV SCH (16:40)
[2020-09-26] MEDS: PROSOURCE / PROSTAT (PYXIS) 30 ML UDC GT SCH (16:46)
--- NOTE | 2020-09-26 18:45 | NUR ---
RN NOTE PATIENT OBSERVED IN BED, AWAKE ALERT AND ORIENTED X4, ABLE TO VERBALIZE NEEDS, PAIN MEDICATION ADMINISTER PRIOR TO WOUND TREATMENT, PATIENT REFUSED WOUND TREATMENT AT THIS TIME, EXPLAINED RISK AND BENEFITS PATIENT STILL REFUSED, , ON TRACHEOSTOMY WITH MECHANICAL VENTILATOR TOLERATING WELL,O2 SATURATION OF 98%, ON GT FEEDING NEPHRO 50CC/HR, TOLERATING WELL AT THIS TIME, WITH RIGHT UPPER MIDLINE IV SITE PATENT INFUSING WELL, ON TELE MONITOR SINUS TACHYCARDIA 103 AT THIS TIME, WOUND PICTURES REFUSED PER NOC SHIFT,SAFETY MEASURES OBSERVED, BED WHEELS LOCK, CALL LIGHT WITHIN REACH, WILL CONTINUE TO MONITOR. WILL ENDORSE TO NOC SHIFT.
--- NOTE | 2020-09-26 19:54 | NUR ---
AIRCRAFT PNEUDRAULIC SYSTEMS MECHANIC OPENING NOTE PATIENT A/OX4; ABLE TO MAKE NEEDS KNOWN. ON MECH VENT; TOLERATING SETTINGS WELL WITH NO SOB. EXTERNAL SPRAY TECHNICIAN READS ST AT 101. PATIENT C/O 9/10 PAIN ON WOUNDS; ADMINISTERED MORPHINE ORDERED. GT PEG PATENT AND INTACT; NEPHRO 1.8 @ 50M/HR; TOLERATING FEEDINGS WELL. RUSTY MIDLINE PATENT AND INTACT. HD CATH KEPT C/D/I. D/C DRAINING CLEAR YELLOW URINE; PATENT AND INTACT. ALL NEEDS MET AT THIS TIME. PATIENT SAFETY MEASURES IN PLACE: BED IN LOWEST LOCKED POSITION, SIDE RAILS UPX2, CALL LIGHT WITHIN EASY REACH, BED ALARMS ON. PATIENT IN STABLE CONDITION, WILL CONTINUE PLAN OF CARE
[2020-09-26 22:00] VITALS: BP 129/51
[2020-09-27] VITALS: BP 121/64
[2020-09-27] MEDS: MORPHINE SULFATE INJ 2 MG/ML DISP.SYRIN IV PRN ×6 (00:27→22:26)
[2020-09-27] MEDS: MEROPENEM 500 MG in IV NS 0.9% 50 ML IV SCH ×2 (02:02→15:48)
[2020-09-27 04:00] VITALS: BP 119/63
[2020-09-27 07:31] LABS: BASOPHILS % (AUTO) 0.2 % (0.0-2.0); EOSINOPHILS % (AUTO) 14.1 % (0.0-6.0); HEMATOCRIT 27 % (39-51); HEMOGLOBIN 8.5 g/dL (13.5-17.5); LYMPHOCYTES # (AUTO) 1.3 K/uL (0.8-4.8); LYMPHOCYTES % (AUTO) 7.3 % (20.0-44.0); MEAN CORPUSCULAR HGB CONC 32 g/dl (31.0-36.0); MEAN CORPUSCULAR VOLUME 94 fL (80-96); MONOCYTES # (AUTO) 0.8 K/uL (0.1-1.30); MONOCYTES % (AUTO) 4.6 % (2.0-12.0); NEUTROPHILS # (AUTO) 12.7 K/uL (1.8-8.9); NEUTROPHILS % (AUTO) 73.8 % (43.0-81.0); PLATELET COUNT (AUTO) 311 K/uL (150-450); RED BLOOD CELL COUNT(AUTO) 2.86 MIL/uL (4.5-6.0); WHITE BLOOD COUNT (AUTO) 17.2 K/uL (4.3-11.0)
[2020-09-27 07:32] LABS: CALCIUM, SERUM 10.3 mg/dL (8.5-10.1); CREATININE 2.3 mg/dL (0.6-1.3); PHOSPHORUS 3.4 mg/dL (2.5-4.9); POTASSIUM 3.9 mmol/L (3.5-5.1)
--- NOTE | 2020-09-27 07:44 | NUR ---
GREY GOODS EXAMINER CLOSING NOTE PATIENT A/OX4; ABLE TO MAKE NEEDS KNOWN. ON MECH VENT; TOLERATING SETTINGS WELL WITH NO SOB. EXTERNAL PAPER STEAMER READS ST AT 100'S. GT PEG PATENT AND INTACT; NEPHRO 1.8 @ 50M/HR; TOLERATING FEEDINGS WELL. RUSTY MIDLINE PATENT AND INTACT. HD CATH KEPT C/D/I. F/C DRAINING CLEAR YELLOW URINE; PATENT AND INTACT. WOUND CARE DONE ORDERED ALL NEEDS MET AT THIS TIME. PATIENT SAFETY MEASURES IN PLACE: BED IN LOWEST LOCKED POSITION, SIDE RAILS UPX2, CALL LIGHT WITHIN EASY REACH, BED ALARMS ON. PATIENT IN STABLE CONDITION, ENDORSED PLAN OF CARE TO ONCOMING MORNING RN
[2020-09-27 08:00] VITALS: BP 122/62
[2020-09-27] MEDS: PROSOURCE / PROSTAT (PYXIS) 30 ML UDC GT SCH ×2 (08:21→17:00)
[2020-09-27] MEDS: DAKINS QUARTER STRENGTH (0.125%) 480 ML BOTTLE TOP SCH (08:21)
[2020-09-27] MEDS: SILVER SULFADIAZINE 50 GM JAR TP SCH (08:30)
[2020-09-27 12:00] VITALS: BP 112/80
[2020-09-27] MEDS ORDERED: EPOETIN ALFA-EPBX 10,000 UNIT/ML VIAL SQ ONE (15:00)
[2020-09-27 16:00] VITALS: BP 128/75
[2020-09-27] MEDS: NEPRO 1,000 ML BOTTLE GT PRN (18:52)
--- NOTE | 2020-09-27 19:44 | NUR ---
RN CLOSING NOTES Patient is alert and oriented. Breathing even and unlabored. No c/o pain or discomfort. rojas cath output of 900 cc. HOB kept elevated. Patient refused his wound care during shift. Offered multiple times. Patient aware of risks and benefits and explained to about the risks of not having the wound treatment with father at bed side but still refused. Patient given morphine during shift with good effect. RUSTY midline intact and patent Call light within reach. Endorsed to next shift for JAMES.
--- NOTE | 2020-09-27 19:45 | NUR ---
RN OPENING NOTE RECEIVED PATIENT IN BED WITH AT BEDSIDE A/OX4; ABLE TO MAKE NEEDS KNOWN. [facility]; TOLERATING SETTINGS WELL WITH NO SOB. EXTERNAL SLEEP LAB TECHNICIAN READS ST AT 100's. PATIENT C/O 4/10 PAIN ON WOUNDS; GT PATENT AND INTACT; NEPHRO 1.8 @ 50M/HR; TOLERATING FEEDINGS WELL. AUSCULTATED FOR PLACEMENT. RUSTY MIDLINE PATENT AND INTACT. HD CATH KEPT C/D/I. ORTIZ CATH DRAINING CLEAR YELLOW URINE; PATENT AND INTACT. ALL NEEDS MET AT THIS TIME. PATIENT SAFETY MEASURES IN PLACE: BED IN LOWEST LOCKED POSITION, SIDE RAILS UPX2, CALL LIGHT WITHIN EASY REACH, BED ALARMS ON. NO ACUTE DISTRESS NOTED AT THIS TIME
[2020-09-27 20:00] VITALS: BP 115/58
[2020-09-28] VITALS: BP 119/65
[2020-09-28] MEDS: MEROPENEM 500 MG in IV NS 0.9% 50 ML IV SCH ×2 (03:38→15:13)
[2020-09-28] MEDS: MORPHINE SULFATE INJ 2 MG/ML DISP.SYRIN IV PRN ×5 (03:48→23:45)
[2020-09-28 04:00] VITALS: BP 120/69
--- NOTE | 2020-09-28 06:27 | NUR ---
RN CLOSING NOTE PATIENT IN BED A/OX4; ABLE TO MAKE NEEDS KNOWN. ON MECH VENT; TOLERATING SETTINGS WELL WITH NO SOB. EXTERNAL SAP PORTAL DEVELOPER READS SR AT 90's. PATIENT C/O 9/10 PAIN ON WOUNDS; TREATED WITH PRN DOSES OF DILAUDID. GT PATENT AND INTACT; NEPHRO 1.8 RUNNING @ 50ML/HR; TOLERATING FEEDINGS WELL. AUSCULTATED FOR PLACEMENT. RUSTY MIDLINE PATENT AND INTACT. HD CATH KEPT C/D/I. ORTIZ CATH DRAINING CLEAR YELLOW URINE; PATENT AND INTACT. ALL ORDERS MET THROUGHOUT SHIFT. PATIENT SAFETY MEASURES IN PLACE: BED IN LOWEST LOCKED POSITION, SIDE RAILS UPX2, CALL LIGHT WITHIN EASY REACH, BED ALARMS ON. NO ACUTE DISTRESS NOTED AT THIS TIME. WILL ENDORSE CONTINUITY OF CARE TO MORNING SHIFT RN
[2020-09-28 06:45] LABS: BASOPHILS % (AUTO) 0.3 % (0.0-2.0); EOSINOPHILS % (AUTO) 14.9 % (0.0-6.0); HEMATOCRIT 28 % (39-51); HEMOGLOBIN 9.2 g/dL (13.5-17.5); LYMPHOCYTES % (AUTO) 13.8 % (20.0-44.0); MEAN CORPUSCULAR HGB CONC 33 g/dl (31.0-36.0); MEAN CORPUSCULAR VOLUME 93 fL (80-96); MONOCYTES # (AUTO) 0.8 K/uL (0.1-1.30); MONOCYTES % (AUTO) 5.1 % (2.0-12.0); NEUTROPHILS # (AUTO) 9.7 K/uL (1.8-8.9); NEUTROPHILS % (AUTO) 65.9 % (43.0-81.0); PLATELET COUNT (AUTO) 333 K/uL (150-450); RED BLOOD CELL COUNT(AUTO) 3.01 MIL/uL (4.5-6.0); WHITE BLOOD COUNT (AUTO) 14.7 K/uL (4.3-11.0)
--- NOTE | 2020-09-28 07:20 | NUR ---
RN NOTE RECEIVED PATIENT IN BED. A/O X4. ABLE TO MAKE NEEDS KNOWN. ON [facility] VENT, SP02 AT 100%, TOLERATING SETTINGS WELL. TELE READING SHOWS ST 106. IV ACCESS ON RUSTY MIDLINE, INTACT AND PATENT. R IJ HD CATH, C/D/I. NEPRO RUNNING AT 50 ML/HR, FEEDING TOLERATING WELL. ORTIZ CATH IN PLACE, DRAINING YELLOW URINE. SAFETY MEASURES MAINTAINED. BED IN LOWEST POSITION, BRAKES LOCKED. SIDE RAILS UP X2. CALL LIGHT WITHIN REACH. WILL CONTINUE PLAN OF CARE.
[2020-09-28 08:00] VITALS: BP 133/82
[2020-09-28] MEDS: PROSOURCE / PROSTAT (PYXIS) 30 ML UDC GT SCH ×2 (08:35→16:55)
[2020-09-28] MEDS: SILVER SULFADIAZINE 50 GM JAR TP SCH (08:49)
[2020-09-28] MEDS: DAKINS QUARTER STRENGTH (0.125%) 480 ML BOTTLE TOP SCH (08:49)
[2020-09-28 12:00] VITALS: BP 142/82
[2020-09-28] MEDS: NEPRO 1,000 ML BOTTLE GT PRN (15:56)
[2020-09-28 16:00] VITALS: BP 130/68
--- NOTE | 2020-09-28 18:52 | NUR ---
RN CLOSING NOTE PATIENT IN BED. A/O X4. ON MECH VENT, SATURATING AT 100%, TOLERATING SETTINGS WELL. TELE READING SHOWS ST 111. IV ACCESS ON RUSTY MIDLINE, INTACT AND PATENT. R IJ HD CATH, C/D/I. NEPRO RUNNING AT 50 ML/HR, FEEDING TOLERATING WELL. ORTIZ CATH IN PLACE, DRAINING YELLOW URINE, 1300 CC OUTPUT. ALL DUE MEDS GIVEN ORDERED. ALL NEEDS HAVE BEEN MET AND ATTENDED. WOUND TREATMENT DONE ORDERED. SAFETY MEASURES MAINTAINED. BED IN LOWEST POSITION, BRAKES LOCKED. SIDE RAILS UP X2. CALL LIGHT WITHIN REACH. WILL ENDORSE CONTINUITY OF CARE TO ONCOMING SHIFT.
[2020-09-28 20:00] VITALS: BP 133/76
--- NOTE | 2020-09-28 20:00 | NUR ---
PATIENT OFFERED TO BE REPOSITINED PT REFUSING TURNING AND REPOSITIONING; MOUTHS/STATES ," NO DON'T MOVE ME, I AM FINE." INFORMED OF PRESSURE ULCERS AND HOW THEY DEVELOP IF THE BODY ISN'T REPOSITIED AT REGULAR INTERVALS PT STILL REFUSING. MOUTHS "iT'S OK.
[2020-09-29] VITALS: BP 126/68
--- NOTE | 2020-09-29 00:15 | NUR ---
PATIENT REFUSING TURNING AND REPOSITIONING; STATES ," NO DON'T MOVE ME, I WANT TO SLEEP." INFORMED OF PRESSURE ULCERS AND HOW THEY DEVELOP IF THE BODY ISN'T REPOSITIED AT REGULAR INTERVALS PT STILL REFUSING.
[2020-09-29 04:00] VITALS: BP 113/61
--- NOTE | 2020-09-29 04:15 | NUR ---
PATIENT REFUSING TURNING AND REPOSITIONING; STATES ," NO DON'T MOVE ME, I AM COMFORTABLE." INFORMED OF PRESSURE ULCERS AND HOW THEY DEVELOP IF THE BODY ISN'T REPOSITIED AT REGULAR INTERVALS PT STILL REFUSING.
[2020-09-29] MEDS: MORPHINE SULFATE INJ 2 MG/ML DISP.SYRIN IV PRN ×4 (04:27→21:25)
--- NOTE | 2020-09-29 07:56 | NUR ---
RN OPENING NOTES; RECEIVED PT IN BED, IN SUPINE POSITION. PT A/OX4. PT HAS BEEN REFUSING REPOSITIONING. NO DISTRESS NOTED. ON TRACH TO MECHANICAL VENT WITH SETTINGS PRESCRIBED, SATURATION AT 100%, SR ON THE MONITOR. PT C/O NO PAIN AT THIS TIME. BED RAILS UP, AND CALL LIGHT WITHIN REACH. WILL CONTINUE TO MONITOR.
[2020-09-29 08:00] VITALS: BP 122/71
[2020-09-29] MEDS: PROSOURCE / PROSTAT (PYXIS) 30 ML UDC GT SCH ×2 (08:34→16:16)
[2020-09-29] MEDS: DAKINS QUARTER STRENGTH (0.125%) 480 ML BOTTLE TOP SCH (08:52)
[2020-09-29] MEDS: SILVER SULFADIAZINE 50 GM JAR TP SCH (08:53)
[2020-09-29 08:58] LABS: CALCIUM, SERUM 11.2 mg/dL (8.5-10.1); CREATININE 3.2 mg/dL (0.6-1.3); POTASSIUM 3.8 mmol/L (3.5-5.1)
[2020-09-29 12:00] VITALS: BP 124/66
[2020-09-29 16:00] VITALS: BP 119/55
[2020-09-29] MEDS: NEPRO 1,000 ML BOTTLE GT PRN (16:27)
--- NOTE | 2020-09-29 18:29 | NUR ---
RN CLOSING NOTES; PATIENT A/OX4, PT WATCHING TV. PT REFUSED WOUND CLEANING AND REFUSED TO BE CHANGED. EXPLAINED RISKS OF INFECTION. PT STATES UNDERSTANDING AND SAID I WILL DO IT TOMORROW. PT STATED HIS WOUNDS HURT WHEN HE IS MOVED. OFFERED PAIN MEDICATION, TO NO AVAIL. PT SAID HE HAD 0 BM AND FEELS THAT THERE IS NO NEED TO BE CLEANED. PT HAS AN ORDER TO BE DISCHARGED. ALL DISCHARGE PAPERWORK IS DONE, BUT SNF DOES NOT HAVE A BED FOR HIM. SNF WILL CALL IF BED OPENS UP. NO DISTRESS NOTED, ALL VITALS ARE WITHIN NORMAL LIMITS. PT IS COMFORTABLE WITH CALL LIGHT WITHIN REACH. ENDORSED TO NIGHTSHIFT RN.
--- NOTE | 2020-09-29 19:45 | NUR ---
RN OPENING NOTE RECEIVED PATIENT IN BED A/OX4; ABLE TO MAKE NEEDS KNOWN. ON MECH VENT; TOLERATING SETTINGS WELL WITH NO SOB. EXTERNAL KEG INSPECTOR READS SR AT 90's. PATIENT C/O 8/10 PAIN ON WOUNDS; GT PATENT AND INTACT; NEPHRO 1.8 @ 50M/HR; TOLERATING FEEDINGS WELL. AUSCULTATED FOR PLACEMENT. RUSTY MIDLINE PATENT AND INTACT. HD CATH KEPT C/D/I. ORTIZ CATH DRAINING CLEAR YELLOW URINE; PATENT AND INTACT. SAFETY MEASURES IN PLACE: BED IN LOWEST LOCKED POSITION, SIDE RAILS UPX2, CALL LIGHT WITHIN EASY REACH, BED ALARM ON. NO ACUTE DISTRESS NOTED AT THIS TIME.
[2020-09-29 20:00] VITALS: BP 124/71
[2020-09-30] VITALS: BP 120/70
[2020-09-30 04:00] VITALS: BP 126/68
--- NOTE | 2020-09-30 07:28 | NUR ---
RN CLOSING NOTE PATIENT IN BED A/OX4; ABLE TO MAKE NEEDS KNOWN. ON MECH VENT; TOLERATING SETTINGS WELL WITH NO SOB. EXTERNAL UMBRELLA REPAIRER READS SR AT 90's. PATIENT C/O 9/10 PAIN ON WOUNDS; TREATED WITH PRN DOSES OF DILAUDID. GT PATENT AND INTACT; NEPHRO 1.8 RUNNING @ 50ML/HR; TOLERATING FEEDINGS WELL. AUSCULTATED FOR PLACEMENT. RUSTY MIDLINE PATENT AND INTACT. HD CATH KEPT C/D/I. ORTIZ CATH DRAINING CLEAR YELLOW URINE; PATENT AND INTACT. ALL ORDERS MET THROUGHOUT SHIFT. PT. REFUSED ALL WOUND CARE THROUGHOUT SHIFT, CURRENT DRESSINGS ARE CLEAN AND INTACT. PATIENT SAFETY MEASURES IN PLACE: BED IN LOWEST LOCKED POSITION, SIDE RAILS UPX2, CALL LIGHT WITHIN EASY REACH, BED ALARMS ON. NO ACUTE DISTRESS NOTED AT THIS TIME. PENDING DISCHARGE TO [facility]. WILL ENDORSE CONTINUITY OF CARE TO MORNING SHIFT RN
--- NOTE | 2020-09-30 07:30 | NUR ---
RN OPENING NOTES RECEIVED PT IN BED. A/OX4. ABLE TO MAKE NEEDS KNOWN. ON MECH VENT, TOLERATING SETTINGS WELL. NO SOB OR ANY S/S OF RESPIRATORY DISTRESS NOTED. TELE MONITOR READS SR. GT CHECKED FOR PLACEMENT. NO RESIDUAL. FEEDING OF NEPRO 1.8 @50ML/HR, TOLERATING WELL. RUSTY MIDLINE INTACT AND PATENT. HD CATH IN PLACE. DRESSING CLEAN, DRY, AND INTACT. ORTIZ CATH IN PLACE DRAINING CLEAR YELLOW URINE. SAFETY MEASURES IN PLACE. BED LOCKED AND IN LOWEST POSITION WITH SIDE RAILS UP X2. CALL LIGHT WITHIN REACH. WILL CONTINUE TO MONITOR.
[2020-09-30 08:00] VITALS: BP 139/80
[2020-09-30] MEDS: DAKINS QUARTER STRENGTH (0.125%) 480 ML BOTTLE TOP SCH (08:57)
[2020-09-30] MEDS: PROSOURCE / PROSTAT (PYXIS) 30 ML UDC GT SCH ×2 (08:57→16:16)
[2020-09-30] MEDS: SILVER SULFADIAZINE 50 GM JAR TP SCH (08:58)
[2020-09-30] MEDS: MORPHINE SULFATE INJ 2 MG/ML DISP.SYRIN IV PRN ×3 (11:36→20:51)
[2020-09-30 12:00] VITALS: BP 135/81
[2020-09-30 16:00] VITALS: BP 131/83
[2020-09-30] MEDS: NEPRO 1,000 ML BOTTLE GT PRN (16:31)
--- NOTE | 2020-09-30 18:47 | NUR ---
RN CLOSING NOTES NO SIGNIFICANT CHANGES THROUGHOUT THE SHIFT. NO SOB OR ANY DISTRESS. NO PAIN REPORTED AT THIS TIME. ALL DUE MEDS GIVEN. NEEDS ATTENDED. KEPT CLEAN AND COMFORTABLE. SAFETY MEASURES IN PLACE. WILL ENDORSE TO NIGHT RN FOR JAMES.
--- NOTE | 2020-09-30 19:45 | NUR ---
RN OPENING NOTE RECEIVED PATIENT IN BED A/OX4; ABLE TO MAKE NEEDS KNOWN. ON MECH VENT; TOLERATING SETTINGS WELL WITH NO SOB. EXTERNAL CITY SUPERVISOR READS SR AT 80's. PATIENT C/O 10/10 PAIN ON WOUNDS; GT PATENT AND INTACT; NEPHRO 1.8 @ 50ML/HR; TOLERATING FEEDINGS WELL. AUSCULTATED FOR PLACEMENT. RUSTY MIDLINE PATENT AND INTACT. HD CATH KEPT C/D/I. ORTIZ CATH DRAINING CLEAR YELLOW URINE; PATENT AND INTACT. SAFETY MEASURES IN PLACE: BED IN LOWEST LOCKED POSITION, SIDE RAILS UPX2, CALL LIGHT WITHIN EASY REACH, BED ALARM ON. NO ACUTE DISTRESS NOTED AT THIS TIME.
[2020-09-30 20:00] VITALS: BP 130/78
--- NOTE | 2020-09-30 20:52 | NUR ---
RN NOTE PT. STATES PAIN LEVEL 10/10 ON ANTERIOR AND POSTERIOR WOUNDS (CHRONIC). PT. TREATED WITH PRN DOSE OF DILAUDID 2MG Q4H PER MD ORDERS. WILL RE-ASSESS PAIN LEVEL ON eMAR. NO OTHER DISTRESS NOTED AT THIS TIME.
[2020-10-01] VITALS: BP 131/81
[2020-10-01 04:00] VITALS: BP 127/80
[2020-10-01] MEDS: MORPHINE SULFATE INJ 2 MG/ML DISP.SYRIN IV PRN ×2 (05:47→11:50)
--- NOTE | 2020-10-01 07:32 | NUR ---
RN CLOSING NOTE PATIENT IN BED A/OX4; ABLE TO MAKE NEEDS KNOWN. ON MECH VENT; TOLERATING SETTINGS WELL WITH NO SOB. EXTERNAL SURGERY MANAGER READS SR AT 90's. PATIENT C/O 9/10 PAIN ON WOUNDS; TREATED WITH PRN DOSES OF DILAUDID. GT PATENT AND INTACT; NEPHRO 1.8 RUNNING @ 50ML/HR; TOLERATING FEEDINGS WELL. AUSCULTATED FOR PLACEMENT. RUSTY MIDLINE PATENT AND INTACT. HD CATH KEPT C/D/I. ORTIZ CATH DRAINING CLEAR YELLOW URINE; PATENT AND INTACT. ALL ORDERS MET THROUGHOUT SHIFT. PT. WOUND CARE COMPLETED ORDERED. SAFETY MEASURES IN PLACE: BED IN LOWEST LOCKED POSITION, SIDE RAILS UPX2, CALL LIGHT WITHIN EASY REACH, BED ALARMS ON. NO ACUTE DISTRESS NOTED AT THIS TIME. PENDING DISCHARGE TO [facility]. ENDORSED CONTINUITY OF CARE TO MORNING SHIFT
--- NOTE | 2020-10-01 07:42 | NUR ---
RECEIVED PT IN BED. A/OX4. ABLE TO MAKE NEEDS KNOWN. [facility], TOLERATING SETT[facility] WELL. NO SOB OR ANY S/S OF RESPIRATORY DISTRESS NOTED. TELE MONITOR READS SR. GT CHECKED FOR PLACEMENT. NO RESIDUAL. RUSTY MIDLINE INTACT AND PATENT. HD CATH IN PLACE. DRESSING CLEAN, DRY, AND INTACT. ORTIZ CATH IN PLACE DRAINING CLEAR YELLOW URINE. SAFETY MEASURES IN PLACE. BED LOCKED AND IN LOWEST POSITION WITH SIDE RAILS UP X2. CALL LIGHT WITHIN REACH. WILL CONTINUE TO MONITOR. Addendum: 10/01/20 at 0744 by AMERICO MYRICK RN KIERAN OPENING NOTE
[2020-10-01 08:00] VITALS: BP 137/85
[2020-10-01] MEDS: PROSOURCE / PROSTAT (PYXIS) 30 ML UDC GT SCH (08:52)
[2020-10-01] MEDS: DAKINS QUARTER STRENGTH (0.125%) 480 ML BOTTLE TOP SCH (09:00)
[2020-10-01] MEDS: SILVER SULFADIAZINE 50 GM JAR TP SCH (09:00)
--- NOTE | 2020-10-01 09:38 | NUR ---
RN NOTES REPORT GIVEN TO YAHIR ALCARAZ FOR JAMES.
[2020-10-01 10:54] LABS: HEMOGLOBIN 8.4 g/dL (13.5-17.5)
--- NOTE | 2020-10-01 11:33 | NUR ---
care taken over, alert, wide awake, non-verbal, secondary to trach, when asked whether in pain, shook head, " NO". well aware of the transfer back to SNF, Nikki [phone]. H &H 8.06/20 per Charge nurse, NO NEED for HD today, report given to Joyce, at the facility, , questions answered to the best of my knowlege. all wounds are cleansed and dressings changed as ordered, ready to picking machine operator helper at 2pm today will be leaving the floor with indwelling rojas remains, and RUSTY midline, just in case he needs some more abx tx at the facility.
--- NOTE | 2020-10-01 11:58 | NUR ---
2mg mso4 ivp given prior to wounds changed, and pics would be taken at the same time. adamantly shook his head, " NO, NO, NO". GT flushed without any problem. patient ready to go.
[2020-10-01 12:05] VITALS: BP 143/87
[2020-10-01] MEDS ORDERED: EPOETIN ALFA-EPBX 4,000 UNIT/ML VIAL SQ SCH (15:00)
== END 2020-10-01 15:59 | DRG 380 ==
LOC: ER 17:52 → TELE1 22:08
PROVIDERS: ADMIT Nurse Practitioner Acute Care; ATTEND Internal Medicine
PROC: 5A1955Z Respiratory Ventilation, Greater than 96 Consecutive Hours (ICD-10-PCS; principal; 2020-09-22)
PROC: 30233N1 Transfusion of Nonautologous Red Blood Cells into Peripheral Vein, Percutaneous Approach (ICD-10-PCS; 2020-09-22)
DX: L89.154 Pressure ulcer of sacral region, stage 4 (principal); N17.0 Acute kidney failure with tubular necrosis; E43 Unspecified severe protein-calorie malnutrition; J96.10 Chronic respiratory failure, unspecified whether with hypoxia or hypercapnia; R53.2 Functional quadriplegia; D68.59 Other primary thrombophilia; N18.6 End stage renal disease; Z99.2 Dependence on renal dialysis; D72.829 Elevated white blood cell count, unspecified; D63.1 Anemia in chronic kidney disease; Z20.822 Contact with and (suspected) exposure to COVID-19; R13.10 Dysphagia, unspecified; K21.9 Gastro-esophageal reflux disease without esophagitis; Z79.01 Long term (current) use of anticoagulants; Z79.899 Other long term (current) drug therapy; Z79.51 Long term (current) use of inhaled steroids; E66.9 Obesity, unspecified; D47.2 Monoclonal gammopathy; Z93.1 Gastrostomy status; F32.9 Major depressive disorder, single episode, unspecified; E87.2 Acidosis; L97.829 Non-pressure chronic ulcer of other part of left lower leg with unspecified severity; L97.819 Non-pressure chronic ulcer of other part of right lower leg with unspecified severity; D63.8 Anemia in other chronic diseases classified elsewhere; M46.26 Osteomyelitis of vertebra, lumbar region; N39.0 Urinary tract infection, site not specified; I73.9 Peripheral vascular disease, unspecified; Z68.30 Body mass index [BMI] 30.0-30.9, adult; E83.52 Hypercalcemia; Z74.09 Other reduced mobility; Z86.16 Personal history of COVID-19
CPT/HCPCS: 31720; 36415; 71045-TC; 80048-TC; 80061-TC; 80076-TC; 80202-TC; 83540-TC; 83605-TC; 83735-TC; 83970; 84100-TC; 84484-TC; 85025-TC; 85027-TC; 85730-TC; 86850-TC; 87040-TC; 87081-TC; 90935-TC; 94002-TC; 94003-TC; 94760-TC; 94762-TC; 94799-TC; 99082-TC; A6253; A6403; G0378; J0692; J0885; J2185; J2270; J3370; J7050; J7060; P9016; U0003

== ENCOUNTER 2020-10-15 13:15 | Inpatient (IN) | payer OTHER ==
[~2020-10-15] VITALS: Ht 177.8 cm; Wt 80.3 kg
[~2020-10-15 13:15] MED LIST changes: -CHLO473M5 MM; -CRAN3875 GT; +CRAN425C6 GT; +DOCU-141 GT; -ENOX40DI SQ; -FERR325T23 PO; -HYDR-4209 GT; +HYDR2TAB4 GT; -LACT-209 GT; +NUT.237L67 GT; +RIVA10TA PO
--- NOTE | 2020-10-15 13:15 | NUR ---
PT ERI FROM [facility] C/O DISLODGED DAILYSIS CATHETER. PT IS AAOX4, ON VENT VIA TRACH, HOOKED TO HEAD START DIRECTOR, KEPT RESTED AND COMFORTABLE. WILL CONTINUE TO MONITOR.
--- NOTE | 2020-10-15 13:37 | NUR ---
IV LINE ESTABLISHED BLOOD DRAWN AND SENT TO LAB.
[2020-10-15 13:55] LABS: BASOPHILS % (AUTO) 0.1 % (0.0-2.0); EOSINOPHILS % (AUTO) 14.2 % (0.0-6.0); HEMATOCRIT 28 % (39-51); HEMOGLOBIN 8.9 g/dL (13.5-17.5); LYMPHOCYTES # (AUTO) 1.6 K/uL (0.8-4.8); LYMPHOCYTES % (AUTO) 8.7 % (20.0-44.0); MEAN CORPUSCULAR HGB CONC 32 g/dl (31.0-36.0); MEAN CORPUSCULAR VOLUME 90 fL (80-96); MONOCYTES # (AUTO) 0.9 K/uL (0.1-1.30); MONOCYTES % (AUTO) 4.9 % (2.0-12.0); NEUTROPHILS # (AUTO) 12.9 K/uL (1.8-8.9); NEUTROPHILS % (AUTO) 72.1 % (43.0-81.0); PLATELET COUNT (AUTO) 380 K/uL (150-450); WHITE BLOOD COUNT (AUTO) 17.9 K/uL (4.3-11.0)
[2020-10-15 14:17] LABS: CALCIUM, SERUM 12.4 mg/dL (8.5-10.1); CREATININE 2.7 mg/dL (0.6-1.3)
[2020-10-15 14:42] LABS: ALBUMIN 2.3 g/dL (3.4-5.0); BILIRUBIN,DIRECT 0.1 mg/dL (0.0-0.2); BILIRUBIN,TOTAL 0.4 mg/dL (0.2-1.0); TOTAL PROTEIN, SERUM 6.6 g/dL (6.4-8.2)
[2020-10-15] MEDS ORDERED: PIPERACILLIN /TAZOBACTAM 3.375 G in IV D5W 50 ML IV ONE (15:00)
[2020-10-15] MEDS ORDERED: VANCOMYCIN 1 GM in IV D5W 250 ML IV ONE (15:00)
--- NOTE | 2020-10-15 15:06 | NUR ---
CALLED PHARMACY FOR IV ANTIBIOTIC.
--- NOTE | 2020-10-15 20:10 | NUR ---
RN NOTES RECEIVED ER ADMISSION REPORT FROM KIERAN ZENG. ALL PERTINENT ADMISSION INFO REGARDING PT NOTED. WILL WAIT FOR PT TO BE TRANSFERRED TO UNIT AND ADDRESS NEEDS ACCORDINGLY. PLANT SCIENTIST MADE AWARE.
--- NOTE | 2020-10-15 20:12 | NUR ---
REPORT GIVEN TO ALESSANDRA ALCARAZ FOR CONTINUATION OF CARE.
[2020-10-15 20:45] VITALS: BP 124/69
--- NOTE | 2020-10-15 20:45 | NUR ---
RN NOTES RECEIVED PT FROM ER VIA GURNEY ACCOMPANIED BY 2 ER STAFFS AND TRANSFERRED TO BED VIA 2-3 PERSON ASSIST. PT IS A/OX3-4; PT ON MECHANICAL VENT; SETTINGS PRESCRIBED WITH RESPIRATIONS EVEN AND UNLABORED. COMPREHENSIVE PHYSICAL ASSESSMENT AND PATIENT CARE DONE. CALL LIGHT WITHIN REACH, SAFETY MEASURES AND ISOLATION PRECAUTION IN PLACE, WILL CONTINUE MONITOR AND ASSESS THROUGHOUT THE SHIFT. WILL CARRY OUT MD ORDERS ACCORDINGLY. EQUINE SCIENCE INSTRUCTOR MADE AWARE.
--- NOTE | 2020-10-15 20:50 | NUR ---
RN NOTES INFORMED KENZIE HAWKINS THAT WAS NOW ADMITTED TO 111-2, AWAITING FOR FURTHER ADMITTING ORDERS. INSPECTOR [employer] PRODUCTS WELL AWARE.
[2020-10-15] MEDS ORDERED: GENTAMICIN 80 MG/2 ML VIAL ONE (21:14)
[2020-10-15] MEDS ORDERED: ACETAMINOPHEN 325 MG TABLET PO PRN (23:00)
[2020-10-15] MEDS ORDERED: Z GUARD REMEDY 2 OZ OINT TP PRN (23:00)
[2020-10-15] MEDS ORDERED: ZOLPIDEM TARTRATE 5 MG TABLET PO PRN (23:00)
[2020-10-15] MEDS ORDERED: MAG HYDROX/AL HYDROX/SIMETH 30 ML UDC PO PRN (23:00)
[2020-10-15] MEDS ORDERED: ONDANSETRON HCL/PF 4 MG/2 ML VIAL IVP PRN (23:00)
[2020-10-15] MEDS ORDERED: MAGNESIUM HYDROXIDE 30 ML UDC PO PRN (23:00)
--- NOTE | 2020-10-15 23:00 | NUR ---
RN NOTES PATIENT REMAINED TO BE IN NO SIGNS OF ACUTE RESPIRATORY DISTRESS , VITAL SIGNS WNL AT THIS TIME. SLUDGE FILTRATION ATTENDANT MADE AWARE. WILL CONTINUE TO MONITOR AND REASSESS FOR ANY CHANGES THROUGHOUT THE SHIFT.
[2020-10-15] MEDS ORDERED: PIPERACILLIN /TAZOBACTAM 2.25 G VIAL IV ONE (23:20)
[2020-10-15] MEDS: ZOSYN IVPB 4.5 G in IV D5W 50ml IV SCH (23:24)
--- NOTE | 2020-10-15 23:25 | NUR ---
RN NOTES INSIDE ACCOUNT EXECUTIVE PULLED OUT MEDICATION FROM [employer] FOR ZOSYN 2 BAGS OF 2.25MG, WILL ADMNISTER TWO BAGS FOR SCHEDULED ZOSYN 4.5G IN IV D5W. INSIDE ACCOUNT EXECUTIVE WELL AWARE. Addendum: 10/16/20 at 0450 by JUSTO FAUST RN CORRECTION 2 BAGS OF ZOSYN 2.25G EACH
[2020-10-15] MEDS ORDERED: NEPRO 1,000 ML BOTTLE GT SCH (23:30)
[2020-10-15] MEDS ORDERED: HYDROMORPHONE HCL 2 MG TABLET GT PRN (23:30)
--- NOTE | 2020-10-15 23:39 | NUR ---
RN NOTES SECURED ORDER FOR PRN PAIN MEDICATION FROM [facility]CALL (DR ROJAS) DILAUDID IV 2MG Q4HPRN FOR SEVERE PAIN. WILL CARRY OUT ORDERED. MANAGER OF TAX MADE AWARE.
[2020-10-16] VITALS: BP 120/62
[2020-10-16] MEDS: HYDROMORPHONE INJ 2 MG/ML DISP.SYRIN IV PRN ×5 (00:04→20:32)
[2020-10-16] MEDS: NEPRO 1,000 ML BOTTLE GT SCH (00:12)
[2020-10-16 04:00] VITALS: BP 129/71
--- NOTE | 2020-10-16 04:00 | NUR ---
RN NOTES NO NOTED CHANGES IN PATIENT CONDITION AT THIS TIME; PATIENT VITALS STABLE, NO SIGNS OF ACUTE RESPIRATORY DISTRESS. AM PATIENT CARE RENDERED. NEUROLOGY DIRECTOR MADE AWARE. WILL CONTINUE TO MONITOR AND REASSESS FOR ANY CHANGES THROUGHOUT THE SHIFT.
[2020-10-16] MEDS ORDERED: PIPERACILLIN /TAZOBACTAM 2.25 G VIAL IV ONE (04:44)
--- NOTE | 2020-10-16 04:50 | NUR ---
RN NOTES WIRED MUSIC OPERATOR PULLED OUT MEDICATION FROM [facility] FOR ZOSYN 2 BAGS OF 2.25G, WILL ADMINISTER TWO BAGS FOR SCHEDULED ZOSYN 4.5G IN IV D5W. WIRED MUSIC OPERATOR WELL AWARE.
[2020-10-16] MEDS: ZOSYN IVPB 4.5 G in IV D5W 50ml IV SCH (04:51)
--- NOTE | 2020-10-16 06:07 | NUR ---
RT NOTE PT RECEIVED TRACH'D AND ON [facility] VENT ON ORDERED SETTINGS. VENT IS PLUGGED INTO RED OUTLET. BMV & SPARE TRACH @ HOB. ALARMS ARE SET AND AUDIBLE. TRACH IS PATENT AND SECURE. NO RESP DISTRESS NOTED T/O SHIFT. Addendum: 10/16/20 at 0609 by HERBIE LENNON RT Amended: Links added.
--- NOTE | 2020-10-16 07:08 | NUR ---
RN CLOSING NOTE: PATIENT REMAINS IN ROOM IN NO SIGNS OF RESPIRATORY DISTRESS, PATIENT STILL ON MECH VENT; WITH SETTINGS PRESCRIBED ;TOLERATING WELL SATURATING @ >98% SP02. SAFETY MEASURES IMPLEMENTED, BED IN LOWEST POSITION, LOCKED, SIDE RAILS UP, CALL LIGHT WITHIN REACH. ALL NEEDS AND ORDERS ADDRESSED DURING THE SHIFT. IV ACCESS MAINTAINED INTACT, SECURED AND FLUSHING WELL. ALL DUE MEDS GIVEN ORDERED & SCHEDULED ; PATIENT TOLERATED WELL. PATIENT KEPT CLEAN AND COMFORTABLE WITHIN THE SHIFT. PATIENT ENDORSED TO INCOMING SHIFT RN WITH STABLE VITAL SIGN AND FOR CONTINUITY OF CARE.
[2020-10-16 07:10] LABS: BASOPHILS # (AUTO) 0.1 K/uL (0.0-0.2); BASOPHILS % (AUTO) 0.4 % (0.0-2.0); EOSINOPHILS % (AUTO) 14.7 % (0.0-6.0); HEMATOCRIT 25 % (39-51); LYMPHOCYTES # (AUTO) 1.8 K/uL (0.8-4.8); LYMPHOCYTES % (AUTO) 9.5 % (20.0-44.0); MEAN CORPUSCULAR HGB CONC 33 g/dl (31.0-36.0); MEAN CORPUSCULAR VOLUME 90 fL (80-96); MONOCYTES # (AUTO) 0.9 K/uL (0.1-1.30); MONOCYTES % (AUTO) 4.9 % (2.0-12.0); NEUTROPHILS # (AUTO) 13.2 K/uL (1.8-8.9); NEUTROPHILS % (AUTO) 70.5 % (43.0-81.0); PLATELET COUNT (AUTO) 358 K/uL (150-450); RED BLOOD CELL COUNT(AUTO) 2.72 MIL/uL (4.5-6.0); WHITE BLOOD COUNT (AUTO) 18.7 K/uL (4.3-11.0)
[2020-10-16] MEDS ORDERED: VANCOMYCIN POST DIALYSIS 500MG IV PRN (07:30)
[2020-10-16] MEDS ORDERED: PANTOPRAZOLE 40 MG TABLET.DR PO SCH (07:30)
--- NOTE | 2020-10-16 07:41 | NUR ---
EMT NOTE PATIENT IN BED AWAKE ALERT , WITH TRACH TO VENT SETTING ORDERED, SATURATION 100% AT THIS TIME , ON TELE MONITOR HR 100 , , WITH G TUBE FEEDING ORDERED , KEEP HOB ELEVATED AT ALL TIME, LT AC HL , INTACT AND IN PLACED,BED IN LOWEST AND LOCKED POSITION , CALL LIGHT WITHIN REACH , ALL NEEDS ATTENDED , WILL CONT TO MONITOR SAFETY MEASURE PROVIDED
[2020-10-16 08:00] VITALS: BP 119/73
[2020-10-16 08:16] LABS: CALCIUM, SERUM 12.3 mg/dL (8.5-10.1); CREATININE 3.2 mg/dL (0.6-1.3); MAGNESIUM 2.2 mg/dL (1.8-2.4); PHOSPHORUS 3.6 mg/dL (2.5-4.9)
[2020-10-16 08:22] LABS: POTASSIUM 2.8 mmol/L (3.5-5.1)
[2020-10-16 08:24] LABS: THYROID STIMULATING HORMONE 9.999 uIU/mL (0.358-3.74)
[2020-10-16] MEDS: PANTOPRAZOLE 40 MG TABLET.DR PO SCH ×2 (09:00→20:32)
[2020-10-16] MEDS: ZINC SULFATE 220 MG CAPSULE GT SCH (09:36)
[2020-10-16] MEDS: SERTRALINE HCL 50 MG TABLET GT SCH (09:36)
[2020-10-16] MEDS: RIVAROXABAN 10 MG TABLET PO SCH (09:36)
--- NOTE | 2020-10-16 09:38 | NUR ---
ADOLESCENT MEDICINE SPECIALIST NOTE PROTONIC DUPLICATE ORDER
--- NOTE | 2020-10-16 10:00 | NUR ---
RADIATION ONCOLOGY NURSE NOTE PATIENT PATIENT HAS HARD STICK ORDERED MID LINE JETT FRIEDMAN RN DNP NOTIFIED WILL F\U
[2020-10-16] MEDS: POTASSIUM CL. PREMIX PERIPHER. 50 ML IV SCH ×4 (11:39→15:33)
[2020-10-16 12:00] VITALS: BP 116/71
[2020-10-16] MEDS: ZOSYN IVPB 2.25 G in IV D5W 50ml IV SCH ×2 (12:43→17:03)
--- NOTE | 2020-10-16 14:26 | NUR ---
RUBBER COMPOUNDER MIXER NOTES OFFERED TO CLEAN UP, BUT PT STRONGLY REFUSED. EXPLAINED THE IMPORTANCE OF MAINTAINING CLEANLINESS, BUT STILL REFUSING. WILL CONTINUE TO ENCOURAGE TO ALLOW REGULAR BED BATH.
--- NOTE | 2020-10-16 15:23 | NUR ---
FOOT PRESS OPERATOR NOTE PER JETT FRIEDMAN DNP OK TO GIVE ICE CHIPS AND MID LINE ONE ON RT UPPER ARM INSERTED ORDERED, PER JETT FRIEDMAN DNP COURTROOM CLERK FOR HD CATH ORDER WILL F\U
[2020-10-16 16:00] VITALS: BP 120/66
--- NOTE | 2020-10-16 16:11 | NUR ---
RELISH MAKER NOTES PT COMPLAIN OF SEVERE PAIN AND BODY ACHES 10/04. BP 120/60 O2 SAT 100%, DILAUDID GIVEN ORDERED.
--- NOTE | 2020-10-16 18:45 | NUR ---
AIRCRAFT INSTRUMENT MECHANIC NOTES PT IN BED ALERT AND AWAKE. TOLERATING VENT SETTINGS WELL, ORTIZ CATHETER TO GRAVITY. STILL REFUSING TO BE CHANGED. CONTINUE G-TUBE FEEDING, TOLERATING WELL. MIDLINE RIGHT UPPER ARM IN PLACE AND FLUSHED WELL. ALL NEEDS ATTENDED, NOT IN DISTRESS, WILL CONTINUE TO MONITOR.
--- NOTE | 2020-10-16 19:20 | NUR ---
RN NOTE RECEIVED PATIENT IN BED RESTING ALERT ORIENTED X3-4 ON MECHANICAL VENT SETTING ON SHIELY #7 AC 20 TV 600 FIO2:35% PEEP 5 O2:1005 IV SITE IS ON RIGHT FOREARM AND LEFT UPPER ARM MIDLINE INTACT PATENT ON G-TUBE FEEDING NEPRO 50CC/HR,CHECKED PLACEMENT IN PLACE NO RESIDUAL NOTED,ON ORTIZ CATHETER URINE DRAINING YELLOW/CLEAR BY GRAVITY SAFETY MEASURE IMPLEMENT HEAD OF THE BED ELEVATED CALL LIGHT WITHIN REACH BED IN LOW POSITION AND LOCKED CONTINUE TO MONITOR.
[2020-10-16 20:00] VITALS: BP 112/61
[2020-10-17] VITALS: BP 109/60
[2020-10-17] MEDS: ZOSYN IVPB 2.25 G in IV D5W 50ml IV SCH ×5 (00:15→23:55)
[2020-10-17] MEDS: HYDROMORPHONE INJ 2 MG/ML DISP.SYRIN IV PRN ×6 (00:44→21:25)
--- NOTE | 2020-10-17 03:00 | NUR ---
RN NOTE PATIENT REFUSES TO HAVE TREATMENT FOR ALL WOUNDS,HE STRONGLY REFUSES EXPLAINED RISKS AND BENEFITS STILL REFUSES CONTINUE TO MONITOR.
[2020-10-17 04:00] VITALS: BP 109/62
--- NOTE | 2020-10-17 06:44 | NUR ---
RN NOTE PATIENT REFUSED TO BE CHANGED DIAPER AND GET BED BATH EXPLAINED RISKS AND BENEFITS STILL REFUSED CONTINUE TO MONITOR.
--- NOTE | 2020-10-17 06:46 | NUR ---
RN NOTE PATIENT REMAINS ON ALERT ORIENTED X3-4 ON MECHANICAL VENT,NO SOB NOT ACUTE DISTRESS NOTED ON G-TUBE FEEDING ALL DUE MEDS GIVEN MD ORDERED,HE IS G-TUBE FEEDING TOLERATE WELL,ENDORSE NEXT COMING SHIFT FOR CONTINUATION OF CARE.
[2020-10-17 06:58] LABS: BASOPHILS # (AUTO) 0.1 K/uL (0.0-0.2); BASOPHILS % (AUTO) 0.5 % (0.0-2.0); EOSINOPHILS % (AUTO) 16.8 % (0.0-6.0); HEMATOCRIT 27 % (39-51); HEMOGLOBIN 8.9 g/dL (13.5-17.5); LYMPHOCYTES # (AUTO) 1.8 K/uL (0.8-4.8); LYMPHOCYTES % (AUTO) 12.5 % (20.0-44.0); MEAN CORPUSCULAR HGB CONC 33 g/dl (31.0-36.0); MEAN CORPUSCULAR VOLUME 91 fL (80-96); MONOCYTES # (AUTO) 0.7 K/uL (0.1-1.30); MONOCYTES % (AUTO) 4.8 % (2.0-12.0); NEUTROPHILS # (AUTO) 9.4 K/uL (1.8-8.9); NEUTROPHILS % (AUTO) 65.4 % (43.0-81.0); PLATELET COUNT (AUTO) 332 K/uL (150-450); RED BLOOD CELL COUNT(AUTO) 2.98 MIL/uL (4.5-6.0); WHITE BLOOD COUNT (AUTO) 14.3 K/uL (4.3-11.0)
--- NOTE | 2020-10-17 07:15 | NUR ---
SALES CENTER MANAGER OPENING NOTE RECEIVED REPORTFROM PM NURSE.PATIENT IN BED RESTING ,ALERT ORIENTED X3-4 ,MOUTH WORDS ,ON MECHANICAL VENT ,TOLERATING SETTING WELL, IV SITE IS ON RIGHT FOREARM AND LEFT UPPER ARM MIDLINE INTACT PATENT ON G-TUBE FEEDING NEPRO 50CC/HR,CHECKED PLACEMENT IN PLACE NO RESIDUAL NOTED,ON ORTIZ CATHETER URINE DRAINING YELLOW/CLEAR BY GRAVITY SAFETY MEASURE IMPLEMENT HEAD OF THE BED ELEVATED CALL LIGHT WITHIN REACH BED IN LOW POSITION AND LOCKED,SRX3,BED ALAR ON,WILL CONTINUE TO MONITOR.
[2020-10-17 07:34] LABS: ALBUMIN 1.9 g/dL (3.4-5.0); BILIRUBIN,TOTAL 0.3 mg/dL (0.2-1.0); CALCIUM, SERUM 11.9 mg/dL (8.5-10.1); CREATININE 3.7 mg/dL (0.6-1.3); MAGNESIUM 2.4 mg/dL (1.8-2.4); PHOSPHORUS 4.4 mg/dL (2.5-4.9); POTASSIUM 3.3 mmol/L (3.5-5.1); TOTAL PROTEIN, SERUM 6.2 g/dL (6.4-8.2)
[2020-10-17 08:00] VITALS: BP 121/68
--- NOTE | 2020-10-17 09:11 | NUR ---
WOUND CARE CONSULT: REVIEWED CHART, NURSING DOCUMENTATION AND PHOTOS WHICH INDICATE MULTIPLE WOUNDS PRESENT ON ADMISSION. DR TOLEDO AND DR STINSON NOTIFIED OF SURGICAL/DPM CONSULTS. RECOMMENDATIONS MADE FOR SKIN PROTECTION. DISCUSSED WITH NURSING STAFF. PT IS ON [place] [facility] LOW AIRLOSS BED. MD IN AGREEMENT WITH PLAN OF CARE.
[2020-10-17] MEDS: SERTRALINE HCL 50 MG TABLET GT SCH (09:12)
[2020-10-17] MEDS: PANTOPRAZOLE 40 MG/PACK PACK GT SCH ×2 (09:12→21:24)
[2020-10-17] MEDS: ZINC SULFATE 220 MG CAPSULE GT SCH (09:13)
[2020-10-17] MEDS: LEVOTHYROXINE SODIUM 50 MCG TABLET PO SCH (09:13)
[2020-10-17] MEDS: RIVAROXABAN 10 MG TABLET PO SCH (09:33)
[2020-10-17 12:00] VITALS: BP 116/59
--- NOTE | 2020-10-17 15:22 | NUR ---
SEEN BY WELDER EXPLOSION UPDATED ABOUT PATIENT CONDITION,PATIENT SCHEDULED TO HAVE DIALYSIS CATH PLACEMENT BY SATURDAY BY .NO REPLACEMENT OF POTASSIUM AT THIS TIME.WILL CONTINUE TO MONITOR.
[2020-10-17] MEDS ORDERED: REMDESIVIR (CHARGED) 100 MG in IV NS 0.9% 100 ML IV SCH (15:30)
--- NOTE | 2020-10-17 15:48 | NUR ---
RECEIVED CONSENT FOR SERIAL WOUND DEBRIDEMENT ON BLE FROM PATIENT AND ISMAEL,WITNESSED BY JAREN ALCARAZ.FAMILY UPDATED ABOUT HD CATH PLACEMENT AND PATIENT CONDITION.WILL CONTINUE TO MONITOR.
[2020-10-17 16:00] VITALS: BP 109/55
--- NOTE | 2020-10-17 16:42 | NUR ---
PATIENT REFUSED TURN AND REPOSITION,EDUCATED STILL REFUSING,WOUND CARE DONE. MADE AWARE THAT PATIENT'S DAD CALLED OK TO GIVE INFORMATION FROM PATIENT AND HER,SHE WILL UPDATE,SAFETY AND ASPIRATION MEASURES IN PLACE.WILL CONTINUE TO MONITOR.
[2020-10-17] MEDS: DAKINS QUARTER STRENGTH (0.125%) 480 ML BOTTLE TOP SCH (17:19)
[2020-10-17] MEDS: THERAHONEY GEL 1.5 OZ TUBE TP SCH (17:19)
--- NOTE | 2020-10-17 18:25 | NUR ---
ENDORSED TO RN FOR TO GIVE REPORT TO PM NURSE PATIENT IN STABLE CONDITION.
--- NOTE | 2020-10-17 19:50 | NUR ---
RN NOTES RECEIVED PATIENT AWAKE WATCHING TV ON BED. WITH TRACH CONNECTED TO VENT SETTING AC 20 TV 600 FIO2 35% AND PEEP 5 AOX 3 ABLE TO VERBALIZED NEEDS SR ON MONITOR. PATIENT HAS GTF NEPHRO @ 50 ML/HE INTACT AND PATENT WITH NO RESIDUAL. DENIES N/V. IV SITE ON LA MIDLINE AND RFA INTACT AND PATENT. MULTIPLE WOUNDS NOTED WITH CLEAN DRESSING KEPT SECURED. KEPT PT CLEAN AND COMFORTABLE IN BED. CALL LIGHT KEPT WITHIN EASY REACH. WILL CONT. TO MONITOR.
[2020-10-17 20:00] VITALS: BP 116/72
[2020-10-17] MEDS: EPOETIN ALFA-EPBX 4,000 UNIT/ML VIAL SQ SCH (23:55)
[2020-10-18] VITALS: BP 126/67
--- NOTE | 2020-10-18 00:30 | NUR ---
RN NOTE RECEIVED PATIENT IN BED. A/OX4. ON MECHANICAL VENT, SHILEY 7, AC 20 TV 500 FIO2 50 PEEP 5. RESP EVEN AND UNLABORED. IN NO APPARENT DISTRESS. IV ACCESS IN PADMINI MIDLINE. AND RFA PATENT AND SALINE LOCKED. ORTIZ CATHETER IS PRESENT, DRAINING TO GRAVITY. GUBE PRESENT, RUNNING NEPRO @50ML/HR. BED IS LOW AND LOCKED, HOB ELEVATED IN SEMI FOWLERS, SIDE RAILS UP X2, CALL LIGHT WITHIN REACH. WILL CONTINUE TO MONITOR THROUGHOUT SHIFT.
--- NOTE | 2020-10-18 00:30 | NUR ---
RN NOTES ENDORSED CONTINUITY OF CARE TO ДМИТРИЙ
[2020-10-18] MEDS: HYDROMORPHONE INJ 2 MG/ML DISP.SYRIN IV PRN ×5 (01:27→18:58)
[2020-10-18 04:00] VITALS: BP 111/58
[2020-10-18] MEDS: ZOSYN IVPB 2.25 G in IV D5W 50ml IV SCH ×3 (05:02→17:35)
--- NOTE | 2020-10-18 06:34 | NUR ---
RN NOTE PATIENT RESTING IN BED. A/OX4. ON MECHANICAL VENT,NO RESP DISTRESS. PAIN IS NOT BEING MANAGED WITH 2MG DILAUDID. PATIENT REFUSED TO BE CHANGED, AND TURNED THROUGHOUT SHIFT. HEAVILY ENCOURAGED PATIENT MULTIPLE TIMES TO ALLOW STAFF TO DO WOUND CARE BUT REFUSED. EXPLAIN THE RISK AND BENEFITS BUT CONTINUES TO REFUSE. IV PADMINI MIDLINE. AND RFA. ORTIZ CATHETER OUTPUT 450 YELLOW. GUBE RUNNING NEPRO @50ML/HR. BED REMAINS LOW AND LOCKED, HOB ELEVATED IN SEMI FOWLERS, SIDE RAILS UP X2, CALL LIGHT WITHIN REACH. WILL ENDORSE TO ONCOMING SHIFT.
--- NOTE | 2020-10-18 07:29 | NUR ---
outbound telemarketer note patient in bed , all needs attended ,alert oriented with trach to vent setting as ordered , on tele monitor sr hr 90 , with g tube feeding as ordered, keep hob elevated at all time, rt upper arm mid line in place and flushed well , lt ac hl intact , bed in lowest and locked position , call light within reach , will cont to monitor closely
[2020-10-18 08:00] VITALS: BP 116/58
[2020-10-18] MEDS: PANTOPRAZOLE 40 MG/PACK PACK GT SCH ×2 (08:35→20:05)
[2020-10-18] MEDS: SERTRALINE HCL 50 MG TABLET GT SCH (08:35)
[2020-10-18] MEDS: ZINC SULFATE 220 MG CAPSULE GT SCH (08:35)
[2020-10-18] MEDS: LEVOTHYROXINE SODIUM 50 MCG TABLET PO SCH (08:35)
[2020-10-18] MEDS: RIVAROXABAN 10 MG TABLET PO SCH (08:36)
[2020-10-18] MEDS: DAKINS QUARTER STRENGTH (0.125%) 480 ML BOTTLE TOP SCH (08:38)
[2020-10-18] MEDS: SILVER SULFADIAZINE CREAM 25 GM TUBE MC SCH (08:39)
[2020-10-18] MEDS: THERAHONEY GEL 1.5 OZ TUBE TP SCH (08:39)
[2020-10-18] MEDS: NEPRO 1,000 ML BOTTLE GT SCH (08:55)
[2020-10-18 12:00] VITALS: BP 109/56
--- NOTE | 2020-10-18 13:00 | NUR ---
SECONDARY TEACHER NOTE WOUND CARE DONE , KEEP CLEAN DRY ALL NEEDS ATTENDED CONSEN FOR WOUND DEBRIDEMENT DONE
--- NOTE | 2020-10-18 14:30 | NUR ---
telecommunications specialist note seen by eugenia tate archivist [employer] updated patient condition ,will cont to monitor. dr vásquez called with new order to get consent to plce Perma cath and npo after mid night
[2020-10-18 14:53] LABS: BASOPHILS # (AUTO) 0.1 K/uL (0.0-0.2); BASOPHILS % (AUTO) 0.4 % (0.0-2.0); EOSINOPHILS % (AUTO) 18.2 % (0.0-6.0); HEMATOCRIT 24 % (39-51); HEMOGLOBIN 7.9 g/dL (13.5-17.5); LYMPHOCYTES # (AUTO) 1.5 K/uL (0.8-4.8); LYMPHOCYTES % (AUTO) 8.6 % (20.0-44.0); MEAN CORPUSCULAR HGB CONC 33 g/dl (31.0-36.0); MEAN CORPUSCULAR VOLUME 90 fL (80-96); MONOCYTES # (AUTO) 0.8 K/uL (0.1-1.30); MONOCYTES % (AUTO) 4.4 % (2.0-12.0); NEUTROPHILS # (AUTO) 11.9 K/uL (1.8-8.9); NEUTROPHILS % (AUTO) 68.4 % (43.0-81.0); PLATELET COUNT (AUTO) 371 K/uL (150-450); RED BLOOD CELL COUNT(AUTO) 2.68 MIL/uL (4.5-6.0); WHITE BLOOD COUNT (AUTO) 17.4 K/uL (4.3-11.0)
[2020-10-18 15:12] LABS: CALCIUM, SERUM 11.2 mg/dL (8.5-10.1); CREATININE 4.2 mg/dL (0.6-1.3); MAGNESIUM 2.3 mg/dL (1.8-2.4); PHOSPHORUS 6.1 mg/dL (2.5-4.9); POTASSIUM 3.9 mmol/L (3.5-5.1)
[2020-10-18 16:00] VITALS: BP 118/66
[2020-10-18] MEDS: METHADONE HCL 10 MG TABLET PO SCH (16:25)
--- NOTE | 2020-10-18 18:00 | NUR ---
BORDER MACHINE OPERATOR NOTES PT STRONGLY REFUSED TO BE REPOSITIONED DESPITE EXPLANATION OF BENEFITS OF REPOSITIONING. WILL CONTINUE TO OFFER AND ENCOURAGE REPOSITIONING.
--- NOTE | 2020-10-18 18:31 | NUR ---
DIRECTORY CLERK NOTES PT IN BED RESTING COMFORTABLY, TOLERATING VENT/TRACH WELL, ON CONTINUOUS FEEDING. NO COMPLAINTS OF PAIN AT THIS TIME. PT STILL REFUSING TO BE REPOSITIONED. HAS F/C WITH YELLOW COLOR URINE. PT WILL BE NPO AFTER MIDNIGHT FOR HD CATHETER PLACEMENT TOMORROW. CALL LIGHT WITHIN REACH. WILL CONTINUE TO MONITOR.
--- NOTE | 2020-10-18 19:15 | NUR ---
RN OPENING NOTE PATIENT IN BED, AWAKE. PATIENT IS ABLE TO MAKE NEEDS KNOWN, PATIENT HAS A TRACH PRESENT AND [facility] WITH SETTINGS : AC 20, TV 600, FIO2 35, PEEP 5, TOLERATING WELL. PATIENT IS A/O X 3-4. GTUBE FEEDING ON NEPRO @ 50 ML/HR, WILL BE NPO AFTER MIDNIGHT FOR HD CATH PLACEMENT IN AM. PATIENT HAS A PADMINI MIDLINE AND RFA IV ACCESS, BOTH PATENT AND INTACT. TELE MONITOR READS ST 104. SAFETY MEASURES IN PLACE: BED LOCKED AND IN LOWEST POSITION, CALL LIGHT WITHIN REACH, SIDE RAILS UP. WILL MONITOR PATIENT CLOSELY.
[2020-10-18 20:00] VITALS: BP 123/70
[2020-10-19] VITALS: BP 129/76
--- NOTE | 2020-10-19 00:30 | NUR ---
RN NOTE PATIENT REFUSED WOUND CARE FOR VAUGHN LATERAL THIGH WOUNDS, ABD WOUNDS, AND VAUGHN LOWER EXTREMITY. PATIENT AGREED TO WOUND CARE FOR SACRAL WOUND AND INNER THIGH WOUNDS D/T DRESSING BEING SOILED BY STOOL. WILL TRY AGAIN AT A LATER TIME TO DO THE REST OF THE WOUND CARE.
[2020-10-19] MEDS: ZOSYN IVPB 2.25 G in IV D5W 50ml IV SCH ×3 (00:44→12:03)
[2020-10-19] MEDS: HYDROMORPHONE INJ 2 MG/ML DISP.SYRIN IV PRN ×5 (01:00→18:52)
--- NOTE | 2020-10-19 01:00 | NUR ---
RN NOTE DILAUDID GIVEN FOR GENERALIZED PAIN 12/04
[2020-10-19 04:00] VITALS: BP 115/69
--- NOTE | 2020-10-19 06:31 | NUR ---
RN CLOSING NOTE PATIENT IS ABLE TO MAKE NEEDS KNOWN, AWAKE AT THIS TIME. PATIENT COMPLAINING OF GENERALIZED PAIN 10/10, WILL GIVE MED FOR BREAKTHROUGH PAIN. PATIENT TOLERATING VENT SETTINGS. TELE MONITOR READS ST 110. WOUND CARE RENDERED PATIENT PERMITS, CONTINUES TO REFUSING TURNING AND REPOSITIONING EVERY 2 HRS. ALL MEDICATIONS GIVEN, ORDERS CARRIED OUT, AND ALL NEEDS MET AND ATTENDED. PATIENT IS NPO STATUS D/T HD CATH PLACEMENT TODAY. RUSTY MIDLINE AND LFA IV ACCESS REMAINED PATENT AND INTACT. SAFETY MEASURES MAINTAINED. WILL ENDORSE TO DAY SHIFT NURSE FOR JAMES.
[2020-10-19 06:47] LABS: BASOPHILS # (AUTO) 0.1 K/uL (0.0-0.2); BASOPHILS % (AUTO) 0.7 % (0.0-2.0); EOSINOPHILS % (AUTO) 20.8 % (0.0-6.0); HEMATOCRIT 24 % (39-51); HEMOGLOBIN 7.7 g/dL (13.5-17.5); LYMPHOCYTES # (AUTO) 1.8 K/uL (0.8-4.8); LYMPHOCYTES % (AUTO) 12.2 % (20.0-44.0); MEAN CORPUSCULAR HGB CONC 32 g/dl (31.0-36.0); MEAN CORPUSCULAR VOLUME 90 fL (80-96); MONOCYTES # (AUTO) 0.7 K/uL (0.1-1.30); MONOCYTES % (AUTO) 4.9 % (2.0-12.0); NEUTROPHILS # (AUTO) 9.1 K/uL (1.8-8.9); NEUTROPHILS % (AUTO) 61.4 % (43.0-81.0); PLATELET COUNT (AUTO) 368 K/uL (150-450); RED BLOOD CELL COUNT(AUTO) 2.62 MIL/uL (4.5-6.0); WHITE BLOOD COUNT (AUTO) 14.8 K/uL (4.3-11.0)
[2020-10-19 06:54] LABS: CALCIUM, SERUM 11.4 mg/dL (8.5-10.1); CREATININE 4.2 mg/dL (0.6-1.3); MAGNESIUM 2.5 mg/dL (1.8-2.4); PHOSPHORUS 5.7 mg/dL (2.5-4.9); POTASSIUM 3.6 mmol/L (3.5-5.1)
--- NOTE | 2020-10-19 07:09 | NUR ---
RN NOTE DILAUDID GIVEN FOR 10/10 GENERALIZED PAIN
[2020-10-19 07:27] LABS: EOSINOPHILS % (MANUAL) 16 % (0-4); LYMPHOCYTES % (MANUAL) 10 % (16-48); MONOCYTES % (MANUAL) 1 % (0-11.0); NEUTROPHILS % (MANUAL) 73 (42-76)
--- NOTE | 2020-10-19 07:30 | NUR ---
RN OPENING NOTES Pt is A/0 X4, on mechanical vent, no respiratory distress, no SOB. Enteral feeding ongoing, RUSTY/RFA Iv lines with clean dressing. Safety precautions implemented, bed locked in lowest position, call light within reach.
[2020-10-19 08:00] VITALS: BP 112/61
[2020-10-19] MEDS: DAKINS QUARTER STRENGTH (0.125%) 480 ML BOTTLE TOP SCH ×2 (09:00→09:14)
[2020-10-19] MEDS: RIVAROXABAN 10 MG TABLET PO SCH (09:00)
[2020-10-19] MEDS: SILVER SULFADIAZINE CREAM 25 GM TUBE MC SCH ×2 (09:00→09:14)
[2020-10-19] MEDS: THERAHONEY GEL 1.5 OZ TUBE TP SCH ×2 (09:00→09:15)
[2020-10-19] MEDS: PANTOPRAZOLE 40 MG/PACK PACK GT SCH ×2 (09:10→20:27)
[2020-10-19] MEDS: SERTRALINE HCL 50 MG TABLET GT SCH (09:10)
[2020-10-19] MEDS: ZINC SULFATE 220 MG CAPSULE GT SCH (09:10)
[2020-10-19] MEDS: LEVOTHYROXINE SODIUM 50 MCG TABLET PO SCH (09:12)
[2020-10-19] MEDS: METHADONE HCL 10 MG TABLET PO SCH ×2 (09:13→17:36)
--- NOTE | 2020-10-19 09:15 | NUR ---
Qamar held today, patient scheduled for procedure.
[2020-10-19 12:00] VITALS: BP 112/63
[2020-10-19] MEDS ORDERED: LIDOCAINE 1% INJ 50 ML MDV IJ ONE (14:26)
[2020-10-19] MEDS ORDERED: HEPARIN SODIUM, PORCINE 1,000 UNIT/ML VIAL ONE (14:27)
[2020-10-19] MEDS ORDERED: IOHEXOL 240MG/ML 0 ML IV ONE (14:27)
--- NOTE | 2020-10-19 15:40 | NUR ---
Rn Notes Patient came from from procedure at this time, s/p HD catheter placement with Dr. [place]. Sanjay Permacath on Right Upper Chest, site dry and intact. Patient awake and is able to communicate, no SOB. Will continue to monitor.
[2020-10-19 16:00] VITALS: BP 108/68
[2020-10-19] MEDS: NEPRO 1,000 ML BOTTLE GT SCH (17:34)
--- NOTE | 2020-10-19 18:48 | NUR ---
RN Closing Note Patient A/O x3, awake and able to communicate. Patient has no SOB, VS WNL. Patient complaining of pain gen pain 10/10, administered PRN Dilaudid as ordered. Patient still on Vent via Trach, tolerating current vent settings. S/P Permacath placement on Right Upper Chest (IJ), site dry clean and intact. XRAY done post procedure. Patient scheduled for HD tonight, okay to use permacath per MD. Patient still refusing wound care despite multiple offers. Risks and benefits explained to patient, respected patient's right to refuse. GTF restarted post procedure per MD's order. All needs met, turned and repositioned Q2H. All access sites, RUE midline and LFA patent and intact. Will endorse to incoming Nurse for continuity of care. Addendum: 10/19/20 at 1855 by DESTIN COUGHLIN RN Patient refused Wound debridement despite explanations of risks and benefits.
--- NOTE | 2020-10-19 19:42 | NUR ---
RN NOTE PATIENT IN BED, HEAD OF BED ELEVATED. ALERT AND ORIENTED X3. ON TRACH TO VENT TOLERATING SETTINGS WELL. NO SIGNS OF ACUTE DISTRESS. ORTIZ CATH DRAINING YELLOW URINE VIA GRAVITY. ON G-TUBE NEPRO @ 50ML/HR, 15ML RESIDUAL. IV ACCESS ON RUSTY MIDLINE AND LEFT FOREARM PATENT AND INTACT. RETRIEVED CONSENT FROM ISMAEL FOR HEMODIALYSIS, CHARGE NURSE RAFAELA WITNESSED. DIALYSIS NURSE AT BEDSIDE. BED LOCKED AND IN LOWEST POSITION. CALL LIGHT WITHIN REACH. ALL NEEDS ANTICIPATED.
[2020-10-19 20:00] VITALS: BP 102/52
[2020-10-19] MEDS ORDERED: VANCOMYCIN 1 GM in IV D5W 250 ML IV ONE (21:00)
--- NOTE | 2020-10-19 23:00 | NUR ---
DIALYSIS COMPLETED, 500 CC REMOVED.
--- NOTE | 2020-10-19 23:31 | NUR ---
ENDORSED TO LEE ALCARAZ FOR CONTINUATION OF CARE.
[2020-10-20] VITALS: BP 115/59
[2020-10-20] MEDS: EPOETIN ALFA-EPBX 4,000 UNIT/ML VIAL SQ SCH
[2020-10-20] MEDS ORDERED: VANCOMYCIN 1 GM VIAL ONE (00:12)
[2020-10-20] MEDS ORDERED: VANCOMYCIN 1 GM in IV D5W 250 ML IV ONE (00:30)
[2020-10-20] MEDS: HYDROMORPHONE INJ 2 MG/ML DISP.SYRIN IV PRN ×3 (01:11→14:27)
--- NOTE | 2020-10-20 01:11 | NUR ---
log skidder Notes Patient was given 2 mg of Dilaudid IV for 10/10 pain. Will continue to monitor the patient.
[2020-10-20 04:00] VITALS: BP 110/54
[2020-10-20] MEDS ORDERED: VANCOMYCIN 500 MG in IV D5W 100 ML IV PRN (05:00)
[2020-10-20 06:31] LABS: BASOPHILS # (AUTO) 0.1 K/uL (0.0-0.2); BASOPHILS % (AUTO) 0.4 % (0.0-2.0); EOSINOPHILS % (AUTO) 15.7 % (0.0-6.0); HEMATOCRIT 23 % (39-51); HEMOGLOBIN 7.5 g/dL (13.5-17.5); LYMPHOCYTES # (AUTO) 1.7 K/uL (0.8-4.8); LYMPHOCYTES % (AUTO) 11.8 % (20.0-44.0); MEAN CORPUSCULAR HGB CONC 33 g/dl (31.0-36.0); MEAN CORPUSCULAR VOLUME 89 fL (80-96); MONOCYTES # (AUTO) 0.8 K/uL (0.1-1.30); MONOCYTES % (AUTO) 5.7 % (2.0-12.0); NEUTROPHILS # (AUTO) 9.4 K/uL (1.8-8.9); NEUTROPHILS % (AUTO) 66.4 % (43.0-81.0); PLATELET COUNT (AUTO) 344 K/uL (150-450); RED BLOOD CELL COUNT(AUTO) 2.54 MIL/uL (4.5-6.0); WHITE BLOOD COUNT (AUTO) 14.1 K/uL (4.3-11.0)
[2020-10-20 06:48] LABS: CREATININE 2.6 mg/dL (0.6-1.3)
--- NOTE | 2020-10-20 07:30 | NUR ---
RN OPENING NOTES Pt is A/O X 3, awake verbal, mouth words, on mechanical ventilator tolerating settings, no respiratory distress, no SOB. Enteral feeding ongoing, IV site clean with no s/sx of infiltration. Safety precautions implemented, bed locked in lowest position, call light within reach.
[2020-10-20 08:00] VITALS: BP 107/68
[2020-10-20] MEDS: RIVAROXABAN 10 MG TABLET PO SCH (09:00)
[2020-10-20] MEDS: SERTRALINE HCL 50 MG TABLET GT SCH (09:41)
[2020-10-20] MEDS: PANTOPRAZOLE 40 MG/PACK PACK GT SCH (09:41)
[2020-10-20] MEDS: ZINC SULFATE 220 MG CAPSULE GT SCH (09:41)
[2020-10-20] MEDS: LEVOTHYROXINE SODIUM 50 MCG TABLET PO SCH (09:42)
[2020-10-20] MEDS: METHADONE HCL 10 MG TABLET PO SCH ×2 (09:46→16:38)
[2020-10-20] MEDS: SILVER SULFADIAZINE CREAM 25 GM TUBE MC SCH (09:47)
[2020-10-20] MEDS: DAKINS QUARTER STRENGTH (0.125%) 480 ML BOTTLE TOP SCH (09:47)
[2020-10-20] MEDS: THERAHONEY GEL 1.5 OZ TUBE TP SCH (09:48)
[2020-10-20 12:00] VITALS: BP 116/64
[2020-10-20 16:00] VITALS: BP 115/66
--- NOTE | 2020-10-20 18:24 | NUR ---
VEHICLE BODY SANDER NOTE Picked up by ambulance via joi, A/O X 4, on mechanical vent, no respiratory distress, no SOB, D/C back to [facility], sent with pertinent info, spoke with soledad gave report. Wound care rendered prior to departure however refused to have pictures taken-also refused excisional debridement by MD. Medicated with dilaudid PRN and scheduled meds. GT/F/C in place, Midline and LFA IV site in place-patent. Patient left in stable condition.
== END 2020-10-20 18:25 | DRG 466 ==
LOC: ER 13:19 → TELE1 19:46
PROVIDERS: ADMIT Student in an Organized Health Care Education/Training Program; ATTEND Internal Medicine
PROC: 5A1955Z Respiratory Ventilation, Greater than 96 Consecutive Hours (ICD-10-PCS; principal; 2020-10-15)
PROC: 05H933Z Insertion of Infusion Device into Right Brachial Vein, Percutaneous Approach (ICD-10-PCS; 2020-10-16)
PROC: 0JH63XZ Insertion of Tunneled Vascular Access Device into Chest Subcutaneous Tissue and Fascia, Percutaneous Approach (ICD-10-PCS; 2020-10-19)
PROC: 02HV33Z Insertion of Infusion Device into Superior Vena Cava, Percutaneous Approach (ICD-10-PCS; 2020-10-19)
PROC: B548ZZA Ultrasonography of Superior Vena Cava, Guidance (ICD-10-PCS; 2020-10-19)
PROC: 5A1D70Z Performance of Urinary Filtration, Intermittent, Less than 6 Hours Per Day (ICD-10-PCS; 2020-10-19)
DX: T82.42XA Displacement of vascular dialysis catheter, initial encounter (principal); N18.6 End stage renal disease; L89.154 Pressure ulcer of sacral region, stage 4; J96.10 Chronic respiratory failure, unspecified whether with hypoxia or hypercapnia; E46 Unspecified protein-calorie malnutrition; R53.2 Functional quadriplegia; N17.9 Acute kidney failure, unspecified; L89.314 Pressure ulcer of right buttock, stage 4; L89.324 Pressure ulcer of left buttock, stage 4; D68.59 Other primary thrombophilia; D63.1 Anemia in chronic kidney disease; E87.1 Hypo-osmolality and hyponatremia; L97.819 Non-pressure chronic ulcer of other part of right lower leg with unspecified severity; Z99.11 Dependence on respirator [ventilator] status; Y84.8 Other medical procedures as the cause of abnormal reaction of the patient, or of later complication, without mention of misadventure at the time of the procedure; Y92.129 Unspecified place in nursing home as the place of occurrence of the external cause; Z99.2 Dependence on renal dialysis; Z86.16 Personal history of COVID-19; D47.2 Monoclonal gammopathy; Z74.01 Bed confinement status; R13.10 Dysphagia, unspecified; Z93.0 Tracheostomy status; Z93.1 Gastrostomy status; Z20.822 Contact with and (suspected) exposure to COVID-19; K21.9 Gastro-esophageal reflux disease without esophagitis; D64.9 Anemia, unspecified; Z79.01 Long term (current) use of anticoagulants; Z79.899 Other long term (current) drug therapy; Z79.51 Long term (current) use of inhaled steroids; E87.6 Hypokalemia; E83.52 Hypercalcemia; E03.9 Hypothyroidism, unspecified; F11.20 Opioid dependence, uncomplicated; B96.89 Other specified bacterial agents as the cause of diseases classified elsewhere; M89.9 Disorder of bone, unspecified; L97.829 Non-pressure chronic ulcer of other part of left lower leg with unspecified severity; F32.9 Major depressive disorder, single episode, unspecified; Z74.09 Other reduced mobility; I73.9 Peripheral vascular disease, unspecified; G89.4 Chronic pain syndrome; E66.9 Obesity, unspecified; Z68.25 Body mass index [BMI] 25.0-25.9, adult; S31.109A Unspecified open wound of abdominal wall, unspecified quadrant without penetration into peritoneal cavity, initial encounter; X58.XXXA Exposure to other specified factors, initial encounter; Y92.9 Unspecified place or not applicable; D72.829 Elevated white blood cell count, unspecified; Y95 Nosocomial condition; Z87.39 Personal history of other diseases of the musculoskeletal system and connective tissue
CPT/HCPCS: 31720; 36415; 71045-TC; 80048-TC; 80053-TC; 80061-TC; 80076-TC; 80202-TC; 83605-TC; 83735-TC; 83970; 84100-TC; 84439-TC; 84443-TC; 84484-TC; 85025-TC; 85610-TC; 85730-TC; 86850-TC; 87040-TC; 87081-TC; 90935-TC; 94003-TC; 94760-TC; 94762-TC; 94799-TC; 99082-TC; A4217; A4623; A6253; A6403; C1750; C1757; C1769; C1894; C9803; G0378; J0885; J1170; J1580; J1644; J2543; J3370; J3480; J3490; J7030; J7050; J7060; Q9966; U0003